=== PATIENT | female | born 1970 | race Hispanic/Latino ===

== ENCOUNTER 2018-04-15 03:54 | Emergency (ER) | payer SELFPAY ==
--- OUTSIDE RECORDS SUMMARY | 2018-04-15 03:56 | XMS REPORT | Clinical Summary ---
:1970 Author Organization [facility] Address [address] [place] [address] Phone Care Team Providers Name Role Phone Unavailable Primary Care Provider Unavailable Allergies No Known Allergies Current Medications Prescription Sig. Disp. Refills Start Date End Date Status metFORMIN (GLUCOPHAGE) Take 1,000 mg Active 1000 MG by mouth 2 tabletIndications: type 2 (two) times diabetes mellitus daily with breakfast and dinner. lovastatin (MEVACOR) 20 Take 20 mg by Active MG tablet mouth nightly. lisinopril 20 MG Tab 20 Take 1 tablet Active mg, hydroCHLOROthiazide by mouth daily. 12.5 mg Cap 12.5 mg gabapentin (NEURONTIN) Take 300 mg by Active 300 MG capsule mouth 2 (two) times daily. apixaban (ELIQUIS) 5 mg Take 1 tablet 60 tablet 1 08/07/2017 Active Tab tablet (5 mg total) by mouth 2 (two) times daily. aspirin 81 MG EC tablet Take 1 tablet 30 tablet 11 08/07/2017 Active (81 mg total) 8 by mouth daily. acetaminophen-codeine Take 1-2 30 tablet 0 08/07/2017 (TYLENOL #3) 300-30 mg tablets by 7 per tablet mouth every 6 (six) hours as needed for Pain for up to 10 days. Max Daily Amount: 8 tablets Active Problems Problem Noted Date Postoperative pain 08/04/2017 Hypokalemia 08/04/2017 Hypomagnesemia 08/04/2017 Peripheral vascular disease (HCC) 07/28/2017 Encounters Date Type Specialty Care Team Description 08/04/2017 Anesthesia Event Robi Delgadillo AA 08/04/2017 Procedure Pass 08/04/2017 Surgery Reji Reza, ENDARTERECTOMY,DAVE LOPES 08/04/2017 Procedure Pass 07/29/2017 Procedure Pass 07/29/2017 Surgery Reji Reza, VENOGRAM 07/28/2017 Procedure Pass 07/28/2017 Surgery Reji Reza, CORONARY ANGIOS & MD AORTOGRAM 07/28/2017 Procedure Pass 07/27/2017 - Hospital Encounter Cardiology Jaspreet Arellano Peripheral vascular 08/07/2017 MD Benny disease Reji Reza, (HCC);Hypokalemia;Hy pomagnesemia;Postope rative pain 07/27/2017 Orders Only General Internal Medicine after 04/14/2017 Family History Medical History Relation Name Comments Diabetes Brother Amada Graham Hypertension Father Guisifredo Diabetes Mother Hypertension Mother Stroke Mother Relation Name Status Comments Brother Amada Graham Alive Father Guisifredo Alive Mother Social History Tobacco Use Types Packs/Day Years Used Date Former Smoker 0.5 30 Quit: 06/27/2017 Smokeless Tobacco: Former User Tobacco Cessation: Counseling Given: Yes Alcohol Use Drinks/Week oz/Week Comments No Sex Assigned at Date Recorded Not on file Last Filed Vital Signs Vital Sign Reading Time Taken Blood Pressure 100/54 08/07/2017 12:00 PM CDT Pulse 84 08/07/2017 12:00 PM CDT Temperature 36.4 C (97.5 F) 08/07/2017 12:00 PM CDT Respiratory Rate 20 08/07/2017 12:00 PM CDT Oxygen Saturation 100% 08/07/2017 12:00 PM CDT Inhaled Oxygen Concentration - - Weight 91.2 kg (201 lb) 08/06/2017 7:25 AM CDT Height 165.1 cm (5' 5") 07/27/2017 9:00 PM CDT Body Mass Index 33.45 08/06/2017 7:25 AM CDT Plan of Treatment Not on file Implants Implanted Type Area Varsity Baseball Coach Device Expiration Model / Identifier Date Serial / Lot Device Clsr Angio-Seal Vip 6fr [id number] - [id number] Cardiovascular [employer] FELIBERTO 05/26/2018 [id number] / Implanted: Qty: 1 on 07/29/2017 by Reji Reza MD MED:CARDIAC / SURG [id number] Stent Icast [id number] - [id number] Stents-Peripheral Right: [employer] 03/13/2019 [id number] / Implanted: Qty: 1 on 08/04/2017 by Reji Reza MD Groin [id number] / NA Stent Epic [id number] - Sna Stents-Peripheral Right: [employer] 03/2022 [id number] / Implanted: Qty: 1 on 08/04/2017 by Reji Reza MD Groin SCI:PERIPHERAL NA / INTERV [id number] Stent Epic [id number] - Sna Stents-Peripheral Right: [place] [id number] / Implanted: Qty: 1 on 08/04/2017 by Reji Reza MD Groin SCI:PERIPHERAL NA / INTERV [id number] Periph Vascu-Grd 0.8x8cm [id number] - [id number] Tissue Right: [employer] 12/23/2021 [id number] / Implanted: Qty: 1 on 08/04/2017 by Reji Reza MD Graft/Substitute Groin TECH:SURG [id number] / INNOV [id number] Procedures Procedure Name Priority Date/Time Associated Diagnosis Comments ENDARTERECTOMY,FEMORAL 08/04/2017 12:00 PM PAD (peripheral artery CDT disease) (HCC) Case Notes RIGHT COMMON FEMORAL ENDARTERECTOMY, ILIAC STENTING VENOGRAM 07/29/2017 5:50 PM CDT [id number] Case Notes RIGHT LOWER EXTREMITY EKOSE CATHETER PLACEEMNT CECILIA CALLED . 2nd day LYSIS /ADDED PER MISTI FOR *10-3 Special Needs MOY/JOHAN [phone] CORONARY ANGIOS & AORTOGRAM 07/28/2017 6:04 PM CDT cp after 04/14/2017 Results RHYTHM STRIP - SCAN (08/20/2017 10:52 AM)Only the most recent of4 resultswithin the time period is included.POC-Glucose meter (08/07/2017 11:58 AM)Only the most recent of36 resultswithin the time period is included. Component Value Ref Range POC-Glucose Meter 269 (H)Comment: TESTED AT [address] 70 - 110 mg/[place] [address] Specimen Performing Laboratory Blood [facility] [address] [place] [address] CBC with platelet count + automated diff (08/07/2017 4:42 AM)Only the most recent of6 resultswithin the time period is included. Component Value Ref Range WBC 10.8 (H) 3.5 - 10.5 K/L RBC 4.36 3.93 - 5.22 M/L Hemoglobin 13.1 11.2 - 15.7 GM/DL Hematocrit 41.8 34.1 - 44.9 % MCV 95.9 (H) 79.4 - 94.8 fL MCH 30.0 25.6 - 32.2 pg MCHC 31.3 (L) 32.2 - 35.5 GM/DL RDW 13.5 11.7 - 14.4 % Platelets 218 150 - 450 K/CU MM MPV 10.1 9.4 - 12.3 fL nRBC 0 0 - 0 /100 WBC % Neutros 52 % % Lymphs 34 % % Monos 8 % % Eos 5 % % Baso 1 % # Neutros 5.61 1.56 - 6.13 K/L # Lymphs 3.66 1.18 - 3.74 K/L # Monos 0.82 (H) 0.24 - 0.36 K/L # Eos 0.56 (H) 0.04 - 0.36 K/L # Baso 0.07 0.01 - 0.08 K/L Immature Granulocytes-Relative 0 0 - 1 % Specimen Performing Laboratory Blood [facility] [address] [address] CBC with platelet count + automated diff (08/07/2017 4:42 AM)Only the most recent of6 resultswithin the time period is included. Specimen Performing Laboratory Blood Narrative The following orders were created for panel order CBC with platelet count + automated diff. Procedure Abnormality Status --------- ------ CBC with platelet count ...[[id number]]AbnormalFinal result Please view results for these tests on the individual orders. Basic metabolic panel (08/07/2017 4:42 AM)Only the most recent of5 resultswithin the time period is included. Component Value Ref Range Sodium 136 136 - 145 meq/L Potassium 4.5Comment: Specimen moderately hemolyzed 3.5 - 5.1 meq/L Chloride 107 98 - 107 meq/L CO2 20 (L) 22 - 29 meq/L BUN 12 7 - 21 mg/dL Creatinine 0.67Comment: Specimen moderately hemolyzed 0.57 - 1.25 mg/dL Glucose 214 (H) 70 - 105 mg/dL Calcium 10.3 (H) 8.4 - 10.2 mg/dL EGFR Comment: INSUFFICIENT CLINICAL DATA TO CALCULATE mL/min/1.73 sq m ESTIMATED GFR. Specimen Performing Laboratory Blood [address] [address] TRANSFUSION SERVICE REPORT - SCAN (08/06/2017 5:40 PM)Only the most recent of2 resultswithin the time period is included.Calcium, Ionized (08/05/2017 4:41 AM) Component Value Ref Range Calcium, Ion 1.30 (H) 1.12 - 1.27 mmol/L pH, Blood 7.43 Specimen Performing Laboratory Blood [address] [address] Magnesium (08/05/2017 4:41 AM)Only the most recent of3 resultswithin the time period is included. Component Value Ref Range Magnesium 2.3 1.6 - 2.6 mg/dL Specimen Performing Laboratory Blood [address] [address] Lactic acid, arterial, whole blood (08/04/2017 6:16 PM) Component Value Ref Range Lactate, Art 1.0Comment: Specimen slightly hemolyzed 0.5 - 2.2 mmol/L Specimen Performing Laboratory Blood, Arterial - Line, Arterial [address] [address] Narrative Effective 02/28/2016: Units/Reference Range Change New: 0.5-2.2 mmol/LPrevious: 5-20 mg/dL Phosphorus (08/04/2017 6:16 PM)Only the most recent of2 resultswithin the time period is included. Component Value Ref Range Phosphorus 2.7 2.3 - 4.7 mg/dL Specimen Performing Laboratory Blood - Line, Arterial [address] [address] Blood gas, arterial (08/04/2017 6:16 PM)Only the most recent of3 resultswithin the time period is included. Component Value Ref Range pH, Arterial 7.37 7.35 - 7.45 pCO2, Arterial 42 35 - 45 mmHg pO2, Arterial 154 (H) 80 - 90 mmHg O2 Sat, Arterial 98.9 (H) 96.0 - 97.0 % HCO3, Arterial 24 21 - 29 mmol/L Base Excess, Arterial -1.4 -2.0 - 3.0 mmol/L Patient Temperature 37.0 C FIO2 100.0 % Specimen Performing Laboratory Blood, Arterial - Line, Arterial [address] [address] Filter Ionized Calcium (08/04/2017 6:16 PM) Component Value Ref Range Filter Ionized Calcium 1.24 nnol/L Specimen Performing Laboratory Blood - Line, Arterial [address] [address] Narrative Reference Range: No Normals Prepare Leuko-Red RBC (08/04/2017 4:35 PM) Component Value Ref Range CROSSMATCH COMPATIBLE Unit ABO O Pos UNIT NUMBER [id number] Status WORK IN PROGRESS Blood Bank Product RED BLOOD CELLS PRODUCT CODE [id number] CROSSMATCH COMPATIBLE Unit ABO O Pos UNIT NUMBER [id number] Status WORK IN PROGRESS Blood Bank Product RED BLOOD CELLS PRODUCT CODE [id number] Specimen Performing Laboratory Other SAFETRACE TX POC ACTIVATED CLOTTING TIME (08/04/2017 3:55 PM)Only the most recent of3 resultswithin the time period is included. Component Value Ref Range Activated Clotting Time 252Comment: TESTED AT [address] sec [address] Specimen Performing Laboratory Blood [address] [address] RRL Critical Labs (ABG,NA,K,H&H,GLU) (08/04/2017 3:49 PM)Only the most recent of2 resultswithin the time period is included. Specimen Performing Laboratory Blood, Arterial Narrative The following orders were created for panel order RRL Critical Labs (ABG,NA,K,H&H,GLU). Procedure Abnormality Status --------- ------ Blood gas, arterial[[id number]]AbnormalFinal result Sodium Na-Stat Lab[[id number]] NormalFinal result Potassium-Stat Lab[[id number]] AbnormalFinal result Glucose-Stat Lab[[id number]] AbnormalFinal result HGB/HCT (H&H)-Stat Lab[[id number]] Normal Final result Please view results for these tests on the individual orders. Potassium-Stat Lab (08/04/2017 3:49 PM)Only the most recent of2 resultswithin the time period is included. Component Value Ref Range Potassium 3.3 (L) 3.6 - 5.5 meq/L Specimen Performing Laboratory Blood, [address] [address] Sodium Na-Stat Lab (08/04/2017 3:49 PM)Only the most recent of2 resultswithin the time period is included. Component Value Ref Range Sodium 138 135 - 148 meq/L Specimen Performing Laboratory Blood, [address] [address] Glucose-Stat Lab (08/04/2017 3:49 PM)Only the most recent of2 resultswithin the time period is included. Component Value Ref Range Glucose 198 (H) 70 - 110 mg/dL Specimen Performing Laboratory Blood, [address] [address] HGB/HCT (H&H)-Stat Lab (08/04/2017 3:49 PM)Only the most recent of2 resultswithin the time period is included. Component Value Ref Range Hemoglobin 13.3 12.0 - 15.0 g/dL Hematocrit 39.0 36.0 - 45.0 % Specimen Performing Laboratory Blood, [address] [address] Tissue Exam (08/04/2017 3:12 PM) Component Value Ref Range Case Report Surgical Pathology Report Case: [id number] Authorizing Provider:Reji Reza MD Collected: 08/04/2017 1512 Ordering Location: [facility] Received: 08/05/2017 0744 PERIOPERATIVE SERVICES Pathologist: David Hatch MD Specimen:Plaque, right femoral plaque DIAGNOSIS ARTERY, RIGHT FEMORAL, ATHERECTOMY: CALCIFIC ATHEROSCLEROTIC PLAQUE WITH FOCAL RUPTURE AND FIBRIN THROMBOSIS Signing Pathologist Direct Phone Line: [phone] CPT Code(s) 44083; 95561 CLINICAL HISTORY Peripheral artery disease right femoral plaque SPECIMEN SOURCE A. Right femoral plaque GROSS DESCRIPTION The specimen is received in saline labeled with the patient's information and labeled "right femoral plaque" and consists of two calcified tubular-shaped segment of tissue measuring 2 and 3 cm in length ranging in diameter from 0.5 to 0.6 cm. Assistant Drafter sections are submitted A1 for decalcification. CG/pl MICROSCOPIC DESCRIPTION Performed Specimen Performing Laboratory Tissue - Plaque [address] [address] Screen, urine (08/04/2017 9:39 AM) Component Value Ref Range Preg Test, Ur Negative Specimen Performing Laboratory Urine - Urine, Voided [address] [address] aPTT (08/04/2017 7:33 AM)Only the most recent of20 resultswithin the time period is included. Component Value Ref Range PTT 86.0 (H) 22.5 - 36.0 seconds Specimen Performing Laboratory Blood [address] [address] CBC (Hemogram only) (08/04/2017 4:58 AM)Only the most recent of6 resultswithin the time period is included. Component Value Ref Range WBC 9.3 3.5 - 10.5 K/L RBC 4.17 3.93 - 5.22 M/L Hemoglobin 12.5 11.2 - 15.7 GM/DL Hematocrit 37.4 34.1 - 44.9 % MCV 89.7 79.4 - 94.8 fL MCH 30.0 25.6 - 32.2 pg MCHC 33.4 32.2 - 35.5 GM/DL RDW 13.3 11.7 - 14.4 % Platelets 256 150 - 450 K/CU MM MPV 10.3 9.4 - 12.3 fL nRBC 0 0 - 0 /100 WBC Specimen Performing Laboratory Blood [address] [address] Type and screen, automated (08/03/2017 5:29 AM) Component Value Ref Range ABO/RH AUTOMATED (BEAKER) O POSITIVE Ab Scrn NEGATIVE Specimen Performing Laboratory Blood [address] [address] PT/aPTT (07/31/2017 4:07 AM)Only the most recent of4 resultswithin the time period is included. Component Value Ref Range Protime 13.5 11.7 - 14.7 seconds INR 1.0 <=5.9 PTT 84.1 (H) 22.5 - 36.0 seconds Specimen Performing Laboratory Blood - Arm, Right [facility] [address] [place] [address] Narrative RECOMMENDED COUMADIN/WARFARIN INR THERAPY RANGES STANDARD DOSE: 2.0 - 3.0 Includes: PROPHYLAXIS for venous thrombosis, systemic embolization; TREATMENT for venous thrombosis and/or pulmonary embolus. HIGH RISK: Target INR is 2.5-3.5 for patients with mechanical heart valves. . . CARDIAC CATH REPORT - SCAN (07/31/2017 1:00 AM)Only the most recent of2 resultswithin the time period is included.NM myocardial perfusion SPECT,pharm( Lexiscan) (07/30/2017 12:14 PM) Specimen Performing Laboratory [facility] Narrative FINAL REPORT PROCEDURE:Rest/Stress MYOCARDIAL PERFUSION SPECT with regadenoson\\XA9\\ CPT CODE:91131 INDICATION:Intermediate CAD Risk HISTORY:Cardiac risk factors: Diabetes, Hypertension, Dyslipidemia, Tobacco, PVD. Other cardiovascular history: No reported CAD. Current cardiovascular-related medications: aspirin, Lipitor, lisinopril. PROTOCOL:10.5 mCi of Tc-99m sestamibi was injected iv at rest, and SPECT (tomographic) images were obtained. Also, 32.5 mCi of Tc-99m sestamibi was injected iv at expected peak pharmacologic effect, and gated SPECT images were obtained. PRELIMINARY STRESS TEST DATA FROM NONINVASIVE CARDIOLOGY: Pharmacologic stress was by 10-second iv infusion of 0.4 mg of regadenoson. Radiotracer was injected 30 seconds after start of stress. Heart rate was 70 beats/min at rest and 99 beats/min (57 % of MPHR) at tracer injection. BP was 157/81 mmHg at rest and 170/75 mmHg at tracer injection. Stress was stopped for predetermined endpoint. The patient experienced flushing; treatment was not required. Preliminary ECG evaluation revealed sinus rhythm at rest and no ischemic changes with stress. (Final ECG interpretation and other stress and monitoring data are reported separately by Cardiology.) IMAGING FINDINGS:Study quality is good. Images obtained after rest and stress injections show normal LV activity. LV and RV volumes appear normal. Gated images obtained at rest after stress show normal LV wall motion and thickening. QGS LVEF is 66%. IMPRESSION: 1. Normal study.2. Appropriate pharmacologic stress. 3. Normal myocardial perfusion.4. Normal resting LV function.5. Normal extracardiac tracer distribution.6. No previous [facility] study for comparison. NONINVASIVE RISK STRATIFICATION: The above findings are considered low risk (<1% annual mortality rate) based on the following criterion: - Normal or small myocardial perfusion defect at rest or with stress ([facility]. 2012;59(9):857-81.) Signed: Hector Dixon MD Report Verified Date/Time:07/30/2017 13:46:52 Reading Location: [address] Reading Room Procedure Note Interface, External Ris In - 07/30/2017 1:49 PM CDT FINAL REPORT PROCEDURE: Rest/Stress MYOCARDIAL PERFUSION SPECT with regadenoson\\XA9\\ CPT CODE: 22261 INDICATION: Intermediate CAD Risk HISTORY: Cardiac risk factors: Diabetes, Hypertension, Dyslipidemia, Tobacco, PVD. Other cardiovascular history: No reported CAD. Current cardiovascular-related medications: aspirin, Lipitor, lisinopril. PROTOCOL: 10.5 mCi of Tc-99m sestamibi was injected iv at rest, and SPECT (tomographic) images were obtained. Also, 32.5 mCi of Tc-99m sestamibi was injected iv at expected peak pharmacologic effect, and gated SPECT images were obtained. PRELIMINARY STRESS TEST DATA FROM NONINVASIVE CARDIOLOGY: Pharmacologic stress was by 10-second iv infusion of 0.4 mg of regadenoson. Radiotracer was injected 30 seconds after start of stress. Heart rate was 70 beats/min at rest and 99 beats/min (57 % of MPHR) at tracer injection. BP was 157/81 mmHg at rest and 170/75 mmHg at tracer injection. Stress was stopped for predetermined endpoint. The patient experienced flushing; treatment was not required. Preliminary ECG evaluation revealed sinus rhythm at rest and no ischemic changes with stress. (Final ECG interpretation and other stress and monitoring data are reported separately by Cardiology.) IMAGING FINDINGS: Study quality is good. Images obtained after rest and stress injections show normal LV activity. LV and RV volumes appear normal. Gated images obtained at rest after stress show normal LV wall motion and thickening. QGS LVEF is 66%. IMPRESSION: 1. Normal study. 2. Appropriate pharmacologic stress. 3. Normal myocardial perfusion. 4. Normal resting LV function. 5. Normal extracardiac tracer distribution. 6. No previous [facility] study for comparison. NONINVASIVE RISK STRATIFICATION: The above findings are considered low risk (<1% annual mortality rate) based on the following criterion: - Normal or small myocardial perfusion defect at rest or with stress ([facility]. 2012;59(9):857-81.) Signed: Hector Dixon MD Report Verified Date/Time: 07/30/2017 13:46:52 Reading Location: [address] Reading Room Treadmill tolerance(Non-Nuclear Treadmill) (07/30/2017 10:34 AM) Specimen Performing Laboratory [facility] Narrative Protocol Name Lexiscan Time In Exercise Phase 00:01:00 Max. Systolic BP 170 mmHg Max Diastolic BP 75 mmHg Max Heart Rate 99 BPM Max Predicted Heart Rate 172 BPM Reason For Termination Predetermined end point Reason for Test CAD Risk Evaluation Target HR Formula (220 - Age)*100% Arrhythmias none Resting ECG Normal sinus rhythm EarlyRepolarization Abnormality ST Changes No Significant Changes Overall Impression Indeterminate due to pharmacological stress Chest Pain none HR Response To Exercise BP Response To Exercise ASA LIPITOR LISINOPRIL MICROZIDE Confirmed by fellow Louie Roth ([id number]) on 07/30/2017 10:55:38 AM Confirmed by MD RAWLS JORGE ([id number]) on 08/21/2017 3:07:24 PM Procedure Note Interface, External Ris In - 08/21/2017 3:07 PM CDT Protocol Name Lexiscan Time In Exercise Phase 00:01:00 Max. Systolic BP 170 mmHg Max Diastolic BP 75 mmHg Max Heart Rate 99 BPM Max Predicted Heart Rate 172 BPM Reason For Termination Predetermined end point Reason for Test CAD Risk Evaluation Target HR Formula (220 - Age)*100% Arrhythmias none Resting ECG Normal sinus rhythm Early Repolarization Abnormality ST Changes No Significant Changes Overall Impression Indeterminate due to pharmacological stress Chest Pain none HR Response To Exercise BP Response To Exercise ASA LIPITOR LISINOPRIL MICROZIDE Confirmed by fellow Louie Roth ([id number]) on 07/30/2017 10:55:38 AM Confirmed by MD RAWLS JORGE ([id number]) on 08/21/2017 3:07:24 PM TSH/Free T4 If Indicated (07/30/2017 5:18 AM) Component Value Ref Range TSH 2.22 0.35 - 4.94 uIU/mL Specimen Performing Laboratory Blood - Arm, [address] [address] Hemoglobin A1c (07/30/2017 5:18 AM) Component Value Ref Range Hemoglobin A1C 10.3 (H) 4.3 - 6.1 % Specimen Performing Laboratory Blood - Arm, [address] [address] Hepatic function panel (07/30/2017 5:18 AM) Component Value Ref Range Protein, Total 6.3 6.0 - 8.3 gm/dL Albumin 3.6 3.5 - 5.0 g/dL Total Bilirubin 0.3 0.2 - 1.2 mg/dL Bilirubin, Direct 0.1 0.1 - 0.5 mg/dL Alkaline Phosphatase 84 40 - 150 U/L AST 27 5 - 34 U/L ALT 41 6 - 55 U/L Specimen Performing Laboratory Blood - Arm, [address] [address] Lipid panel (07/30/2017 5:18 AM) Component Value Ref Range Triglycerides 181 mg/dL Cholesterol 175 mg/dL HDL 32 mg/dL LDL Calculated 107 mg/dL Specimen Performing Laboratory Blood - Arm, [address] [address] Narrative Triglyceride Reference Range: Low Risk <150 [id number] High Risk 200-499 Very High Risk>=500 Cholesterol Reference Range: Low Risk <200 [id number] High Risk>240 HDL Cholesterol Reference Range: Low Risk >=60 High Risk <40 LDL Cholesterol Reference Range: Optimal<100 Near Itqxrpg802-101 Dgphmfgiht549-796 [id number] Very High >=190 Fibrinogen (07/29/2017 12:24 PM)Only the most recent of5 resultswithin the time period is included. Component Value Ref Range Fibrinogen 430 225 - 434 mg/dl Specimen Performing Laboratory Blood - Arm, Right [address] [address] Narrative Continue for duration of infusion. Hemoglobin and hematocrit (07/29/2017 6:12 AM) Component Value Ref Range Hemoglobin 13.0 11.2 - 15.7 GM/DL Hematocrit 39.5 34.1 - 44.9 % Specimen Performing Laboratory Blood - Arm, Right [address] [address] Troponin I (07/29/2017 12:09 AM)Only the most recent of3 resultswithin the time period is included. Component Value Ref Range Troponin I <0.01 0.00 - 0.03 ng/mL Specimen Performing Laboratory Blood - Arm, [place] [address] Narrative Troponin I (TnI) levels must be interpreted in the context of the presenting symptoms and the clinical findings. Elevated TnI levels indicate myocardial damage, but are not specific for ischemic heart disease. Elevated TnI levels are seen in patients with other cardiac conditions (including myocarditis and congestive heart failure), and slight TnI elevations occur in patients with other conditions, including sepsis, renal failure, acidosis, acute neurological disease, and persistent tachyarrhythmia. Creatine Kinase (CK), Total and MB (07/28/2017 10:49 AM) Component Value Ref Range Total CK 30 29 - 200 U/L CK-MB 0.5 0.0 - 6.6 ng/mL MB Relative Index 1.7 % Specimen Performing Laboratory Blood - Arm, [address] [address] Narrative CK-MB Reference Range: <6.7Normal 6.7-10.0Borderline >10.0 Abnormal ECG 12 lead (07/28/2017 9:13 AM)Only the most recent of2 resultswithin the time period is included. Specimen Performing Laboratory [facility] Narrative Ventricular Rate 72 BPM Atrial Rate 72 BPM P-R Interval 124 ms QRS Duration 86 ms Q-T Interval 372 ms QTC Calculation(Bazett) 407 ms P [place] 29 degrees R [place] 43 degrees T [place] 55 degrees Normal sinus rhythm Early repolarization Normal ECG When compared with ECG of 27-JUL-2017 21:14, No significant change was found Confirmed by MD MESSER YOCHAI ([id number]) on 07/29/2017 7:19:15 AM Procedure Note Interface, External Ris In - 07/29/2017 7:19 AM CDT Ventricular Rate 72 BPM Atrial Rate 72 BPM P-R Interval 124 ms QRS Duration 86 ms Q-T Interval 372 ms QTC Calculation(Bazett) 407 ms P [place] 29 degrees R [place] 43 degrees T [place] 55 degrees Normal sinus rhythm Early repolarization Normal ECG When compared with ECG of 27-JUL-2017 21:14, No significant change was found Confirmed by MD MESSER YOCHAI ([id number]) on 07/29/2017 7:19:15 AM CTA AAA and Runoff (07/28/2017 7:00 AM) Specimen Performing Laboratory [facility] Narrative Addendum Begins REPORT STATUS:A Addendum: The non vascular findings were reviewed by the design sales consultant radiologist. I agree with the original report which is unchanged. Signed: Zhen Ramirez MD Report Verified Date/Time:07/28/2017 12:15:20 Addendum Ends Addendum Begins REPORT STATUS:A Addendum: Imaging findings were reviewed with Dr. Reza.In addition, this also arthroscopic ulceration identified just posterior to the left renal artery, at image 55. A subcentimeter hypodensity is identified in the inferior pole of the left kidney, image 114, too small to characterize, measure at most 8 mm. Signed: Donato Franklin MD Report Verified Date/Time:07/28/2017 10:11:14 Reading Location: [place] [address] Cardiology MRI Addendum Ends FINAL REPORT CT angiography of the abdominal aorta with runoff, 27 July 2017 INDICATION: This is a 47 years old female, with clinical presentation of right lower extremity pain at rest, with dusky appearance, and no obvious palpable pulse presents for assessment. This study is performed in attempt to avoid invasive procedure. TECHNIQUE: Spiral acquisition before and during contrast administration using a Siemens multidetector CT scanner. Multiplanar 3-D volume rendering reformation was performed using independent workstation interactively by the dictating physician and the 3-D specialist. The amount of contrast used and method of administration can be found in the scanned Epic document. This exam was performed according to our departmental dose-optimisation programme, which includes automated exposure control, adjustment of the mA and/or kV according to patient size and/or use of iterative reconstruction technique. Dose modulation, iterative reconstruction, and/or weight based adjustment of the mA/kV was utilized to reduce the radiation dose to as low as reasonably achievable. FINDINGS: The abdominal aorta has circumferential noncalcific atherosclerosis identified, circumferentially, moderate in nature with scattered calcific atherosclerosis identified. No acute dissection or contained rupture is seen. No luminal obstruction is identified along the abdominal aorta. Quantitative dimensions of the abdominal aorta are as follows: 2.2 cm at the mesenteric level; 2.2 cm at the renal level; and 1.6 cm at the aortic bifurcation. The coeliac axis, SMA, JANEEN are widely patent. Replaced right hepatic artery is seen, common variant. Single left and right renal arteries are seen that are widely patent. Single left and two right renal veins are seen draining normally into the IVC. In the right, while the origin of the right common iliac artery is patent, majority of the right common iliac artery is not enhanced by contrast indicating occlusion. Acuity of this finding cannot be commented upon. The length of the occlusion is estimated to be 5.7 cm and the diameter of the takeoff of the right common iliac arteries approximately 10 x 10 mm. See snapshot for details. The right internal iliac artery is patent. The right external iliac artery and the right common femoral artery has substantial noncalcific atherosclerosis throughout its course and overall, there is mild to moderate lesion identified. Minimum luminal diameter is approximately 3 to 4 mm. In addition, the amount of atherosclerosis is increased just before the takeoff of the SFA, with patent lumen of at most 2 mm in the very distal right common femoral artery image 246. This could potentially represent at least a moderate focal lesion. The right profunda system is patent. The proximal 14 cm of the right SFA has diffuse noncalcific atherosclerosis identified, where the minimum luminal diameter is at most 2 mm. Distal to this, i.e. in the distal half of the right SFA, for length of 11 cm, severe diffuse disease is identified. A focal severe stenosis identified at the juncture of the distal right SFA/right popliteal artery, at image 402. Thereafter, the right popliteal artery is readily well enhanced by contrast with mild to moderate disease identified, with associated noncalcific atherosclerosis. In the right lower extremity, the right tibioperoneal trunk is widely patent. The right anterior tibial artery is widely patent and dorsalis pedis artery is well seen. The right posterior tibial artery is widely patent and plantar arch is well seen. The right peroneal artery is a smaller caliber vessel though is still well seen down to level of the ankle. The left common iliac, left external iliac, and the left common femoral arteries has circumferential noncalcific atherosclerosis identified. There is likely localised atherosclerotic ulceration identified image 127, representing a spectrum of underlying atherosclerosis. Overall, no luminal obstruction is identified. The left profunda system is widely patent. However, there is severe diffuse disease subtotal occlusion identified essentially throughout the majority of the left SFA. Substantial atherosclerosis also seen in the proximal few centimeters of the left posterior tibial artery with minimum luminal diameter of 1.5 to 2 mm; thereafter, just above the left knee joint remainder of the left of the artery has no obstructive lesion identified. In the left lower extremity, the left anterior and posterior tibial arteries are widely patent giving rise to the dorsalis pedis and plantar arches distally. The left tibioperoneal trunk is widely patent. The left peroneal artery is patent. NONVASCULAR: The lung bases are unremarkable. Some atelectatic changes are seen. In the abdomen, the liver and spleen appears unremarkable. The liver edge is smooth. No abnormal enhancing structure is identified. Precontrast Hounsfield unit of the liver is less than 40 indicating fatty infiltration. The gallbladder, the adrenal glands, the pancreas appears unremarkable. Pancreas appears unremarkable. No acute renal pathology is seen and no hydronephrosis or perirenal fluid collection is identified. Bowel is not well assessed by CT angiography as enteric contrast is not given. No obvious bowel dilation is identified. No free air or free fluid seen in the abdomen and pelvis. The bladder appears unremarkable. The uterus is identified. The left ovary is identified image 197, measure approximately 1.7 cm in diameter, likely physiologic in nature. CT is not optimised in the assessment of pelvic gynaecological structures. No significant retroperitoneal adenopathy is identified. No acute bony pathology is seen. Tiny sclerotic focus is identified at image 202 in the right pelvis, suggesting tiny bone island. CONCLUSIONS: 1.Circumferential noncalcific atherosclerosis with no luminal obstruction is identified in the abdominal aorta. Quantitative dimensions of the abdominal aorta are as described above. No acute aortic pathology is seen. 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 Moderate atherosclerosis is identified in the right external iliac artery and the right common femoral artery. Of note, in the most distal right common femoral artery, for example image 246, substantial noncalcific atherosclerosis is seen and minimum luminal diameter is 2 mm suggesting at least a moderate significant focal lesion. The proximal 14 cm of the right SFA has diffuse noncalcific atherosclerosis identified with minimal luminal diameter of 2 mm, distal to this, the remainder of the 11 cm of the right SFA has severe diffuse disease identified and at the juncture of the right SFA/right popliteal artery a severe focal stenosis is seen. The right popliteal artery is patent with mild to moderate atherosclerosis identified with no focal disease identified. Details of runoff vessels as described above. 3.Atherosclerosis identified in the left pelvic arteries with no luminal obstruction identified. 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 Substantial atherosclerosis also seen in the proximal few centimeters of the left posterior tibial artery with minimum luminal diameter of 1.5 to 2 mm; thereafter, just above the left knee joint remainder of the left of the artery has no obstructive lesion identified. Details of runoff vessels as described above in the left lower extremity. 3.Other findings as described above. Hepatic steatosis. 4.An addendum will be dictated by the Scientific Diver Radiologist regarding the nonvascular findings. 5.Major findings were discussed with Dr. Arellano at the time of dictation. Signed: Donato Franklin MD Report Verified Date/Time:07/28/2017 08:43:55 Reading Location: [place] [address] Cardiology MRI Procedure Note Interface, External Ris In - 07/28/2017 12:17 PM CDT Addendum Begins REPORT STATUS:A Addendum: The non vascular findings were reviewed by the design sales consultant radiologist. I agree with the original report which is unchanged. Signed: Zhen Ramirez MD Report Verified Date/Time: 07/28/2017 12:15:20 Addendum Ends Addendum Begins REPORT STATUS:A Addendum: Imaging findings were reviewed with Dr. Reza. In addition, this also arthroscopic ulceration identified just posterior to the left renal artery, at image 55. A subcentimeter hypodensity is identified in the inferior pole of the left kidney, image 114, too small to characterize, measure at most 8 mm. Signed: Donato Franklin MD Report Verified Date/Time: 07/28/2017 10:11:14 Reading Location: [place] [address] Cardiology MRI Addendum Ends FINAL REPORT CT angiography of the abdominal aorta with runoff, 27 July 2017 INDICATION: This is a 47 years old female, with clinical presentation of right lower extremity pain at rest, with dusky appearance, and no obvious palpable pulse presents for assessment. This study is performed in attempt to avoid invasive procedure. TECHNIQUE: Spiral acquisition before and during contrast administration using a Siemens multidetector CT scanner. Multiplanar 3-D volume rendering reformation was performed using independent workstation interactively by the dictating physician and the 3-D specialist. The amount of contrast used and method of administration can be found in the scanned Epic document. This exam was performed according to our departmental dose-optimisation programme, which includes automated exposure control, adjustment of the mA and/or kV according to patient size and/or use of iterative reconstruction technique. Dose modulation, iterative reconstruction, and/or weight based adjustment of the mA/kV was utilized to reduce the radiation dose to as low as reasonably achievable. FINDINGS: The abdominal aorta has circumferential noncalcific atherosclerosis identified, circumferentially, moderate in nature with scattered calcific atherosclerosis identified. No acute dissection or contained rupture is seen. No luminal obstruction is identified along the abdominal aorta. Quantitative dimensions of the abdominal aorta are as follows: 2.2 cm at the mesenteric level; 2.2 cm at the renal level; and 1.6 cm at the aortic bifurcation. The coeliac axis, SMA, JANEEN are widely patent. Replaced right hepatic artery is seen, common variant. Single left and right renal arteries are seen that are widely patent. Single left and two right renal veins are seen draining normally into the IVC. In the right, while the origin of the right common iliac artery is patent, majority of the right common iliac artery is not enhanced by contrast indicating occlusion. Acuity of this finding cannot be commented upon. The length of the occlusion is estimated to be 5.7 cm and the diameter of the takeoff of the right common iliac arteries approximately 10 x 10 mm. See snapshot for details. The right internal iliac artery is patent. The right external iliac artery and the right common femoral artery has substantial noncalcific atherosclerosis throughout its course and overall, there is mild to moderate lesion identified. Minimum luminal diameter is approximately 3 to 4 mm. In addition, the amount of atherosclerosis is increased just before the takeoff of the SFA, with patent lumen of at most 2 mm in the very distal right common femoral artery image 246. This could potentially represent at least a moderate focal lesion. The right profunda system is patent. The proximal 14 cm of the right SFA has diffuse noncalcific atherosclerosis identified, where the minimum luminal diameter is at most 2 mm. Distal to this, i.e. in the distal half of the right SFA, for length of 11 cm, severe diffuse disease is identified. A focal severe stenosis identified at the juncture of the distal right SFA/right popliteal artery, at image 402. Thereafter, the right popliteal artery is readily well enhanced by contrast with mild to moderate disease identified, with associated noncalcific atherosclerosis. In the right lower extremity, the right tibioperoneal trunk is widely patent. The right anterior tibial artery is widely patent and dorsalis pedis artery is well seen. The right posterior tibial artery is widely patent and plantar arch is well seen. The right peroneal artery is a smaller caliber vessel though is still well seen down to level of the ankle. The left common iliac, left external iliac, and the left common femoral arteries has circumferential noncalcific atherosclerosis identified. There is likely localised atherosclerotic ulceration identified image 127, representing a spectrum of underlying atherosclerosis. Overall, no luminal obstruction is identified. The left profunda system is widely patent. However, there is severe diffuse disease subtotal occlusion identified essentially throughout the majority of the left SFA. Substantial atherosclerosis also seen in the proximal few centimeters of the left posterior tibial artery with minimum luminal diameter of 1.5 to 2 mm; thereafter, just above the left knee joint remainder of the left of the artery has no obstructive lesion identified. In the left lower extremity, the left anterior and posterior tibial arteries are widely patent giving rise to the dorsalis pedis and plantar arches distally. The left tibioperoneal trunk is widely patent. The left peroneal artery is patent. NONVASCULAR: The lung bases are unremarkable. Some atelectatic changes are seen. In the abdomen, the liver and spleen appears unremarkable. The liver edge is smooth. No abnormal enhancing structure is identified. Precontrast Hounsfield unit of the liver is less than 40 indicating fatty infiltration. The gallbladder, the adrenal glands, the pancreas appears unremarkable. Pancreas appears unremarkable. No acute renal pathology is seen and no hydronephrosis or perirenal fluid collection is identified. Bowel is not well assessed by CT angiography as enteric contrast is not given. No obvious bowel dilation is identified. No free air or free fluid seen in the abdomen and pelvis. The bladder appears unremarkable. The uterus is identified. The left ovary is identified image 197, measure approximately 1.7 cm in diameter, likely physiologic in nature. CT is not optimised in the assessment of pelvic gynaecological structures. No significant retroperitoneal adenopathy is identified. No acute bony pathology is seen. Tiny sclerotic focus is identified at image 202 in the right pelvis, suggesting tiny bone island. CONCLUSIONS: 1. Circumferential noncalcific atherosclerosis with no luminal obstruction is identified in the abdominal aorta. Quantitative dimensions of the abdominal aorta are as described above. No acute aortic pathology is seen. 2. 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 Moderate atherosclerosis is identified in the right external iliac artery and the right common femoral artery. Of note, in the most distal right common femoral artery, for example image 246, substantial noncalcific atherosclerosis is seen and minimum luminal diameter is 2 mm suggesting at least a moderate significant focal lesion. The proximal 14 cm of the right SFA has diffuse noncalcific atherosclerosis identified with minimal luminal diameter of 2 mm, distal to this, the remainder of the 11 cm of the right SFA has severe diffuse disease identified and at the juncture of the right SFA/right popliteal artery a severe focal stenosis is seen. The right popliteal artery is patent with mild to moderate atherosclerosis identified with no focal disease identified. Details of runoff vessels as described above. 3. Atherosclerosis identified in the left pelvic arteries with no luminal obstruction identified. 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 Substantial atherosclerosis also seen in the proximal few centimeters of the left posterior tibial artery with minimum luminal diameter of 1.5 to 2 mm; thereafter, just above the left knee joint remainder of the left of the artery has no obstructive lesion identified. Details of runoff vessels as described above in the left lower extremity. 3. Other findings as described above. Hepatic steatosis. 4. An addendum will be dictated by the [employer] D[employer] Radiologist regarding the nonvascular findings. 5. Major findings were discussed with Dr. Arellano at the time of dictation. Signed: Donato Franklin MD Report Verified Date/Time: 07/28/2017 08:43:55 Reading Location: [place] [address] Cardiology MRI after 04/14/2017
--- OUTSIDE RECORDS SUMMARY | 2018-04-15 03:58 | XMS REPORT ---
:1970 [facility] [address] [place] [address] [address]. [address] [place] [address] Care Team Providers Name Role Phone BRENNEN ARELLANO Unavailable Unavailable Problems This patient has no known problems. Allergies, Adverse Reactions, Alerts This patient has no known allergies or adverse reactions. Medications This patient has no known medications. Results Test Description Test Time Test Comments Text Results Atomic Results Result Comments TISSUE EXAM 2017-08-11 10:54:00 Surgical Pathology Report Case: [id number] Authorizing Provider: Reji Reza MD Collected: 08/04/2017 1512 Ordering Location: [facility] Received: 08/05/2017 0744 PERIOPERATIVE SERVICES Pathologist: David Hatch MD Specimen: Plaque, right femoral plaque ARTERY, RIGHT FEMORAL, ATHERECTOMY:CALCIFIC ATHEROSCLEROTIC PLAQUE WITH FOCAL RUPTURE AND FIBRIN THROMBOSIS Signing Pathologist Direct Phone Line: [phone] signed by David Hatch MD on 08/11/2017 at 10:54 [id number]; [id number] artery disease right femoral plaqueA. Right femoral plaqueThe specimen is received in saline labeled with the patient's information and labeled "right femoral plaque" and consists of two calcified tubular-shaped segment of tissue measuring 2 and 3 cm in length ranging in diameter from 0.5 to 0.6 cm. Non Destructive Evaluation Technician sections are submitted A1 for decalcification. CG/pl Performed POCT-GLUCOSE METER 2017-08-07 12:01:00 Test Item Value Reference Range Comments POC-GLUCOSE METER (BEAKER) (test 269 mg/dL 70-110 TESTED AT [place] [id number] [facility] wbzs=8807) [facility] [address] POCT-GLUCOSE [id number] 08:40:00 Test Item Value Reference Range Comments POC-GLUCOSE METER (BEAKER) 246 mg/dL 70-110 TESTED AT [address] (test onht=7835) [facility] [address] BASIC METABOLIC [id number] 05:18:00 Test Item Value Reference Range Comments SODIUM (BEAKER) (test 136 meq/L 136-145 dyue=440) POTASSIUM (BEAKER) (test 4.5 meq/L 3.5-5.1 Specimen moderately bfhv=457) hemolyzed CHLORIDE (BEAKER) (test 107 meq/L 98-107 xyfd=636) CO2 (BEAKER) (test 20 meq/L 22-29 zygb=372) BLOOD UREA NITROGEN 12 mg/dL 7-21 (BEAKER) (test cmxv=525) CREATININE (BEAKER) (test 0.67 mg/dL 0.57-1.25 Specimen moderately wpqa=215) hemolyzed GLUCOSE RANDOM (BEAKER) 214 mg/dL 70-105 (test scuj=610) CALCIUM (BEAKER) (test 10.3 mg/dL 8.4-10.2 jjms=836) EGFR (BEAKER) (test mL/min/1.73 sq m INSUFFICIENT CLINICAL DATA tbqk=9679) TO CALCULATE ESTIMATED GFR. CBC W/PLT COUNT & AUTO [id number] 05:03:00 Test Item Value Reference Range Comments WHITE BLOOD CELL COUNT (BEAKER) (test cvuk=522) 10.8 K/ L 3.5-10.5 RED BLOOD CELL COUNT (BEAKER) (test uija=101) 4.36 M/ L 3.93-5.22 HEMOGLOBIN (BEAKER) (test kmaq=836) 13.1 GM/DL 11.2-15.7 HEMATOCRIT (BEAKER) (test lvme=651) 41.8 % 34.1-44.9 MEAN CORPUSCULAR VOLUME (BEAKER) (test pgna=175) 95.9 fL 79.4-94.8 MEAN CORPUSCULAR HEMOGLOBIN (BEAKER) (test 30.0 pg 25.6-32.2 xpvn=640) MEAN CORPUSCULAR HEMOGLOBIN CONC (BEAKER) (test 31.3 GM/DL 32.2-35.5 ccuy=643) RED CELL DISTRIBUTION WIDTH (BEAKER) (test 13.5 % 11.7-14.4 iiks=386) PLATELET COUNT (BEAKER) (test vajg=297) 218 K/CU MM 150-450 MEAN PLATELET VOLUME (BEAKER) (test lato=306) 10.1 fL 9.4-12.3 NUCLEATED RED BLOOD CELLS (BEAKER) (test 0 /100 WBC 0-0 rkyk=219) NEUTROPHILS RELATIVE PERCENT (BEAKER) (test 52 % qswj=526) LYMPHOCYTES RELATIVE PERCENT (BEAKER) (test 34 % idwv=686) MONOCYTES RELATIVE PERCENT (BEAKER) (test 8 % txsz=631) EOSINOPHILS RELATIVE PERCENT (BEAKER) (test 5 % ydsx=518) BASOPHILS RELATIVE PERCENT (BEAKER) (test 1 % kqre=938) NEUTROPHILS ABSOLUTE COUNT (BEAKER) (test 5.61 K/ L 1.56-6.13 amjj=201) LYMPHOCYTES ABSOLUTE COUNT (BEAKER) (test 3.66 K/ L 1.18-3.74 qpte=208) MONOCYTES ABSOLUTE COUNT (BEAKER) (test 0.82 K/ L 0.24-0.36 tuth=667) EOSINOPHILS ABSOLUTE COUNT (BEAKER) (test 0.56 K/ L 0.04-0.36 gvnq=853) BASOPHILS ABSOLUTE COUNT (BEAKER) (test 0.07 K/ L 0.01-0.08 szuf=593) IMMATURE GRANULOCYTES-RELATIVE PERCENT (BEAKER) 0 % 0-1 (test jjba=0325) POCT-GLUCOSE [id number] 22:46:00 Test Item Value Reference Range Comments POC-GLUCOSE METER (BEAKER) 354 mg/dL 70-110 Patient on insulin Drip/TESTED (test anlq=8937) AT [place] [address] POCT-GLUCOSE [id number] 18:28:00 Test Item Value Reference Range Comments POC-GLUCOSE METER (BEAKER) 263 mg/dL 70-110 TESTED AT [address] (test anwh=3913) [place] [address] POCT-GLUCOSE [id number] 12:03:00 Test Item Value Reference Range Comments POC-GLUCOSE METER (BEAKER) 336 mg/dL 70-110 TESTED AT [address] (test utqn=3784) [place] [address] POCT-GLUCOSE [id number] 07:59:00 Test Item Value Reference Range Comments POC-GLUCOSE METER (BEAKER) 250 mg/dL 70-110 TESTED AT [address] (test junh=1228) [place] [address] BASIC METABOLIC [id number] 06:17:00 Test Item Value Reference Range Comments SODIUM (BEAKER) (test 138 meq/L 136-145 ekgb=251) POTASSIUM (BEAKER) (test 3.7 meq/L 3.5-5.1 bili=377) CHLORIDE (BEAKER) (test 104 meq/L 98-107 ibph=993) CO2 (BEAKER) (test 25 meq/L 22-29 wkyi=194) BLOOD UREA NITROGEN 11 mg/dL 7-21 (BEAKER) (test wxaf=953) CREATININE (BEAKER) (test 0.77 mg/dL 0.57-1.25 lpdq=133) GLUCOSE RANDOM (BEAKER) 236 mg/dL 70-105 (test hvvv=284) CALCIUM (BEAKER) (test 10.3 mg/dL 8.4-10.2 fdsm=338) EGFR (BEAKER) (test mL/min/1.73 sq m INSUFFICIENT CLINICAL DATA cvji=6278) TO CALCULATE ESTIMATED GFR. CBC W/PLT COUNT & AUTO [id number] 05:34:00 Test Item Value Reference Range Comments WHITE BLOOD CELL COUNT (BEAKER) (test wtkr=528) 12.0 K/ L 3.5-10.5 RED BLOOD CELL COUNT (BEAKER) (test szdk=044) 4.27 M/ L 3.93-5.22 HEMOGLOBIN (BEAKER) (test fapv=967) 12.8 GM/DL 11.2-15.7 HEMATOCRIT (BEAKER) (test fwyi=643) 39.3 % 34.1-44.9 MEAN CORPUSCULAR VOLUME (BEAKER) (test mhgm=811) 92.0 fL 79.4-94.8 MEAN CORPUSCULAR HEMOGLOBIN (BEAKER) (test 30.0 pg 25.6-32.2 btmp=554) MEAN CORPUSCULAR HEMOGLOBIN CONC (BEAKER) (test 32.6 GM/DL 32.2-35.5 qdkr=826) RED CELL DISTRIBUTION WIDTH (BEAKER) (test 13.7 % 11.7-14.4 pjbj=771) PLATELET COUNT (BEAKER) (test ubeb=577) 261 K/CU MM 150-450 MEAN PLATELET VOLUME (BEAKER) (test catv=366) 10.2 fL 9.4-12.3 NUCLEATED RED BLOOD CELLS (BEAKER) (test 0 /100 WBC 0-0 zdvu=557) NEUTROPHILS RELATIVE PERCENT (BEAKER) (test 60 % zuxq=463) LYMPHOCYTES RELATIVE PERCENT (BEAKER) (test 29 % zxpo=687) MONOCYTES RELATIVE PERCENT (BEAKER) (test 7 % lprj=932) EOSINOPHILS RELATIVE PERCENT (BEAKER) (test 3 % taci=505) BASOPHILS RELATIVE PERCENT (BEAKER) (test 1 % ytej=196) NEUTROPHILS ABSOLUTE COUNT (BEAKER) (test 7.21 K/ L 1.56-6.13 fohf=355) LYMPHOCYTES ABSOLUTE COUNT (BEAKER) (test 3.48 K/ L 1.18-3.74 dlah=728) MONOCYTES ABSOLUTE COUNT (BEAKER) (test 0.81 K/ L 0.24-0.36 exax=138) EOSINOPHILS ABSOLUTE COUNT (BEAKER) (test 0.35 K/ L 0.04-0.36 swjt=004) BASOPHILS ABSOLUTE COUNT (BEAKER) (test 0.07 K/ L 0.01-0.08 xghb=073) IMMATURE GRANULOCYTES-RELATIVE PERCENT (BEAKER) 0 % 0-1 (test yjhs=0838) POCT-GLUCOSE [id number] 21:23:00 Test Item Value Reference Range Comments POC-GLUCOSE METER (BEAKER) 337 mg/dL 70-110 Will Repeat Test/TESTED AT (test ftit=5056) [place] [address] POCT-GLUCOSE [id number] 17:30:00 Test Item Value Reference Range Comments POC-GLUCOSE METER (BEAKER) 251 mg/dL 70-110 TESTED AT [address] (test fwll=2657) [place] [address] POCT-GLUCOSE [id number] 13:38:00 Test Item Value Reference Range Comments POC-GLUCOSE METER (BEAKER) 251 mg/dL 70-110 TESTED AT [address] (test jmdy=7365) [place] [address] [id number] 06:02:00 Test Item Value Reference Range Comments ACTIVATED CLOTTING TIME 268 sec TESTED AT [address] (BEAKER) (test jtwt=327) [place] [address] BASIC METABOLIC [id number] 05:39:00 Test Item Value Reference Range Comments SODIUM (BEAKER) (test 137 meq/L 136-145 ksci=857) POTASSIUM (BEAKER) (test 4.2 meq/L 3.5-5.1 cors=774) CHLORIDE (BEAKER) (test 106 meq/L 98-107 qhyp=335) CO2 (BEAKER) (test 22 meq/L 22-29 dhaf=310) BLOOD UREA NITROGEN 7 mg/dL 7-21 (BEAKER) (test rhbj=903) CREATININE (BEAKER) (test 0.65 mg/dL 0.57-1.25 vlfj=482) GLUCOSE RANDOM (BEAKER) 216 mg/dL 70-105 (test lvjy=513) CALCIUM (BEAKER) (test 9.7 mg/dL 8.4-10.2 keqx=556) EGFR (BEAKER) (test mL/min/1.73 sq m INSUFFICIENT CLINICAL DATA fqxe=0060) TO CALCULATE ESTIMATED GFR. [id number] 05:29:00 Test Item Value Reference Range Comments MAGNESIUM (BEAKER) (test ckxe=781) 2.3 mg/dL 1.6-2.6 CBC W/PLT COUNT & AUTO [id number] 05:26:00 Test Item Value Reference Range Comments WHITE BLOOD CELL COUNT (BEAKER) (test bjog=384) 13.6 K/ L 3.5-10.5 RED BLOOD CELL COUNT (BEAKER) (test citm=822) 4.25 M/ L 3.93-5.22 HEMOGLOBIN (BEAKER) (test dmcd=305) 12.8 GM/DL 11.2-15.7 HEMATOCRIT (BEAKER) (test daej=714) 38.1 % 34.1-44.9 MEAN CORPUSCULAR VOLUME (BEAKER) (test huwt=862) 89.6 fL 79.4-94.8 MEAN CORPUSCULAR HEMOGLOBIN (BEAKER) (test 30.1 pg 25.6-32.2 ghlh=779) MEAN CORPUSCULAR HEMOGLOBIN CONC (BEAKER) (test 33.6 GM/DL 32.2-35.5 jbhw=920) RED CELL DISTRIBUTION WIDTH (BEAKER) (test 13.6 % 11.7-14.4 oana=959) PLATELET COUNT (BEAKER) (test dcgw=805) 271 K/CU MM 150-450 MEAN PLATELET VOLUME (BEAKER) (test sipb=500) 9.9 fL 9.4-12.3 NUCLEATED RED BLOOD CELLS (BEAKER) (test 0 /100 WBC 0-0 tasq=156) NEUTROPHILS RELATIVE PERCENT (BEAKER) (test 73 % gmal=195) LYMPHOCYTES RELATIVE PERCENT (BEAKER) (test 20 % endl=907) MONOCYTES RELATIVE PERCENT (BEAKER) (test 7 % btnh=789) EOSINOPHILS RELATIVE PERCENT (BEAKER) (test 0 % uvkh=043) BASOPHILS RELATIVE PERCENT (BEAKER) (test 0 % vwzs=177) NEUTROPHILS ABSOLUTE COUNT (BEAKER) (test 9.90 K/ L 1.56-6.13 meyb=477) LYMPHOCYTES ABSOLUTE COUNT (BEAKER) (test 2.69 K/ L 1.18-3.74 huam=249) MONOCYTES ABSOLUTE COUNT (BEAKER) (test 0.88 K/ L 0.24-0.36 algd=712) EOSINOPHILS ABSOLUTE COUNT (BEAKER) (test 0.03 K/ L 0.04-0.36 lnqz=668) BASOPHILS ABSOLUTE COUNT (BEAKER) (test 0.06 K/ L 0.01-0.08 tztu=532) IMMATURE GRANULOCYTES-RELATIVE PERCENT (BEAKER) 1 % 0-1 (test reuj=0874) CALCIUM, [id number] 05:02:00 Test Item Value Reference Range Comments CALCIUM IONIZED (BEAKER) (test cpbw=736) 1.30 mmol/L 1.12-1.27 PH, BLOOD (BEAKER) (test rbcb=8367) 7.43 [id number] 18:43:00 Test Item Value Reference Range Comments PHOSPHORUS (BEAKER) (test rrjh=075) 2.7 mg/dL 2.3-4.7 [id number] 18:43:00 Test Item Value Reference Range Comments MAGNESIUM (BEAKER) (test pqeq=838) 1.5 mg/dL 1.6-2.6 LACTIC ACID, ARTERIAL, WHOLE [id number] 18:40:00 Test Item Value Reference Range Comments LACTATE BLOOD ARTERIAL (2) 1.0 mmol/L 0.5-2.2 Specimen slightly hemolyzed (BEAKER) (test dzha=0578) Effective 02/28/2016: Units/Reference Range ChangeNew: 0.5-2.2 mmol/L Previous: 5 -20 mg/dLCBC W/PLT COUNT & AUTO [id number] 18:31:00 Test Item Value Reference Range Comments WHITE BLOOD CELL COUNT (BEAKER) (test ihct=028) 19.6 K/ L 3.5-10.5 RED BLOOD CELL COUNT (BEAKER) (test ucmv=492) 4.16 M/ L 3.93-5.22 HEMOGLOBIN (BEAKER) (test scqc=182) 12.4 GM/DL 11.2-15.7 HEMATOCRIT (BEAKER) (test llfh=753) 37.2 % 34.1-44.9 MEAN CORPUSCULAR VOLUME (BEAKER) (test vtzi=422) 89.4 fL 79.4-94.8 MEAN CORPUSCULAR HEMOGLOBIN (BEAKER) (test 29.8 pg 25.6-32.2 eula=814) MEAN CORPUSCULAR HEMOGLOBIN CONC (BEAKER) (test 33.3 GM/DL 32.2-35.5 oczg=855) RED CELL DISTRIBUTION WIDTH (BEAKER) (test 13.4 % 11.7-14.4 aido=483) PLATELET COUNT (BEAKER) (test irkt=164) 239 K/CU MM 150-450 MEAN PLATELET VOLUME (BEAKER) (test iefp=368) 10.4 fL 9.4-12.3 NUCLEATED RED BLOOD CELLS (BEAKER) (test 0 /100 WBC 0-0 wyih=237) NEUTROPHILS RELATIVE PERCENT (BEAKER) (test 88 % djag=405) LYMPHOCYTES RELATIVE PERCENT (BEAKER) (test 9 % asjz=137) MONOCYTES RELATIVE PERCENT (BEAKER) (test 1 % nkqd=135) EOSINOPHILS RELATIVE PERCENT (BEAKER) (test 1 % itnr=785) BASOPHILS RELATIVE PERCENT (BEAKER) (test 1 % mwbr=321) NEUTROPHILS ABSOLUTE COUNT (BEAKER) (test 17.26 K/ L 1.56-6.13 sfbf=420) LYMPHOCYTES ABSOLUTE COUNT (BEAKER) (test 1.66 K/ L 1.18-3.74 xeap=047) MONOCYTES ABSOLUTE COUNT (BEAKER) (test 0.25 K/ L 0.24-0.36 ekcm=561) EOSINOPHILS ABSOLUTE COUNT (BEAKER) (test 0.13 K/ L 0.04-0.36 xtaf=974) BASOPHILS ABSOLUTE COUNT (BEAKER) (test 0.09 K/ L 0.01-0.08 ikrn=884) IMMATURE GRANULOCYTES-RELATIVE PERCENT (BEAKER) 1 % 0-1 (test qlew=7443) FILTER IONIZED [id number] 18:25:00 Test Item Value Reference Range Comments FILTER IONIZED CALCIUM (BEAKER) (test dmzv=5546) 1.24 nnol/L Reference Range: No NormalsBLOOD GAS, [id number] 18:24:00 Test Item Value Reference Range Comments PH ARTERIAL (BEAKER) (test vsri=912) 7.37 7.35-7.45 PCO2 ARTERIAL (BEAKER) (test rrab=723) 42 mmHg 35-45 PO2 ARTERIAL (BEAKER) (test zert=516) 154 mmHg 80-90 O2 SATURATION ARTERIAL (BEAKER) (test azei=490) 98.9 % 96.0-97.0 HCO3 ARTERIAL (BEAKER) (test pejd=421) 24 mmol/L 21-29 BASE EXCESS ARTERIAL (BEAKER) (test vydv=003) -1.4 mmol/L -2.0-3.0 PATIENT TEMPERATURE (BEAKER) (test rsty=6544) 37.0 C FIO2 (BEAKER) (test chao=9626) 100.0 % [id number] 17:01:00 Test Item Value Reference Range Comments ACTIVATED CLOTTING TIME 252 sec TESTED AT [facility] [address] [facility] (BEAKER) (test adwn=369) [facility] [address] SODIUM NA-STAT [id number] 16:06:00 Test Item Value Reference Range Comments SODIUM (BEAKER) (test zlgt=718) 138 meq/L 135-148 HGB/HCT (H&H) - STAT [id number] 16:06:00 Test Item Value Reference Range Comments HEMOGLOBIN (BEAKER) (test zutp=119) 13.3 g/dL 12.0-15.0 HEMATOCRIT (BEAKER) (test yanp=342) 39.0 % 36.0-45.0 BLOOD GAS, [id number] 16:06:00 Test Item Value Reference Range Comments PH ARTERIAL (BEAKER) (test dlpk=038) 7.31 7.35-7.45 PCO2 ARTERIAL (BEAKER) (test aekk=335) 45 mmHg 35-45 PO2 ARTERIAL (BEAKER) (test dciy=528) 88 mmHg 80-90 O2 SATURATION ARTERIAL (BEAKER) (test npxh=682) 96.0 % 96.0-97.0 HCO3 ARTERIAL (BEAKER) (test pxyn=922) 22 mmol/L 21-29 BASE EXCESS ARTERIAL (BEAKER) (test qtmc=401) -3.9 mmol/L -2.0-3.0 PATIENT TEMPERATURE (BEAKER) (test pbht=2818) 36.9 C FIO2 (BEAKER) (test vcyi=3994) 50.0 % POTASSIUM-STAT [id number] 16:06:00 Test Item Value Reference Range Comments POTASSIUM (BEAKER) (test ndgy=375) 3.3 meq/L 3.6-5.5 GLUCOSE-STAT [id number] 16:06:00 Test Item Value Reference Range Comments GLUCOSE RANDOM (BEAKER) (test aypc=547) 198 mg/dL 70-110 BLOOD GAS, [id number] 14:03:00 Test Item Value Reference Range Comments PH ARTERIAL (BEAKER) (test enrz=234) 7.43 7.35-7.45 PCO2 ARTERIAL (BEAKER) (test pomn=806) 36 mmHg 35-45 PO2 ARTERIAL (BEAKER) (test bfye=086) 81 mmHg 80-90 O2 SATURATION ARTERIAL (BEAKER) (test ibab=147) 96.7 % 96.0-97.0 HCO3 ARTERIAL (BEAKER) (test nran=083) 24 mmol/L 21-29 BASE EXCESS ARTERIAL (BEAKER) (test pizj=917) -0.4 mmol/L -2.0-3.0 PATIENT TEMPERATURE (BEAKER) (test chqb=3955) 36.0 C FIO2 (BEAKER) (test pdkz=5576) 50.0 % SODIUM NA-STAT [id number] 14:03:00 Test Item Value Reference Range Comments SODIUM (BEAKER) (test boqc=927) 136 meq/L 135-148 HGB/HCT (H&H) - STAT [id number] 14:03:00 Test Item Value Reference Range Comments HEMOGLOBIN (BEAKER) (test phxf=289) 13.0 g/dL 12.0-15.0 HEMATOCRIT (BEAKER) (test hjll=570) 38.0 % 36.0-45.0 POTASSIUM-STAT [id number] 14:03:00 Test Item Value Reference Range Comments POTASSIUM (BEAKER) (test uoea=977) 3.3 meq/L 3.6-5.5 GLUCOSE-STAT [id number] 14:03:00 Test Item Value Reference Range Comments GLUCOSE RANDOM (BEAKER) (test fchq=273) 124 mg/dL 70-110 SCREEN, [id number] 10:24:00 Test Item Value Reference Range Comments TEST URINE (BEAKER) (test jmqy=989) Negative POCT-GLUCOSE [id number] 08:32:00 Test Item Value Reference Range Comments POC-GLUCOSE METER (BEAKER) 181 mg/dL 70-110 TESTED AT [facility] [address] [facility] (test fahn=1380) [facility] [address] [id number] 07:59:00 Test Item Value Reference Range Comments PARTIAL THROMBOPLASTIN TIME (BEAKER) (test 86.0 seconds 22.5-36.0 nwxg=225) CBC (HEMOGRAM ONLY)2017-08-04 05:27:00 Test Item Value Reference Range Comments WHITE BLOOD CELL COUNT (BEAKER) (test uzrr=049) 9.3 K/ L 3.5-10.5 RED BLOOD CELL COUNT (BEAKER) (test basd=595) 4.17 M/ L 3.93-5.22 HEMOGLOBIN (BEAKER) (test bdkj=463) 12.5 GM/DL 11.2-15.7 HEMATOCRIT (BEAKER) (test qnwb=498) 37.4 % 34.1-44.9 MEAN CORPUSCULAR VOLUME (BEAKER) (test ifff=862) 89.7 fL 79.4-94.8 MEAN CORPUSCULAR HEMOGLOBIN (BEAKER) (test 30.0 pg 25.6-32.2 knhg=763) MEAN CORPUSCULAR HEMOGLOBIN CONC (BEAKER) (test 33.4 GM/DL 32.2-35.5 auux=581) RED CELL DISTRIBUTION WIDTH (BEAKER) (test 13.3 % 11.7-14.4 gwwr=618) PLATELET COUNT (BEAKER) (test xxgm=574) 256 K/CU MM 150-450 MEAN PLATELET VOLUME (BEAKER) (test wjvx=072) 10.3 fL 9.4-12.3 NUCLEATED RED BLOOD CELLS (BEAKER) (test 0 /100 WBC 0-0 xcwk=144) POCT-GLUCOSE [id number] 21:35:00 Test Item Value Reference Range Comments POC-GLUCOSE METER (BEAKER) 258 mg/dL 70-110 TESTED AT [address] (test eenn=4075) [place] [address] [id number] 20:55:00 Test Item Value Reference Range Comments PARTIAL THROMBOPLASTIN TIME (BEAKER) (test 92.0 seconds 22.5-36.0 ommv=994) POCT-GLUCOSE [id number] 17:16:00 Test Item Value Reference Range Comments POC-GLUCOSE METER (BEAKER) 234 mg/dL 70-110 TESTED AT [address] (test nbyq=3188) [place] [address] [id number] 14:51:00 Test Item Value Reference Range Comments PARTIAL THROMBOPLASTIN TIME (BEAKER) (test 88.9 seconds 22.5-36.0 iopy=563) POCT-GLUCOSE [id number] 12:10:00 Test Item Value Reference Range Comments POC-GLUCOSE METER (BEAKER) 288 mg/dL 70-110 TESTED AT [address] (test ichy=0586) [place] [address] POCT-GLUCOSE [id number] 07:55:00 Test Item Value Reference Range Comments POC-GLUCOSE METER (BEAKER) 183 mg/dL 70-110 TESTED AT [address] (test kjry=3198) [place] [address] [id number] 06:32:00 Test Item Value Reference Range Comments PARTIAL THROMBOPLASTIN TIME (BEAKER) (test 63.8 seconds 22.5-36.0 kbzc=435) CBC (HEMOGRAM ONLY)2017-08-03 06:24:00 Test Item Value Reference Range Comments WHITE BLOOD CELL COUNT (BEAKER) (test dted=411) 8.6 K/ L 3.5-10.5 RED BLOOD CELL COUNT (BEAKER) (test iwdl=565) 4.24 M/ L 3.93-5.22 HEMOGLOBIN (BEAKER) (test ybcw=461) 12.6 GM/DL 11.2-15.7 HEMATOCRIT (BEAKER) (test fslh=878) 37.9 % 34.1-44.9 MEAN CORPUSCULAR VOLUME (BEAKER) (test ijin=361) 89.4 fL 79.4-94.8 MEAN CORPUSCULAR HEMOGLOBIN (BEAKER) (test 29.7 pg 25.6-32.2 pjxu=352) MEAN CORPUSCULAR HEMOGLOBIN CONC (BEAKER) (test 33.2 GM/DL 32.2-35.5 ihiy=131) RED CELL DISTRIBUTION WIDTH (BEAKER) (test 13.3 % 11.7-14.4 crkl=583) PLATELET COUNT (BEAKER) (test cndp=674) 251 K/CU MM 150-450 MEAN PLATELET VOLUME (BEAKER) (test ycnx=661) 10.6 fL 9.4-12.3 NUCLEATED RED BLOOD CELLS (BEAKER) (test 0 /100 WBC 0-0 ffes=138) [id number] 21:20:00 Test Item Value Reference Range Comments PARTIAL THROMBOPLASTIN TIME (BEAKER) (test 81.9 seconds 22.5-36.0 jslu=757) POCT-GLUCOSE [id number] 16:52:00 Test Item Value Reference Range Comments POC-GLUCOSE METER (BEAKER) 190 mg/dL 70-110 TESTED AT [address] (test trfx=9354) [place] [address] [id number] 15:15:00 Test Item Value Reference Range Comments PARTIAL THROMBOPLASTIN TIME (BEAKER) (test 82.6 seconds 22.5-36.0 vmot=167) POCT-GLUCOSE [id number] 11:17:00 Test Item Value Reference Range Comments POC-GLUCOSE METER (BEAKER) 293 mg/dL 70-110 TESTED AT [address] (test rtfy=8884) [place] [address] POCT-GLUCOSE [id number] 07:43:00 Test Item Value Reference Range Comments POC-GLUCOSE METER (BEAKER) 188 mg/dL 70-110 TESTED AT [address] (test apgl=7498) [place] [address] [id number] 05:56:00 Test Item Value Reference Range Comments PARTIAL THROMBOPLASTIN TIME (BEAKER) (test 91.1 seconds 22.5-36.0 qppj=412) CBC (HEMOGRAM ONLY)2017-08-02 05:39:00 Test Item Value Reference Range Comments WHITE BLOOD CELL COUNT (BEAKER) (test kotq=501) 8.7 K/ L 3.5-10.5 RED BLOOD CELL COUNT (BEAKER) (test sxym=897) 4.40 M/ L 3.93-5.22 HEMOGLOBIN (BEAKER) (test izun=511) 13.1 GM/DL 11.2-15.7 HEMATOCRIT (BEAKER) (test pimw=771) 39.3 % 34.1-44.9 MEAN CORPUSCULAR VOLUME (BEAKER) (test ignc=120) 89.3 fL 79.4-94.8 MEAN CORPUSCULAR HEMOGLOBIN (BEAKER) (test 29.8 pg 25.6-32.2 ojni=842) MEAN CORPUSCULAR HEMOGLOBIN CONC (BEAKER) (test 33.3 GM/DL 32.2-35.5 vbfn=096) RED CELL DISTRIBUTION WIDTH (BEAKER) (test 13.2 % 11.7-14.4 gbdo=728) PLATELET COUNT (BEAKER) (test kdsq=653) 251 K/CU MM 150-450 MEAN PLATELET VOLUME (BEAKER) (test rlfi=681) 10.2 fL 9.4-12.3 NUCLEATED RED BLOOD CELLS (BEAKER) (test 0 /100 WBC 0-0 mrwu=941) POCT-GLUCOSE [id number] 22:52:00 Test Item Value Reference Range Comments POC-GLUCOSE METER (BEAKER) 200 mg/dL 70-110 TESTED AT [address] (test ifhr=1301) [place] [address] [id number] 21:07:00 Test Item Value Reference Range Comments PARTIAL THROMBOPLASTIN TIME (BEAKER) (test 76.5 seconds 22.5-36.0 pfpw=541) POCT-GLUCOSE [id number] 17:03:00 Test Item Value Reference Range Comments POC-GLUCOSE METER (BEAKER) 182 mg/dL 70-110 TESTED AT [address] (test rflu=2055) [place] [address] [id number] 14:07:00 Test Item Value Reference Range Comments PARTIAL THROMBOPLASTIN TIME (BEAKER) (test 80.7 seconds 22.5-36.0 eebb=647) POCT-GLUCOSE [id number] 12:01:00 Test Item Value Reference Range Comments POC-GLUCOSE METER (BEAKER) 209 mg/dL 70-110 TESTED AT [address] (test xwan=0710) [facility] [address] POCT-GLUCOSE [id number] 08:26:00 Test Item Value Reference Range Comments POC-GLUCOSE METER (BEAKER) 171 mg/dL 70-110 TESTED AT [address] (test fyvz=6075) [facility] [address] [id number] 06:21:00 Test Item Value Reference Range Comments PARTIAL THROMBOPLASTIN TIME (BEAKER) (test 101.5 seconds 22.5-36.0 fyrd=262) CBC (HEMOGRAM ONLY)2017-08-01 06:17:00 Test Item Value Reference Range Comments WHITE BLOOD CELL COUNT (BEAKER) (test unzh=461) 8.0 K/ L 3.5-10.5 RED BLOOD CELL COUNT (BEAKER) (test qpfs=780) 4.57 M/ L 3.93-5.22 HEMOGLOBIN (BEAKER) (test uzvf=243) 13.4 GM/DL 11.2-15.7 HEMATOCRIT (BEAKER) (test owaf=951) 40.8 % 34.1-44.9 MEAN CORPUSCULAR VOLUME (BEAKER) (test wgmp=100) 89.3 fL 79.4-94.8 MEAN CORPUSCULAR HEMOGLOBIN (BEAKER) (test 29.3 pg 25.6-32.2 gfwh=516) MEAN CORPUSCULAR HEMOGLOBIN CONC (BEAKER) (test 32.8 GM/DL 32.2-35.5 wbrl=027) RED CELL DISTRIBUTION WIDTH (BEAKER) (test 13.1 % 11.7-14.4 fnvt=941) PLATELET COUNT (BEAKER) (test vaok=906) 229 K/CU MM 150-450 MEAN PLATELET VOLUME (BEAKER) (test qocx=003) 10.3 fL 9.4-12.3 NUCLEATED RED BLOOD CELLS (BEAKER) (test 0 /100 WBC 0-0 xuag=998) [id number] 20:55:00 Test Item Value Reference Range Comments PARTIAL THROMBOPLASTIN TIME (BEAKER) (test 63.8 seconds 22.5-36.0 ivkb=920) POCT-GLUCOSE [id number] 20:43:00 Test Item Value Reference Range Comments POC-GLUCOSE METER (BEAKER) 289 mg/dL 70-110 TESTED AT [address] (test fshw=4705) [place] [address] POCT-GLUCOSE [id number] 17:29:00 Test Item Value Reference Range Comments POC-GLUCOSE METER (BEAKER) 225 mg/dL 70-110 TESTED AT [address] (test gofw=3839) [place] [address] POCT-GLUCOSE [id number] 12:52:00 Test Item Value Reference Range Comments POC-GLUCOSE METER (BEAKER) 187 mg/dL 70-110 TESTED AT [address] (test wmac=8799) [place] [address] [id number] 12:47:00 Test Item Value Reference Range Comments PARTIAL THROMBOPLASTIN TIME (BEAKER) (test 93.3 seconds 22.5-36.0 ybiq=583) POCT-GLUCOSE [id number] 08:01:00 Test Item Value Reference Range Comments POC-GLUCOSE METER (BEAKER) 167 mg/dL 70-110 TESTED AT [address] (test lggh=5386) [place] [address] [id number] 04:38:00 Test Item Value Reference Range Comments PROTIME (BEAKER) (test ytqf=394) 13.5 seconds 11.7-14.7 INR (BEAKER) (test itqs=193) 1.0 <=5.9 PARTIAL THROMBOPLASTIN TIME (BEAKER) (test 84.1 seconds 22.5-36.0 dyag=766) RECOMMENDED COUMADIN/WARFARIN INR THERAPY RANGESSTANDARD DOSE: 2.0 - 3.0 Includes: PROPHYLAXIS forvenous thrombosis, systemic embolization; TREATMENT for venous thrombosis and/or pulmonary embolus.HIGH RISK: Target INR is 2.5-3.5 for patients with mechanical heart valves...[id number] 04:38:00 Test Item Value Reference Range Comments PARTIAL THROMBOPLASTIN TIME (BEAKER) (test 84.1 seconds 22.5-36.0 yhgf=124) CBC (HEMOGRAM ONLY)2017-07-31 04:35:00 Test Item Value Reference Range Comments WHITE BLOOD CELL COUNT (BEAKER) (test gadq=967) 8.1 K/ L 3.5-10.5 RED BLOOD CELL COUNT (BEAKER) (test uhue=159) 4.11 M/ L 3.93-5.22 HEMOGLOBIN (BEAKER) (test fwlh=859) 12.4 GM/DL 11.2-15.7 HEMATOCRIT (BEAKER) (test scgr=047) 37.0 % 34.1-44.9 MEAN CORPUSCULAR VOLUME (BEAKER) (test rpef=367) 90.0 fL 79.4-94.8 MEAN CORPUSCULAR HEMOGLOBIN (BEAKER) (test 30.2 pg 25.6-32.2 dbrg=046) MEAN CORPUSCULAR HEMOGLOBIN CONC (BEAKER) (test 33.5 GM/DL 32.2-35.5 fbay=621) RED CELL DISTRIBUTION WIDTH (BEAKER) (test 13.0 % 11.7-14.4 pilo=236) PLATELET COUNT (BEAKER) (test ksxi=089) 201 K/CU MM 150-450 MEAN PLATELET VOLUME (BEAKER) (test nxks=347) 9.8 fL 9.4-12.3 NUCLEATED RED BLOOD CELLS (BEAKER) (test 0 /100 WBC 0-0 jrnq=053) POCT-GLUCOSE [id number] 22:25:00 Test Item Value Reference Range Comments POC-GLUCOSE METER (BEAKER) 235 mg/dL 70-110 TESTED AT [address] (test napc=8742) [place] [address] [id number] 20:45:00 Test Item Value Reference Range Comments PARTIAL THROMBOPLASTIN TIME (BEAKER) (test 66.3 seconds 22.5-36.0 ynxm=856) POCT-GLUCOSE [id number] 17:25:00 Test Item Value Reference Range Comments POC-GLUCOSE METER (BEAKER) 208 mg/dL 70-110 TESTED AT [address] (test vaov=5619) [place] [address] [facility], MULTI, PHARM, [id number] 13:46:00FINAL REPORT PROCEDURE: Rest/Stress MYOCARDIAL PERFUSION SPECT with regadenoson\\XA9\\ CPT CODE: 27197 INDICATION: Intermediate CAD Risk HISTORY: Cardiac risk factors: Diabetes, Hypertension, Dyslipidemia, Tobacco, PVD. Other cardiovascular history: No reported CAD. Current cardiovascular-related medications: aspirin, Lipitor, lisinopril. PROTOCOL: 10.5 mCi of Tc-99m sestamibi was injected iv at rest, and SPECT ( tomographic) images were obtained.Also, 32.5 mCi of Tc-99m sestamibi was injected iv at expected peak pharmacologic effect, and gated SPECT images were obtained. PRELIMINARY STRESS TEST DATA FROM NONINVASIVE CARDIOLOGY: Pharmacologicstress was by 10-second iv infusion of 0.4 [...] Normal extracardiac tracer distribution. 6. No previous [facility] study for comparison. NONINVASIVE RISK STRATIFICATION: The above findings are considered low risk (<1% annual mortality rate) based on the following criterion:- Normal or small myocardial perfusion defect at rest or with stress(JACC. 2012;59(9):857-81.) Signed: Israel Dixon Verified Date/Time: 07/30/2017 13:46:52 Reading Location: [address] Reading Room [id number] 13:35:00 Test Item Value Reference Range Comments PARTIAL THROMBOPLASTIN TIME (BEAKER) (test 36.6 seconds 22.5-36.0 kkgb=664) POCT-GLUCOSE [id number] 12:55:00 Test Item Value Reference Range Comments POC-GLUCOSE METER (BEAKER) 146 mg/dL 70-110 TESTED AT [facility] [address] (test aivw=6951) [facility] [address] HEMOGLOBIN [id number] 09:09:00 Test Item Value Reference Range Comments HEMOGLOBIN A1C (BEAKER) (test bevc=479) 10.3 % 4.3-6.1 [id number] 07:35:00 Test Item Value Reference Range Comments PARTIAL THROMBOPLASTIN TIME (BEAKER) (test 138.7 seconds 22.5-36.0 sraw=919) TSH/FREE T4 IF [id number] 07:09:00 Test Item Value Reference Range Comments THYROID STIMULATING HORMONE (BEAKER) (test 2.22 uIU/mL 0.35-4.94 ktjp=590) LIPID [id number] 06:17:00 Test Item Value Reference Range Comments TRIGLYCERIDES (BEAKER) (test pylr=312) 181 mg/dL CHOLESTEROL (BEAKER) (test xnhi=420) 175 mg/dL HDL CHOLESTEROL (BEAKER) (test tyqn=687) 32 mg/dL LDL CHOLESTEROL CALCULATED (BEAKER) (test 107 mg/dL ycdu=273) Triglyceride Reference Range: Low Risk <150 Borderline 150- 199 High Risk 200-499 Very High Risk >=500Cholesterol Reference Range: Low Risk <200 Borderline 200-239 High Risk > 240HDL Cholesterol Reference Range: Low Risk >=60 High Risk <40LDL Cholesterol Reference Range: Optimal <100 Near Optimal 100-129 Borderline 130-159 High 160-189 Very High >=190HEPATIC FUNCTION [id number] 06:17:00 Test Item Value Reference Range Comments TOTAL PROTEIN (BEAKER) (test ihms=817) 6.3 gm/dL 6.0-8.3 ALBUMIN (BEAKER) (test ilcw=8305) 3.6 g/dL 3.5-5.0 BILIRUBIN TOTAL (BEAKER) (test mwxs=327) 0.3 mg/dL 0.2-1.2 BILIRUBIN DIRECT (BEAKER) (test cfvo=968) 0.1 mg/dL 0.1-0.5 ALKALINE PHOSPHATASE (BEAKER) (test dxvy=461) 84 U/L 40-150 AST (SGOT) (BEAKER) (test qxne=414) 27 U/L 5-34 ALT (SGPT) (BEAKER) (test afnw=122) 41 U/L 6-55 [id number] 06:00:00 Test Item Value Reference Range Comments PARTIAL THROMBOPLASTIN TIME (BEAKER) (test 192.6 seconds 22.5-36.0 scmw=123) CBC (HEMOGRAM ONLY)2017-07-30 05:41:00 Test Item Value Reference Range Comments WHITE BLOOD CELL COUNT (BEAKER) (test rzsf=108) 8.8 K/ L 3.5-10.5 RED BLOOD CELL COUNT (BEAKER) (test cbhh=208) 4.60 M/ L 3.93-5.22 HEMOGLOBIN (BEAKER) (test kjke=129) 13.6 GM/DL 11.2-15.7 HEMATOCRIT (BEAKER) (test csfq=006) 41.1 % 34.1-44.9 MEAN CORPUSCULAR VOLUME (BEAKER) (test qklh=093) 89.3 fL 79.4-94.8 MEAN CORPUSCULAR HEMOGLOBIN (BEAKER) (test 29.6 pg 25.6-32.2 cmmc=331) MEAN CORPUSCULAR HEMOGLOBIN CONC (BEAKER) (test 33.1 GM/DL 32.2-35.5 dnbv=997) RED CELL DISTRIBUTION WIDTH (BEAKER) (test 13.0 % 11.7-14.4 zlxv=437) PLATELET COUNT (BEAKER) (test scze=077) 203 K/CU MM 150-450 MEAN PLATELET VOLUME (BEAKER) (test qctt=272) 10.3 fL 9.4-12.3 NUCLEATED RED BLOOD CELLS (BEAKER) (test 0 /100 WBC 0-0 yqrj=135) [id number] 23:00:00 Test Item Value Reference Range Comments PARTIAL THROMBOPLASTIN TIME (BEAKER) (test 34.2 seconds 22.5-36.0 mumj=876) POCT-GLUCOSE [id number] 22:02:00 Test Item Value Reference Range Comments POC-GLUCOSE METER (BEAKER) 89 mg/dL 70-110 TESTED AT [address] (test buni=8414) [place] [address] [id number] 15:41:00 Test Item Value Reference Range Comments ACTIVATED CLOTTING TIME 158 sec TESTED AT [address] [facility] (test scso=793) [place] [address] [id number] 13:05:00 Test Item Value Reference Range Comments FIBRINOGEN LEVEL (BEAKER) (test pqnt=395) 430 mg/dl 225-434 Continue for duration of infusion.POCT-GLUCOSE [id number] 12:40:00 Test Item Value Reference Range Comments POC-GLUCOSE METER (BEAKER) 110 mg/dL 70-110 TESTED AT [address] (test bvqc=9386) [place] [address] POCT-GLUCOSE [id number] 08:43:00 Test Item Value Reference Range Comments POC-GLUCOSE METER (BEAKER) 112 mg/dL 70-110 TESTED AT [address] (test gcgx=2214) [place] [address] [id number] 07:06:00 Test Item Value Reference Range Comments PHOSPHORUS (BEAKER) (test pzqx=258) 2.3 mg/dL 2.3-4.7 [id number] 07:06:00 Test Item Value Reference Range Comments MAGNESIUM (BEAKER) (test wbkv=861) 1.5 mg/dL 1.6-2.6 [id number] 06:43:00 Test Item Value Reference Range Comments PROTIME (BEAKER) (test uxlx=608) 13.6 seconds 11.7-14.7 INR (BEAKER) (test tscf=354) 1.1 <=5.9 PARTIAL THROMBOPLASTIN TIME (BEAKER) (test 39.7 seconds 22.5-36.0 kvtf=137) RECOMMENDED COUMADIN/WARFARIN INR THERAPY RANGESSTANDARD DOSE: 2.0 - 3.0 Includes: PROPHYLAXIS forvenous thrombosis, systemic embolization; TREATMENT for venous thrombosis and/or pulmonary embolus.HIGH RISK: Target INR is 2.5-3.5 for patients with mechanical heart valves.Continue for duration of infusion..Continue for duration of infusion..[id number] 06:42:00 Test Item Value Reference Range Comments FIBRINOGEN LEVEL (BEAKER) (test heqk=292) 430 mg/dl 225-434 Continue for duration of infusion..HEMOGLOBIN AND [id number] 06:36:00 Test Item Value Reference Range Comments HEMOGLOBIN (BEAKER) (test dbtz=673) 13.0 GM/DL 11.2-15.7 HEMATOCRIT (BEAKER) (test oznc=171) 39.5 % 34.1-44.9 TROPONIN [id number] 00:59:00 Test Item Value Reference Range Comments TROPONIN I (BEAKER) (test yjqh=095) < ng/mL 0.00-0.03 Troponin I (TnI) levels must be interpreted [...] failure, acidosis, acute neurological disease, and persistent tachyarrhythmia.[id number] 00:39:00 Test Item Value Reference Range Comments FIBRINOGEN LEVEL (BEAKER) (test fdub=496) 430 mg/dl 225-434 Continue for duration of infusion.POCT-GLUCOSE [id number] 22:22:00 Test Item Value Reference Range Comments POC-GLUCOSE METER (BEAKER) 107 mg/dL 70-110 TESTED AT [address] (test bflo=0545) [facility] [address] BASIC METABOLIC [id number] 21:32:00 Test Item Value Reference Range Comments SODIUM (BEAKER) (test 139 meq/L 136-145 vdlw=986) POTASSIUM (BEAKER) (test 4.0 meq/L 3.5-5.1 vlgx=514) CHLORIDE (BEAKER) (test 107 meq/L 98-107 bzqy=358) CO2 (BEAKER) (test 26 meq/L 22-29 chdl=235) BLOOD UREA NITROGEN 12 mg/dL 7-21 (BEAKER) (test fbbg=176) CREATININE (BEAKER) (test 0.60 mg/dL 0.57-1.25 vvfh=580) GLUCOSE RANDOM (BEAKER) 94 mg/dL 70-105 (test ogxy=815) CALCIUM (BEAKER) (test 9.2 mg/dL 8.4-10.2 tfer=669) EGFR (BEAKER) (test mL/min/1.73 sq m INSUFFICIENT CLINICAL DATA wedv=5537) TO CALCULATE ESTIMATED GFR. [id number] 21:10:00 Test Item Value Reference Range Comments PROTIME (BEAKER) (test nmjz=934) 14.4 seconds 11.7-14.7 INR (BEAKER) (test nadz=724) 1.1 <=5.9 PARTIAL THROMBOPLASTIN TIME (BEAKER) (test > seconds 22.5-36.0 fzjs=632) RECOMMENDED COUMADIN/WARFARIN INR THERAPY RANGESSTANDARD DOSE: 2.0 - 3.0 Includes: PROPHYLAXIS forvenous thrombosis, systemic embolization; TREATMENT for venous thrombosis and/or pulmonary embolus.HIGH RISK: Target INR is 2.5-3.5 for patients with mechanical heart valves.Obtain lab prior to starting thrombolytic infusion.Obtain lab prior to starting thrombolytic infusion.[id number] 20:55:00 Test Item Value Reference Range Comments FIBRINOGEN LEVEL (BEAKER) (test kxbz=938) 437 mg/dl 225-434 Obtain lab prior to starting thrombolytic infusion.Obtain lab prior to starting thrombolytic infusion.CBC W/PLT COUNT & AUTO [id number] 20:33:00 Test Item Value Reference Range Comments WHITE BLOOD CELL COUNT (BEAKER) (test mryz=195) 9.6 K/ L 3.5-10.5 RED BLOOD CELL COUNT (BEAKER) (test kiec=965) 4.43 M/ L 3.93-5.22 HEMOGLOBIN (BEAKER) (test mmyk=964) 13.5 GM/DL 11.2-15.7 HEMATOCRIT (BEAKER) (test samq=484) 40.0 % 34.1-44.9 MEAN CORPUSCULAR VOLUME (BEAKER) (test eozk=332) 90.3 fL 79.4-94.8 MEAN CORPUSCULAR HEMOGLOBIN (BEAKER) (test 30.5 pg 25.6-32.2 sdzj=571) MEAN CORPUSCULAR HEMOGLOBIN CONC (BEAKER) (test 33.8 GM/DL 32.2-35.5 iuop=371) RED CELL DISTRIBUTION WIDTH (BEAKER) (test 12.9 % 11.7-14.4 ewss=995) PLATELET COUNT (BEAKER) (test wubw=620) 218 K/CU MM 150-450 MEAN PLATELET VOLUME (BEAKER) (test nrge=857) 10.1 fL 9.4-12.3 NUCLEATED RED BLOOD CELLS (BEAKER) (test 0 /100 WBC 0-0 kwus=599) NEUTROPHILS RELATIVE PERCENT (BEAKER) (test 48 % jltf=217) LYMPHOCYTES RELATIVE PERCENT (BEAKER) (test 39 % kvja=595) MONOCYTES RELATIVE PERCENT (BEAKER) (test 5 % phwz=777) EOSINOPHILS RELATIVE PERCENT (BEAKER) (test 8 % hwhu=700) BASOPHILS RELATIVE PERCENT (BEAKER) (test 1 % nogs=128) NEUTROPHILS ABSOLUTE COUNT (BEAKER) (test 4.60 K/ L 1.56-6.13 bser=032) LYMPHOCYTES ABSOLUTE COUNT (BEAKER) (test 3.72 K/ L 1.18-3.74 yrtw=657) MONOCYTES ABSOLUTE COUNT (BEAKER) (test 0.44 K/ L 0.24-0.36 rooo=399) EOSINOPHILS ABSOLUTE COUNT (BEAKER) (test 0.74 K/ L 0.04-0.36 uarh=675) BASOPHILS ABSOLUTE COUNT (BEAKER) (test 0.07 K/ L 0.01-0.08 tyyb=697) IMMATURE GRANULOCYTES-RELATIVE PERCENT (BEAKER) 0 % 0-1 (test lzot=8715) TROPONIN [id number] 17:58:00 Test Item Value Reference Range Comments TROPONIN I (BEAKER) (test ribr=288) < ng/mL 0.00-0.03 Troponin I (TnI) levels must be interpreted [...] failure, acidosis, acute neurological disease, and persistent tachyarrhythmia.[id number] 17:50:00 Test Item Value Reference Range Comments PARTIAL THROMBOPLASTIN TIME (BEAKER) (test 111.3 seconds 22.5-36.0 mpij=073) POCT-GLUCOSE [id number] 17:11:00 Test Item Value Reference Range Comments POC-GLUCOSE METER (BEAKER) 108 mg/dL 70-110 TESTED AT [facility] [address] (test hzhd=3427) [facility] [address] CT, CTA AAA, W/ MELY.EXT.[id number] 12:15:00Addendum BeginsREPORT STATUS:A Addendum: The non vascular findings were reviewed by the [employer]mw sales consultant radiologist. I agree with the original report which is unchanged. Signed: Zhen Andrade MDReport Verified Date/Time: 07/28/2017 12:15:20 Addendum EndsAddendum BeginsREPORT STATUS:A Addendum: Imaging findings were reviewed with Dr. Reza. In addition, thisalso arthroscopic ulceration identified just posterior to the left renal artery, at image 55. A subcentimeter hypodensity is identified in the inferior pole of the left kidney, image 114, too small tocharacterize, measure at most 8 mm. Signed: Donato Franklin MDReport Verified Date/Time: 07/28/2017 10:11:14 Reading Location: [place] [address] Cardiology MRIAddendum EndsFINAL REPORT CT angiography of the abdominal aorta with runoff, 27 July 2017 INDICATION: This is a 47 yearsold female, with clinical presentation of right lower extremity pain at rest, with dusky appearance,and no obvious palpable pulse presents for assessment. This study is performed in attempt to avoid invasive procedure. TECHNIQUE: Spiral acquisition before and during contrast administration using a Siemens multidetector CT scanner. Multiplanar 3- D volume rendering reformation was performed using independent workstation interactively by the dictating physician and the 3-D specialist. The amount of contrast used and method of administration can be found in the scanned Epic document. This exam was performed according to our departmental dose- optimisation programme, which includes automated exposure control, adjustment of the mA and/or kV according to patient size and/or use of iterative reconstruction technique. Dose modulation, iterative reconstruction, and/or weight based adjustment of the mA/kV was utilized to reduce the radiation dose to as low as reasonably achievable. FINDINGS: The abdominalaorta has circumferential noncalcific atherosclerosis identified, circumferentially, moderate [...] 2 mm in the very distal right commonfemoral artery image 246. This could potentially represent [...] enhanced by contrast with mild to moderate diseaseidentified, with associated noncalcific atherosclerosis. In the right lower extremity, the right tibioperoneal trunk is widely patent. The right anterior tibial artery is widely patent and dorsalis pedis artery is well seen. The right posterior tibial artery is widely patent and plantar arch is well seen. The right peroneal artery is a smaller caliber vessel though is still well seen down to level ofthe ankle. The left common iliac, left external [...] contrast is not given. No obvious bowel dilationis identified. No free air or free fluid seen in the abdomen and pelvis. The bladder appears unremarkable. The uterus is identified. The left ovary is identified image 197, measure approximately 1.7 cmin diameter, likely physiologic in nature. CT is not optimised in the assessment of pelvic gynaecological structures. No significant retroperitoneal adenopathy is identified. No acute bony pathology isseen. Tiny sclerotic focus is identified at image [...] and the right common femoral artery. Of note , in the most distal right common femoral [...] right SFA/right popliteal artery a severe focal stenosisis seen. The right popliteal artery is patent [...] has no obstructive lesion identified. Details of runoffvessels as described above in the left lower extremity. 3. Other findings as described above. Hepatic steatosis. 4. An addendum will be dictated by the Instructional Manager Radiologist regarding the nonvascular findings. 5. Major findings were discussed with Dr. Arellano at the time of dictation. Signed: Donato Franklineport Verified Date/Time: 07/28/2017 08:43:55 Reading Location: [place] [address] Cardiology MRI Electronically signed by: ZHEN ANDRADE M.D. on 2016 12:15 PMPOCT-GLUCOSE [id number] 11:57:00 Test Item Value Reference Range Comments POC-GLUCOSE METER ([place]) 108 mg/dL 70-110 TESTED AT [facility] [address] (test qycd=8150) [facility] [address] CREATINE KINASE (CK), TOTAL AND [id number] 11:37:00 Test Item Value Reference Range Comments CREATINE KINASE TOTAL (BEAKER) (test nnhh=664) 30 U/L 29-200 CREATINE KINASE-MB (BEAKER) (test xtjv=741) 0.5 ng/mL 0.0-6.6 CREATINE KINASE-MB INDEX (BEAKER) (test uwll=747) 1.7 % CK-MB Reference Range:<6.7 Normal6.7-10.0 Borderline>10.0 AbnormalTROPONIN [id number] 11:37:00 Test Item Value Reference Range Comments TROPONIN I (BEAKER) (test ilqn=316) < ng/mL 0.00-0.03 Troponin I (TnI) levels must be interpreted [...] failure, acidosis, acute neurological disease, and persistent tachyarrhythmia.[id number] 11:15:00 Test Item Value Reference Range Comments FIBRINOGEN LEVEL (BEAKER) (test iuuv=889) 438 mg/dl 225-434 [id number] 11:14:00 Test Item Value Reference Range Comments PARTIAL THROMBOPLASTIN TIME (BEAKER) (test 30.9 seconds 22.5-36.0 fkpk=330) Prior to initiating heparinPOCT-GLUCOSE [id number] 08:36:00 Test Item Value Reference Range Comments POC-GLUCOSE METER (BEAKER) 123 mg/dL 70-110 TESTED AT [facility] [address] (test eqii=9891) [facility] [address] BASIC METABOLIC [id number] 22:21:00 Test Item Value Reference Range Comments SODIUM (BEAKER) (test 135 meq/L 136-145 yejp=507) POTASSIUM (BEAKER) (test 4.4 meq/L 3.5-5.1 Specimen slightly msoq=483) hemolyzed CHLORIDE (BEAKER) (test 107 meq/L 98-107 faei=638) CO2 (BEAKER) (test 19 meq/L 22-29 fnaq=508) BLOOD UREA NITROGEN 19 mg/dL 7-21 (BEAKER) (test cetn=176) CREATININE (BEAKER) (test 0.64 mg/dL 0.57-1.25 Specimen slightly zmfl=504) hemolyzed GLUCOSE RANDOM (BEAKER) 95 mg/dL 70-105 (test qypi=083) CALCIUM (BEAKER) (test 10.7 mg/dL 8.4-10.2 gbka=191) EGFR (BEAKER) (test mL/min/1.73 sq m INSUFFICIENT CLINICAL DATA likp=6061) TO CALCULATE ESTIMATED GFR. CBC W/PLT COUNT & AUTO [id number] 21:59:00 Test Item Value Reference Range Comments WHITE BLOOD CELL COUNT (BEAKER) (test kpow=354) 11.9 K/ L 3.5-10.5 RED BLOOD CELL COUNT (BEAKER) (test kleo=519) 4.66 M/ L 3.93-5.22 HEMOGLOBIN (BEAKER) (test qrcc=148) 13.7 GM/DL 11.2-15.7 HEMATOCRIT (BEAKER) (test yxwz=958) 42.1 % 34.1-44.9 MEAN CORPUSCULAR VOLUME (BEAKER) (test mohm=916) 90.3 fL 79.4-94.8 MEAN CORPUSCULAR HEMOGLOBIN (BEAKER) (test 29.4 pg 25.6-32.2 ehjw=882) MEAN CORPUSCULAR HEMOGLOBIN CONC (BEAKER) (test 32.5 GM/DL 32.2-35.5 ahou=759) RED CELL DISTRIBUTION WIDTH (BEAKER) (test 13.2 % 11.7-14.4 ecks=800) PLATELET COUNT (BEAKER) (test mfil=773) 218 K/CU MM 150-450 MEAN PLATELET VOLUME (BEAKER) (test zejs=450) 10.1 fL 9.4-12.3 NUCLEATED RED BLOOD CELLS (BEAKER) (test 0 /100 WBC 0-0 gcqr=894) NEUTROPHILS RELATIVE PERCENT (BEAKER) (test 47 % myih=795) LYMPHOCYTES RELATIVE PERCENT (BEAKER) (test 39 % rknj=291) MONOCYTES RELATIVE PERCENT (BEAKER) (test 6 % rtlf=059) EOSINOPHILS RELATIVE PERCENT (BEAKER) (test 7 % ltsm=379) BASOPHILS RELATIVE PERCENT (BEAKER) (test 1 % xrdb=071) NEUTROPHILS ABSOLUTE COUNT (BEAKER) (test 5.61 K/ L 1.56-6.13 xhhw=327) LYMPHOCYTES ABSOLUTE COUNT (BEAKER) (test 4.61 K/ L 1.18-3.74 ulfx=183) MONOCYTES ABSOLUTE COUNT (BEAKER) (test 0.69 K/ L 0.24-0.36 uceo=751) EOSINOPHILS ABSOLUTE COUNT (BEAKER) (test 0.85 K/ L 0.04-0.36 trrn=180) BASOPHILS ABSOLUTE COUNT (BEAKER) (test 0.09 K/ L 0.01-0.08 kjtx=085) IMMATURE GRANULOCYTES-RELATIVE PERCENT (BEAKER) 0 % 0-1 (test ubpq=9187) [id number] 21:59:00 Test Item Value Reference Range Comments PROTIME (BEAKER) (test rpxr=094) 13.1 seconds 11.7-14.7 INR (BEAKER) (test ajli=028) 1.0 <=5.9 PARTIAL THROMBOPLASTIN TIME (BEAKER) (test 32.0 seconds 22.5-36.0 icig=387) RECOMMENDED COUMADIN/WARFARIN INR THERAPY RANGESSTANDARD DOSE: 2.0 - 3.0 Includes: PROPHYLAXIS forvenous thrombosis, systemic embolization; TREATMENT for venous thrombosis and/or pulmonary embolus.HIGH RISK: Target INR is 2.5-3.5 for patients with mechanical heart valves.POCT-GLUCOSE [id number] 21:14:00 Test Item Value Reference Range Comments POC-GLUCOSE METER (BEAKER) 88 mg/dL 70-110 TESTED AT [facility] [address] (test dkva=0368) [facility] [address]
[2018-04-15] MEDS ORDERED: FENTANYL CITR 100 MCG/2 ML ONE ×4 (04:11→11:12)
[2018-04-15] MEDS ORDERED: ONDANSETRON 4 MG/2 ML VIAL ONE (04:45)
[2018-04-15 06:03] LABS: Absolute Lymphocytes (CBC) 3.6 K/uL (0.7-4.9); Absolute Monocytes 0.6 K/uL (0.1-1.3); Absolute Neutrophil 8.6 K/uL (1.8-8.0); Basophils % 1.3 % (0-1.3); Eosinophils % 2.3 % (0-4.4); Hematocrit 43.9 % (36.0-45.0); Lymphocytes % 27.2 % (15.3-44.8); MCH 28.3 pg (27.0-35.0); MCV 87.1 fL (80-100); MPV 8.8 fL (7.6-11.3); Monocytes % 4.8 % (3.3-12.3); RBC Red Blood Cell Count 5.04 M/uL (3.86-4.86)
[2018-04-15 06:07] LABS: Protime INR 0.98
[2018-04-15 06:12] LABS: Potassium 3.3 mmol/L (3.5-5.1)
--- NOTE | 2018-04-15 06:22 | EKG ---
Test Date: 2018-04-15 Test Time: 05:34:13 Rn Psychiatric: SCOTT MEASUREMENT RESULTS: Intervals: Rate: 91 RI: 130 QRSD: 76 QT: 348 QTc: 428 [place]: P: 58 RI: 130 QRS: 61 T: 80 INTERPRETIVE STATEMENTS: Normal sinus rhythm Normal ECG No previous ECG available for comparison Electronically Signed On 04-15-18 06:19:39 CDT by Duane Christy
--- NOTE | 2018-04-15 08:20 | RAD REPORT ---
EXAM DESCRIPTION: VASExtrem Venous W Compress Bil04/15/2018 7:00 am CLINICAL HISTORY: Right leg pain COMPARISON: July 2017 FINDINGS: The common femoral, superficial femoral, popliteal veins bilaterally are compressible and demonstrate augmentation. Doppler demonstrates good flow. IMPRESSION: No evidence of deep venous thrombosis involving either lower extremity.
--- NOTE | 2018-04-15 09:04 | RAD REPORT ---
EXAM DESCRIPTION: VAS - Lower Extremity Arterial Bilat - 04/15/2018 8:21 am CLINICAL HISTORY: Bilateral leg pain. Cold right foot COMPARISON: July 2017 FINDINGS: No flow is seen within most of the right superficial femoral artery. Collaterals reconstit [place] the right popliteal artery which demonstrates a monophasic waveform. The right posterior tibial and right dorsalis pedis arteries are patent with monophasic waveforms. The left common femoral arterial waveform is triphasic. The proximal left superficial femoral arteria l waveform is monophasic. The mid and distal left superficial femoral artery are occluded. Collateral s reconstitute the left popliteal artery which is monophasic. 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 The mid and distal left superficial femoral artery are occluded with collaterals reconstituting the l eft popliteal artery
[2018-04-15] MEDS ORDERED: ASPIRIN 81 MG CHEWABLE TABLET ONE (09:16)
[2018-04-15] MEDS ORDERED: HEPARIN/D5W 25,000 UNIT/500 ML BAG IV ONE (09:40)
[2018-04-15] MEDS ORDERED: HEPARIN 5000 UNIT/ML 1 ML VIAL ONE (09:40)
--- NOTE | 2018-04-15 09:58 | EDPHYS ---
Physician Documentation [facility] Name: Eden Graham Age: 48 yrs Sex: Female : 1970 Arrival Date: 04/15/2018 Time: 04:03 Bed 7 Private MD: ED Physician Memo Rodriguez HPI: 04/15 05:14 This 48 yrs old Female presents to ER via EMS with complaints of Leg Pain. ps1 09:41 The patient presents with pain, that is acute. The complaints affect the right leg. wa Context: h/o stents in legs at [facility] last July. c/o pain in both LE with exertion but now 3 days of severe pain in R leg, shooting down to the R pinky toe. . Onset: The symptoms/episode began/occurred 3 day(s) ago. Modifying factors: The symptoms are alleviated by nothing. the symptoms are aggravated by walking. Associated signs and symptoms: Pertinent positives: calf tenderness, numbness, Pertinent negatives fever, swelling, tingling. Treatment prior to arrival includes: no previous treatment. Severity of symptoms: At their worst the symptoms were moderate, in the emergency department the symptoms are actually worse. The patient has experienced a previous episode, stents placed in both legs last July. The patient has not recently seen a physician. 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 - PT HAS NOT HAD MENSTRUAL CYCLE FOR 4 MONTHS bb Historical: - Allergies: 04:08 No Known Allergies; bb - Home Meds: 04:08 Aspir-81 81 mg oral TbEC 1 tab once daily [Active]; gabapentin 300 mg oral cap 1 cap bb twice a day [Active]; glipizide 5 mg Oral tab 1 tab 2 times per day [Active]; lisinopril-hydrochlorothiazide 20-12.5 mg oral tab 1 tab once daily [Active]; lovastatin 20 mg Oral tab 1 tab once daily [Active]; metformin 1,000 mg Oral tab 1 tab 2 times per day [Active]; - PMHx: 04:08 Diabetes - NIDDM; Hyperlipidemia; Hypertension; RLS; bb - PSHx: 04:08 Tubal ligation; STENT RIGHT LEG; bb - Immunization history:: Adult Immunizations up to date. - Social history:: Smoking status: Patient uses tobacco products, smokes one-half pack cigarettes per day, Patient/guardian denies using alcohol, street drugs. - Ebola Screening: : No symptoms or risks identified at this time. ROS: 09:47 Constitutional: Negative for fever, chills, and weight loss, Eyes: Negative for injury, wa pain, redness, and discharge, ENT: Negative for injury, pain, and discharge, Neck: Negative for injury, pain, and swelling, Cardiovascular: Negative for chest pain, palpitations, and edema, Respiratory: Negative for shortness of breath, cough, wheezing, and pleuritic chest pain, Abdomen/GI: Negative for abdominal pain, nausea, vomiting, diarrhea, and constipation, Back: Negative for injury and pain, : Negative for injury, bleeding, discharge, and swelling, Skin: Negative for injury, rash, and discoloration, Neuro: Negative for headache, weakness, numbness, tingling, and seizure, Psych: Negative for depression, anxiety, suicide ideation, homicidal ideation, and hallucinations. 09:47 MS/extremity: Positive for pain, of the right leg, Negative for injury or acute deformity. 09:47 All other systems are negative. Exam: 09:47 Constitutional: This is a well developed, well nourished patient who is awake, alert, wa and in no acute distress. Head/Face: Normocephalic, atraumatic. Eyes: Pupils equal round and reactive to light, extra-ocular motions intact. Lids and lashes normal. Conjunctiva and sclera are non-icteric and not injected. Cornea within normal limits. Periorbital areas with no swelling, redness, or edema. ENT: Nares patent. No nasal discharge, no septal abnormalities noted. Tympanic membranes are normal and external auditory canals are clear. Oropharynx with no redness, swelling, or masses, exudates, or evidence of obstruction, uvula midline. Mucous membranes moist. Neck: Trachea midline, no thyromegaly or masses palpated, and no cervical lymphadenopathy. Supple, full range of motion without nuchal rigidity, or vertebral point tenderness. No Meningismus. Cardiovascular: Regular rate and rhythm with a normal S1 and S2. No gallops, murmurs, or rubs. Normal PMI, no JVD. No pulse deficits. Respiratory: Lungs have equal breath sounds bilaterally, clear to auscultation and percussion. No rales, rhonchi or wheezes noted. No increased work of breathing, no retractions or nasal flaring. Abdomen/GI: Soft, non-tender, with normal bowel sounds. No distension or tympany. No guarding or rebound. No evidence of tenderness throughout. Back: No spinal tenderness. No costovertebral tenderness. Full range of motion. Skin: Warm, dry with normal turgor. Normal color with no rashes, no lesions, and no evidence of cellulitis. Neuro: Awake and alert, GCS 15, oriented to person, place, time, and situation. Cranial nerves II-XII grossly intact. Motor strength 5/5 in all extremities. Sensory grossly intact. Cerebellar exam normal. Normal gait. Psych: Awake, alert, with orientation to person, place and time. Behavior, mood, and affect are within normal limits. 09:47 Musculoskeletal/extremity: Extremities: grossly normal except: R foot cooler than left. tender to palpation R leg from knee down noted with bluish hue and a bit more dusky than the left, ROM: nml. . Vital Signs: 04:08 BP 166 / 93; Pulse 98; Resp 20 S; Temp 98.5(O); Pulse Ox 96% on R/A; Weight 88.45 kg bb (R); Height 5 ft. 5 in. (165.10 cm) (R); Pain 10/10; 04:48 BP 148 / 88; Pulse 94; Resp 20; Pulse Ox 99% on R/A; ak1 05:49 BP 166 / 86; Pulse 84; Resp 18; Pulse Ox 98% on R/A; ea 06:05 BP 158 / 87; Pulse 84; Resp 16; Pulse Ox 97% on R/A; Pain 7/10; ea 07:00 BP 179 / 97; Pulse 84; Resp 17; Pulse Ox 97% on R/A; tw2 07:41 BP 136 / 83; Pulse 93; Resp 19; Pulse Ox 95% on R/A; tw2 08:39 BP 137 / 86; Pulse 98; Resp 18; Pulse Ox 95% on R/A; tw2 09:23 BP 132 / 80; Pulse 91; Resp 17; Pulse Ox 96% on R/A; tw2 10:13 BP 169 / 80; Pulse 83; Resp 17; Pulse Ox 100% on 2 lpm NC; tw2 04:08 Body Mass Index 32.45 (88.45 kg, 165.10 cm) bb MDM: 05:55 Patient medically screened. ps1 09:49 Differential diagnosis: suspect claudication with arterial occlusion/insufficiency. wa will check arterial side dopplers. Data reviewed: vital signs, nurses notes. 09:52 Test interpretation: by ED physician or midlevel provider: labs noted for low K and wa hyperglycemia. 09:52 Test interpretation: by ED physician or midlevel provider: LE arterial doppler: R wa superficial femoral artery occlusion. Physician consultation: Accepted by Dr. Gamboa at [facility]. Heparin IV bolus and drip started. got ASA. replaced K per os. NS bolus given for hyperglycemia. 04/15 05:16 Order name: Basic Metabolic Panel; Complete Time: 06:15 ps1 04/15 05:16 Order name: CBC with Diff; Complete Time: 06:15 ps1 04/15 05:16 Order name: PT-INR; Complete Time: 06:15 ps1 04/15 05:16 Order name: Ptt, Activated; Complete Time: 06:15 ps1 04/15 07:27 Order name: Urine Dipstick--Ancillary (enter results) em1 04/15 07:27 Order name: Urine --Ancillary (enter results) em1 04/15 05:16 Order name: Extrem Venous W Compression Elmer US; Complete Time: 09:11 ps1 04/15 07:32 Order name: Lower Extremity Arterial Bilat US; Complete Time: 09:08 oh 04/15 05:16 Order name: EKG; Complete Time: 05:17 ps1 04/15 05:16 Order name: Cardiac monitoring; Complete Time: 05:44 ps1 04/15 05:16 Order name: EKG - Nurse/Tech; Complete Time: 05:44 ps1 04/15 05:16 Order name: IV Saline Lock; Complete Time: 05:17 ps1 04/15 05:16 Order name: Labs collected and sent; Complete Time: 05:43 ps1 04/15 05:16 Order name: O2 Per Protocol; Complete Time: 05:18 ps1 04/15 05:16 Order name: O2 Sat Monitoring; Complete Time: 05:18 ps1 04/15 05:16 Order name: Urine Dipstick-Ancillary (obtain specimen); Complete Time: 07:24 ps1 Administered Medications: 04:54 Drug: fentaNYL (PF) 25 mcg Route: IVP; Site: left antecubital; ea 05:30 Follow up: Response: No adverse reaction; Pain is decreased ea 04:55 Drug: Zofran 4 mg Route: IVP; Site: left antecubital; ea 05:54 Follow up: Response: No adverse reaction ea 05:47 Drug: fentaNYL (PF) 25 mcg Route: IVP; Site: left antecubital; ea 05:53 Follow up: Response: No adverse reaction; Marked relief of symptoms; Pain is decreased ea 07:58 Drug: fentaNYL (PF) 100 mcg Route: IVP; Site: left antecubital; tw2 09:16 Follow up: Response: No adverse reaction; No change in condition; No change in tw2 condition, pt still moaning audibly at this time, provider notified. 09:15 Drug: Aspirin Chewable Tablet 324 mg Route: PO; tw2 10:07 Follow up: Response: No adverse reaction tw2 09:40 Drug: HEParin 7000 units {Co-Signature: jayna (Kaylynn Lynn RN).} Route: IV; Rate: tw2 calculated rate; Site: left antecubital; 09:44 Follow up: Response: No adverse reaction; IV Status: Completed infusion tw2 09:45 Drug: Heparin (DVT/PE Drip) 18 units/kg/hr - (HEParin 65298 units, D5W 500 ml) tw2 {Co-Signature: ss (Kaylynn Lynn RN).} Route: IV; Rate: calculated rate; Site: left antecubital; 11:12 Follow up: IV Status: Infusion continued upon transfer tw2 10:06 Drug: Potassium Chloride 40 mEq Route: PO; tw2 10:07 Follow up: Response: No adverse reaction tw2 10:07 Drug: NS 0.9% 1000 ml Route: IV; Rate: 1 bolus; Site: left antecubital; tw2 11:12 Follow up: IV Status: Completed infusion; IV Intake: 1000ml tw2 11:11 Drug: fentaNYL (PF) 100 mcg Route: IVP; Site: left antecubital; tw2 11:14 Follow up: Response: No adverse reaction tw2 Disposition: 04/15/18 09:57 Transfer ordered to [facility]. Diagnosis are Acute R leg pain, R lower extremity claudication, R superficial femoral artery occlusion. - Reason for transfer: Higher level of care. - Accepting physician is Dr. Gamboa. - Condition is Stable. - Problem is new. - Symptoms have improved. Signatures: Dispatcher [employer] Laxmi Thibodeaux, RN RN Mary Manning RN RN tw2 Kiersten Cisneros RN RN ea Memo Rodriguez MD MD wa Singer, Phillip, MD MD ps1 Shelby Smirch RN ss Corrections: (The following items were deleted from the chart) 11:16 09:57 04/15/2018 09:57 Transfer ordered to [facility]. Diagnosis is tw2 Acute R leg pain; R lower extremity claudication; R superficial femoral artery occlusion. Reason for transfer: Higher level of care. Accepting physician is Dr. Gamboa. Condition is Stable. Problem is new. Symptoms have improved. wa
--- NOTE | 2018-04-15 09:58 | ER ---
Nurse's Notes [facility] Name: Eden Graham Age: 48 yrs Sex: Female : 1970 Arrival Date: 04/15/2018 Time: 04:03 Bed 7 Private MD: Diagnosis: Acute R leg pain;R lower extremity claudication;R superficial femoral artery occlusion Presentation: 04/15 04:03 Presenting complaint: EMS states: they were toned out for report of pt having severe bb leg pain with hx of DVT in the past pt states she had a stent placement to right leg in July at [facility] by Dr Reza pt was seen by PCP on Friday and given pain medication but used it all and the pain has become severe and she is not able to bear weight on her right leg. Transition of care: patient was not received from another setting of care. Onset of symptoms was April 11, 2018. Risk Assessment: Do you want to hurt yourself or someone else? Patient reports no desire to harm self or others. Initial Sepsis Screen: Does the patient meet any 2 criteria? No. Patient's initial sepsis screen is negative. Does the patient have a suspected source of infection? No. Patient's initial sepsis screen is negative. Care prior to arrival: Glucose check: 281. 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 - PT HAS NOT HAD MENSTRUAL CYCLE FOR 4 MONTHS bb Historical: - Allergies: 04:08 No Known Allergies; bb - Home Meds: 04:08 Aspir-81 81 mg oral TbEC 1 tab once daily [Active]; gabapentin 300 mg oral cap 1 cap bb twice a day [Active]; glipizide 5 mg Oral tab 1 tab 2 times per day [Active]; lisinopril-hydrochlorothiazide 20-12.5 mg oral tab 1 tab once daily [Active]; lovastatin 20 mg Oral tab 1 tab once daily [Active]; metformin 1,000 mg Oral tab 1 tab 2 times per day [Active]; - PMHx: 04:08 Diabetes - NIDDM; Hyperlipidemia; Hypertension; RLS; bb - PSHx: 04:08 Tubal ligation; STENT RIGHT LEG; bb - Immunization history:: Adult Immunizations up to date. - Social history:: Smoking status: Patient uses tobacco products, smokes one-half pack cigarettes per day, Patient/guardian denies using alcohol, street drugs. - Ebola Screening: : No symptoms or risks identified at this time. Screenin:30 Abuse screen: Denies threats or abuse. Nutritional screening: No deficits noted. ea Tuberculosis screening: No symptoms or risk factors identified. Fall Risk None identified. Assessment: 04:15 General: Appears uncomfortable, Behavior is restless. Pain: Complains of pain in right ea leg Pain currently is 10 out of 10 on a pain scale. Quality of pain is described as aching, shooting, Pain began 2-3 days ago. Neuro: Level of Consciousness is awake, alert, obeys commands, Oriented to person, place, time, situation. Cardiovascular: Heart tones S1 S2 present. Respiratory: Airway is patent Respiratory effort is even, unlabored, Respiratory pattern is regular, symmetrical. GI: No signs and/or symptoms were reported involving the gastrointestinal system. : No signs and/or symptoms were reported regarding the genitourinary system. EENT: No signs and/or symptoms were reported regarding the EENT system. Derm: edema, pain and some redness noted to right lower extremity. Reports history of DVT to right lower extremity. 05:00 Reassessment: Patient and/or family updated on plan of care and expected duration. Pain ea level reassessed. Pt complaining of pain, provider notified, medication order obtained, medication administered. Pt tolerated well. 05:47 Reassessment: Patient and/or family updated on plan of care and expected duration. Pain ea level reassessed. Pt complaining of pain, provider notified, medication order obtained, medication administered, tolerated well. 06:04 Reassessment: Patient and/or family updated on plan of care and expected duration. Pain ea level reassessed. Patient is alert, oriented x 3, equal unlabored respirations, skin warm/dry/pink. Pain is decreased. Patient states symptoms have improved. 07:16 Reassessment: pt c/o pain at this, provider notified. tw2 07:45 Reassessment: Patient and/or family updated on plan of care and expected duration. Pain tw2 level reassessed. Patient is alert, oriented x 3, equal unlabored respirations, skin warm/dry/pink. 08:39 Reassessment: Patient and/or family updated on plan of care and expected duration. Pain tw2 level reassessed. Patient is alert, oriented x 3, equal unlabored respirations, skin warm/dry/pink. pt moaning audibly at this time, mother at bedside. 09:30 Reassessment: Patient and/or family updated on plan of care and expected duration. Pain tw2 level reassessed. Patient is alert, oriented x 3, equal unlabored respirations, skin warm/dry/pink. 10:13 Reassessment: Patient and/or family updated on plan of care and expected duration. Pain tw2 level reassessed. Patient is alert, oriented x 3, equal unlabored respirations, skin warm/dry/pink. Vital Signs: 04:08 BP 166 / 93; Pulse 98; Resp 20 S; Temp 98.5(O); Pulse Ox 96% on R/A; Weight 88.45 kg bb (R); Height 5 ft. 5 in. (165.10 cm) (R); Pain 10/10; 04:48 BP 148 / 88; Pulse 94; Resp 20; Pulse Ox 99% on R/A; ak1 05:49 BP 166 / 86; Pulse 84; Resp 18; Pulse Ox 98% on R/A; ea 06:05 BP 158 / 87; Pulse 84; Resp 16; Pulse Ox 97% on R/A; Pain 7/10; ea 07:00 BP 179 / 97; Pulse 84; Resp 17; Pulse Ox 97% on R/A; tw2 07:41 BP 136 / 83; Pulse 93; Resp 19; Pulse Ox 95% on R/A; tw2 08:39 BP 137 / 86; Pulse 98; Resp 18; Pulse Ox 95% on R/A; tw2 09:23 BP 132 / 80; Pulse 91; Resp 17; Pulse Ox 96% on R/A; tw2 10:13 BP 169 / 80; Pulse 83; Resp 17; Pulse Ox 100% on 2 lpm NC; tw2 04:08 Body Mass Index 32.45 (88.45 kg, 165.10 cm) bb ED Course: 04:03 Patient arrived in ED. bb 04:06 Triage completed. bb 04:08 Arm band placed on Patient placed in an exam room, on a stretcher, on pulse oximetry. bb 04:15 Patient has correct armband on for positive identification. Bed in low position. Call ea light in reach. Side rails up X2. 04:26 Kiersten Cisneros, RN is Primary Nurse. ea 04:56 Missed attempt(s): 20 gauge Bleeding controlled, band aid applied, catheter tip intact. oe Inserted saline lock: 20 gauge in left antecubital area, using aseptic technique. Blood collected. 05:14 Young Arroyo MD is Attending Physician. ps1 06:58 Ultrasound completed. aa4 06:59 Extrem Venous W Compression Elmer US In Process Unspecified. EDMS 07:13 Attending Physician role handed off by Young Arroyo MD wa 07:13 Memo Rodriguez MD is Attending Physician. wa 07:14 Report given to Pricila DONNELLY. ea 07:15 Primary Nurse role handed off by Kiersten Cisneros RN tw2 07:15 Mary Jones RN is Primary Nurse. tw2 07:40 Awaiting: medication from pharmacy that is not available at this time in the pxysis. tw2 08:05 Patient taken to ultrasound. via stretcher. aa4 08:22 Lower Extremity Arterial Bilat US In Process Unspecified. EDMS 10:05 Awaiting: attempted to call report to [facility], was told from the transfer tw2 center that they were still waiting for room assignment and to give them 10 minutes and call back. 11:14 No provider procedures requiring assistance completed. Patient transferred, IV remains tw2 in place. Administered Medications: 04:54 Drug: fentaNYL (PF) 25 mcg Route: IVP; Site: left antecubital; ea 05:30 Follow up: Response: No adverse reaction; Pain is decreased ea 04:55 Drug: Zofran 4 mg Route: IVP; Site: left antecubital; ea 05:54 Follow up: Response: No adverse reaction ea 05:47 Drug: fentaNYL (PF) 25 mcg Route: IVP; Site: left antecubital; ea 05:53 Follow up: Response: No adverse reaction; Marked relief of symptoms; Pain is decreased ea 07:58 Drug: fentaNYL (PF) 100 mcg Route: IVP; Site: left antecubital; tw2 09:16 Follow up: Response: No adverse reaction; No change in condition; No change in tw2 condition, pt still moaning audibly at this time, provider notified. 09:15 Drug: Aspirin Chewable Tablet 324 mg Route: PO; tw2 10:07 Follow up: Response: No adverse reaction tw2 09:40 Drug: HEParin 7000 units {Co-Signature: jayna (Kaylynn Lynn RN).} Route: IV; Rate: tw2 calculated rate; Site: left antecubital; 09:44 Follow up: Response: No adverse reaction; IV Status: Completed infusion tw2 09:45 Drug: Heparin (DVT/PE Drip) 18 units/kg/hr - (HEParin 98057 units, D5W 500 ml) tw2 {Co-Signature: ss (Kaylynn Lynn RN).} Route: IV; Rate: calculated rate; Site: left antecubital; 11:12 Follow up: IV Status: Infusion continued upon transfer tw2 10:06 Drug: Potassium Chloride 40 mEq Route: PO; tw2 10:07 Follow up: Response: No adverse reaction tw2 10:07 Drug: NS 0.9% 1000 ml Route: IV; Rate: 1 bolus; Site: left antecubital; tw2 11:12 Follow up: IV Status: Completed infusion; IV Intake: 1000ml tw2 11:11 Drug: fentaNYL (PF) 100 mcg Route: IVP; Site: left antecubital; tw2 11:14 Follow up: Response: No adverse reaction tw2 Intake: 11:12 IV: 1000ml; Total: 1000ml. tw2 Outcome: 09:57 ER care complete, transfer ordered by . 11:14 Transferred by ground EMS to [facility]. tw 11:14 Condition: stable 11:14 Instructed on the need for transfer. 11:16 Patient left the ED. Signatures: Dispatcher [employer] Laxmi Thibodeaux RN RN Licha Amos aa4 Grisel Romero RN RN ak1 Mary Jones RN RN tw2 Jeremy Steel Elena RN Memo Causey ea, MD MD wa Singer, Phillip, MD MD ps1 Shelby Smirch RN ss
[2018-04-15] MEDS ORDERED: POTASSIUM CL SA 10 MEQ TAB PO ONE (10:04)
[2018-04-15] MEDS ORDERED: NA CHLORIDE 0.9% 1,000 ML ONE (10:04)
[2018-04-15 10:19] LABS: Urine Blood NEGATIVE (NEG); Urine Glucose 2+ (NEG); Urine Protein TRACE (NEG); Urine Specific Gravity 1.025 (1.005-1.030); Urine pH 5.5 (5.0-7.0)
== END 2018-04-15 11:16 | disposition short-term general hospital (02) ==
LOC: ER 03:54
DX: I73.9 Peripheral vascular disease, unspecified (principal); I70.201 Unspecified atherosclerosis of native arteries of extremities, right leg; I10 Essential (primary) hypertension; E11.9 Type 2 diabetes mellitus without complications; F17.210 Nicotine dependence, cigarettes, uncomplicated; Z79.82 Long term (current) use of aspirin
CPT/HCPCS: 36415; 80048; 81003; 81025; 85025; 85610; 85730; 93005; 93925; 93970; 96365; 96375; 99285; J1644; J2405; J3010; J7030

== ENCOUNTER 2018-05-10 14:34 | Emergency (ER) | payer SELFPAY ==
--- OUTSIDE RECORDS SUMMARY | 2018-05-10 14:37 | XMS REPORT | Clinical Summary ---
:1970 Author Organization [facility] Address [address] [place] [address] Phone Care Team Providers Name Role Phone Unavailable Primary Care Provider Unavailable Allergies No Known Allergies Current Medications Prescription Sig. Disp. Refills Start End Date Status Date metFORMIN (GLUCOPHAGE) Take 1,000 mg Active 1000 MG by mouth 2 tabletIndications: type (two) times 2 diabetes mellitus daily with breakfast and dinner. lovastatin (MEVACOR) 20 Take 20 mg by Active MG tablet mouth nightly. lisinopril 20 MG Tab 20 Take 1 tablet Active mg, hydroCHLOROthiazide by mouth 12.5 mg Cap 12.5 mg daily. gabapentin (NEURONTIN) Take 300 mg Active 300 MG capsule by mouth 2 (two) times daily. apixaban (ELIQUIS) 5 mg Take 1 tablet 60 tablet 0 05/27/20 Active Tab tablet (5 mg total) 8 18 by mouth 2 (two) times daily for 30 days. clopidogrel (PLAVIX) 75 Take 1 tablet 30 tablet 0 05/28/20 Active mg tablet (75 mg total) 8 18 by mouth daily for 30 days. magnesium oxide (MAG-OX) Take 1 tablet 30 tablet 0 05/28/20 Active 400 mg tablet (400 mg 8 18 total) by mouth daily for 30 days. apixaban (ELIQUIS) 5 mg Take 1 tablet 60 tablet 1 04/15/20 Discontinued Tab tablet (5 mg total) 7 18 by mouth 2 (two) times daily. aspirin 81 MG EC tablet Take 1 tablet 30 tablet 11 04/27/20 Discontinued (81 mg total) 7 18 by mouth daily. acetaminophen-codeine Take 1-2 30 tablet 0 08/17/20 (TYLENOL #3) 300-30 mg tablets by 7 17 per tablet mouth every 6 (six) hours as needed for Pain for up to 10 days. Max Daily Amount: 8 tablets Active Problems Problem Noted Date Femoral artery occlusion, right (HCC) 04/15/2018 Postoperative pain 08/04/2017 Hypokalemia 08/04/2017 Hypomagnesemia 08/04/2017 Peripheral vascular disease (HCC) 07/28/2017 Encounters Date Type Specialty Care Team Description 04/16/2018 Procedure Pass 04/16/2018 Surgery JANETT Gamboa ANGIOS / Amada AORTOGRAM MD Ishaan 04/15/2018 - Hospital Encounter Cardiology Christila, Femoral artery 04/27/2018 Terra Bains MD occlusion, right Moody, Chauncey ([facility]);Peripheral MD Félix vascular disease ([facility]);Smoker;Mixed hyperlipidemia;DM (diabetes mellitus), type 2 with peripheral vascular complications ([facility]);Essential hypertension;Hypomagn esemia;Diabetic peripheral neuropathy ([facility]) 08/04/2017 Anesthesia Event Robi Delgadillo AA 08/04/2017 Procedure Pass 08/04/2017 Surgery Reji Reza, ENDARTERECTOMY,FEMORA L 08/04/2017 Procedure Pass 07/29/2017 Procedure Pass 07/29/2017 Surgery Reji Reza, VENOGRAM 07/28/2017 Procedure Pass 07/28/2017 Surgery Reji Reza, CORONARY ANGIOS & MD AORTOGRAM 07/28/2017 Procedure Pass 07/27/2017 - Hospital Encounter Cardiology Jaspreet Arellano Peripheral vascular 08/07/2017 MD Benny disease Reji Reza, ([facility]);Hypokalemia;Hyp MD omagnesemia;Postopera tive pain 07/27/2017 Orders Only General Internal Medicine after 05/09/2017 Family History Medical History Relation Name Comments Diabetes Brother Amada Duvall Hypertension Father Guisifredo Diabetes Mother Hypertension Mother Stroke Mother Relation Name Status Comments Brother Amada Duvall Alive Father Guisifredo Alive Mother Social History Tobacco Use Types Packs/Day Years Used Date Former Smoker 0.5 30 Quit: 06/27/2017 Smokeless Tobacco: Former User Tobacco Cessation: Counseling Given: Yes Alcohol Use Drinks/Week oz/Week Comments No Sex Assigned at Date Recorded Not on file Last Filed Vital Signs Vital Sign Reading Time Taken Blood Pressure 115/70 04/27/2018 11:23 AM CDT Pulse 97 04/27/2018 11:23 AM CDT Temperature 37.1 C (98.7 F) 04/27/2018 11:23 AM CDT Respiratory Rate 19 04/27/2018 11:23 AM CDT Oxygen Saturation 91% 04/27/2018 11:23 AM CDT Inhaled Oxygen Concentration - - Weight 87 kg (191 lb 14.4 oz) 04/27/2018 6:00 AM CDT Height 165.1 cm (5' 5") 04/18/2018 8:20 PM CDT Body Mass Index 31.93 04/27/2018 6:00 AM CDT Plan of Treatment Not on file Implants Implanted Type Area Slip Filler Device Expiration Model / Identifier Date Serial / Lot Device Clsr Angio-Seal Vip 6fr [id number] - [id number] Cardiovascular [facility] FELIBERTO 05/26/2018 [id number] / Implanted: Qty: 1 on 07/29/2017 by Reji Reza MD MED:CARDIAC / SURG [id number] Mynxgrip Vascular Closure Device Cardiovascular Right: [facility] [id number] / Implanted: Qty: 1 on 04/16/2018 by Amada Gamboa MD Groin / [id number] Mynxgrip Vascular Closure Device Cardiovascular Left: [facility] 03/26 [id number] / Implanted: Qty: 1 on 04/16/2018 by Amada Gamboa MD Groin / [id number] Stent Icast [id number] - [id number] Stents-Periphera Right: [employer] 03/13/2019 [id number] / Implanted: Qty: 1 on 08/04/2017 by Reji Reza MD l Groin [id number] / NA Stent Epic [id number] - Sna Stents-Periphera Right: [employer] 03/2022 [id number] / Implanted: Qty: 1 on 08/04/2017 by Reji Reza MD l Groin SCI:PERIPHERAL NA / INTERV [id number] Stent Epic [id number] - Sna Stents-Periphera Right: [place] [id number] / Implanted: Qty: 1 on 08/04/2017 by Reji Reza MD l Groin SCI:PERIPHERAL NA / INTERV [id number] [place] [employer] Balloon Expandable Endoprosthesis Stents-Periphera GORE 10/2019 [id number] / Implanted: Qty: 1 on 04/16/2018 by Amada Gamboa MD l [id number] / [place] [employer] Balloon Expandable Endoprothesis Stents-Periphera GORE [id number] / Implanted: Qty: 1 on 04/16/2018 by Amada Gamboa MD l [id number] / Patch Periph Vascu-Grd 0.8x8cm [id number] - [id number] Tissue Right: [employer] 12/23/2021 [id number] / Implanted: Qty: 1 on 08/04/2017 by Reji Reza MD Graft/Substitute Groin TECH:SURG [id number] / INNOV [id number] Procedures Procedure Name Priority Date/Time Associated Diagnosis Comments PERIPHERAL ANGIOS / 04/16/2018 5:07 PM Limb ischemia AORTOGRAM CDT ENDARTERECTOMY,FEMORAL 08/04/2017 12:00 PM PAD (peripheral artery CDT disease) ([facility]) Case Notes RIGHT COMMON FEMORAL ENDARTERECTOMY, ILIAC STENTING VENOGRAM 07/29/2017 5:50 PM CDT [id number]-[id number] Case Notes RIGHT LOWER EXTREMITY EKOSE CATHETER PLACEEMNT CECILIA CALLED . 2nd day LYSIS /ADDED PER MISTI FOR *10-3 Special Needs MOY/[facility] [phone]/[facility] CORONARY ANGIOS & AORTOGRAM 07/28/2017 6:04 PM CDT cp after 05/09/2017 Results RHYTHM STRIP - SCAN (04/28/2018 1:00 PM)Only the most recent of5 resultswithin the time period is included.POC-Glucose meter (04/27/2018 11:57 AM)Only the most recent of84 resultswithin the time period is included. Component Value Ref Range POC-Glucose Meter 246 (H)Comment: TESTED AT [address] 70 - 110 mg/[place] [address] Specimen Performing Laboratory Blood [facility] [address] [place] [address] Magnesium (04/27/2018 5:52 AM)Only the most recent of9 resultswithin the time period is included. Component Value Ref Range Magnesium 2.1Comment: Specimen slightly hemolyzed 1.6 - 2.6 mg/dL Specimen Performing Laboratory Blood [address] [address] Basic Metabolic Panel (04/27/2018 5:52 AM)Only the most recent of13 resultswithin the time period is included. Component Value Ref Range Sodium 133 (L) 136 - 145 meq/L Potassium 4.5Comment: Specimen slightly hemolyzed 3.5 - 5.1 meq/L Chloride 99 98 - 107 meq/L CO2 27 22 - 29 meq/L BUN 15 7 - 21 mg/dL Creatinine 0.75Comment: Specimen slightly hemolyzed 0.57 - 1.25 mg/dL Glucose 182 (H) 70 - 105 mg/dL Calcium 11.0 (H) 8.4 - 10.2 mg/dL EGFR Comment: INSUFFICIENT CLINICAL DATA TO CALCULATE mL/min/1.73 sq m ESTIMATED GFR. Specimen Performing Laboratory Blood [address] [address] CBC (Hemogram only) (04/26/2018 2:46 PM)Only the most recent of12 resultswithin the time period is included. Component Value Ref Range WBC 6.8 3.5 - 10.5 K/L RBC 4.19 3.93 - 5.22 M/L Hemoglobin 11.7 11.2 - 15.7 GM/DL Hematocrit 37.1 34.1 - 44.9 % MCV 88.5 79.4 - 94.8 fL MCH 27.9 25.6 - 32.2 pg MCHC 31.5 (L) 32.2 - 35.5 GM/DL RDW 13.3 11.7 - 14.4 % Platelets 488 (H) 150 - 450 K/CU MM MPV 9.4 9.4 - 12.3 fL nRBC 0 0 - 0 /100 WBC Specimen Performing Laboratory Blood - Line, Venous [address] [address] aPTT (04/23/2018 6:14 AM)Only the most recent of28 resultswithin the time period is included. Component Value Ref Range PTT 37.1 (H) 22.5 - 36.0 seconds Specimen Performing Laboratory Blood [facility] [address] [address] CARDIAC CATH REPORT - SCAN (04/21/2018 4:21 PM)Only the most recent of3 resultswithin the time period is included.SILVINO's With PT and DP Doppler Unilateral (04/20/2018 9:36 AM) Component Value Ref Range Ejection Fraction Specimen Performing Laboratory [facility] ECHO HEARTLAB MKCKESSON CPACS Impressions Right Impression 1. The posterior tibial and dorsalis pedis arteries are patent with monophasic Doppler waveforms. 2. The PT pressure is 79 mmHg with an SILVINO of 0.65 (low moderate obstruction range) and the DP pressure is 70 mmHg with an SILVINO of 0.57 (within severe obstruction range). 3. The TBI was unobtainable for the digit has no detectable flow by PPG 4. Digit three has reduced flow by PPG. Digits one, two, four, and five have no detectable flow by PPG. Left Impression 1. The posterior tibial and dorsalis pedis arteries are patent with monophasic Doppler waveforms. 2. The PT pressure is 74 mmHg with an SILVINO of 0.61 (low moderate obstruction range) and the DP pressure is 77 mmHg with an SILVINO of 0.63 (low moderate obstruction range). 3. The great toe pressure is 47 mmHg with an abnormal TBI of 0.39. 4. All digits have reduced flow by PPG Conclusions Summary Arterial pressures and Doppler waveforms were performed bilaterally. Adequate Doppler waveforms were obtained. Doppler waveforms were monophasic on the right. The right SILVINO's were within low moderate and severe obstruction range. The right TBI was unobtainable. Digit three had reduced flow by PPG. Digits one, two, four, and five had no detectable flow by PPG. On the left, the Doppler waveforms were monophasic. The SILVINO's were in the low moderate obstruction range. The TBI was abnormal. 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 InterpretingLayne Scott RVT, Gege ROSEN[place], [facility] Procedure Type of Study: Extremities Arteries: Lower Extremity Arterial Procedure, ARTERIAL (SILVINO'S W/DOPPLER) ONLY. Indications for Study:Foot pain . Patient Status:Routine. Study Location:Vascular Lab. Technical Quality:Adequate visualization. 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 Interpreting Layne Scott RVT, MAGDALENAS Physician , ELLIOT Procedure Type of Study: Extremities Arteries: Lower Extremity Arterial Procedure, ARTERIAL (SILVINO'S W/DOPPLER) ONLY. Indications for Study:Foot pain . Patient Status:Routine. Study Location:Vascular Lab. Technical Quality:Adequate visualization. Impressions Right Impression 1. The posterior tibial and dorsalis pedis arteries are patent with monophasic Doppler waveforms. 2. The PT pressure is 79 mmHg with an SILVINO of 0.65 (low moderate obstruction range) and the DP pressure is 70 mmHg with an SILVINO of 0.57 (within severe obstruction range). 3. The TBI was unobtainable for the digit has no detectable flow by PPG 4. Digit three has reduced flow by PPG. Digits one, two, four, and five have no detectable flow by PPG. Left Impression 1. The posterior tibial and dorsalis pedis arteries are patent with monophasic Doppler waveforms. 2. The PT pressure is 74 mmHg with an SILVINO of 0.61 (low moderate obstruction range) and the DP pressure is 77 mmHg with an SILVINO of 0.63 (low moderate obstruction range). 3. The great toe pressure is 47 mmHg with an abnormal TBI of 0.39. 4. All digits have reduced flow by PPG Conclusions Summary Arterial pressures and Doppler waveforms were performed bilaterally. Adequate Doppler waveforms were obtained. Doppler waveforms were monophasic on the right. The right SILVINO's were within low moderate and severe obstruction range. The right TBI was unobtainable. Digit three had reduced flow by PPG. Digits one, two, four, and five had no detectable flow by PPG. On the left, the Doppler waveforms were monophasic. The SILVINO's were in the low moderate obstruction range. The TBI was abnormal. The left digits had reduced flow by PPG Signature Velocities are measured in cm/s ; Diameters are measured in cm PT/aPTT (04/18/2018 4:26 AM)Only the most recent of8 resultswithin the time period is included. Component Value Ref Range Protime 14.6 11.7 - 14.7 seconds INR 1.1 <=5.9 PTT 40.9 (H) 22.5 - 36.0 seconds Specimen Performing Laboratory Blood [facility] [address] [place] [address] Narrative RECOMMENDED COUMADIN/WARFARIN INR THERAPY RANGES STANDARD DOSE: 2.0 - 3.0 Includes: PROPHYLAXIS for venous thrombosis, systemic embolization; TREATMENT for venous thrombosis and/or pulmonary embolus. HIGH RISK: Target INR is 2.5-3.5 for patients with mechanical heart valves. CBC with platelet count + automated diff (04/18/2018 4:26 AM)Only the most recent of9 resultswithin the time period is included. Component Value Ref Range WBC 8.2 3.5 - 10.5 K/L RBC 4.24 3.93 - 5.22 M/L Hemoglobin 12.0 11.2 - 15.7 GM/DL Hematocrit 37.3 34.1 - 44.9 % MCV 88.0 79.4 - 94.8 fL MCH 28.3 25.6 - 32.2 pg MCHC 32.2 32.2 - 35.5 GM/DL RDW 13.4 11.7 - 14.4 % Platelets 265 150 - 450 K/CU MM MPV 9.4 9.4 - 12.3 fL nRBC 0 0 - 0 /100 WBC % Neutros 65 % % Lymphs 24 % % Monos 6 % % Eos 4 % % Baso 0 % # Neutros 5.34 1.56 - 6.13 K/L # Lymphs 1.93 1.18 - 3.74 K/L # Monos 0.52 (H) 0.24 - 0.36 K/L # Eos 0.32 0.04 - 0.36 K/L # Baso 0.03 0.01 - 0.08 K/L Immature Granulocytes-Relative 0 0 - 1 % Specimen Performing Laboratory Blood [address] [address] Prothrombin time/INR (04/18/2018 4:26 AM)Only the most recent of3 resultswithin the time period is included. Component Value Ref Range Protime 14.6 11.7 - 14.7 seconds INR 1.1 <=5.9 Specimen Performing Laboratory Blood [address] [address] Narrative RECOMMENDED COUMADIN/WARFARIN INR THERAPY RANGES STANDARD DOSE: 2.0 - 3.0 Includes: PROPHYLAXIS for venous thrombosis, systemic embolization; TREATMENT for venous thrombosis and/or pulmonary embolus. HIGH RISK: Target INR is 2.5-3.5 for patients with mechanical heart valves. CBC with platelet count + automated diff (04/18/2018 4:26 AM)Only the most recent of9 resultswithin the time period is included. Specimen Performing Laboratory Blood Narrative The following orders were created for panel order CBC with platelet count + automated diff. Procedure Abnormality Status --------- ------ CBC with platelet count ...[[id number]]AbnormalFinal result Please view results for these tests on the individual orders. CTA AAA and Runoff (04/16/2018 4:50 AM)Only the most recent of2 resultswithin the time period is included. Specimen Performing Laboratory [facility] RIS Narrative Addendum Begins REPORT STATUS:A ADDENDUM: I agree with the nonvascular findings as reported by Dr. Franklin. Signed: Willie Givens MD Report Verified Date/Time:04/16/2018 11:52:28 Reading Location: [place] [address] Angio Body Reading Room Addendum Ends FINAL REPORT CT angiography of the abdominal aorta and with runoff, 16 April 2018 INDICATION: This is a 48 year old female with evidence of peripheral vascular disease presents for assessment. This study is performed in an attempt to avoid an invasive procedure. TECHNIQUE: Spiral acquisition before and during intravenous contrast administration using a Siemens multidetector CT scanner. Images were obtained before and during the dynamic passage of intravenous contrast material.Multi-planar 3-D volume-rendering reconstruction was performed using an independent workstation interactively by the interpreting physician as well as the 3-D specialist for optimal visualisation of the abdominal aorta, pelvic arteries, and its proximal branches. Please refer to the contrast sheet scanned in the RIS system for the amount and route of contrast given. This exam was performed according to our departmental dose-optimisation programme, which includes automated exposure control, adjustment of the mA and/or kV according to patient size and/or use of iterative reconstruction technique. Dose modulation, iterative reconstruction, and/or weight based adjustment of the mA/kV was utilized to reduce the radiation dose to as low as reasonably achievable. FINDINGS: VASCULAR: The abdominal aorta is remarkable for mild circumferential noncalcific atherosclerosis, as well as scattered calcific atherosclerosis.No aneurysmal dilation is seen and no acute aortic pathology is identified. Quantitative dimensions of the aorta are as follows: 2.2 cm at the mesenteric level; 1.8 cm the renal level; and 1.5 cm near the aortic bifurcation. The coeliac axis, SMA are widely patent, and there is replacement of the right hepatic artery, a common variant. The JANEEN is patent. Single left and right renal arteries are seen that are widely patent. Single left and two right renal veins are seen draining normally into the IVC. The left common iliac artery has a mixture of calcific and noncalcific atherosclerosis, overall mild in nature, however, there is also atherosclerotic ulceration identified at image 163, representing a spectrum of underlying atherosclerosis. The left internal iliac artery is patent. The left external iliac artery and the left common femoral artery has noncalcific atherosclerosis identified, however, with only mild diffuse disease with no critical obstructive lesion present. In the right, long vascular stent is identified in the right common iliac artery and this segment of the stent is not filled by contrast indicating occlusion. Acuity cannot be commented upon. Correlate with clinical history. The stent extends into the right external iliac artery with only minimal intimal hyperplasia identified indicating no obstructive lesion seen. The stent terminates in the right common femoral artery that is also widely patent. In the right, the right SFA is not seen to enhance by contrast indicating occlusion. Acuity of this finding cannot be commented upon. Correlate with clinical history. The right profunda system is unremarkable. Enhancement is once again noted, approximately at image 461, and therefore the occlusion length is approximately 26 cm, with reconstitution by surrounding collaterals distally, at the level of the proximal right popliteal artery. Remainder of the right popliteal artery is seen to be patent with no obstructive lesion identified. In the right lower extremity, the right tibioperoneal trunk is patent. The right anterior tibial artery has a high takeoff and is also widely patent, well seen down to level of the ankle and the dorsalis pedis artery is identified. The right peroneal artery is widely patent. The right posterior tibial artery is widely patent and the plantar arch is seen distally. In the left, the left profunda system is identified. There is faint enhancement identified in the proximal few centimeters of the left SFA is patent, and thereafter remainder of the left SFA is not filled by contrast indicating occlusion. Acuity cannot be commented upon. Correlate with clinical history. More distally, at image 455, reconstitution is identified by surrounding collaterals to form the proximal left popliteal artery. The left popliteal artery is patent though some atherosclerosis is identified in the segment above the left knee joint. In the left lower extremity, the left anterior tibial artery is widely patent giving rise to the dorsalis pedis artery distally. The left tibioperoneal trunk is widely patent. The left peroneal artery is widely patent. The left posterior tibial artery is widely patent, giving rise to the plantar arch distally. NONVASCULAR: The lung bases are unremarkable. In the abdomen, the liver and spleen appears unremarkable. The liver edge is smooth. No abnormal enhancing structure is identified. The gallbladder appears unremarkable. The pancreas have no gross abnormality seen. The adrenal glands are not enlarged. No acute renal pathology is identified and no hydronephrosis or perirenal fluid collection is seen. Bowel is not well assessed by CT angiography as enteric contrast is not given. No obvious bowel dilation is identified. The appendix appears unremarkable. No free air free fluid seen in the abdomen and pelvis. The uterus is identified. No obvious abnormal adnexal mass is seen and CT is not optimised in the assessment of pelvic gynaecological structures. The right ovary is identified, less than 3 cm in size, at image 221, that is within normal reference range. The bladder appears unremarkable. No significant retroperitoneal adenopathy is identified. Small lymph nodes are seen in both groins, considered nonspecific in nature. Surgical clips are seen in the right groin suggesting prior surgery intervention at this level. Correlate with operative report. In the bony windows, no acute bony pathology is identified. CONCLUSIONS: 1.The abdominal aorta is remarkable for atherosclerosis with no acute aortic pathology identified. Quantitative dimension of the abdominal aorta are as described above. 2.Long stent is seen in the right pelvic arteries and the segment in the right common iliac artery is not filled by contrast indicating occlusion and remainder of the stent segment is patent and the right pelvic arteries as described above. Acuity cannot be commented upon. The left pelvic artery system is unremarkable. 3.Occlusion is seen in the majority of the left and the right SFA, as described above, with reconstitution by surrounding collaterals at the popliteal level, bilaterally. Acuity cannot be commented upon. Remainder of the left and the right popliteal arteries, bilaterally, widely patent. 4.Details of the runoff vessels as described above, bilaterally. 5.Other findings as described above. 6.An addendum will be dictated by the Director Skills Radiologist regarding the nonvascular findings. Signed: Donato Franklin MD Report Verified Date/Time:04/16/2018 07:32:25 Reading Location: [facility] P047 Cardiology MRI Procedure Note Interface, External Ris In - 04/16/2018 11:54 AM CDT Addendum Begins REPORT STATUS:A ADDENDUM: I agree with the nonvascular findings as reported by Dr. Franklin. Signed: Willie Givens MD Report Verified Date/Time: 04/16/2018 11:52:28 Reading Location: [facility] P048 Angio Body Reading Room Addendum Ends FINAL REPORT CT angiography of the abdominal aorta and with runoff, 16 April 2018 INDICATION: This is a 48 year old female with evidence of peripheral vascular disease presents for assessment. This study is performed in an attempt to avoid an invasive procedure. TECHNIQUE: Spiral acquisition before and during intravenous contrast administration using a Siemens multidetector CT scanner. Images were obtained before and during the dynamic passage of intravenous contrast material. Multi-planar 3-D volume-rendering reconstruction was performed using an independent workstation interactively by the interpreting physician as well as the 3-D specialist for optimal visualisation of the abdominal aorta, pelvic arteries, and its proximal branches. Please refer to the contrast sheet scanned in the RIS system for the amount and route of contrast given. This exam was performed according to our departmental dose-optimisation programme, which includes automated exposure control, adjustment of the mA and/or kV according to patient size and/or use of iterative reconstruction technique. Dose modulation, iterative reconstruction, and/or weight based adjustment of the mA/kV was utilized to reduce the radiation dose to as low as reasonably achievable. FINDINGS: VASCULAR: The abdominal aorta is remarkable for mild circumferential noncalcific atherosclerosis, as well as scattered calcific atherosclerosis. No aneurysmal dilation is seen and no acute aortic pathology is identified. Quantitative dimensions of the aorta are as follows: 2.2 cm at the mesenteric level; 1.8 cm the renal level; and 1.5 cm near the aortic bifurcation. The coeliac axis, SMA are widely patent, and there is replacement of the right hepatic artery, a common variant. The JANEEN is patent. Single left and right renal arteries are seen that are widely patent. Single left and two right renal veins are seen draining normally into the IVC. The left common iliac artery has a mixture of calcific and noncalcific atherosclerosis, overall mild in nature, however, there is also atherosclerotic ulceration identified at image 163, representing a spectrum of underlying atherosclerosis. The left internal iliac artery is patent. The left external iliac artery and the left common femoral artery has noncalcific atherosclerosis identified, however, with only mild diffuse disease with no critical obstructive lesion present. In the right, long vascular stent is identified in the right common iliac artery and this segment of the stent is not filled by contrast indicating occlusion. Acuity cannot be commented upon. Correlate with clinical history. The stent extends into the right external iliac artery with only minimal intimal hyperplasia identified indicating no obstructive lesion seen. The stent terminates in the right common femoral artery that is also widely patent. In the right, the right SFA is not seen to enhance by contrast indicating occlusion. Acuity of this finding cannot be commented upon. Correlate with clinical history. The right profunda system is unremarkable. Enhancement is once again noted, approximately at image 461, and therefore the occlusion length is approximately 26 cm, with reconstitution by surrounding collaterals distally, at the level of the proximal right popliteal artery. Remainder of the right popliteal artery is seen to be patent with no obstructive lesion identified. In the right lower extremity, the right tibioperoneal trunk is patent. The right anterior tibial artery has a high takeoff and is also widely patent, well seen down to level of the ankle and the dorsalis pedis artery is identified. The right peroneal artery is widely patent. The right posterior tibial artery is widely patent and the plantar arch is seen distally. In the left, the left profunda system is identified. There is faint enhancement identified in the proximal few centimeters of the left SFA is patent, and thereafter remainder of the left SFA is not filled by contrast indicating occlusion. Acuity cannot be commented upon. Correlate with clinical history. More distally, at image 455, reconstitution is identified by surrounding collaterals to form the proximal left popliteal artery. The left popliteal artery is patent though some atherosclerosis is identified in the segment above the left knee joint. In the left lower extremity, the left anterior tibial artery is widely patent giving rise to the dorsalis pedis artery distally. The left tibioperoneal trunk is widely patent. The left peroneal artery is widely patent. The left posterior tibial artery is widely patent, giving rise to the plantar arch distally. NONVASCULAR: The lung bases are unremarkable. In the abdomen, the liver and spleen appears unremarkable. The liver edge is smooth. No abnormal enhancing structure is identified. The gallbladder appears unremarkable. The pancreas have no gross abnormality seen. The adrenal glands are not enlarged. No acute renal pathology is identified and no hydronephrosis or perirenal fluid collection is seen. Bowel is not well assessed by CT angiography as enteric contrast is not given. No obvious bowel dilation is identified. The appendix appears unremarkable. No free air free fluid seen in the abdomen and pelvis. The uterus is identified. No obvious abnormal adnexal mass is seen and CT is not optimised in the assessment of pelvic gynaecological structures. The right ovary is identified, less than 3 cm in size, at image 221, that is within normal reference range. The bladder appears unremarkable. No significant retroperitoneal adenopathy is identified. Small lymph nodes are seen in both groins, considered nonspecific in nature. Surgical clips are seen in the right groin suggesting prior surgery intervention at this level. Correlate with operative report. In the bony windows, no acute bony pathology is identified. CONCLUSIONS: 1. The abdominal aorta is remarkable for atherosclerosis with no acute aortic pathology identified. Quantitative dimension of the abdominal aorta are as described above. 2. Long stent is seen in the right pelvic arteries and the segment in the right common iliac artery is not filled by contrast indicating occlusion and remainder of the stent segment is patent and the right pelvic arteries as described above. Acuity cannot be commented upon. The left pelvic artery system is unremarkable. 3. Occlusion is seen in the majority of the left and the right SFA, as described above, with reconstitution by surrounding collaterals at the popliteal level, bilaterally. Acuity cannot be commented upon. Remainder of the left and the right popliteal arteries, bilaterally, widely patent. 4. Details of the runoff vessels as described above, bilaterally. 5. Other findings as described above. 6. An addendum will be dictated by the Director Skills Radiologist regarding the nonvascular findings. Signed: Donato Franklin MD Report Verified Date/Time: 04/16/2018 07:32:25 Reading Location: [facility] P047 Cardiology MRI Hemoglobin A1c (04/16/2018 3:55 AM)Only the most recent of2 resultswithin the time period is included. Component Value Ref Range Hemoglobin A1C 11.4 (H) 4.3 - 6.1 % Specimen Performing Laboratory Blood - Arm, Right [address] [address] Lipid panel (04/16/2018 3:55 AM)Only the most recent of2 resultswithin the time period is included. Component Value Ref Range Triglycerides 154 mg/dL Cholesterol 178 mg/dL HDL 35 mg/dL LDL Calculated 112 mg/dL Specimen Performing Laboratory Blood - Arm, Right [address] [address] Narrative Triglyceride Reference Range: Low Risk <150 [id number] High Risk 200-499 Very High Risk>=500 Cholesterol Reference Range: Low Risk <200 [id number] High Risk>240 HDL Cholesterol Reference Range: Low Risk >=60 High Risk <40 LDL Cholesterol Reference Range: Optimal<100 Near Ewqlmlf509-292 Ngidetjovj110-548 Avfe253-486 Very High >=190 TRANSFUSION SERVICE REPORT - SCAN (08/06/2017 5:40 PM)Only the most recent of2 resultswithin the time period is included.Calcium, Ionized (08/05/2017 4:41 AM) Component Value Ref Range Calcium, Ion 1.30 (H) 1.12 - 1.27 mmol/L pH, Blood 7.43 Specimen Performing Laboratory Blood [address] [address] Lactic acid, arterial, whole blood (08/04/2017 6:16 PM) Component Value Ref Range Lactate, Art 1.0Comment: Specimen slightly hemolyzed 0.5 - 2.2 mmol/L Specimen Performing Laboratory Blood, Arterial - Line, Arterial [address] [address] Narrative Effective 02/28/2016: Units/Reference Range Change New: 0.5-2.2 mmol/LPrevious: 5-20 mg/dL Phosphorus (08/04/2017 6:16 PM)Only the most recent of2 resultswithin the time period is included. Component Value Ref Range Phosphorus 2.7 2.3 - 4.7 mg/dL Specimen Performing Laboratory Blood - Line, Arterial [address] [address] Blood gas, arterial (08/04/2017 6:16 PM)Only the [...] Performing Laboratory Blood, Arterial - Line, Arterial [address] [address] Filter Ionized Calcium (08/04/2017 6:16 PM) Component Value Ref Range Filter Ionized Calcium 1.24 nnol/L Specimen Performing Laboratory Blood - Line, Arterial [address] [address] Narrative Reference Range: No Normals Prepare Leuko-Red RBC (08/04/2017 4:35 PM) Component Value Ref Range CROSSMATCH COMPATIBLE Unit ABO O Pos UNIT NUMBER [id number] Status WORK IN PROGRESS Blood Bank Product RED BLOOD CELLS PRODUCT CODE [id number] CROSSMATCH COMPATIBLE Unit ABO O Pos UNIT NUMBER [id number] Status WORK IN PROGRESS Blood Bank Product RED BLOOD CELLS PRODUCT CODE [id number] Specimen Performing Laboratory Other SAFETRACE TX POC ACTIVATED CLOTTING TIME (08/04/2017 3:55 PM)Only the most recent of3 resultswithin the time period is included. Component Value Ref Range Activated Clotting Time 252Comment: TESTED AT [address] sec [address] Specimen Performing Laboratory Blood [address] [address] RRL Critical Labs (ABG,NA,K,H&H,GLU) (08/04/2017 3:49 PM)Only the most recent of2 resultswithin the time period is included. Specimen Performing Laboratory Blood, Arterial Narrative The following orders were created for panel order RRL Critical Labs (ABG,NA,K,H&H,GLU). Procedure Abnormality Status --------- ------ Blood gas, arterial[[id number]]AbnormalFinal result Sodium Na-Stat Lab[[id number]] NormalFinal result Potassium-Stat Lab[[id number]] AbnormalFinal result Glucose-Stat Lab[[id number]] AbnormalFinal result HGB/HCT (H&H)-Stat Lab[[id number]] Normal Final result Please view results for these tests on the individual orders. Potassium-Stat Lab (08/04/2017 3:49 PM)Only the most recent of2 resultswithin the time period is included. Component Value Ref Range Potassium 3.3 (L) 3.6 - 5.5 meq/L Specimen Performing Laboratory Blood, [address] [address] Sodium Na-Stat Lab (08/04/2017 3:49 PM)Only the most recent of2 resultswithin the time period is included. Component Value Ref Range Sodium 138 135 - 148 meq/L Specimen Performing Laboratory Blood, [address] [address] Glucose-Stat Lab (08/04/2017 3:49 PM)Only the most recent of2 resultswithin the time period is included. Component Value Ref Range Glucose 198 (H) 70 - 110 mg/dL Specimen Performing Laboratory Blood, [address] [address] HGB/HCT (H&H)-Stat Lab (08/04/2017 3:49 PM)Only the most recent of2 resultswithin the time period is included. Component Value Ref Range Hemoglobin 13.3 12.0 - 15.0 g/dL Hematocrit 39.0 36.0 - 45.0 % Specimen Performing Laboratory Blood, [address] [address] Tissue Exam (08/04/2017 3:12 PM) Component Value Ref Range Case Report Surgical Pathology Report Case: [id number] Authorizing Provider:Reji Reza MD Collected: 08/04/2017 1512 Ordering Location: [facility] Received: 08/05/2017 0744 PERIOPERATIVE SERVICES Pathologist: David Hatch MD Specimen:Plaque, right femoral plaque DIAGNOSIS ARTERY, RIGHT FEMORAL, ATHERECTOMY: CALCIFIC ATHEROSCLEROTIC PLAQUE WITH FOCAL RUPTURE AND FIBRIN THROMBOSIS Signing Pathologist Direct Phone Line: [phone] CPT Code(s) 25265; 84962 CLINICAL HISTORY Peripheral artery disease right femoral plaque SPECIMEN SOURCE A. Right femoral plaque GROSS DESCRIPTION The specimen is received in saline labeled with the patient's information and labeled "right femoral plaque" and consists of two calcified tubular-shaped segment of tissue measuring 2 and 3 cm in length ranging in diameter from 0.5 to 0.6 cm. Certified [employer] sections are submitted A1 for decalcification. CG/pl MICROSCOPIC DESCRIPTION Performed Specimen Performing Laboratory Tissue - Plaque [address] [address] Screen, urine (08/04/2017 9:39 AM) Component Value Ref Range Preg Test, Ur Negative Specimen Performing Laboratory Urine - Urine, Voided [address] [address] Type and screen, automated (08/03/2017 5:29 AM) Component Value Ref Range ABO/RH AUTOMATED (BEAKER) O POSITIVE Ab Scrn NEGATIVE Specimen Performing Laboratory Blood [address] [address] NM myocardial perfusion SPECT,pharm(Lexiscan) (07/30/2017 12:14 PM) Specimen Performing Laboratory GE RIS Narrative FINAL REPORT PROCEDURE:Rest/Stress MYOCARDIAL PERFUSION SPECT with regadenoson\\XA9\\ CPT CODE:17639 INDICATION:Intermediate CAD Risk HISTORY:Cardiac risk factors: Diabetes, [...] function.5. Normal extracardiac tracer distribution.6. No previous [facility] study for comparison. NONINVASIVE RISK STRATIFICATION: The above findings are considered low risk (<1% annual mortality rate) based on the following criterion: - Normal or small myocardial perfusion defect at rest or with stress ([facility]. 2012;59(9):857-81.) Signed: Hector Dixon MD Report Verified Date/Time:07/30/2017 13:46:52 Reading Location: [address] Reading Room Procedure Note Interface, External Ris In - 07/30/2017 1:49 PM CDT FINAL REPORT PROCEDURE: Rest/Stress MYOCARDIAL PERFUSION SPECT with regadenoson\\XA9\\ CPT CODE: 09920 INDICATION: Intermediate CAD Risk HISTORY: Cardiac risk [...] Normal extracardiac tracer distribution. 6. No previous [facility] study for comparison. NONINVASIVE RISK STRATIFICATION: The above findings are considered low risk (<1% annual mortality rate) based on the following criterion: - Normal or small myocardial perfusion defect at rest or with stress ([facility]. 2012;59(9):857-81.) Signed: Hector Dixon MD Report Verified Date/Time: 07/30/2017 13:46:52 Reading Location: [address] Reading Room Treadmill tolerance(Non-Nuclear Treadmill) (07/30/2017 10:34 AM) Specimen Performing Laboratory [facility] Narrative Protocol Name Lexiscan Time In Exercise [...] 10:55:38 AM Confirmed by MD RAWLS JORGE ([id number]) on 08/21/2017 3:07:24 PM TSH/Free T4 If Indicated (07/30/2017 5:18 AM) Component Value Ref Range TSH 2.22 0.35 - 4.94 uIU/mL Specimen Performing Laboratory Blood - Arm, [address] [address] Hepatic function panel (07/30/2017 5:18 AM) Component Value Ref Range Protein, Total 6.3 6.0 - 8.3 gm/dL Albumin 3.6 3.5 - 5.0 g/dL Total Bilirubin 0.3 0.2 - 1.2 mg/dL Bilirubin, Direct 0.1 0.1 - 0.5 mg/dL Alkaline Phosphatase 84 40 - 150 U/L AST 27 5 - 34 U/L ALT 41 6 - 55 U/L Specimen Performing Laboratory Blood - Arm, [address] [address] Fibrinogen (07/29/2017 12:24 PM)Only the most recent of5 resultswithin the time period is included. Component Value Ref Range Fibrinogen 430 225 - 434 mg/dl Specimen Performing Laboratory Blood - Arm, [address] [address] Narrative Continue for duration of infusion. Hemoglobin and hematocrit (07/29/2017 6:12 AM) Component Value Ref Range Hemoglobin 13.0 11.2 - 15.7 GM/DL Hematocrit 39.5 34.1 - 44.9 % Specimen Performing Laboratory Blood - Arm, [address] [address] Troponin I (07/29/2017 12:09 AM)Only the most recent of3 resultswithin the time period is included. Component Value Ref Range Troponin I <0.01 0.00 - 0.03 ng/mL Specimen Performing Laboratory Blood - Arm, [address] [address] Narrative Troponin I (TnI) levels must be [...] % Specimen Performing Laboratory Blood - Arm, [address] [address] Narrative CK-MB Reference Range: <6.7Normal 6.7-10.0Borderline >10.0 Abnormal ECG 12 lead (07/28/2017 9:13 AM)Only the most recent of2 resultswithin the time period is included. Specimen Performing Laboratory GE MUSE Narrative Ventricular Rate 72 BPM Atrial Rate 72 BPM P-R Interval 124 ms QRS Duration 86 ms Q-T Interval 372 ms QTC Calculation(Bazett) 407 ms P [place] 29 degrees R [place] 43 degrees T [place] 55 degrees Normal sinus rhythm Early repolarization Normal ECG When compared with ECG of 27-JUL-2017 21:14, No significant change was found Confirmed by MD MESSER YOCHAI ([id number]) on 07/29/2017 7:19:15 AM Procedure Note Interface, External Ris In - 07/29/2017 7:19 AM CDT Ventricular Rate 72 BPM Atrial Rate 72 BPM P-R Interval 124 ms QRS Duration 86 ms Q-T Interval 372 ms QTC Calculation(Bazett) 407 ms P [place] 29 degrees R [place] 43 degrees T [place] 55 degrees Normal sinus rhythm Early repolarization Normal ECG When compared with ECG of 27-JUL-2017 21:14, No significant change was found Confirmed by MD MESSER YOCHAI ([id number]) on 07/29/2017 7:19:15 AM after 05/09/2017
--- OUTSIDE RECORDS SUMMARY | 2018-05-10 14:39 | XMS REPORT ---
:1970 [facility] Address [address] [place] [address] [address] [place] [address] Care Team Providers Name Role Phone IRMA RUFF Unavailable Unavailable BRENNEN ARELLANO Unavailable Unavailable Problems This patient has no known problems. Allergies, Adverse Reactions, Alerts This patient has no known allergies or adverse reactions. Medications This patient has no known medications. Results Test Description Test Time Test Comments Text Results Atomic Results Result Comments POCT-GLUCOSE METER 2018-04-27 12:02:00 Test Item Value Reference Range Comments POC-GLUCOSE METER (BEAKER) (test 246 mg/dL 70-110 TESTED AT [place] [id number] [facility] tshl=9362) [place] [id number] POCT-GLUCOSE [id number] 07:25:00 Test Item Value Reference Range Comments POC-GLUCOSE METER (BEAKER) 193 mg/dL 70-110 TESTED AT [address] (test dxrm=3760) [facility] [place] [address] BASIC METABOLIC [id number] 07:04:00 Test Item Value Reference Range Comments SODIUM (BEAKER) (test 133 meq/L 136-145 uiki=067) POTASSIUM (BEAKER) (test 4.5 meq/L 3.5-5.1 Specimen slightly sokt=870) hemolyzed CHLORIDE (BEAKER) (test 99 meq/L 98-107 yhtx=383) CO2 (BEAKER) (test 27 meq/L 22-29 kdcl=472) BLOOD UREA NITROGEN 15 mg/dL 7-21 (BEAKER) (test tsxv=092) CREATININE (BEAKER) (test 0.75 mg/dL 0.57-1.25 Specimen slightly yknp=165) hemolyzed GLUCOSE RANDOM (BEAKER) 182 mg/dL 70-105 (test tapb=961) CALCIUM (BEAKER) (test 11.0 mg/dL 8.4-10.2 ezeb=147) EGFR (BEAKER) (test mL/min/1.73 sq m INSUFFICIENT CLINICAL DATA zwxg=6526) TO CALCULATE ESTIMATED GFR. [id number] 06:58:00 Test Item Value Reference Range Comments MAGNESIUM (BEAKER) (test 2.1 mg/dL 1.6-2.6 Specimen slightly hemolyzed egld=448) POCT-GLUCOSE [id number] 23:15:00 Test Item Value Reference Range Comments POC-GLUCOSE METER (BEAKER) 370 mg/dL 70-110 Notified CONY ROSENBAUM/TESTED AT [facility] (test jret=0087) [address] [facility] [place] [address] POCT-GLUCOSE [id number] 17:23:00 Test Item Value Reference Range Comments POC-GLUCOSE METER (BEAKER) 223 mg/dL 70-110 TESTED AT [address] (test wuco=7355) [facility] [place] [address] CBC (HEMOGRAM ONLY)2018-04-26 15:00:00 Test Item Value Reference Range Comments WHITE BLOOD CELL COUNT (BEAKER) (test rciz=814) 6.8 K/ L 3.5-10.5 RED BLOOD CELL COUNT (BEAKER) (test otra=427) 4.19 M/ L 3.93-5.22 HEMOGLOBIN (BEAKER) (test gmdj=017) 11.7 GM/DL 11.2-15.7 HEMATOCRIT (BEAKER) (test skzm=888) 37.1 % 34.1-44.9 MEAN CORPUSCULAR VOLUME (BEAKER) (test sbmh=119) 88.5 fL 79.4-94.8 MEAN CORPUSCULAR HEMOGLOBIN (BEAKER) (test 27.9 pg 25.6-32.2 csbb=893) MEAN CORPUSCULAR HEMOGLOBIN CONC (BEAKER) (test 31.5 GM/DL 32.2-35.5 mbcs=205) RED CELL DISTRIBUTION WIDTH (BEAKER) (test 13.3 % 11.7-14.4 radg=900) PLATELET COUNT (BEAKER) (test gjab=225) 488 K/CU MM 150-450 MEAN PLATELET VOLUME (BEAKER) (test nxeg=977) 9.4 fL 9.4-12.3 NUCLEATED RED BLOOD CELLS (BEAKER) (test 0 /100 WBC 0-0 zoow=910) POCT-GLUCOSE [id number] 11:39:00 Test Item Value Reference Range Comments POC-GLUCOSE METER (BEAKER) 371 mg/dL 70-110 TESTED AT [address] (test mskp=7891) [facility] [place] [address] POCT-GLUCOSE [id number] 07:54:00 Test Item Value Reference Range Comments POC-GLUCOSE METER (BEAKER) 162 mg/dL 70-110 TESTED AT [address] (test qdax=6356) [place] [id number] POCT-GLUCOSE [id number] 22:31:00 Test Item Value Reference Range Comments POC-GLUCOSE METER (BEAKER) 233 mg/dL 70-110 TESTED AT [address] (test zser=0943) [place] [address] POCT-GLUCOSE [id number] 17:57:00 Test Item Value Reference Range Comments POC-GLUCOSE METER (BEAKER) 252 mg/dL 70-110 TESTED AT [address] (test bexb=8502) [place] [address] POCT-GLUCOSE [id number] 12:07:00 Test Item Value Reference Range Comments POC-GLUCOSE METER (BEAKER) 263 mg/dL 70-110 TESTED AT [address] (test qsow=6495) [place] [address] POCT-GLUCOSE [id number] 07:39:00 Test Item Value Reference Range Comments POC-GLUCOSE METER (BEAKER) 230 mg/dL 70-110 TESTED AT [address] (test hfli=6223) [facility] [place] [address] BASIC METABOLIC [id number] 07:01:00 Test Item Value Reference Range Comments SODIUM (BEAKER) (test 132 meq/L 136-145 naqt=741) POTASSIUM (BEAKER) (test 4.7 meq/L 3.5-5.1 Specimen slightly veas=052) hemolyzed CHLORIDE (BEAKER) (test 101 meq/L 98-107 eliq=141) CO2 (BEAKER) (test 22 meq/L 22-29 xtja=289) BLOOD UREA NITROGEN 14 mg/dL 7-21 (BEAKER) (test ofym=973) CREATININE (BEAKER) (test 0.67 mg/dL 0.57-1.25 Specimen slightly qmrb=391) hemolyzed GLUCOSE RANDOM (BEAKER) 179 mg/dL 70-105 (test gpho=471) CALCIUM (BEAKER) (test 10.8 mg/dL 8.4-10.2 nzpu=425) EGFR (BEAKER) (test mL/min/1.73 sq m INSUFFICIENT CLINICAL DATA qlcp=6279) TO CALCULATE ESTIMATED GFR. [id number] 06:34:00 Test Item Value Reference Range Comments MAGNESIUM (BEAKER) (test 2.0 mg/dL 1.6-2.6 Specimen slightly hemolyzed afns=837) CBC (HEMOGRAM ONLY)2018-04-25 05:43:00 Test Item Value Reference Range Comments WHITE BLOOD CELL COUNT (BEAKER) (test tbjy=311) 7.7 K/ L 3.5-10.5 RED BLOOD CELL COUNT (BEAKER) (test dnwc=803) 4.38 M/ L 3.93-5.22 HEMOGLOBIN (BEAKER) (test kjdw=487) 12.1 GM/DL 11.2-15.7 HEMATOCRIT (BEAKER) (test vivk=060) 38.8 % 34.1-44.9 MEAN CORPUSCULAR VOLUME (BEAKER) (test dyph=190) 88.6 fL 79.4-94.8 MEAN CORPUSCULAR HEMOGLOBIN (BEAKER) (test 27.6 pg 25.6-32.2 uljc=959) MEAN CORPUSCULAR HEMOGLOBIN CONC (BEAKER) (test 31.2 GM/DL 32.2-35.5 flkn=007) RED CELL DISTRIBUTION WIDTH (BEAKER) (test 13.2 % 11.7-14.4 jzvk=493) PLATELET COUNT (BEAKER) (test lvjx=452) 402 K/CU MM 150-450 MEAN PLATELET VOLUME (BEAKER) (test jpmi=349) 9.4 fL 9.4-12.3 NUCLEATED RED BLOOD CELLS (BEAKER) (test 0 /100 WBC 0-0 dnis=976) POCT-GLUCOSE [id number] 21:24:00 Test Item Value Reference Range Comments POC-GLUCOSE METER (BEAKER) 301 mg/dL 70-110 Notified CONY ROSENBAUM/TESTED AT [facility] (test cplm=9825) [address] [place] [address] POCT-GLUCOSE [id number] 17:21:00 Test Item Value Reference Range Comments POC-GLUCOSE METER (BEAKER) 290 mg/dL 70-110 TESTED AT [address] (test jmel=6963) [facility] [place] [address] POCT-GLUCOSE [id number] 13:46:00 Test Item Value Reference Range Comments POC-GLUCOSE METER (BEAKER) 193 mg/dL 70-110 TESTED AT [address] (test uqns=2947) [facility] [place] [address] POCT-GLUCOSE [id number] 07:48:00 Test Item Value Reference Range Comments POC-GLUCOSE METER (BEAKER) 190 mg/dL 70-110 TESTED AT [address] (test jpji=2204) [facility] [place] [address] POCT-GLUCOSE [id number] 23:01:00 Test Item Value Reference Range Comments POC-GLUCOSE METER (BEAKER) 236 mg/dL 70-110 TESTED AT [address] (test fgns=5472) [facility] [place] [address] POCT-GLUCOSE [id number] 17:27:00 Test Item Value Reference Range Comments POC-GLUCOSE METER (BEAKER) 335 mg/dL 70-110 Notified CONY ROSENBAUM/TESTED AT [facility] (test oeyp=8164) [address] [place] [address] CBC (HEMOGRAM ONLY)2018-04-23 13:05:00 Test Item Value Reference Range Comments WHITE BLOOD CELL COUNT (BEAKER) (test pdrv=500) 8.2 K/ L 3.5-10.5 RED BLOOD CELL COUNT (BEAKER) (test myus=489) 3.73 M/ L 3.93-5.22 HEMOGLOBIN (BEAKER) (test gohd=170) 10.5 GM/DL 11.2-15.7 HEMATOCRIT (BEAKER) (test kjrg=372) 33.5 % 34.1-44.9 MEAN CORPUSCULAR VOLUME (BEAKER) (test mxuu=464) 89.8 fL 79.4-94.8 MEAN CORPUSCULAR HEMOGLOBIN (BEAKER) (test 28.2 pg 25.6-32.2 scud=097) MEAN CORPUSCULAR HEMOGLOBIN CONC (BEAKER) (test 31.3 GM/DL 32.2-35.5 dkti=608) RED CELL DISTRIBUTION WIDTH (BEAKER) (test 13.3 % 11.7-14.4 jdyt=207) PLATELET COUNT (BEAKER) (test faee=436) 363 K/CU MM 150-450 MEAN PLATELET VOLUME (BEAKER) (test uhly=939) 9.3 fL 9.4-12.3 NUCLEATED RED BLOOD CELLS (BEAKER) (test 0 /100 WBC 0-0 uzie=544) POCT-GLUCOSE [id number] 12:28:00 Test Item Value Reference Range Comments POC-GLUCOSE METER (BEAKER) 227 mg/dL 70-110 TESTED AT [address] (test jykq=2208) [place] [address] POCT-GLUCOSE [id number] 08:40:00 Test Item Value Reference Range Comments POC-GLUCOSE METER (BEAKER) 205 mg/dL 70-110 TESTED AT [address] (test wltx=1844) [place] [address] BASIC METABOLIC [id number] 07:37:00 Test Item Value Reference Range Comments SODIUM (BEAKER) (test 135 meq/L 136-145 wafk=420) POTASSIUM (BEAKER) (test 4.7 meq/L 3.5-5.1 Specimen slightly uoht=810) hemolyzed CHLORIDE (BEAKER) (test 103 meq/L 98-107 jkfd=634) CO2 (BEAKER) (test 22 meq/L 22-29 lhae=710) BLOOD UREA NITROGEN 9 mg/dL 7-21 (BEAKER) (test rpzm=973) CREATININE (BEAKER) (test 0.61 mg/dL 0.57-1.25 Specimen slightly efhx=129) hemolyzed GLUCOSE RANDOM (BEAKER) 155 mg/dL 70-105 (test ptsa=792) CALCIUM (BEAKER) (test 10.9 mg/dL 8.4-10.2 cncl=289) EGFR (BEAKER) (test mL/min/1.73 sq m INSUFFICIENT CLINICAL DATA dnex=3071) TO CALCULATE ESTIMATED GFR. [id number] 07:36:00 Test Item Value Reference Range Comments MAGNESIUM (BEAKER) (test 1.8 mg/dL 1.6-2.6 Specimen slightly hemolyzed hrns=333) [id number] 06:51:00 Test Item Value Reference Range Comments PARTIAL THROMBOPLASTIN TIME (BEAKER) (test 37.1 seconds 22.5-36.0 vrjk=358) POCT-GLUCOSE [id number] 22:05:00 Test Item Value Reference Range Comments POC-GLUCOSE METER (BEAKER) 262 mg/dL 70-110 TESTED AT [address] (test lpay=8081) [place] [address] POCT-GLUCOSE [id number] 17:30:00 Test Item Value Reference Range Comments POC-GLUCOSE METER (BEAKER) 271 mg/dL 70-110 TESTED AT [address] (test fvlh=5226) [place] [address] POCT-GLUCOSE [id number] 12:13:00 Test Item Value Reference Range Comments POC-GLUCOSE METER (BEAKER) 308 mg/dL 70-110 Notified CONY ROSENBAUM/TESTED AT [facility] (test nupm=4570) [address] [place], [place] [id number] POCT-GLUCOSE [id number] 08:39:00 Test Item Value Reference Range Comments POC-GLUCOSE METER (BEAKER) 145 mg/dL 70-110 TESTED AT [address] (test cjze=3315) [place] [address] POCT-GLUCOSE [id number] 21:59:00 Test Item Value Reference Range Comments POC-GLUCOSE METER (BEAKER) 286 mg/dL 70-110 TESTED AT [address] (test jwyr=7400) [place] [address] CBC (HEMOGRAM ONLY)2018-04-21 19:06:00 Test Item Value Reference Range Comments WHITE BLOOD CELL COUNT (BEAKER) (test thda=409) 7.6 K/ L 3.5-10.5 RED BLOOD CELL COUNT (BEAKER) (test sjln=833) 4.18 M/ L 3.93-5.22 HEMOGLOBIN (BEAKER) (test zdiw=905) 11.7 GM/DL 11.2-15.7 HEMATOCRIT (BEAKER) (test akoe=501) 37.2 % 34.1-44.9 MEAN CORPUSCULAR VOLUME (BEAKER) (test qtfq=215) 89.0 fL 79.4-94.8 MEAN CORPUSCULAR HEMOGLOBIN (BEAKER) (test 28.0 pg 25.6-32.2 cxuz=163) MEAN CORPUSCULAR HEMOGLOBIN CONC (BEAKER) (test 31.5 GM/DL 32.2-35.5 otot=060) RED CELL DISTRIBUTION WIDTH (BEAKER) (test 13.4 % 11.7-14.4 jnyk=057) PLATELET COUNT (BEAKER) (test mzzi=487) 353 K/CU MM 150-450 MEAN PLATELET VOLUME (BEAKER) (test ffph=191) 9.6 fL 9.4-12.3 NUCLEATED RED BLOOD CELLS (BEAKER) (test 0 /100 WBC 0-0 oszh=829) POCT-GLUCOSE [id number] 18:41:00 Test Item Value Reference Range Comments POC-GLUCOSE METER (BEAKER) 296 mg/dL 70-110 TESTED AT [address] (test tvvn=3506) [place] [id number] POCT-GLUCOSE [id number] 11:13:00 Test Item Value Reference Range Comments POC-GLUCOSE METER (BEAKER) 243 mg/dL 70-110 TESTED AT [address] (test fxka=0363) [place] [address] [id number] 09:50:00 Test Item Value Reference Range Comments PARTIAL THROMBOPLASTIN TIME (BEAKER) (test 102.9 seconds 22.5-36.0 fnds=500) POCT-GLUCOSE [id number] 07:34:00 Test Item Value Reference Range Comments POC-GLUCOSE METER (BEAKER) 190 mg/dL 70-110 TESTED AT [address] (test tqsx=1379) [place] [address] [id number] 03:02:00 Test Item Value Reference Range Comments PARTIAL THROMBOPLASTIN TIME (BEAKER) (test 88.4 seconds 22.5-36.0 qfly=267) [id number] 00:57:00 Test Item Value Reference Range Comments PARTIAL THROMBOPLASTIN TIME (BEAKER) (test 143.8 seconds 22.5-36.0 nnig=762) POCT-GLUCOSE [id number] 21:55:00 Test Item Value Reference Range Comments POC-GLUCOSE METER (BEAKER) 272 mg/dL 70-110 TESTED AT [address] (test kpce=8835) [facility] [place] [address] POCT-GLUCOSE [id number] 17:39:00 Test Item Value Reference Range Comments POC-GLUCOSE METER (BEAKER) 317 mg/dL 70-110 TESTED AT [address] (test zkyn=0399) [facility] [place] [address] [id number] 14:30:00 Test Item Value Reference Range Comments PARTIAL THROMBOPLASTIN TIME (BEAKER) (test 45.0 seconds 22.5-36.0 oevk=714) Prior to initiating heparinCBC (HEMOGRAM ONLY)2018-04-20 14:26:00 Test Item Value Reference Range Comments WHITE BLOOD CELL COUNT (BEAKER) (test ktiw=610) 7.7 K/ L 3.5-10.5 RED BLOOD CELL COUNT (BEAKER) (test kmri=248) 4.46 M/ L 3.93-5.22 HEMOGLOBIN (BEAKER) (test cenb=572) 12.4 GM/DL 11.2-15.7 HEMATOCRIT (BEAKER) (test bmht=500) 39.6 % 34.1-44.9 MEAN CORPUSCULAR VOLUME (BEAKER) (test nssz=913) 88.8 fL 79.4-94.8 MEAN CORPUSCULAR HEMOGLOBIN (BEAKER) (test 27.8 pg 25.6-32.2 bfou=200) MEAN CORPUSCULAR HEMOGLOBIN CONC (BEAKER) (test 31.3 GM/DL 32.2-35.5 plkf=263) RED CELL DISTRIBUTION WIDTH (BEAKER) (test 13.3 % 11.7-14.4 zpnc=943) PLATELET COUNT (BEAKER) (test smsq=589) 348 K/CU MM 150-450 MEAN PLATELET VOLUME (BEAKER) (test sldx=222) 9.5 fL 9.4-12.3 NUCLEATED RED BLOOD CELLS (BEAKER) (test 0 /100 WBC 0-0 jvzk=037) POCT-GLUCOSE [id number] 12:40:00 Test Item Value Reference Range Comments POC-GLUCOSE METER (BEAKER) 260 mg/dL 70-110 TESTED AT [address] (test ebue=9435) [place] [id number] POCT-GLUCOSE [id number] 08:01:00 Test Item Value Reference Range Comments POC-GLUCOSE METER (BEAKER) 226 mg/dL 70-110 TESTED AT [address] (test ypme=2839) [place] [address] BASIC METABOLIC [id number] 07:09:00 Test Item Value Reference Range Comments SODIUM (BEAKER) (test 135 meq/L 136-145 yocj=270) POTASSIUM (BEAKER) (test 3.9 meq/L 3.5-5.1 qcbm=677) CHLORIDE (BEAKER) (test 103 meq/L 98-107 ulqg=007) CO2 (BEAKER) (test 27 meq/L 22-29 ufji=776) BLOOD UREA NITROGEN 13 mg/dL 7-21 (BEAKER) (test nmxu=979) CREATININE (BEAKER) (test 0.71 mg/dL 0.57-1.25 jspb=237) GLUCOSE RANDOM (BEAKER) 205 mg/dL 70-105 (test dtfy=209) CALCIUM (BEAKER) (test 10.7 mg/dL 8.4-10.2 kcdi=734) EGFR (BEAKER) (test mL/min/1.73 sq m INSUFFICIENT CLINICAL DATA hffx=9476) TO CALCULATE ESTIMATED GFR. [id number] 06:55:00 Test Item Value Reference Range Comments MAGNESIUM (BEAKER) (test gwgp=187) 1.8 mg/dL 1.6-2.6 POCT-GLUCOSE [id number] 20:56:00 Test Item Value Reference Range Comments POC-GLUCOSE METER (BEAKER) 364 mg/dL 70-110 TESTED AT [address] (test dphi=1096) [facility] [place] [address] POCT-GLUCOSE [id number] 18:23:00 Test Item Value Reference Range Comments POC-GLUCOSE METER (BEAKER) 381 mg/dL 70-110 TESTED AT [address] (test mzmu=7466) [facility] [place] [address] POCT-GLUCOSE [id number] 17:45:00 Test Item Value Reference Range Comments POC-GLUCOSE METER (BEAKER) 355 mg/dL 70-110 Notified CONY ROSENBAUM/TESTED AT [facility] (test wklo=4255) [address] [place] [address] POCT-GLUCOSE [id number] 12:45:00 Test Item Value Reference Range Comments POC-GLUCOSE METER (BEAKER) 298 mg/dL 70-110 TESTED AT [address] (test kuxw=9701) [facility] [place] [address] POCT-GLUCOSE [id number] 08:40:00 Test Item Value Reference Range Comments POC-GLUCOSE METER (BEAKER) 205 mg/dL 70-110 TESTED AT [address] (test zvhk=5299) [facility] [place] [address] CBC (HEMOGRAM ONLY)2018-04-18 21:27:00 Test Item Value Reference Range Comments WHITE BLOOD CELL COUNT (BEAKER) (test dvfn=691) 7.1 K/ L 3.5-10.5 RED BLOOD CELL COUNT (BEAKER) (test duci=437) 4.77 M/ L 3.93-5.22 HEMOGLOBIN (BEAKER) (test dzxo=692) 13.4 GM/DL 11.2-15.7 HEMATOCRIT (BEAKER) (test klsz=170) 42.8 % 34.1-44.9 MEAN CORPUSCULAR VOLUME (BEAKER) (test ttdx=822) 89.7 fL 79.4-94.8 MEAN CORPUSCULAR HEMOGLOBIN (BEAKER) (test 28.1 pg 25.6-32.2 mhga=318) MEAN CORPUSCULAR HEMOGLOBIN CONC (BEAKER) (test 31.3 GM/DL 32.2-35.5 jafx=785) RED CELL DISTRIBUTION WIDTH (BEAKER) (test 13.2 % 11.7-14.4 lqgx=617) PLATELET COUNT (BEAKER) (test bybb=796) 320 K/CU MM 150-450 MEAN PLATELET VOLUME (BEAKER) (test febx=529) 9.5 fL 9.4-12.3 NUCLEATED RED BLOOD CELLS (BEAKER) (test 0 /100 WBC 0-0 ddgy=887) POCT-GLUCOSE [id number] 21:06:00 Test Item Value Reference Range Comments POC-GLUCOSE METER (BEAKER) 282 mg/dL 70-110 TESTED AT [address] (test vbtn=5755) [facility] [place] [address] POCT-GLUCOSE [id number] 17:32:00 Test Item Value Reference Range Comments POC-GLUCOSE METER (BEAKER) 314 mg/dL 70-110 Notified CONY ROSENBAUM/TESTED AT [facility] (test iygy=9814) [address] [place] [address] POCT-GLUCOSE [id number] 13:15:00 Test Item Value Reference Range Comments POC-GLUCOSE METER (BEAKER) 228 mg/dL 70-110 [address] (test hanl=7676) [facility] [place] [address] POCT-GLUCOSE [id number] 08:49:00 Test Item Value Reference Range Comments POC-GLUCOSE METER (BEAKER) 143 mg/dL 70-110 TESTED AT [facility] [address] [facility] (test udrp=6626) [facility] [place] [address] BASIC METABOLIC [id number] 06:20:00 Test Item Value Reference Range Comments SODIUM (BEAKER) (test 136 meq/L 136-145 pvgp=988) POTASSIUM (BEAKER) (test 3.7 meq/L 3.5-5.1 doql=744) CHLORIDE (BEAKER) (test 105 meq/L 98-107 ldgv=719) CO2 (BEAKER) (test 21 meq/L 22-29 uajq=138) BLOOD UREA NITROGEN 9 mg/dL 7-21 (BEAKER) (test xqbw=289) CREATININE (BEAKER) (test 0.61 mg/dL 0.57-1.25 obeu=929) GLUCOSE RANDOM (BEAKER) 172 mg/dL 70-105 (test duho=323) CALCIUM (BEAKER) (test 9.8 mg/dL 8.4-10.2 sakd=233) EGFR (BEAKER) (test mL/min/1.73 sq m INSUFFICIENT CLINICAL DATA ciwd=7083) TO CALCULATE ESTIMATED GFR. [id number] 06:08:00 Test Item Value Reference Range Comments MAGNESIUM (BEAKER) (test ealr=555) 1.6 mg/dL 1.6-2.6 [id number] 05:29:00 Test Item Value Reference Range Comments PROTIME (BEAKER) (test lnkf=878) 14.6 seconds 11.7-14.7 INR (BEAKER) (test bofx=058) 1.1 <=5.9 PARTIAL THROMBOPLASTIN TIME (BEAKER) (test 40.9 seconds 22.5-36.0 ngln=839) RECOMMENDED COUMADIN/WARFARIN INR THERAPY RANGESSTANDARD DOSE: 2.0 - 3.0 Includes: PROPHYLAXIS forvenous thrombosis, systemic embolization; TREATMENT for venous thrombosis and/or pulmonary embolus.HIGH RISK: Target INR is 2.5-3.5 for patients with mechanical heart valves.PROTHROMBIN [id number] 05:28: 00 Test Item Value Reference Range Comments PROTIME (BEAKER) (test obku=859) 14.6 seconds 11.7-14.7 INR (BEAKER) (test uayz=304) 1.1 <=5.9 RECOMMENDED COUMADIN/WARFARIN INR THERAPY RANGESSTANDARD DOSE: 2.0 - 3.0 Includes: PROPHYLAXIS forvenous thrombosis, systemic embolization; TREATMENT for venous thrombosis and/or pulmonary embolus.HIGH RISK: Target INR is 2.5-3.5 for patients with mechanical heart valves.CBC W/PLT COUNT & AUTO [id number] 05:12:00 Test Item Value Reference Range Comments WHITE BLOOD CELL COUNT (BEAKER) (test faaa=513) 8.2 K/ L 3.5-10.5 RED BLOOD CELL COUNT (BEAKER) (test acel=402) 4.24 M/ L 3.93-5.22 HEMOGLOBIN (BEAKER) (test ihvo=794) 12.0 GM/DL 11.2-15.7 HEMATOCRIT (BEAKER) (test chjg=201) 37.3 % 34.1-44.9 MEAN CORPUSCULAR VOLUME (BEAKER) (test xhpx=452) 88.0 fL 79.4-94.8 MEAN CORPUSCULAR HEMOGLOBIN (BEAKER) (test 28.3 pg 25.6-32.2 iwpi=217) MEAN CORPUSCULAR HEMOGLOBIN CONC (BEAKER) (test 32.2 GM/DL 32.2-35.5 bnnv=903) RED CELL DISTRIBUTION WIDTH (BEAKER) (test 13.4 % 11.7-14.4 xhna=071) PLATELET COUNT (BEAKER) (test vuee=758) 265 K/CU MM 150-450 MEAN PLATELET VOLUME (BEAKER) (test vvtx=010) 9.4 fL 9.4-12.3 NUCLEATED RED BLOOD CELLS (BEAKER) (test 0 /100 WBC 0-0 edxb=679) NEUTROPHILS RELATIVE PERCENT (BEAKER) (test 65 % tbwe=389) LYMPHOCYTES RELATIVE PERCENT (BEAKER) (test 24 % jaar=336) MONOCYTES RELATIVE PERCENT (BEAKER) (test 6 % panh=160) EOSINOPHILS RELATIVE PERCENT (BEAKER) (test 4 % itqx=394) BASOPHILS RELATIVE PERCENT (BEAKER) (test 0 % tdfy=803) NEUTROPHILS ABSOLUTE COUNT (BEAKER) (test 5.34 K/ L 1.56-6.13 aynq=741) LYMPHOCYTES ABSOLUTE COUNT (BEAKER) (test 1.93 K/ L 1.18-3.74 ejyc=063) MONOCYTES ABSOLUTE COUNT (BEAKER) (test 0.52 K/ L 0.24-0.36 xgct=169) EOSINOPHILS ABSOLUTE COUNT (BEAKER) (test 0.32 K/ L 0.04-0.36 heky=000) BASOPHILS ABSOLUTE COUNT (BEAKER) (test 0.03 K/ L 0.01-0.08 ynmz=277) IMMATURE GRANULOCYTES-RELATIVE PERCENT (BEAKER) 0 % 0-1 (test hkco=5203) POCT-GLUCOSE [id number] 22:17:00 Test Item Value Reference Range Comments POC-GLUCOSE METER (BEAKER) 286 mg/dL 70-110 TESTED AT [address] (test dpzd=0967) [place] [id number] POCT-GLUCOSE [id number] 18:07:00 Test Item Value Reference Range Comments POC-GLUCOSE METER (BEAKER) 222 mg/dL 70-110 TESTED AT [address] (test qaca=6084) [facility] [place] [id number] POCT-GLUCOSE [id number] 12:59:00 Test Item Value Reference Range Comments POC-GLUCOSE METER (BEAKER) 275 mg/dL 70-110 TESTED AT [address] (test mjon=4841) [place] [id number] POCT-GLUCOSE [id number] 09:12:00 Test Item Value Reference Range Comments POC-GLUCOSE METER (BEAKER) 194 mg/dL 70-110 TESTED AT [address] (test iryp=3524) [facility], [place] [id number] BASIC METABOLIC [id number] 06:44:00 Test Item Value Reference Range Comments SODIUM (BEAKER) (test 138 meq/L 136-145 zrfd=604) POTASSIUM (BEAKER) (test 4.1 meq/L 3.5-5.1 Specimen slightly wwfk=993) hemolyzed CHLORIDE (BEAKER) (test 107 meq/L 98-107 gpvt=170) CO2 (BEAKER) (test 22 meq/L 22-29 lmcy=059) BLOOD UREA NITROGEN 8 mg/dL 7-21 (BEAKER) (test jexv=307) CREATININE (BEAKER) (test 0.67 mg/dL 0.57-1.25 Specimen slightly pyrz=659) hemolyzed GLUCOSE RANDOM (BEAKER) 181 mg/dL 70-105 (test dbjf=073) CALCIUM (BEAKER) (test 10.1 mg/dL 8.4-10.2 iyyq=141) EGFR (BEAKER) (test mL/min/1.73 sq m INSUFFICIENT CLINICAL DATA cgca=6539) TO CALCULATE ESTIMATED GFR. [id number] 06:34:00 Test Item Value Reference Range Comments PROTIME (BEAKER) (test lgbd=887) 13.6 seconds 11.7-14.7 INR (BEAKER) (test kyem=077) 1.0 <=5.9 PARTIAL THROMBOPLASTIN TIME (BEAKER) (test 34.5 seconds 22.5-36.0 gztw=852) RECOMMENDED COUMADIN/WARFARIN INR THERAPY RANGESSTANDARD DOSE: 2.0 - 3.0 Includes: PROPHYLAXIS forvenous thrombosis, systemic embolization; TREATMENT for venous thrombosis and/or pulmonary embolus.HIGH RISK: Target INR is 2.5-3.5 for patients with mechanical heart valves.PROTHROMBIN [id number] 06:33: 00 Test Item Value Reference Range Comments PROTIME (BEAKER) (test jwvh=363) 13.6 seconds 11.7-14.7 INR (BEAKER) (test zqkl=629) 1.0 <=5.9 RECOMMENDED COUMADIN/WARFARIN INR THERAPY RANGESSTANDARD DOSE: 2.0 - 3.0 Includes: PROPHYLAXIS forvenous thrombosis, systemic embolization; TREATMENT for venous thrombosis and/or pulmonary embolus.HIGH RISK: Target INR is 2.5-3.5 for patients with mechanical heart valves.CBC W/PLT COUNT & AUTO [id number] 06:31:00 Test Item Value Reference Range Comments WHITE BLOOD CELL COUNT (BEAKER) (test xmpp=203) 6.3 K/ L 3.5-10.5 RED BLOOD CELL COUNT (BEAKER) (test lfag=365) 4.81 M/ L 3.93-5.22 HEMOGLOBIN (BEAKER) (test exon=165) 13.8 GM/DL 11.2-15.7 HEMATOCRIT (BEAKER) (test dzwi=972) 43.2 % 34.1-44.9 MEAN CORPUSCULAR VOLUME (BEAKER) (test nhql=330) 89.8 fL 79.4-94.8 MEAN CORPUSCULAR HEMOGLOBIN (BEAKER) (test 28.7 pg 25.6-32.2 cytt=353) MEAN CORPUSCULAR HEMOGLOBIN CONC (BEAKER) (test 31.9 GM/DL 32.2-35.5 cbwi=747) RED CELL DISTRIBUTION WIDTH (BEAKER) (test 13.7 % 11.7-14.4 obwc=726) PLATELET COUNT (BEAKER) (test zajv=528) 217 K/CU MM 150-450 MEAN PLATELET VOLUME (BEAKER) (test cvdg=687) 10.4 fL 9.4-12.3 NUCLEATED RED BLOOD CELLS (BEAKER) (test 0 /100 WBC 0-0 alvi=905) NEUTROPHILS RELATIVE PERCENT (BEAKER) (test 68 % hgjb=704) LYMPHOCYTES RELATIVE PERCENT (BEAKER) (test 21 % ngzf=863) MONOCYTES RELATIVE PERCENT (BEAKER) (test 6 % vhsz=198) EOSINOPHILS RELATIVE PERCENT (BEAKER) (test 4 % eoga=390) BASOPHILS RELATIVE PERCENT (BEAKER) (test 1 % hehz=772) NEUTROPHILS ABSOLUTE COUNT (BEAKER) (test 4.29 K/ L 1.56-6.13 sgxh=322) LYMPHOCYTES ABSOLUTE COUNT (BEAKER) (test 1.35 K/ L 1.18-3.74 uvsh=171) MONOCYTES ABSOLUTE COUNT (BEAKER) (test 0.36 K/ L 0.24-0.36 egij=348) EOSINOPHILS ABSOLUTE COUNT (BEAKER) (test 0.23 K/ L 0.04-0.36 msml=546) BASOPHILS ABSOLUTE COUNT (BEAKER) (test 0.05 K/ L 0.01-0.08 mijv=522) IMMATURE GRANULOCYTES-RELATIVE PERCENT (BEAKER) 0 % 0-1 (test enzq=5869) POCT-GLUCOSE [id number] 23:38:00 Test Item Value Reference Range Comments POC-GLUCOSE METER (BEAKER) 328 mg/dL 70-110 TESTED AT [facility] [address] [facility] (test fdpz=4797) [facility] [place] [address] [id number] 13:54:00 Test Item Value Reference Range Comments PARTIAL THROMBOPLASTIN TIME (BEAKER) (test 68.6 seconds 22.5-36.0 ccff=641) POCT-GLUCOSE [id number] 12:05:00 Test Item Value Reference Range Comments POC-GLUCOSE METER (LESLIE) 255 mg/dL 70-110 TESTED AT [facility] [address] (test pdag=5521) [facility], [place] [address] CT, CTA AAA, W/ MELY.EXT.[id number] 11:52:00Addendum BeginsREPORT STATUS:A ADDENDUM: I agree with the nonvascular findings as reported by Dr. Franklin. Signed: Willie Rowland MDReport Verified Date/Time: 04/16 11:52:28 Reading Location: [place] [address] Angio Body Reading RoomAddendum EndsFINAL REPORT CT angiography of the abdominal aorta and with runoff, 16 April 2018 INDICATION: This is a 48 year old female with evidence of peripheral vascular disease presents for assessment. This study is performed in an attempt to avoid an invasive procedure. TECHNIQUE: Spiral acquisition before and during intravenous contrast administration using a Siemens multidetector CT scanner. Images were obtained beforeand during the dynamic passage of intravenous contrast material. Multi-planar 3-D volume- rendering reconstruction was performed using an independent workstation interactively by the interpreting physician as well as the 3-D specialist for optimal visualisation of the abdominal aorta, pelvic arteries,and its proximal branches. Please refer to the [...] identified. Quantitative dimensions of the aorta are asfollows: 2.2 cm at the mesenteric level; 1.8 cm the renal level; and 1.5 cm near the aortic bifurcation. The coeliac axis, SMA are widely patent, and there is replacement of the right hepatic artery, acommon variant. The JANEEN is patent. Single left [...] the right lower extremity, the right tibioperoneal trunkis patent. The right anterior tibial artery has [...] identified. There is faint enhancement identified in theproximal few centimeters of the left SFA is [...] surgery intervention at this level. Correlate with operativereport. In the bony windows , no acute bony pathology is identified. CONCLUSIONS: 1. The abdominal aorta is remarkable for atherosclerosis with no acute aortic pathology identified. Quantitative dimension of the abdominal aorta are as described above. 2. Long stent is seen in the right pelvic arteries and the segment in the right common iliac artery is not filled by contrast indicating occlusion andremainder of the stent segment is patent and [...] An addendum will be dictated by the Acid Cutter Radiologist regarding the nonvascular findings. Signed: Donato Franklin MDReport Verified Date/Time: 04/16/2018 07:32:25 Reading Location: [place] [address] Cardiology MRI HEMOGLOBIN [id number] 10:38:00 Test Item Value Reference Range Comments HEMOGLOBIN A1C (BEAKER) (test pcgt=691) 11.4 % 4.3-6.1 POCT-GLUCOSE [id number] 07:45:00 Test Item Value Reference Range Comments POC-GLUCOSE METER (BEAKER) 170 mg/dL 70-110 TESTED AT [facility] [address] [facility] (test nyqt=8224) [facility] [place] [address] [id number] 07:11:00 Test Item Value Reference Range Comments PARTIAL THROMBOPLASTIN TIME (BEAKER) (test 68.7 seconds 22.5-36.0 tglc=328) [id number] 05:30:00 Test Item Value Reference Range Comments PARTIAL THROMBOPLASTIN TIME (BEAKER) (test 122.1 seconds 22.5-36.0 hlxn=293) [id number] 05:30:00 Test Item Value Reference Range Comments PROTIME (BEAKER) (test xtfd=766) 14.0 seconds 11.7-14.7 INR (BEAKER) (test yusd=537) 1.1 <=5.9 PARTIAL THROMBOPLASTIN TIME (BEAKER) (test 122.1 seconds 22.5-36.0 afhd=353) RECOMMENDED COUMADIN/WARFARIN INR THERAPY RANGESSTANDARD DOSE: 2.0 - 3.0 Includes: PROPHYLAXIS forvenous thrombosis, systemic embolization; TREATMENT for venous thrombosis and/or pulmonary embolus.HIGH RISK: Target INR is 2.5-3.5 for patients with mechanical heart valves.BASIC METABOLIC [id number] 05:24: 00 Test Item Value Reference Range Comments SODIUM (BEAKER) (test 139 meq/L 136-145 yriu=978) POTASSIUM (BEAKER) (test 3.8 meq/L 3.5-5.1 ccka=991) CHLORIDE (BEAKER) (test 103 meq/L 98-107 smel=099) CO2 (BEAKER) (test 27 meq/L 22-29 pzdy=677) BLOOD UREA NITROGEN 8 mg/dL 7-21 (BEAKER) (test yhiz=822) CREATININE (BEAKER) (test 0.65 mg/dL 0.57-1.25 wsxl=232) GLUCOSE RANDOM (BEAKER) 169 mg/dL 70-105 (test aoae=724) CALCIUM (BEAKER) (test 10.4 mg/dL 8.4-10.2 gndt=207) EGFR (BEAKER) (test mL/min/1.73 sq m INSUFFICIENT CLINICAL DATA hxyt=0981) TO CALCULATE ESTIMATED GFR. [id number] 05:21:00 Test Item Value Reference Range Comments MAGNESIUM (BEAKER) (test ocgu=138) 1.8 mg/dL 1.6-2.6 LIPID [id number] 05:21:00 Test Item Value Reference Range Comments TRIGLYCERIDES (BEAKER) (test hwue=878) 154 mg/dL CHOLESTEROL (BEAKER) (test bqvj=016) 178 mg/dL HDL CHOLESTEROL (BEAKER) (test gcih=434) 35 mg/dL LDL CHOLESTEROL CALCULATED (BEAKER) (test 112 mg/dL hxdf=685) Triglyceride Reference Range: Low Risk <150 Borderline 150- 199 High Risk 200-499 Very High Risk >=500Cholesterol Reference Range: Low Risk <200 Borderline 200-239 High Risk > 240HDL Cholesterol Reference Range: Low Risk >=60 High Risk <40LDL Cholesterol Reference Range: Optimal <100 Near Optimal 100-129 Borderline 130-159 High 160-189 Very High >=190PROTHROMBIN [id number] 05:12:00 Test Item Value Reference Range Comments PROTIME (BEAKER) (test xwsp=497) 14.0 seconds 11.7-14.7 INR (BEAKER) (test vcpg=449) 1.1 <=5.9 RECOMMENDED COUMADIN/WARFARIN INR THERAPY RANGESSTANDARD DOSE: 2.0 - 3.0 Includes: PROPHYLAXIS forvenous thrombosis, systemic embolization; TREATMENT for venous thrombosis and/or pulmonary embolus.HIGH RISK: Target INR is 2.5-3.5 for patients with mechanical heart valves.CBC W/PLT COUNT & AUTO [id number] 05:08:00 Test Item Value Reference Range Comments WHITE BLOOD CELL COUNT (BEAKER) (test miqz=808) 8.5 K/ L 3.5-10.5 RED BLOOD CELL COUNT (BEAKER) (test vxbr=074) 4.83 M/ L 3.93-5.22 HEMOGLOBIN (BEAKER) (test zwxo=059) 13.5 GM/DL 11.2-15.7 HEMATOCRIT (BEAKER) (test hpcj=877) 42.6 % 34.1-44.9 MEAN CORPUSCULAR VOLUME (BEAKER) (test zfrb=836) 88.2 fL 79.4-94.8 MEAN CORPUSCULAR HEMOGLOBIN (BEAKER) (test 28.0 pg 25.6-32.2 wxrm=249) MEAN CORPUSCULAR HEMOGLOBIN CONC (BEAKER) (test 31.7 GM/DL 32.2-35.5 yhgk=448) RED CELL DISTRIBUTION WIDTH (BEAKER) (test 13.4 % 11.7-14.4 cctq=084) PLATELET COUNT (BEAKER) (test vtcw=354) 305 K/CU MM 150-450 MEAN PLATELET VOLUME (BEAKER) (test lfeq=930) 10.5 fL 9.4-12.3 NUCLEATED RED BLOOD CELLS (BEAKER) (test 0 /100 WBC 0-0 wsql=537) NEUTROPHILS RELATIVE PERCENT (BEAKER) (test 49 % pziy=457) LYMPHOCYTES RELATIVE PERCENT (BEAKER) (test 39 % unax=637) MONOCYTES RELATIVE PERCENT (BEAKER) (test 5 % vres=046) EOSINOPHILS RELATIVE PERCENT (BEAKER) (test 6 % hgtp=975) BASOPHILS RELATIVE PERCENT (BEAKER) (test 1 % kapx=898) NEUTROPHILS ABSOLUTE COUNT (BEAKER) (test 4.17 K/ L 1.56-6.13 zail=870) LYMPHOCYTES ABSOLUTE COUNT (BEAKER) (test 3.28 K/ L 1.18-3.74 nxgg=168) MONOCYTES ABSOLUTE COUNT (BEAKER) (test 0.45 K/ L 0.24-0.36 byfs=547) EOSINOPHILS ABSOLUTE COUNT (BEAKER) (test 0.47 K/ L 0.04-0.36 moqu=283) BASOPHILS ABSOLUTE COUNT (BEAKER) (test 0.06 K/ L 0.01-0.08 arij=008) IMMATURE GRANULOCYTES-RELATIVE PERCENT (BEAKER) 0 % 0-1 (test lzpv=0855) BASIC METABOLIC [id number] 21:39:00 Test Item Value Reference Range Comments SODIUM (BEAKER) (test 137 meq/L 136-145 wbix=459) POTASSIUM (BEAKER) (test 4.0 meq/L 3.5-5.1 bkio=699) CHLORIDE (BEAKER) (test 100 meq/L 98-107 ohrd=218) CO2 (BEAKER) (test 30 meq/L 22-29 gnue=825) BLOOD UREA NITROGEN 8 mg/dL 7-21 (BEAKER) (test kpfa=685) CREATININE (BEAKER) (test 0.72 mg/dL 0.57-1.25 yjcx=788) GLUCOSE RANDOM (BEAKER) 290 mg/dL 70-105 (test girh=732) CALCIUM (BEAKER) (test 10.9 mg/dL 8.4-10.2 syco=328) EGFR (BEAKER) (test mL/min/1.73 sq m INSUFFICIENT CLINICAL DATA lmcf=8559) TO CALCULATE ESTIMATED GFR. POCT-GLUCOSE [id number] 21:33:00 Test Item Value Reference Range Comments POC-GLUCOSE METER (BEAKER) 296 mg/dL 70-110 TESTED AT [facility] [address] [facility] (test fsby=2373) [facility] [place] [address] [id number] 21:11:00 Test Item Value Reference Range Comments PROTIME (BEAKER) (test dwrk=767) 13.2 seconds 11.7-14.7 INR (BEAKER) (test jcoc=161) 1.0 <=5.9 PARTIAL THROMBOPLASTIN TIME (BEAKER) (test 85.3 seconds 22.5-36.0 mxxq=134) RECOMMENDED COUMADIN/WARFARIN INR THERAPY RANGESSTANDARD DOSE: 2.0 - 3.0 Includes: PROPHYLAXIS forvenous thrombosis, systemic embolization; TREATMENT for venous thrombosis and/or pulmonary embolus.HIGH RISK: Target INR is 2.5-3.5 for patients with mechanical heart valves.POCT-GLUCOSE [id number] 17:01:00 Test Item Value Reference Range Comments POC-GLUCOSE METER (BEAKER) 211 mg/dL 70-110 TESTED AT [facility] [address] [facility] (test irjg=0448) [facility] [place] [address] TISSUE [id number] 10:54:00Surgical Pathology Report Case: [id number] Authorizing Provider: Reji Reza MD Collected: 08/04/2017 1512 Ordering Location: [facility] Received: 08/05/2017 0744 PERIOPERATIVE SERVICES Pathologist: David Hatch MD Specimen: Plaque, right femoral plaque ARTERY, RIGHT FEMORAL, ATHERECTOMY :CALCIFIC ATHEROSCLEROTIC PLAQUE WITH FOCAL RUPTURE AND FIBRIN THROMBOSIS Signing Pathologist Direct Phone Line: [phone] signed by David Hatch MD on 08/11/2017 at 10:54 [id number]; [id number] artery disease right femoral plaqueA. Right femoral plaqueThe specimen is received in saline labeled with the patient's information and labeled "right femoral plaque" and consists of two calcified tubular-shaped segment of tissue measuring 2 and 3 cm in length ranging in diameter from 0.5 to 0.6 cm. Guitar Repairer sections are submitted A1 for decalcification. CG/pl PerformedPOCT-GLUCOSE [id number] 12 :01:00 Test Item Value Reference Range Comments POC-GLUCOSE METER (BEAKER) 269 mg/dL 70-110 TESTED AT [address] (test gjyw=7172) [facility] [place] [address] POCT-GLUCOSE [id number] 08:40:00 Test Item Value Reference Range Comments POC-GLUCOSE METER (BEAKER) 246 mg/dL 70-110 TESTED AT [address] (test cbah=5481) [facility] [place] [address] BASIC METABOLIC [id number] 05:18:00 Test Item Value Reference Range Comments SODIUM (BEAKER) (test 136 meq/L 136-145 ooal=534) POTASSIUM (BEAKER) (test 4.5 meq/L 3.5-5.1 Specimen moderately bnai=513) hemolyzed CHLORIDE (BEAKER) (test 107 meq/L 98-107 fcal=278) CO2 (BEAKER) (test 20 meq/L 22-29 elfy=745) BLOOD UREA NITROGEN 12 mg/dL 7-21 (BEAKER) (test mvfp=538) CREATININE (BEAKER) (test 0.67 mg/dL 0.57-1.25 Specimen moderately cwwf=969) hemolyzed GLUCOSE RANDOM (BEAKER) 214 mg/dL 70-105 (test kspv=843) CALCIUM (BEAKER) (test 10.3 mg/dL 8.4-10.2 zvcc=325) EGFR (BEAKER) (test mL/min/1.73 sq m INSUFFICIENT CLINICAL DATA ynyk=8578) TO CALCULATE ESTIMATED GFR. CBC W/PLT COUNT & AUTO [id number] 05:03:00 Test Item Value Reference Range Comments WHITE BLOOD CELL COUNT (BEAKER) (test nhrl=308) 10.8 K/ L 3.5-10.5 RED BLOOD CELL COUNT (BEAKER) (test tonk=559) 4.36 M/ L 3.93-5.22 HEMOGLOBIN (BEAKER) (test vshq=013) 13.1 GM/DL 11.2-15.7 HEMATOCRIT (BEAKER) (test xbnp=459) 41.8 % 34.1-44.9 MEAN CORPUSCULAR VOLUME (BEAKER) (test tjcj=244) 95.9 fL 79.4-94.8 MEAN CORPUSCULAR HEMOGLOBIN (BEAKER) (test 30.0 pg 25.6-32.2 xcmb=324) MEAN CORPUSCULAR HEMOGLOBIN CONC (BEAKER) (test 31.3 GM/DL 32.2-35.5 tfip=175) RED CELL DISTRIBUTION WIDTH (BEAKER) (test 13.5 % 11.7-14.4 wbag=150) PLATELET COUNT (BEAKER) (test dmjq=888) 218 K/CU MM 150-450 MEAN PLATELET VOLUME (BEAKER) (test nyub=137) 10.1 fL 9.4-12.3 NUCLEATED RED BLOOD CELLS (BEAKER) (test 0 /100 WBC 0-0 tkdc=075) NEUTROPHILS RELATIVE PERCENT (BEAKER) (test 52 % jjhy=166) LYMPHOCYTES RELATIVE PERCENT (BEAKER) (test 34 % mvhd=911) MONOCYTES RELATIVE PERCENT (BEAKER) (test 8 % xkdm=609) EOSINOPHILS RELATIVE PERCENT (BEAKER) (test 5 % egzv=035) BASOPHILS RELATIVE PERCENT (BEAKER) (test 1 % irgp=834) NEUTROPHILS ABSOLUTE COUNT (BEAKER) (test 5.61 K/ L 1.56-6.13 cviu=250) LYMPHOCYTES ABSOLUTE COUNT (BEAKER) (test 3.66 K/ L 1.18-3.74 bxcp=589) MONOCYTES ABSOLUTE COUNT (BEAKER) (test 0.82 K/ L 0.24-0.36 ldea=308) EOSINOPHILS ABSOLUTE COUNT (BEAKER) (test 0.56 K/ L 0.04-0.36 jatr=806) BASOPHILS ABSOLUTE COUNT (BEAKER) (test 0.07 K/ L 0.01-0.08 hbmo=558) IMMATURE GRANULOCYTES-RELATIVE PERCENT (BEAKER) 0 % 0-1 (test wcxt=4233) POCT-GLUCOSE [id number] 22:46:00 Test Item Value Reference Range Comments POC-GLUCOSE METER (BEAKER) 354 mg/dL 70-110 Patient on insulin Drip/TESTED (test rehi=5161) AT [address] [address] POCT-GLUCOSE [id number] 18:28:00 Test Item Value Reference Range Comments POC-GLUCOSE METER (BEAKER) 263 mg/dL 70-110 TESTED AT [address] (test twhn=3233) [facility] [place] [address] POCT-GLUCOSE [id number] 12:03:00 Test Item Value Reference Range Comments POC-GLUCOSE METER (BEAKER) 336 mg/dL 70-110 TESTED AT [address] (test jnxe=3818) [place] [id number] POCT-GLUCOSE [id number] 07:59:00 Test Item Value Reference Range Comments POC-GLUCOSE METER (BEAKER) 250 mg/dL 70-110 TESTED AT [address] (test atai=9364) [facility] [place] [address] BASIC METABOLIC [id number] 06:17:00 Test Item Value Reference Range Comments SODIUM (BEAKER) (test 138 meq/L 136-145 yowi=640) POTASSIUM (BEAKER) (test 3.7 meq/L 3.5-5.1 nlve=852) CHLORIDE (BEAKER) (test 104 meq/L 98-107 xpvy=622) CO2 (BEAKER) (test 25 meq/L 22-29 ipub=397) BLOOD UREA NITROGEN 11 mg/dL 7-21 (BEAKER) (test lxxj=712) CREATININE (BEAKER) (test 0.77 mg/dL 0.57-1.25 cxxz=858) GLUCOSE RANDOM (BEAKER) 236 mg/dL 70-105 (test xbro=013) CALCIUM (BEAKER) (test 10.3 mg/dL 8.4-10.2 nkvw=015) EGFR (BEAKER) (test mL/min/1.73 sq m INSUFFICIENT CLINICAL DATA bssf=3593) TO CALCULATE ESTIMATED GFR. CBC W/PLT COUNT & AUTO [id number] 05:34:00 Test Item Value Reference Range Comments WHITE BLOOD CELL COUNT (BEAKER) (test zefs=352) 12.0 K/ L 3.5-10.5 RED BLOOD CELL COUNT (BEAKER) (test sxdr=899) 4.27 M/ L 3.93-5.22 HEMOGLOBIN (BEAKER) (test dcxi=091) 12.8 GM/DL 11.2-15.7 HEMATOCRIT (BEAKER) (test nkgt=016) 39.3 % 34.1-44.9 MEAN CORPUSCULAR VOLUME (BEAKER) (test qqen=724) 92.0 fL 79.4-94.8 MEAN CORPUSCULAR HEMOGLOBIN (BEAKER) (test 30.0 pg 25.6-32.2 cexk=216) MEAN CORPUSCULAR HEMOGLOBIN CONC (BEAKER) (test 32.6 GM/DL 32.2-35.5 qkhi=588) RED CELL DISTRIBUTION WIDTH (BEAKER) (test 13.7 % 11.7-14.4 idnb=775) PLATELET COUNT (BEAKER) (test ptkf=800) 261 K/CU MM 150-450 MEAN PLATELET VOLUME (BEAKER) (test hjuz=685) 10.2 fL 9.4-12.3 NUCLEATED RED BLOOD CELLS (BEAKER) (test 0 /100 WBC 0-0 qzyl=070) NEUTROPHILS RELATIVE PERCENT (BEAKER) (test 60 % jfyq=703) LYMPHOCYTES RELATIVE PERCENT (BEAKER) (test 29 % yikq=759) MONOCYTES RELATIVE PERCENT (BEAKER) (test 7 % zkmx=895) EOSINOPHILS RELATIVE PERCENT (BEAKER) (test 3 % apmn=773) BASOPHILS RELATIVE PERCENT (BEAKER) (test 1 % yysv=335) NEUTROPHILS ABSOLUTE COUNT (BEAKER) (test 7.21 K/ L 1.56-6.13 uspq=253) LYMPHOCYTES ABSOLUTE COUNT (BEAKER) (test 3.48 K/ L 1.18-3.74 bheu=296) MONOCYTES ABSOLUTE COUNT (BEAKER) (test 0.81 K/ L 0.24-0.36 svni=544) EOSINOPHILS ABSOLUTE COUNT (BEAKER) (test 0.35 K/ L 0.04-0.36 zsrb=250) BASOPHILS ABSOLUTE COUNT (BEAKER) (test 0.07 K/ L 0.01-0.08 rfdu=571) IMMATURE GRANULOCYTES-RELATIVE PERCENT (BEAKER) 0 % 0-1 (test umxy=2746) POCT-GLUCOSE [id number] 21:23:00 Test Item Value Reference Range Comments POC-GLUCOSE METER (BEAKER) 337 mg/dL 70-110 Will Repeat Test/TESTED AT (test dgpp=1443) [place] [id number] POCT-GLUCOSE [id number] 17:30:00 Test Item Value Reference Range Comments POC-GLUCOSE METER (BEAKER) 251 mg/dL 70-110 TESTED AT [address] (test czvi=0188) [place] [address] POCT-GLUCOSE [id number] 13:38:00 Test Item Value Reference Range Comments POC-GLUCOSE METER (BEAKER) 251 mg/dL 70-110 TESTED AT [address] (test zfbv=1981) [place] [address] [id number] 06:02:00 Test Item Value Reference Range Comments ACTIVATED CLOTTING TIME 268 sec TESTED AT [address] (BEAKER) (test fwbr=629) [place] [address] BASIC METABOLIC [id number] 05:39:00 Test Item Value Reference Range Comments SODIUM (BEAKER) (test 137 meq/L 136-145 zszo=161) POTASSIUM (BEAKER) (test 4.2 meq/L 3.5-5.1 jxhz=415) CHLORIDE (BEAKER) (test 106 meq/L 98-107 rdam=257) CO2 (BEAKER) (test 22 meq/L 22-29 hjhb=792) BLOOD UREA NITROGEN 7 mg/dL 7-21 (BEAKER) (test fmrp=514) CREATININE (BEAKER) (test 0.65 mg/dL 0.57-1.25 glae=162) GLUCOSE RANDOM (BEAKER) 216 mg/dL 70-105 (test kzci=006) CALCIUM (BEAKER) (test 9.7 mg/dL 8.4-10.2 jwcg=025) EGFR (BEAKER) (test mL/min/1.73 sq m INSUFFICIENT CLINICAL DATA ggbc=7069) TO CALCULATE ESTIMATED GFR. [id number] 05:29:00 Test Item Value Reference Range Comments MAGNESIUM (BEAKER) (test mjuq=956) 2.3 mg/dL 1.6-2.6 CBC W/PLT COUNT & AUTO [id number] 05:26:00 Test Item Value Reference Range Comments WHITE BLOOD CELL COUNT (BEAKER) (test xhui=063) 13.6 K/ L 3.5-10.5 RED BLOOD CELL COUNT (BEAKER) (test yshh=580) 4.25 M/ L 3.93-5.22 HEMOGLOBIN (BEAKER) (test jopy=323) 12.8 GM/DL 11.2-15.7 HEMATOCRIT (BEAKER) (test ggfe=319) 38.1 % 34.1-44.9 MEAN CORPUSCULAR VOLUME (BEAKER) (test izjo=505) 89.6 fL 79.4-94.8 MEAN CORPUSCULAR HEMOGLOBIN (BEAKER) (test 30.1 pg 25.6-32.2 lajc=030) MEAN CORPUSCULAR HEMOGLOBIN CONC (BEAKER) (test 33.6 GM/DL 32.2-35.5 lapm=954) RED CELL DISTRIBUTION WIDTH (BEAKER) (test 13.6 % 11.7-14.4 dpdr=807) PLATELET COUNT (BEAKER) (test ynnp=110) 271 K/CU MM 150-450 MEAN PLATELET VOLUME (BEAKER) (test sqrw=744) 9.9 fL 9.4-12.3 NUCLEATED RED BLOOD CELLS (BEAKER) (test 0 /100 WBC 0-0 exqo=539) NEUTROPHILS RELATIVE PERCENT (BEAKER) (test 73 % lvnr=445) LYMPHOCYTES RELATIVE PERCENT (BEAKER) (test 20 % jyyr=980) MONOCYTES RELATIVE PERCENT (BEAKER) (test 7 % yiir=733) EOSINOPHILS RELATIVE PERCENT (BEAKER) (test 0 % dzwn=084) BASOPHILS RELATIVE PERCENT (BEAKER) (test 0 % qrur=938) NEUTROPHILS ABSOLUTE COUNT (BEAKER) (test 9.90 K/ L 1.56-6.13 wmro=704) LYMPHOCYTES ABSOLUTE COUNT (BEAKER) (test 2.69 K/ L 1.18-3.74 viir=832) MONOCYTES ABSOLUTE COUNT (BEAKER) (test 0.88 K/ L 0.24-0.36 yvsw=405) EOSINOPHILS ABSOLUTE COUNT (BEAKER) (test 0.03 K/ L 0.04-0.36 vcos=779) BASOPHILS ABSOLUTE COUNT (BEAKER) (test 0.06 K/ L 0.01-0.08 zfsf=959) IMMATURE GRANULOCYTES-RELATIVE PERCENT (BEAKER) 1 % 0-1 (test bwwn=2805) CALCIUM, [id number] 05:02:00 Test Item Value Reference Range Comments CALCIUM IONIZED (BEAKER) (test zqkx=594) 1.30 mmol/L 1.12-1.27 PH, BLOOD (BEAKER) (test gcvq=4085) 7.43 [id number] 18:43:00 Test Item Value Reference Range Comments PHOSPHORUS (BEAKER) (test vvec=690) 2.7 mg/dL 2.3-4.7 [id number] 18:43:00 Test Item Value Reference Range Comments MAGNESIUM (BEAKER) (test fixg=325) 1.5 mg/dL 1.6-2.6 LACTIC ACID, ARTERIAL, WHOLE [id number] 18:40:00 Test Item Value Reference Range Comments LACTATE BLOOD ARTERIAL (2) 1.0 mmol/L 0.5-2.2 Specimen slightly hemolyzed (BEAKER) (test btms=2171) Effective 02/28/2016: Units/Reference Range ChangeNew: 0.5-2.2 mmol/L Previous: 5 -20 mg/dLCBC W/PLT COUNT & AUTO [id number] 18:31:00 Test Item Value Reference Range Comments WHITE BLOOD CELL COUNT (BEAKER) (test zcek=446) 19.6 K/ L 3.5-10.5 RED BLOOD CELL COUNT (BEAKER) (test jdek=382) 4.16 M/ L 3.93-5.22 HEMOGLOBIN (BEAKER) (test igzd=573) 12.4 GM/DL 11.2-15.7 HEMATOCRIT (BEAKER) (test cmen=783) 37.2 % 34.1-44.9 MEAN CORPUSCULAR VOLUME (BEAKER) (test fuoo=539) 89.4 fL 79.4-94.8 MEAN CORPUSCULAR HEMOGLOBIN (BEAKER) (test 29.8 pg 25.6-32.2 tali=470) MEAN CORPUSCULAR HEMOGLOBIN CONC (BEAKER) (test 33.3 GM/DL 32.2-35.5 coiy=542) RED CELL DISTRIBUTION WIDTH (BEAKER) (test 13.4 % 11.7-14.4 tzsl=397) PLATELET COUNT (BEAKER) (test koxe=593) 239 K/CU MM 150-450 MEAN PLATELET VOLUME (BEAKER) (test yxlq=730) 10.4 fL 9.4-12.3 NUCLEATED RED BLOOD CELLS (BEAKER) (test 0 /100 WBC 0-0 bhpc=668) NEUTROPHILS RELATIVE PERCENT (BEAKER) (test 88 % cxnd=542) LYMPHOCYTES RELATIVE PERCENT (BEAKER) (test 9 % uixv=381) MONOCYTES RELATIVE PERCENT (BEAKER) (test 1 % obyn=766) EOSINOPHILS RELATIVE PERCENT (BEAKER) (test 1 % cevt=738) BASOPHILS RELATIVE PERCENT (BEAKER) (test 1 % zeqa=072) NEUTROPHILS ABSOLUTE COUNT (BEAKER) (test 17.26 K/ L 1.56-6.13 hccp=708) LYMPHOCYTES ABSOLUTE COUNT (BEAKER) (test 1.66 K/ L 1.18-3.74 iywk=940) MONOCYTES ABSOLUTE COUNT (BEAKER) (test 0.25 K/ L 0.24-0.36 zoqw=302) EOSINOPHILS ABSOLUTE COUNT (BEAKER) (test 0.13 K/ L 0.04-0.36 fsyv=693) BASOPHILS ABSOLUTE COUNT (BEAKER) (test 0.09 K/ L 0.01-0.08 ravm=668) IMMATURE GRANULOCYTES-RELATIVE PERCENT (BEAKER) 1 % 0-1 (test vlcs=5549) FILTER IONIZED [id number] 18:25:00 Test Item Value Reference Range Comments FILTER IONIZED CALCIUM (BEAKER) (test bpmv=9451) 1.24 nnol/L Reference Range: No NormalsBLOOD GAS, [id number] 18:24:00 Test Item Value Reference Range Comments PH ARTERIAL (BEAKER) (test wzon=218) 7.37 7.35-7.45 PCO2 ARTERIAL (BEAKER) (test ejhu=664) 42 mmHg 35-45 PO2 ARTERIAL (BEAKER) (test lkqp=883) 154 mmHg 80-90 O2 SATURATION ARTERIAL (BEAKER) (test krpj=027) 98.9 % 96.0-97.0 HCO3 ARTERIAL (BEAKER) (test goex=946) 24 mmol/L 21-29 BASE EXCESS ARTERIAL (BEAKER) (test glta=182) -1.4 mmol/L -2.0-3.0 PATIENT TEMPERATURE (BEAKER) (test zwto=2018) 37.0 C FIO2 (BEAKER) (test ianr=5643) 100.0 % [id number] 17:01:00 Test Item Value Reference Range Comments ACTIVATED CLOTTING TIME 252 sec TESTED AT [facility] [address] (BEAKER) (test bdrf=449) [facility], [place] [address] SODIUM NA-STAT [id number] 16:06:00 Test Item Value Reference Range Comments SODIUM (BEAKER) (test yumx=535) 138 meq/L 135-148 HGB/HCT (H&H) - STAT [id number] 16:06:00 Test Item Value Reference Range Comments HEMOGLOBIN (BEAKER) (test oher=255) 13.3 g/dL 12.0-15.0 HEMATOCRIT (BEAKER) (test opqr=444) 39.0 % 36.0-45.0 BLOOD GAS, [id number] 16:06:00 Test Item Value Reference Range Comments PH ARTERIAL (BEAKER) (test wueo=183) 7.31 7.35-7.45 PCO2 ARTERIAL (BEAKER) (test zoxc=790) 45 mmHg 35-45 PO2 ARTERIAL (BEAKER) (test oypo=153) 88 mmHg 80-90 O2 SATURATION ARTERIAL (BEAKER) (test qidb=562) 96.0 % 96.0-97.0 HCO3 ARTERIAL (BEAKER) (test grqd=015) 22 mmol/L 21-29 BASE EXCESS ARTERIAL (BEAKER) (test iizw=208) -3.9 mmol/L -2.0-3.0 PATIENT TEMPERATURE (BEAKER) (test oabm=0396) 36.9 C FIO2 (BEAKER) (test jwdq=1180) 50.0 % POTASSIUM-STAT [id number] 16:06:00 Test Item Value Reference Range Comments POTASSIUM (BEAKER) (test grsx=787) 3.3 meq/L 3.6-5.5 GLUCOSE-STAT [id number] 16:06:00 Test Item Value Reference Range Comments GLUCOSE RANDOM (BEAKER) (test ofeq=585) 198 mg/dL 70-110 BLOOD GAS, [id number] 14:03:00 Test Item Value Reference Range Comments PH ARTERIAL (BEAKER) (test qsbc=620) 7.43 7.35-7.45 PCO2 ARTERIAL (BEAKER) (test dbqa=573) 36 mmHg 35-45 PO2 ARTERIAL (BEAKER) (test cvcp=441) 81 mmHg 80-90 O2 SATURATION ARTERIAL (BEAKER) (test kqhp=922) 96.7 % 96.0-97.0 HCO3 ARTERIAL (BEAKER) (test chyk=887) 24 mmol/L 21-29 BASE EXCESS ARTERIAL (BEAKER) (test golo=908) -0.4 mmol/L -2.0-3.0 PATIENT TEMPERATURE (BEAKER) (test ajjo=1167) 36.0 C FIO2 (BEAKER) (test gfjc=7750) 50.0 % SODIUM NA-STAT [id number] 14:03:00 Test Item Value Reference Range Comments SODIUM (BEAKER) (test hcwv=781) 136 meq/L 135-148 HGB/HCT (H&H) - STAT [id number] 14:03:00 Test Item Value Reference Range Comments HEMOGLOBIN (BEAKER) (test oncp=197) 13.0 g/dL 12.0-15.0 HEMATOCRIT (BEAKER) (test wpik=168) 38.0 % 36.0-45.0 POTASSIUM-STAT [id number] 14:03:00 Test Item Value Reference Range Comments POTASSIUM (BEAKER) (test qgpy=188) 3.3 meq/L 3.6-5.5 GLUCOSE-STAT [id number] 14:03:00 Test Item Value Reference Range Comments GLUCOSE RANDOM (BEAKER) (test kqaj=858) 124 mg/dL 70-110 SCREEN, [id number] 10:24:00 Test Item Value Reference Range Comments TEST URINE (BEAKER) (test mztm=369) Negative POCT-GLUCOSE [id number] 08:32:00 Test Item Value Reference Range Comments POC-GLUCOSE METER (BEAKER) 181 mg/dL 70-110 TESTED AT [facility] [address] [facility] (test hsxy=2408) [place] [address] [id number] 07:59:00 Test Item Value Reference Range Comments PARTIAL THROMBOPLASTIN TIME (BEAKER) (test 86.0 seconds 22.5-36.0 ystf=033) CBC (HEMOGRAM ONLY)2017-08-04 05:27:00 Test Item Value Reference Range Comments WHITE BLOOD CELL COUNT (BEAKER) (test arjl=354) 9.3 K/ L 3.5-10.5 RED BLOOD CELL COUNT (BEAKER) (test fxvb=115) 4.17 M/ L 3.93-5.22 HEMOGLOBIN (BEAKER) (test krif=006) 12.5 GM/DL 11.2-15.7 HEMATOCRIT (BEAKER) (test uvcq=096) 37.4 % 34.1-44.9 MEAN CORPUSCULAR VOLUME (BEAKER) (test pfit=660) 89.7 fL 79.4-94.8 MEAN CORPUSCULAR HEMOGLOBIN (BEAKER) (test 30.0 pg 25.6-32.2 jktr=397) MEAN CORPUSCULAR HEMOGLOBIN CONC (BEAKER) (test 33.4 GM/DL 32.2-35.5 pgbi=992) RED CELL DISTRIBUTION WIDTH (BEAKER) (test 13.3 % 11.7-14.4 gxme=389) PLATELET COUNT (BEAKER) (test qpsd=627) 256 K/CU MM 150-450 MEAN PLATELET VOLUME (BEAKER) (test kplk=510) 10.3 fL 9.4-12.3 NUCLEATED RED BLOOD CELLS (BEAKER) (test 0 /100 WBC 0-0 pmnm=007) POCT-GLUCOSE [id number] 21:35:00 Test Item Value Reference Range Comments POC-GLUCOSE METER (BEAKER) 258 mg/dL 70-110 TESTED AT [address] (test mpjt=3045) [place] [address] [id number] 20:55:00 Test Item Value Reference Range Comments PARTIAL THROMBOPLASTIN TIME (BEAKER) (test 92.0 seconds 22.5-36.0 qawc=975) POCT-GLUCOSE [id number] 17:16:00 Test Item Value Reference Range Comments POC-GLUCOSE METER (BEAKER) 234 mg/dL 70-110 TESTED AT [address] (test show=7445) [place] [address] [id number] 14:51:00 Test Item Value Reference Range Comments PARTIAL THROMBOPLASTIN TIME (BEAKER) (test 88.9 seconds 22.5-36.0 lbcc=055) POCT-GLUCOSE [id number] 12:10:00 Test Item Value Reference Range Comments POC-GLUCOSE METER (BEAKER) 288 mg/dL 70-110 TESTED AT [facility] [address] [facility] (test pqec=2690) [facility] [place] [address] POCT-GLUCOSE [id number] 07:55:00 Test Item Value Reference Range Comments POC-GLUCOSE METER (BEAKER) 183 mg/dL 70-110 TESTED AT [address] (test sjmh=0790) [facility] [place] [address] [id number] 06:32:00 Test Item Value Reference Range Comments PARTIAL THROMBOPLASTIN TIME (BEAKER) (test 63.8 seconds 22.5-36.0 ezlz=096) CBC (HEMOGRAM ONLY)2017-08-03 06:24:00 Test Item Value Reference Range Comments WHITE BLOOD CELL COUNT (BEAKER) (test akgo=779) 8.6 K/ L 3.5-10.5 RED BLOOD CELL COUNT (BEAKER) (test hydf=476) 4.24 M/ L 3.93-5.22 HEMOGLOBIN (BEAKER) (test ecof=975) 12.6 GM/DL 11.2-15.7 HEMATOCRIT (BEAKER) (test naci=276) 37.9 % 34.1-44.9 MEAN CORPUSCULAR VOLUME (BEAKER) (test qauo=761) 89.4 fL 79.4-94.8 MEAN CORPUSCULAR HEMOGLOBIN (BEAKER) (test 29.7 pg 25.6-32.2 omqg=978) MEAN CORPUSCULAR HEMOGLOBIN CONC (BEAKER) (test 33.2 GM/DL 32.2-35.5 zvpj=601) RED CELL DISTRIBUTION WIDTH (BEAKER) (test 13.3 % 11.7-14.4 tvpi=726) PLATELET COUNT (BEAKER) (test fcgn=336) 251 K/CU MM 150-450 MEAN PLATELET VOLUME (BEAKER) (test gbfy=538) 10.6 fL 9.4-12.3 NUCLEATED RED BLOOD CELLS (BEAKER) (test 0 /100 WBC 0-0 xdbf=009) [id number] 21:20:00 Test Item Value Reference Range Comments PARTIAL THROMBOPLASTIN TIME (BEAKER) (test 81.9 seconds 22.5-36.0 cetu=730) POCT-GLUCOSE [id number] 16:52:00 Test Item Value Reference Range Comments POC-GLUCOSE METER (BEAKER) 190 mg/dL 70-110 TESTED AT [address] (test zeyc=0413) [facility] [place] [address] [id number] 15:15:00 Test Item Value Reference Range Comments PARTIAL THROMBOPLASTIN TIME (BEAKER) (test 82.6 seconds 22.5-36.0 zbnf=655) POCT-GLUCOSE [id number] 11:17:00 Test Item Value Reference Range Comments POC-GLUCOSE METER (BEAKER) 293 mg/dL 70-110 TESTED AT [address] (test kcvu=8113) [facility] [place] [address] POCT-GLUCOSE [id number] 07:43:00 Test Item Value Reference Range Comments POC-GLUCOSE METER (BEAKER) 188 mg/dL 70-110 TESTED AT [address] (test yjei=9254) [place] [address] [id number] 05:56:00 Test Item Value Reference Range Comments PARTIAL THROMBOPLASTIN TIME (BEAKER) (test 91.1 seconds 22.5-36.0 zplz=418) CBC (HEMOGRAM ONLY)2017-08-02 05:39:00 Test Item Value Reference Range Comments WHITE BLOOD CELL COUNT (BEAKER) (test ppph=176) 8.7 K/ L 3.5-10.5 RED BLOOD CELL COUNT (BEAKER) (test mwqt=995) 4.40 M/ L 3.93-5.22 HEMOGLOBIN (BEAKER) (test dxtm=405) 13.1 GM/DL 11.2-15.7 HEMATOCRIT (BEAKER) (test wujn=127) 39.3 % 34.1-44.9 MEAN CORPUSCULAR VOLUME (BEAKER) (test ixei=241) 89.3 fL 79.4-94.8 MEAN CORPUSCULAR HEMOGLOBIN (BEAKER) (test 29.8 pg 25.6-32.2 ealt=762) MEAN CORPUSCULAR HEMOGLOBIN CONC (BEAKER) (test 33.3 GM/DL 32.2-35.5 dkxc=541) RED CELL DISTRIBUTION WIDTH (BEAKER) (test 13.2 % 11.7-14.4 gmor=278) PLATELET COUNT (BEAKER) (test urux=769) 251 K/CU MM 150-450 MEAN PLATELET VOLUME (BEAKER) (test trvr=701) 10.2 fL 9.4-12.3 NUCLEATED RED BLOOD CELLS (BEAKER) (test 0 /100 WBC 0-0 yqpd=041) POCT-GLUCOSE [id number] 22:52:00 Test Item Value Reference Range Comments POC-GLUCOSE METER (BEAKER) 200 mg/dL 70-110 TESTED AT [address] (test varb=8922) [place] [address] [id number] 21:07:00 Test Item Value Reference Range Comments PARTIAL THROMBOPLASTIN TIME (BEAKER) (test 76.5 seconds 22.5-36.0 fwfe=817) POCT-GLUCOSE [id number] 17:03:00 Test Item Value Reference Range Comments POC-GLUCOSE METER (BEAKER) 182 mg/dL 70-110 TESTED AT [address] (test rtnr=9193) [place] [address] [id number] 14:07:00 Test Item Value Reference Range Comments PARTIAL THROMBOPLASTIN TIME (BEAKER) (test 80.7 seconds 22.5-36.0 qoig=410) POCT-GLUCOSE [id number] 12:01:00 Test Item Value Reference Range Comments POC-GLUCOSE METER (BEAKER) 209 mg/dL 70-110 TESTED AT [address] (test kjdz=6836) [place] [address] POCT-GLUCOSE [id number] 08:26:00 Test Item Value Reference Range Comments POC-GLUCOSE METER (BEAKER) 171 mg/dL 70-110 TESTED AT [address] (test hlbl=1792) [place] [address] [id number] 06:21:00 Test Item Value Reference Range Comments PARTIAL THROMBOPLASTIN TIME (BEAKER) (test 101.5 seconds 22.5-36.0 ryva=124) CBC (HEMOGRAM ONLY)2017-08-01 06:17:00 Test Item Value Reference Range Comments WHITE BLOOD CELL COUNT (BEAKER) (test xfyg=937) 8.0 K/ L 3.5-10.5 RED BLOOD CELL COUNT (BEAKER) (test hnnh=618) 4.57 M/ L 3.93-5.22 HEMOGLOBIN (BEAKER) (test mebc=385) 13.4 GM/DL 11.2-15.7 HEMATOCRIT (BEAKER) (test eqqq=334) 40.8 % 34.1-44.9 MEAN CORPUSCULAR VOLUME (BEAKER) (test ktpn=917) 89.3 fL 79.4-94.8 MEAN CORPUSCULAR HEMOGLOBIN (BEAKER) (test 29.3 pg 25.6-32.2 tlhf=719) MEAN CORPUSCULAR HEMOGLOBIN CONC (BEAKER) (test 32.8 GM/DL 32.2-35.5 kgkx=727) RED CELL DISTRIBUTION WIDTH (BEAKER) (test 13.1 % 11.7-14.4 bjxf=747) PLATELET COUNT (BEAKER) (test yhbo=227) 229 K/CU MM 150-450 MEAN PLATELET VOLUME (BEAKER) (test uvmw=186) 10.3 fL 9.4-12.3 NUCLEATED RED BLOOD CELLS (BEAKER) (test 0 /100 WBC 0-0 xuvt=052) [id number] 20:55:00 Test Item Value Reference Range Comments PARTIAL THROMBOPLASTIN TIME (BEAKER) (test 63.8 seconds 22.5-36.0 owqx=117) POCT-GLUCOSE [id number] 20:43:00 Test Item Value Reference Range Comments POC-GLUCOSE METER (BEAKER) 289 mg/dL 70-110 TESTED AT [address] (test smit=2942) [place] [address] POCT-GLUCOSE [id number] 17:29:00 Test Item Value Reference Range Comments POC-GLUCOSE METER (BEAKER) 225 mg/dL 70-110 TESTED AT [address] (test foll=8487) [place] [address] POCT-GLUCOSE [id number] 12:52:00 Test Item Value Reference Range Comments POC-GLUCOSE METER (BEAKER) 187 mg/dL 70-110 TESTED AT [address] (test yekt=4561) [place] [address] [id number] 12:47:00 Test Item Value Reference Range Comments PARTIAL THROMBOPLASTIN TIME (BEAKER) (test 93.3 seconds 22.5-36.0 qils=045) POCT-GLUCOSE [id number] 08:01:00 Test Item Value Reference Range Comments POC-GLUCOSE METER (BEAKER) 167 mg/dL 70-110 TESTED AT [facility] [address] (test xedx=4302) [place] [address] [id number] 04:38:00 Test Item Value Reference Range Comments PROTIME (BEAKER) (test psaq=440) 13.5 seconds 11.7-14.7 INR (BEAKER) (test qicm=147) 1.0 <=5.9 PARTIAL THROMBOPLASTIN TIME (BEAKER) (test 84.1 seconds 22.5-36.0 xtmc=194) RECOMMENDED COUMADIN/WARFARIN INR THERAPY RANGESSTANDARD DOSE: 2.0 - 3.0 Includes: PROPHYLAXIS forvenous thrombosis, systemic embolization; TREATMENT for venous thrombosis and/or pulmonary embolus.HIGH RISK: Target INR is 2.5-3.5 for patients with mechanical heart valves...[id number] 04:38:00 Test Item Value Reference Range Comments PARTIAL THROMBOPLASTIN TIME (BEAKER) (test 84.1 seconds 22.5-36.0 pxan=420) CBC (HEMOGRAM ONLY)2017-07-31 04:35:00 Test Item Value Reference Range Comments WHITE BLOOD CELL COUNT (BEAKER) (test fisw=381) 8.1 K/ L 3.5-10.5 RED BLOOD CELL COUNT (BEAKER) (test xmeq=182) 4.11 M/ L 3.93-5.22 HEMOGLOBIN (BEAKER) (test lbej=248) 12.4 GM/DL 11.2-15.7 HEMATOCRIT (BEAKER) (test lmpr=448) 37.0 % 34.1-44.9 MEAN CORPUSCULAR VOLUME (BEAKER) (test thin=310) 90.0 fL 79.4-94.8 MEAN CORPUSCULAR HEMOGLOBIN (BEAKER) (test 30.2 pg 25.6-32.2 vfno=296) MEAN CORPUSCULAR HEMOGLOBIN CONC (BEAKER) (test 33.5 GM/DL 32.2-35.5 kviu=389) RED CELL DISTRIBUTION WIDTH (BEAKER) (test 13.0 % 11.7-14.4 zimn=191) PLATELET COUNT (BEAKER) (test qhnd=728) 201 K/CU MM 150-450 MEAN PLATELET VOLUME (BEAKER) (test kjds=437) 9.8 fL 9.4-12.3 NUCLEATED RED BLOOD CELLS (BEAKER) (test 0 /100 WBC 0-0 lxro=568) POCT-GLUCOSE [id number] 22:25:00 Test Item Value Reference Range Comments POC-GLUCOSE METER (BEAKER) 235 mg/dL 70-110 TESTED AT [address] (test vekg=4300) [place] [address] [id number] 20:45:00 Test Item Value Reference Range Comments PARTIAL THROMBOPLASTIN TIME (BEAKER) (test 66.3 seconds 22.5-36.0 ajqy=185) POCT-GLUCOSE [id number] 17:25:00 Test Item Value Reference Range Comments POC-GLUCOSE METER (BEAKER) 208 mg/dL 70-110 TESTED AT [address] (test mwhd=8465) [place] [address] [facility], MULTI, PHARM, [id number] 13:46:00FINAL REPORT PROCEDURE: Rest/Stress MYOCARDIAL PERFUSION SPECT with regadenoson\\XA9\\ CPT CODE: 26319 INDICATION: Intermediate CAD Risk HISTORY: Cardiac risk [...] Normal extracardiac tracer distribution. 6. No previous [facility] study for comparison. NONINVASIVE RISK STRATIFICATION: The above findings are considered low risk (<1% annual mortality rate) based on the following criterion:- Normal or small myocardial perfusion defect at rest or with stress(JACC. 2012;59(9):857-81.) Signed: Israel Dixon MDReport Verified Date/Time: 07/30/2017 13:46:52 Reading Location: [address] Reading Room [id number] 13:35:00 Test Item Value Reference Range Comments PARTIAL THROMBOPLASTIN TIME (BEAKER) (test 36.6 seconds 22.5-36.0 zalb=709) POCT-GLUCOSE [id number] 12:55:00 Test Item Value Reference Range Comments POC-GLUCOSE METER (BEAKER) 146 mg/dL 70-110 TESTED AT [facility] [address] [facility] (test ceks=1101) [facility] [place] [address] HEMOGLOBIN [id number] 09:09:00 Test Item Value Reference Range Comments HEMOGLOBIN A1C (BEAKER) (test gerx=419) 10.3 % 4.3-6.1 [id number] 07:35:00 Test Item Value Reference Range Comments PARTIAL THROMBOPLASTIN TIME (BEAKER) (test 138.7 seconds 22.5-36.0 qsxf=158) TSH/FREE T4 IF [id number] 07:09:00 Test Item Value Reference Range Comments THYROID STIMULATING HORMONE (BEAKER) (test 2.22 uIU/mL 0.35-4.94 pavf=683) LIPID [id number] 06:17:00 Test Item Value Reference Range Comments TRIGLYCERIDES (BEAKER) (test ikkv=032) 181 mg/dL CHOLESTEROL (BEAKER) (test fboz=456) 175 mg/dL HDL CHOLESTEROL (BEAKER) (test apuj=911) 32 mg/dL LDL CHOLESTEROL CALCULATED (BEAKER) (test 107 mg/dL ydij=384) Triglyceride Reference Range: Low Risk <150 Borderline 150- 199 High Risk 200-499 Very High Risk >=500Cholesterol Reference Range: Low Risk <200 Borderline 200-239 High Risk > 240HDL Cholesterol Reference Range: Low Risk >=60 High Risk <40LDL Cholesterol Reference Range: Optimal <100 Near Optimal 100-129 Borderline 130-159 High 160-189 Very High >=190HEPATIC FUNCTION [id number] 06:17:00 Test Item Value Reference Range Comments TOTAL PROTEIN (BEAKER) (test bmhv=789) 6.3 gm/dL 6.0-8.3 ALBUMIN (BEAKER) (test pkkq=0136) 3.6 g/dL 3.5-5.0 BILIRUBIN TOTAL (BEAKER) (test okrg=431) 0.3 mg/dL 0.2-1.2 BILIRUBIN DIRECT (BEAKER) (test rale=886) 0.1 mg/dL 0.1-0.5 ALKALINE PHOSPHATASE (BEAKER) (test skyc=357) 84 U/L 40-150 AST (SGOT) (BEAKER) (test djmc=543) 27 U/L 5-34 ALT (SGPT) (BEAKER) (test sqfz=807) 41 U/L 6-55 [id number] 06:00:00 Test Item Value Reference Range Comments PARTIAL THROMBOPLASTIN TIME (BEAKER) (test 192.6 seconds 22.5-36.0 kank=389) CBC (HEMOGRAM ONLY)2017-07-30 05:41:00 Test Item Value Reference Range Comments WHITE BLOOD CELL COUNT (BEAKER) (test tdhn=985) 8.8 K/ L 3.5-10.5 RED BLOOD CELL COUNT (BEAKER) (test dnud=143) 4.60 M/ L 3.93-5.22 HEMOGLOBIN (BEAKER) (test sjnz=992) 13.6 GM/DL 11.2-15.7 HEMATOCRIT (BEAKER) (test fjbk=970) 41.1 % 34.1-44.9 MEAN CORPUSCULAR VOLUME (BEAKER) (test uceb=407) 89.3 fL 79.4-94.8 MEAN CORPUSCULAR HEMOGLOBIN (BEAKER) (test 29.6 pg 25.6-32.2 rsyb=208) MEAN CORPUSCULAR HEMOGLOBIN CONC (BEAKER) (test 33.1 GM/DL 32.2-35.5 bozv=021) RED CELL DISTRIBUTION WIDTH (BEAKER) (test 13.0 % 11.7-14.4 hexw=401) PLATELET COUNT (BEAKER) (test itwe=271) 203 K/CU MM 150-450 MEAN PLATELET VOLUME (BEAKER) (test vugw=427) 10.3 fL 9.4-12.3 NUCLEATED RED BLOOD CELLS (BEAKER) (test 0 /100 WBC 0-0 ffwo=894) [id number] 23:00:00 Test Item Value Reference Range Comments PARTIAL THROMBOPLASTIN TIME (BEAKER) (test 34.2 seconds 22.5-36.0 eaph=085) POCT-GLUCOSE [id number] 22:02:00 Test Item Value Reference Range Comments POC-GLUCOSE METER (BEAKER) 89 mg/dL 70-110 TESTED AT [address] (test qjac=5588) [place] [address] [id number] 15:41:00 Test Item Value Reference Range Comments ACTIVATED CLOTTING TIME 158 sec TESTED AT [address] ([facility]) (test bprh=432) [place] [address] [id number] 13:05:00 Test Item Value Reference Range Comments FIBRINOGEN LEVEL (AKER) (test leib=702) 430 mg/dl 225-434 Continue for duration of infusion.POCT-GLUCOSE [id number] 12:40:00 Test Item Value Reference Range Comments POC-GLUCOSE METER (BEAKER) 110 mg/dL 70-110 TESTED AT [address] (test qcys=3684) [place] [address] POCT-GLUCOSE [id number] 08:43:00 Test Item Value Reference Range Comments POC-GLUCOSE METER (BEAKER) 112 mg/dL 70-110 TESTED AT [address] (test btls=1308) [place] [address] [id number] 07:06:00 Test Item Value Reference Range Comments PHOSPHORUS (BEAKER) (test qyhw=261) 2.3 mg/dL 2.3-4.7 [id number] 07:06:00 Test Item Value Reference Range Comments MAGNESIUM (BEAKER) (test zykj=859) 1.5 mg/dL 1.6-2.6 [id number] 06:43:00 Test Item Value Reference Range Comments PROTIME (BEAKER) (test oqpp=472) 13.6 seconds 11.7-14.7 INR (BEAKER) (test rxld=215) 1.1 <=5.9 PARTIAL THROMBOPLASTIN TIME (BEAKER) (test 39.7 seconds 22.5-36.0 nhxl=029) RECOMMENDED COUMADIN/WARFARIN INR THERAPY RANGESSTANDARD DOSE: 2.0 - 3.0 Includes: PROPHYLAXIS forvenous thrombosis, systemic embolization; TREATMENT for venous thrombosis and/or pulmonary embolus.HIGH RISK: Target INR is 2.5-3.5 for patients with mechanical heart valves.Continue for duration of infusion..Continue for duration of infusion..[id number] 06:42:00 Test Item Value Reference Range Comments FIBRINOGEN LEVEL (BEAKER) (test suul=472) 430 mg/dl 225-434 Continue for duration of infusion..HEMOGLOBIN AND [id number] 06:36:00 Test Item Value Reference Range Comments HEMOGLOBIN (BEAKER) (test mmes=585) 13.0 GM/DL 11.2-15.7 HEMATOCRIT (BEAKER) (test cumv=147) 39.5 % 34.1-44.9 TROPONIN [id number] 00:59:00 Test Item Value Reference Range Comments TROPONIN I (BEAKER) (test gyyy=840) < ng/mL 0.00-0.03 Troponin I (TnI) levels [...] failure, acidosis, acute neurological disease, and persistent tachyarrhythmia.[id number] 00:39:00 Test Item Value Reference Range Comments FIBRINOGEN LEVEL (BEAKER) (test lmqx=178) 430 mg/dl 225-434 Continue for duration of infusion.POCT-GLUCOSE [id number] 22:22:00 Test Item Value Reference Range Comments POC-GLUCOSE METER (BEAKER) 107 mg/dL 70-110 TESTED AT [facility] [address] [facility] (test ipkk=9820) [facility] [place] [address] BASIC METABOLIC [id number] 21:32:00 Test Item Value Reference Range Comments SODIUM (BEAKER) (test 139 meq/L 136-145 mtgs=189) POTASSIUM (BEAKER) (test 4.0 meq/L 3.5-5.1 etym=826) CHLORIDE (BEAKER) (test 107 meq/L 98-107 zvvl=702) CO2 (BEAKER) (test 26 meq/L 22-29 fsfb=936) BLOOD UREA NITROGEN 12 mg/dL 7-21 (BEAKER) (test xyou=672) CREATININE (BEAKER) (test 0.60 mg/dL 0.57-1.25 wlbu=631) GLUCOSE RANDOM (BEAKER) 94 mg/dL 70-105 (test jjbb=556) CALCIUM (BEAKER) (test 9.2 mg/dL 8.4-10.2 rzoc=037) EGFR (BEAKER) (test mL/min/1.73 sq m INSUFFICIENT CLINICAL DATA pihe=9363) TO CALCULATE ESTIMATED GFR. [id number] 21:10:00 Test Item Value Reference Range Comments PROTIME (BEAKER) (test mhas=753) 14.4 seconds 11.7-14.7 INR (BEAKER) (test thyh=698) 1.1 <=5.9 PARTIAL THROMBOPLASTIN TIME (BEAKER) (test > seconds 22.5-36.0 ebmb=950) RECOMMENDED COUMADIN/WARFARIN INR THERAPY RANGESSTANDARD DOSE: 2.0 - 3.0 Includes: PROPHYLAXIS forvenous thrombosis, systemic embolization; TREATMENT for venous thrombosis and/or pulmonary embolus.HIGH RISK: Target INR is 2.5-3.5 for patients with mechanical heart valves.Obtain lab prior to starting thrombolytic infusion.Obtain lab prior to starting thrombolytic infusion.[id number] 20:55:00 Test Item Value Reference Range Comments FIBRINOGEN LEVEL (BEAKER) (test pemk=608) 437 mg/dl 225-434 Obtain lab prior to starting thrombolytic infusion.Obtain lab prior to starting thrombolytic infusion.CBC W/PLT COUNT & AUTO [id number] 20:33:00 Test Item Value Reference Range Comments WHITE BLOOD CELL COUNT (BEAKER) (test prmy=341) 9.6 K/ L 3.5-10.5 RED BLOOD CELL COUNT (BEAKER) (test uuqz=333) 4.43 M/ L 3.93-5.22 HEMOGLOBIN (BEAKER) (test myrx=150) 13.5 GM/DL 11.2-15.7 HEMATOCRIT (BEAKER) (test vtsg=893) 40.0 % 34.1-44.9 MEAN CORPUSCULAR VOLUME (BEAKER) (test hkpb=841) 90.3 fL 79.4-94.8 MEAN CORPUSCULAR HEMOGLOBIN (BEAKER) (test 30.5 pg 25.6-32.2 gsdh=229) MEAN CORPUSCULAR HEMOGLOBIN CONC (BEAKER) (test 33.8 GM/DL 32.2-35.5 npwa=508) RED CELL DISTRIBUTION WIDTH (BEAKER) (test 12.9 % 11.7-14.4 akjg=643) PLATELET COUNT (BEAKER) (test wmbz=113) 218 K/CU MM 150-450 MEAN PLATELET VOLUME (BEAKER) (test buwx=425) 10.1 fL 9.4-12.3 NUCLEATED RED BLOOD CELLS (BEAKER) (test 0 /100 WBC 0-0 neiv=012) NEUTROPHILS RELATIVE PERCENT (BEAKER) (test 48 % esoq=156) LYMPHOCYTES RELATIVE PERCENT (BEAKER) (test 39 % acju=502) MONOCYTES RELATIVE PERCENT (BEAKER) (test 5 % ujre=230) EOSINOPHILS RELATIVE PERCENT (BEAKER) (test 8 % nlly=672) BASOPHILS RELATIVE PERCENT (BEAKER) (test 1 % tfsd=820) NEUTROPHILS ABSOLUTE COUNT (BEAKER) (test 4.60 K/ L 1.56-6.13 yghu=603) LYMPHOCYTES ABSOLUTE COUNT (BEAKER) (test 3.72 K/ L 1.18-3.74 ofla=293) MONOCYTES ABSOLUTE COUNT (BEAKER) (test 0.44 K/ L 0.24-0.36 sisb=704) EOSINOPHILS ABSOLUTE COUNT (BEAKER) (test 0.74 K/ L 0.04-0.36 cdva=707) BASOPHILS ABSOLUTE COUNT (BEAKER) (test 0.07 K/ L 0.01-0.08 txfn=285) IMMATURE GRANULOCYTES-RELATIVE PERCENT (BEAKER) 0 % 0-1 (test xhmj=7042) TROPONIN [id number] 17:58:00 Test Item Value Reference Range Comments TROPONIN I (BEAKER) (test csve=926) < ng/mL 0.00-0.03 Troponin I (TnI) levels [...] failure, acidosis, acute neurological disease, and persistent tachyarrhythmia.[id number] 17:50:00 Test Item Value Reference Range Comments PARTIAL THROMBOPLASTIN TIME (BEAKER) (test 111.3 seconds 22.5-36.0 dfdy=555) POCT-GLUCOSE [id number] 17:11:00 Test Item Value Reference Range Comments POC-GLUCOSE METER (BEAKER) 108 mg/dL 70-110 TESTED AT [facility] [address] [place] [address] (test gfmw=2439) [facility], [place] [address] CT, CTA AAA, W/ MELY.EXT.[id number] 12:15:00Addendum BeginsREPORT STATUS:A Addendum: The non vascular findings were reviewed by the automobile sales consultant radiologist. I agree with the [...] MDReport Verified Date/Time: 07/28/2017 10:11:14 Reading Location: [place] [address] Cardiology MRIAddendum Ends[address] RE[address] CT angiography of [...] An addendum will be dictated by the Acid Cutter Radiologist regarding the nonvascular findings. 5. Major findings were discussed with Dr. Arellano at the time of dictation. Signed: Donato Franklin MDReport Verified Date/Time: 07/28/2017 08:43:55 Reading Location: [place] [address] Cardiology MRI Electronically signed by: ZHEN ANDRADE M.D. on 2016 12:15 PMPOCT-GLUCOSE [id number] 11:57:00 Test Item Value Reference Range Comments POC-GLUCOSE METER (BEAKER) 108 mg/dL 70-110 TESTED AT [address] (test pibj=0435) [place] [id number] CREATINE KINASE (CK), TOTAL AND [id number] 11:37:00 Test Item Value Reference Range Comments CREATINE KINASE TOTAL (BEAKER) (test mnyn=598) 30 U/L 29-200 CREATINE KINASE-MB (BEAKER) (test jkyo=864) 0.5 ng/mL 0.0-6.6 CREATINE KINASE-MB INDEX (BEAKER) (test vccx=672) 1.7 % CK-MB Reference Range:<6.7 Normal6.7-10.0 Borderline>10.0 AbnormalTROPONIN [id number] 11:37:00 Test Item Value Reference Range Comments TROPONIN I (BEAKER) (test xjra=233) < ng/mL 0.00-0.03 Troponin I (TnI) levels [...] failure, acidosis, acute neurological disease, and persistent tachyarrhythmia.[id number] 11:15:00 Test Item Value Reference Range Comments FIBRINOGEN LEVEL (BEAKER) (test xytj=549) 438 mg/dl 225-434 [id number] 11:14:00 Test Item Value Reference Range Comments PARTIAL THROMBOPLASTIN TIME (BEAKER) (test 30.9 seconds 22.5-36.0 ufnw=215) Prior to initiating heparinPOCT-GLUCOSE [id number] 08:36:00 Test Item Value Reference Range Comments POC-GLUCOSE METER (BEAKER) 123 mg/dL 70-110 TESTED AT [address] (test jbow=2210) [facility], [place] [address] BASIC METABOLIC [id number] 22:21:00 Test Item Value Reference Range Comments SODIUM (BEAKER) (test 135 meq/L 136-145 cvmv=443) POTASSIUM (BEAKER) (test 4.4 meq/L 3.5-5.1 Specimen slightly cajv=742) hemolyzed CHLORIDE (BEAKER) (test 107 meq/L 98-107 gbgk=626) CO2 (BEAKER) (test 19 meq/L 22-29 wurp=801) BLOOD UREA NITROGEN 19 mg/dL 7-21 (BEAKER) (test egqn=887) CREATININE (BEAKER) (test 0.64 mg/dL 0.57-1.25 Specimen slightly xpdt=266) hemolyzed GLUCOSE RANDOM (BEAKER) 95 mg/dL 70-105 (test vsqg=593) CALCIUM (BEAKER) (test 10.7 mg/dL 8.4-10.2 fcss=887) EGFR (BEAKER) (test mL/min/1.73 sq m INSUFFICIENT CLINICAL DATA ziwb=4853) TO CALCULATE ESTIMATED GFR. CBC W/PLT COUNT & AUTO [id number] 21:59:00 Test Item Value Reference Range Comments WHITE BLOOD CELL COUNT (BEAKER) (test zkkt=703) 11.9 K/ L 3.5-10.5 RED BLOOD CELL COUNT (BEAKER) (test nmzh=944) 4.66 M/ L 3.93-5.22 HEMOGLOBIN (BEAKER) (test qiau=599) 13.7 GM/DL 11.2-15.7 HEMATOCRIT (BEAKER) (test qmnz=605) 42.1 % 34.1-44.9 MEAN CORPUSCULAR VOLUME (BEAKER) (test gwqk=721) 90.3 fL 79.4-94.8 MEAN CORPUSCULAR HEMOGLOBIN (BEAKER) (test 29.4 pg 25.6-32.2 siqw=043) MEAN CORPUSCULAR HEMOGLOBIN CONC (BEAKER) (test 32.5 GM/DL 32.2-35.5 znto=336) RED CELL DISTRIBUTION WIDTH (BEAKER) (test 13.2 % 11.7-14.4 enop=823) PLATELET COUNT (BEAKER) (test pbzt=881) 218 K/CU MM 150-450 MEAN PLATELET VOLUME (BEAKER) (test xpmg=861) 10.1 fL 9.4-12.3 NUCLEATED RED BLOOD CELLS (BEAKER) (test 0 /100 WBC 0-0 nugt=278) NEUTROPHILS RELATIVE PERCENT (BEAKER) (test 47 % uiui=860) LYMPHOCYTES RELATIVE PERCENT (BEAKER) (test 39 % iknp=648) MONOCYTES RELATIVE PERCENT (BEAKER) (test 6 % zwws=458) EOSINOPHILS RELATIVE PERCENT (BEAKER) (test 7 % zinp=595) BASOPHILS RELATIVE PERCENT (BEAKER) (test 1 % pajw=485) NEUTROPHILS ABSOLUTE COUNT (BEAKER) (test 5.61 K/ L 1.56-6.13 yrqq=925) LYMPHOCYTES ABSOLUTE COUNT (BEAKER) (test 4.61 K/ L 1.18-3.74 fgzt=731) MONOCYTES ABSOLUTE COUNT (BEAKER) (test 0.69 K/ L 0.24-0.36 xezk=445) EOSINOPHILS ABSOLUTE COUNT (BEAKER) (test 0.85 K/ L 0.04-0.36 ysqt=856) BASOPHILS ABSOLUTE COUNT (BEAKER) (test 0.09 K/ L 0.01-0.08 uvnl=659) IMMATURE GRANULOCYTES-RELATIVE PERCENT (BEAKER) 0 % 0-1 (test bzow=9023) [id number] 21:59:00 Test Item Value Reference Range Comments PROTIME (BEAKER) (test palp=750) 13.1 seconds 11.7-14.7 INR (BEAKER) (test hxlp=078) 1.0 <=5.9 PARTIAL THROMBOPLASTIN TIME (BEAKER) (test 32.0 seconds 22.5-36.0 doda=113) RECOMMENDED COUMADIN/WARFARIN INR THERAPY RANGESSTANDARD DOSE: 2.0 - 3.0 Includes: PROPHYLAXIS forvenous thrombosis, systemic embolization; TREATMENT for venous thrombosis and/or pulmonary embolus.HIGH RISK: Target INR is 2.5-3.5 for patients with mechanical heart valves.POCT-GLUCOSE [id number] 21:14:00 Test Item Value Reference Range Comments POC-GLUCOSE METER (BEAKER) 88 mg/dL 70-110 TESTED AT [facility] [address] (test gdlx=4411) [facility], [place] [address]
[2018-05-10] MEDS ORDERED: NA CHLORIDE 0.9% 1,000 ML ONE (15:27)
[2018-05-10] MEDS ORDERED: FENTANYL CITR 100 MCG/2 ML ONE ×2 (15:27→16:28)
[2018-05-10 15:57] LABS: Absolute Lymphocytes (CBC) 1.8 K/uL (0.7-4.9); Absolute Monocytes 0.5 K/uL (0.1-1.3); Absolute Neutrophil 6.8 K/uL (1.8-8.0); Basophils % 0.5 % (0-1.3); Eosinophils % 2.1 % (0-4.4); Hematocrit 38.7 % (36.0-45.0); Lymphocytes % 19.6 % (15.3-44.8); MCH 28.7 pg (27.0-35.0); MCV 85.5 fL (80-100); MPV 8.2 fL (7.6-11.3); Monocytes % 5.6 % (3.3-12.3); RBC Red Blood Cell Count 4.53 M/uL (3.86-4.86)
[2018-05-10] MEDS ORDERED: VANCOMYCIN 1 GM/250 ML BAG ONE (16:01)
[2018-05-10 16:03] LABS: Protime INR 1.16
[2018-05-10 16:37] LABS: ALT/SGPT 20 U/L (12-78); AST/SGOT 12 U/L (15-37); Albumin 3.3 g/dL (3.4-5.0); Alkaline Phosphatase 80 U/L (45-117); BUN Blood Urea Nitrogen 10 mg/dL (7-18); Bicarbonate 26 mmol/L (21-32); Bilirubin Direct 0.1 mg/dL (0-0.2); Bilirubin Total 0.3 mg/dL (0.2-1.0); CKMB Creatine Kinase MB < 1.0 ng/mL (0.3-3.6); Creatine Phosphokinase 34 U/L (26-192); Glucose Level 254 mg/dL (74-106); Potassium 3.8 mmol/L (3.5-5.1); Protein, Total 7.4 g/dL (6.4-8.2); Sodium Level 135 mmol/L (136-145)
[2018-05-10] MEDS ORDERED: Levofloxacin 750mg IV 750 MG/150 ML BAG IV ONE (16:49)
--- NOTE | 2018-05-10 16:49 | RAD REPORT ---
EXAM DESCRIPTION: RAD - Foot Right 2 View - 05/10/2018 4:39 pm CLINICAL HISTORY: Right foot pain FINDINGS: No fracture or dislocation is seen. The bones are osteoporotic. No bony destructive lesion is seen. Large plantar calcaneal spur is prese nt
[2018-05-10 16:57] LABS: Urine Blood NEGATIVE (NEG); Urine Glucose 1+ (NEG); Urine Protein NEGATIVE (NEG); Urine Specific Gravity 1.015 (1.005-1.030)
--- NOTE | 2018-05-10 17:30 | EDPHYS ---
Physician Documentation [facility] Name: Eden Graham Age: 48 yrs Sex: Female : 1970 Arrival Date: 05/10/2018 Time: 14:37 Bed 23 Private MD: Out, of [facility], [facility] ED Physician Higinio Parker HPI: 05/10 15:33 This 48 yrs old Female presents to ER via Wheelchair with complaints of cp Diabetic Toe Infection. 15:33 The patient presents with pain, swelling, tenderness, right fourth and fifth toe cp discoloration. The complaints affect the right foot. Onset: The symptoms/episode began/occurred and became worse 2 day(s) ago. 15:33 Associated signs and symptoms: Pertinent positives: warmth, Pertinent negatives: fever, cp vomiting. 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 LMP N/A - Irregular menses aj1 Historical: - Allergies: 14:44 No Known Allergies; aj1 - Home Meds: 14:44 apixaban oral 5 mg oral 2 times per day [Active]; clopidogrel 75 mg oral tab 1 tab once aj1 daily [Active]; magnesium oxide 400 mg Oral tab daily [Active]; gabapentin 300 mg Oral cap 1 cap twice a day [Active]; lisinopril-hydrochlorothiazide 20-12.5 mg Oral tab 1 tab once daily [Active]; lovastatin 20 mg Oral tab 1 tab once daily [Active]; glipizide 5 mg Oral tab 1 tab 2 times per day [Active]; metformin 1,000 mg Oral tab 1 tab 2 times per day [Active]; - PMHx: 14:44 Diabetes - NIDDM; Hyperlipidemia; Hypertension; RLS; DVT; aj1 - Immunization history:: Flu vaccine is not up to date. - Social history:: Smoking status: Patient uses tobacco products, States that she quit smoking one month ago, prior to that she smoked 1/2 PPD. - Ebola Screening: : Patient denies travel to an Ebola-affected area in the 21 days before illness onset. ROS: 15:33 Eyes: Negative for injury, pain, redness, and discharge. cp 15:33 Constitutional: Negative for body aches, chills, fever, poor PO intake. 15:33 ENT: Negative for drainage from ear(s), ear pain, sore throat, difficulty swallowing, difficulty handling secretions. 15:33 Cardiovascular: Negative for chest pain, edema, palpitations. 15:33 Respiratory: Negative for cough, shortness of breath, wheezing. 15:33 Abdomen/GI: Negative for abdominal pain, nausea, vomiting, and diarrhea, black/tarry stool, rectal bleeding. 15:33 MS/extremity: Positive for pain, swelling, tenderness, of the right foot, toe discoloration, Negative for injury or acute deformity. 15:33 Neuro: Negative for altered mental status, dizziness, headache, weakness. 15:33 All other systems are negative. Exam: 15:40 Constitutional: The patient appears in no acute distress, alert, awake, cp non-diaphoretic, non-toxic, well developed, well nourished, uncomfortable. 15:40 Head/Face: Normocephalic, atraumatic. cp 15:40 Eyes: Periorbital structures: appear normal, Conjunctiva: normal, no exudate, no injection, Sclera: no appreciated abnormality, Lids and lashes: appear normal, bilaterally. 15:40 ENT: External ear(s): are unremarkable, Nose: is normal, Mouth: Lips: moist, Oral mucosa: moist, Posterior pharynx: is normal, airway is patent, no erythema, no exudate, Voice: is normal. 15:40 Chest/axilla: Inspection: normal, Palpation: is normal, no crepitus, no tenderness. 15:40 Cardiovascular: Rate: normal, Rhythm: regular, Edema: is not appreciated. 15:40 Respiratory: the patient does not display signs of respiratory distress, Respirations: normal, no use of accessory muscles, no retractions, no splinting, no tachypnea, labored breathing, is not present, Breath sounds: are clear throughout, no decreased breath sounds, no stridor, no wheezing. 15:40 Abdomen/GI: Inspection: abdomen appears normal, Bowel sounds: active, all quadrants, Palpation: abdomen is soft and non-tender, in all quadrants, rebound tenderness, is not appreciated, voluntary guarding, is not appreciated, involuntary guarding, is not appreciated. 15:40 Musculoskeletal/extremity: Extremities: grossly normal except: noted in the right foot: cp pain, swelling, tenderness, warm to touch, mild erythema, right fourth and fifth toes appear black with purulent drainage noted and foul swelling odor, Pulses: right dorsalis pedis pulse weak, non palpable and thready; observed with use of hand Doppler. 15:54 ECG was reviewed by the Attending Physician. Vital Signs: 14:44 BP 141 / 77; Pulse 102; Resp 20; Temp 98.0(TE); Pulse Ox 98% on R/A; Weight 88.45 kg aj1 (R); Height 5 ft. 5 in. (165.10 cm); Pain 10/10; 15:11 BP 139 / 85; Pulse 97; Pulse Ox 96% on R/A; rv 16:05 BP 99 / 29; Pulse 90; Resp 16; Pulse Ox 97% on R/A; rv 16:32 BP 126 / 66; Pulse 89; Resp 17; Pulse Ox 98% on R/A; rv 18:35 BP 142 / 87; Pulse 90; Resp 18; Pulse Ox 96% on R/A; rv 14:44 Body Mass Index 32.45 (88.45 kg, 165.10 cm) aj1 MDM: 15:04 Patient medically screened. cp 16:00 Differential diagnosis: cellulitis, osteomyelitis, vascular occlusion, sepsis. cp 16:50 Test interpretation: by ED physician or midlevel provider: plain radiologic studies. cp 16:50 Counseling: I had a detailed discussion with the patient and/or guardian regarding: the cp historical points, exam findings, and any diagnostic results supporting the discharge/admit diagnosis, lab results, radiology results, the need to transfer to another facility, DR Reza performed previous vascular surgery. Response to treatment: the patient's symptoms have mildly improved after treatment. 17:00 Data reviewed: vital signs, nurses notes, lab test result(s), radiologic studies, plain cp films. 17:03 ED course: Consult with DR Mcguire, vascular surgeon, requests patient be transferred cp to care of hospitalist and will consult on patient. 17:36 Physician consultation: was contacted at 17:30, DR Morejon, hospitalist, who will accept cp patient as transfer. 05/10 15:21 Order name: Wound Culture cp 05/10 15:21 Order name: Basic Metabolic Panel; Complete Time: 16:38 cp 05/10 16:38 Interpretation: Normal except: NA 135; GLUC 254; GFR 89. 05/10 15:21 Order name: Blood Culture Adult (2) cp 05/10 15:21 Order name: C-Reactive Protein; Complete Time: 16:38 cp / 15:21 Order name: CBC with Diff; Complete Time: 16:28 cp 05/10 16:28 Interpretation: Normal except: RDW 15.3. cp / 15:21 Order name: Ckmb; Complete Time: 16:38 cp / 15:21 Order name: CPK; Complete Time: 16:38 cp 05/10 15:21 Order name: Lactate; Complete Time: 16:28 cp 05/10 15:21 Order name: LFT's; Complete Time: 16:38 cp / 16:38 Interpretation: Normal except: AST 12; ALB 3.3; GLOB 4.1; A/G 0.8. cp / 15:21 Order name: Procalcitonin cp 05/10 15:21 Order name: Protime (+inr); Complete Time: 16:28 cp 05/10 15:21 Order name: Ptt, Activated; Complete Time: 16:28 cp 05/10 15:21 Order name: Sed Rate; Complete Time: 16:28 cp 05/10 16:03 Order name: Urine Dipstick--Ancillary (enter results) 05/10 15:21 Order name: XRAY Foot RIGHT 2 View; Complete Time: 16:50 cp 05/10 16:50 Interpretation: Report reviewed. 05/10 15:21 Order name: Accucheck Blood Glucose; Complete Time: 15:50 cp 05/10 15:21 Order name: Urine Test (obtain specimen); Complete Time: 16:05 cp 05/10 15:21 Order name: Accucheck; Complete Time: 15:50 cp 05/10 15:21 Order name: Cardiac monitoring; Complete Time: 15:50 cp 05/10 15:21 Order name: EKG - Nurse/Tech; Complete Time: 15:50 cp 05/10 15:21 Order name: IV Saline Lock - Large Bore; Complete Time: 16:02 cp 05/10 16:03 Order name: Urine --Ancillary (enter results) 05/10 15:21 Order name: Labs collected and sent; Complete Time: 16:03 cp 05/10 15:21 Order name: O2 Per Protocol; Complete Time: 15:50 cp 05/10 15:21 Order name: O2 Sat Monitoring; Complete Time: 15:50 cp 05/10 15:21 Order name: Urine Dipstick-Ancillary (obtain specimen); Complete Time: 16:02 cp EC:54 Rate is 89 beats/min. Rhythm is regular. AR interval is normal. QRS interval is normal. cp QT interval is normal. No ST changes noted. Interpreted by me. Reviewed by me. Administered Medications: 15:30 Drug: fentaNYL (PF) 50 mcg Route: IVP; Site: right antecubital; rv 16:14 Follow up: Response: Pain is unchanged, physician notified rv 15:30 Drug: NS 0.9% 1000 ml Route: IV; Rate: 1 bolus; Site: right antecubital; rv 16:13 Follow up: Response: No adverse reaction; IV Status: Completed infusion rv 17:40 Follow up: IV Status: Completed infusion rv 16:04 Drug: vancoMYCIN 1 grams Route: IVPB; Infused Over: 2 hrs; Site: right antecubital; rv 17:40 Follow up: Response: No adverse reaction; IV Status: Completed infusion rv 16:30 Drug: fentaNYL (PF) 50 mcg Route: IVP; Site: left antecubital; rv 17:40 Follow up: Response: No adverse reaction; Pain is unchanged, physician notified rv 17:39 Drug: LevaQUIN 750 mg Volume: 150 ml; Route: IVPB; Infused Over: 90 mins; Site: left rv antecubital; 18:21 Follow up: Response: No adverse reaction rv 18:01 Drug: Dilaudid 0.5 mg Route: IVP; Site: right antecubital; rv 18:21 Follow up: Response: No adverse reaction; Pain is decreased rv Point of Care Testing: Blood Glucose: 15:49 Blood Glucose: 230 mg/dL; cb2 Ranges: Critical Glucose Levels:Adult <50 mg/dl or >400 mg/dl <40 mg/dl or >180 mg/dl Disposition: 05/10/18 17:[address] [facility]. Diagnosis are Cellulitis of right lower limb, Vascular Insufficiency Right Lower Limb. - Reason for transfer: Higher level of care. - Accepting physician is Jean-Pierre. - Condition is Stable. - Problem is an ongoing problem. - Symptoms have improved. Addendum: 05/11/2018 20:26 Co-signature as Attending Physician, Higinio vital a2 Signatures: Dispatcher [employer] EDMS Marci Costa RN RN aj1 Jamel Ye PA PA cp Higinio Parker MD MD ma2 Joe Archuleta RN RN rv Corrections: (The following items were deleted from the chart) 05/10 16:43 15:21 Extrem Venous W Compression Elmer+US.RAD.BRZ ordered. EDMS EDMS 16:43 15:21 Lower Extremity Arterial Bilat+US.RAD.BRZ ordered. EDGA EDMS 17:37 17:29 05/10/2018 17:[address] [facility]. Diagnosis is cp Cellulitis of right lower limb; Vascular Insufficiency Right Lower Limb. Reason for transfer: Higher level of care. Accepting physician is doctor. Condition is Stable. Problem is an ongoing problem. Symptoms have improved. cp 18:36 17:37 05/10/2018 17:[address] [facility]. Diagnosis is rv Cellulitis of right lower limb; Vascular Insufficiency Right Lower Limb. Reason for transfer: Higher level of care. Accepting physician is Jean-Pierre. Condition is Stable. Problem is an ongoing problem. Symptoms have improved. cp
--- NOTE | 2018-05-10 17:30 | ER ---
Nurse's Notes [facility] Name: Eden Graham Age: 48 yrs Sex: Female : 1970 Arrival Date: 05/10/2018 Time: 14:37 Bed 23 Private MD: Out, [facility] Diagnosis: Cellulitis of right lower limb;Vascular Insufficiency Right Lower Limb Presentation: 05/10 14:37 Presenting complaint: Patient states: "My toes are black are they are busting open" aj1 Reports that this has been going on for the past month after she had a surgery where the put stents in both her legs to remove blood clots and she was told the the fragments of the clots is what caused her toes to turn black. and a half but started to get worse about [address] Reza from [facility] has been treating the wound and told her to come to the emergency room if they started to get worse. Denies fever. Reports yellow drainage from the toes. Transition of care: patient was not received from another setting of care. Onset of symptoms was May 08, 2018. Risk Assessment: Do you want to hurt yourself or someone else? Patient reports no desire to harm self or others. Initial Sepsis Screen: Does the patient meet any 2 criteria? No. Patient's initial sepsis screen is negative. Does the patient have a suspected source of infection? No. Patient's initial sepsis screen is negative. Care prior to arrival: None. 14:37 Method Of Arrival: Wheelchair [facility] 14:37 Acuity: JAG 3 aj1 Triage Assessment: 14:44 General: Appears uncomfortable, Behavior is cooperative, anxious. Pain: Complains of aj1 pain in right foot Pain currently is 10 out of 10 on a pain scale. Quality of pain is described as burning, throbbing. Neuro: Level of Consciousness is awake, alert, obeys commands. Cardiovascular: Patient's skin is warm and dry. Respiratory: Airway is patent Respiratory effort is even, unlabored, Respiratory pattern is regular, symmetrical. RESUME WRITER: 14:44 LMP N/A - Irregular menses aj1 Historical: - Allergies: 14:44 No Known Allergies; aj1 - Home Meds: 14:44 apixaban oral 5 mg oral 2 times per day [Active]; clopidogrel 75 mg oral tab 1 tab once aj1 daily [Active]; magnesium oxide 400 mg Oral tab daily [Active]; gabapentin 300 mg Oral cap 1 cap twice a day [Active]; lisinopril-hydrochlorothiazide 20-12.5 mg Oral tab 1 tab once daily [Active]; lovastatin 20 mg Oral tab 1 tab once daily [Active]; glipizide 5 mg Oral tab 1 tab 2 times per day [Active]; metformin 1,000 mg Oral tab 1 tab 2 times per day [Active]; - PMHx: 14:44 Diabetes - NIDDM; Hyperlipidemia; Hypertension; RLS; DVT; aj1 - Immunization history:: Flu vaccine is not up to date. - Social history:: Smoking status: Patient uses tobacco products, States that she quit smoking one month ago, prior to that she smoked 1/2 PPD. - Ebola Screening: : Patient denies travel to an Ebola-affected area in the 21 days before illness onset. Screenin:09 Abuse screen: Denies threats or abuse. Denies injuries from another. Nutritional rv screening: No deficits noted. Tuberculosis screening: No symptoms or risk factors identified. Fall Risk Ambulatory Aid- Crutches/Cane/Walker (15 pts). Assessment: 15:04 General: Appears in no apparent distress. uncomfortable, obese, Behavior is calm, rv cooperative, crying. Pain: Complains of pain in lateral side of right foot, lateral side of right heel, plantar aspect of right first toe, dorsum of right foot, right first toe, right fourth toe, right fifth toe, Right first toenail, Right fourth toenail and Right fifth toenail Pain currently is 10 out of 10 on a pain scale. Pain began 2-3 days ago. Neuro: Level of Consciousness is awake, alert, obeys commands, Oriented to person, place, time, situation. Cardiovascular: Heart tones S1 S2 present. Respiratory: Airway is patent. GI: No signs and/or symptoms were reported involving the gastrointestinal system. : No signs and/or symptoms were reported regarding the genitourinary system. EENT: No signs and/or symptoms were reported regarding the EENT system. Derm: Skin GANGRENOUS FOURTH AND FIFTH TOES. SWELLING AND REDNESS OF FIRST TOE. OF THE RIGHT FOOT. Skin is Skin is black. 16:33 Reassessment: Patient appears in no apparent distress at this time. Patient is alert, rv oriented x 3, equal unlabored respirations, skin warm/dry/pink. XRAY OF THE FOOT DONE. 18:20 Reassessment: Patient appears in no apparent distress at this time. Patient and/or rv family updated on plan of care and expected duration. Pain level reassessed. Patient is alert, oriented x 3, equal unlabored respirations, skin warm/dry/pink. CALLED IN [facility] AND GAVE REPORT TO MS RONALD OSBORN. Vital Signs: 14:44 BP 141 / 77; Pulse 102; Resp 20; Temp 98.0(TE); Pulse Ox 98% on R/A; Weight 88.45 kg aj1 (R); Height 5 ft. 5 in. (165.10 cm); Pain 10/10; 15:11 BP 139 / 85; Pulse 97; Pulse Ox 96% on R/A; rv 16:05 BP 99 / 29; Pulse 90; Resp 16; Pulse Ox 97% on R/A; rv 16:32 BP 126 / 66; Pulse 89; Resp 17; Pulse Ox 98% on R/A; rv 18:35 BP 142 / 87; Pulse 90; Resp 18; Pulse Ox 96% on R/A; rv 14:44 Body Mass Index 32.45 (88.45 kg, 165.10 cm) aj1 ED Course: 14:37 Patient arrived in ED. sb2 14:38 Out, of Town is Private Physician. sb2 14:42 Triage completed. aj1 15:03 Jamel Ye PA is PHCP. cp 15:03 Higinio Parker MD is Attending Physician. cp 15:05 Inserted saline lock: 20 gauge in right antecubital area, using aseptic technique. rv 15:10 Arm band placed on left wrist. rv 15:10 Patient has correct armband on for positive identification. Placed in gown. Bed in low rv position. Call light in reach. Side rails up X 1. Adult w/ patient. Pulse ox on. NIBP on. 15:45 Inserted saline lock: 20 gauge in left antecubital area, using aseptic technique. rv 15:49 EKG done, by ED staff, reviewed by Jamel MANN. cb2 15:58 called [phone] and left message with the answering service of Dr. Sethi vascular eb office. Dr. Mcguire is substation operator transforming and will be calling us back for patient consultation. 16:38 X-ray completed. Portable x-ray completed in exam room. Patient tolerated procedure la2 well. 16:39 XRAY Foot RIGHT 2 View In Process Unspecified. EDMS 16:39 called and left message again with [facility] vascular office. She will send a eb second page. 17:[address] Larsen with Cassi MANN for consult. eb 17:16 initiated transfer with [facility]. eb 17:[address] Morejon from [facility] with Cassi MANN for patient transfer consultaion. eb 17:52 administrative approval given by [facility]. Pt going to [facility] B bed 32. Report to be called to [phone]. Dr Morejon accepted the patient at 1727. 18:35 No provider procedures requiring assistance completed. Patient transferred, IV remains rv in place. intact. Administered Medications: 15:30 Drug: fentaNYL (PF) 50 mcg Route: IVP; Site: right antecubital; rv 16:14 Follow up: Response: Pain is unchanged, physician notified rv 15:30 Drug: NS 0.9% 1000 ml Route: IV; Rate: 1 bolus; Site: right antecubital; rv 16:13 Follow up: Response: No adverse reaction; IV Status: Completed infusion rv 17:40 Follow up: IV Status: Completed infusion rv 16:04 Drug: vancoMYCIN 1 grams Route: IVPB; Infused Over: 2 hrs; Site: right antecubital; rv 17:40 Follow up: Response: No adverse reaction; IV Status: Completed infusion rv 16:30 Drug: fentaNYL (PF) 50 mcg Route: IVP; Site: left antecubital; rv 17:40 Follow up: Response: No adverse reaction; Pain is unchanged, physician notified rv 17:39 Drug: LevaQUIN 750 mg Volume: 150 ml; Route: IVPB; Infused Over: 90 mins; Site: left rv antecubital; 18:21 Follow up: Response: No adverse reaction rv 18:01 Drug: Dilaudid 0.5 mg Route: IVP; Site: right antecubital; rv 18:21 Follow up: Response: No adverse reaction; Pain is decreased rv Point of Care Testing: Blood Glucose: 15:49 Blood Glucose: 230 mg/dL; cb2 Ranges: Outcome: 17:29 ER care complete, transfer ordered by . cp 18:36 Transferred by ground EMS to [facility], Transfer form completed. rv X-rays sent w/ patient. 18:36 Condition: stable 18:36 Instructed on the need for admit. 18:36 Patient left the ED. rv Addendum: 05/13/2018 11:16 Addendum: Culture Results: Positive urine culture. Phone call Attempt #1 [address]axed to Cristal rico at [facility] Transfer Center [phone]. Signatures: Dispatcher [employer] EDMarci Hernandez, RN RN aj1 Jamel Ye PA PA Kylah Kirk, RN RN David López Leslie la2 Billeau, Sheri sb2 Bernadette Palafox Ronaldo, RN RN rv
[2018-05-10] MEDS ORDERED: HYDROMORPHONE HCL 0.5 MG/0.5 ML INJ ONE (17:46)
--- NOTE | 2018-05-11 08:57 | EKG ---
Test Date: 2018-05-10 Test Time: 15:44:31 Advertising Account Manager: EILEEN MEASUREMENT RESULTS: Intervals: Rate: 89 CO: 140 QRSD: 80 QT: 348 QTc: 423 [place]: P: 18 CO: 140 QRS: 52 T: 62 INTERPRETIVE STATEMENTS: Normal sinus rhythm ST abnormality, early repolarization, pericarditis or injury Abnormal ECG Compared to ECG 04/15/2018 05:34:13 ST abnormality is more pronounced Electronically Signed On 05-11-18 08:56:35 CDT by Duane Christy
== END 2018-05-10 18:36 | disposition short-term general hospital (02) ==
LOC: ER 14:34
DX: L03.031 Cellulitis of right toe (principal); I87.2 Venous insufficiency (chronic) (peripheral); I10 Essential (primary) hypertension; E11.8 Type 2 diabetes mellitus with unspecified complications; E78.5 Hyperlipidemia, unspecified; Z87.891 Personal history of nicotine dependence
CPT/HCPCS: 36415; 80048; 80076; 81003; 81025; 82550; 82553; 82962; 83605; 84145; 85025; 85610; 85652; 85730; 86140; 87040; 87070; 87077; 87186; 87205; 93005; 99285; J1170; J3010; J3370; J7030

== ENCOUNTER 2019-09-05 22:48 | Observation (INO) | payer OTHER, SELFPAY ==
[2019-09-05 23:37] LABS: Absolute Lymphocytes (CBC) 2.8 K/uL (0.7-4.9); Basophils % 0.8 % (0-1.3); Hematocrit 44.7 % (36.0-45.0); Lymphocytes % 32.2 % (15.3-44.8); MPV 8.7 fL (7.6-11.3); RBC Red Blood Cell Count 4.75 M/uL (3.86-4.86)
[2019-09-05 23:40] LABS: Protime INR 0.99
[2019-09-05] MEDS ORDERED: NA CHLORIDE 0.9% 1,000 ML ONE (23:51)
[2019-09-06 00:11] LABS: ALT/SGPT 39 U/L (12-78); AST/SGOT 26 U/L (15-37); Albumin 3.4 g/dL (3.4-5.0); Alkaline Phosphatase 75 U/L (45-117); BUN Blood Urea Nitrogen 24 mg/dL (7-18); Bicarbonate 24 mmol/L (21-32); Bilirubin Direct 0.1 mg/dL (0-0.2); Bilirubin Total 0.3 mg/dL (0.2-1.0); CKMB Creatine Kinase MB 1.5 ng/mL (0.3-3.6); Creatine Phosphokinase 57 U/L (26-192); Glucose Level 220 mg/dL (74-106); Lipase 512 U/L (73-393); Potassium 3.6 mmol/L (3.5-5.1); Protein, Total 7.3 g/dL (6.4-8.2); Sodium Level 138 mmol/L (136-145); Troponin (Emerg Dept Use Only) < 0.02 ng/mL (0.0-0.045)
[2019-09-06 00:12] LABS: Magnesium 1.4 mg/dL (1.8-2.4)
[2019-09-06] MEDS ORDERED: MAGNESIUM OXIDE 400 MG TAB ONE (00:14)
--- NOTE | 2019-09-06 02:07 | ER ---
Nurse's Notes [facility] Name: Eden Graham Age: 49 yrs Sex: Female : 1970 Arrival Date: 09/05/2019 Time: 22:56 Bed 2 Private MD: Diagnosis: Syncope and collapse Presentation: 09/05 22:55 Presenting complaint: EMS states: while watching football game, suddenly the patient rr5 started feel dizzy, ill. She fainted twice hit her head no cut wound noted. positive alcohol intake 1 beer. when we got there patient was diaphoretic and having labored breathing. 22:55 Transition of care: patient was not received from another setting of care. Onset of rr5 symptoms was September 05, 2019. Risk Assessment: Do you want to hurt yourself or someone else? Patient reports no desire to harm self or others. Initial Sepsis Screen: Does the patient meet any 2 criteria? No. Patient's initial sepsis screen is negative. Does the patient have a suspected source of infection? No. Patient's initial sepsis screen is negative. Note last Friday got new medication ibuprofen 600mg for the leg pain and antibiotic for for her toe. V/S BP 104/70 HR 84bpm, T98.0 F. CBG 223mg/dl by EMS. Care prior to arrival: None. 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 LMP 05/2019 rr5 Historical: - Allergies: 23:07 No Known Allergies; rr5 - Home Meds: 23:07 apixaban 5 mg Oral 2 times per day [Active]; Aspir-81 81 mg Oral TbEC 1 tab once daily rr5 [Active]; clopidogrel 75 mg Oral tab 1 tab once daily [Active]; gabapentin 300 mg Oral cap 1 cap twice a day [Active]; glipizide 5 mg Oral tab 1 tab 2 times per day [Active]; Levemir subcutaneous subcutaneous [Active]; metformin 1,000 mg Oral tab 1 tab 2 times per day [Active]; lisinopril-hydrochlorothiazide 20-12.5 mg Oral tab 1 tab once daily [Active]; lovastatin 20 mg Oral tab 1 tab once daily [Active]; Ibuprofen Oral [Active]; anti anxiety and depression, cannot recall the name [Active]; antibiotic cannot recall the name [Active]; - PMHx: 23:07 Diabetes - NIDDM; DVT; Hyperlipidemia; Hypertension; RLS; Anxiety; Depression; rr5 - PSHx: 23:07 stent on the legs; amputated right toe; rr5 - Immunization history:: Adult Immunizations up to date. - Social history:: Smoking status: Patient uses tobacco products, 5 sticks per day, Patient uses alcohol, occasionally. Patient/guardian denies using street drugs. - Ebola Screening: : Patient negative for fever greater than or equal to 101.5 degrees Fahrenheit, and additional compatible Ebola Virus Disease symptoms Patient denies exposure to infectious person Patient denies travel to an Ebola-affected area in the 21 days before illness onset. Screenin:15 Abuse screen: Denies threats or abuse. Denies injuries from another. Nutritional rr5 screening: No deficits noted. Tuberculosis screening: No symptoms or risk factors identified. Fall Risk Fall in past 12 months (25 points). IV access (20 points). Total Funez Fall Scale indicates High Risk Score (45 or more points). Fall prevention measures have been instituted. Side Rails Up X 2 Placed Close to Nursing Station Frequent Obs/Assessments Occuring Family Present and informed to notify staff if the need to leave the bedside As available patient and family educated on Fall Prevention Program and Strategies. Assessment: 22:55 General: Appears in no apparent distress. comfortable, Behavior is calm, cooperative, rr5 appropriate for age. 22:55 Pain: Denies pain. Neuro: Level of Consciousness is awake, alert, obeys commands, rr5 Oriented to person, place, time, situation, Appropriate for age Speech is normal, Facial symmetry appears normal, Pupils are PERRLA, Reports LOC twice. Cardiovascular: Capillary refill < 3 seconds Patient's skin is warm and dry. Respiratory: Airway is patent Respiratory effort is even, unlabored, Respiratory pattern is regular, symmetrical. GI: No signs and/or symptoms were reported involving the gastrointestinal system. Abdomen is round Reports nausea. : No signs and/or symptoms were reported regarding the genitourinary system. EENT: No signs and/or symptoms were reported regarding the EENT system. Derm: Skin is intact, is healthy with good turgor, Skin temperature is warm. Musculoskeletal: Circulation, motion, and sensation intact. Capillary refill < 3 seconds. 23:50 Reassessment: Patient appears in no apparent distress at this time. Patient is alert, rr5 oriented x 3, equal unlabored respirations, skin warm/dry/pink. D dimer positive and BP 83/47 mmHg ED provider aware with order made and carried out. Patient states symptoms have improved. 09/06 00:15 Reassessment: Patient appears in no apparent distress at this time. Patient is alert, rr5 oriented x 3, equal unlabored respirations, skin warm/dry/pink. Mg 1.4 Brandyn from laboratory called. ED provider aware with order made and carried out. BP rechecked ongoing IV fluid 103/61 mmHg. 01:10 Reassessment: Patient appears in no apparent distress at this time. Patient is alert, rr5 oriented x 3, equal unlabored respirations, skin warm/dry/pink. no complaints made awaiting for results. 02:06 Reassessment: Patient appears in no apparent distress at this time. Patient and/or rr5 family updated on plan of care and expected duration. Pain level reassessed. Patient is alert, oriented x 3, equal unlabored respirations, skin warm/dry/pink. 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 no complaints made. 03:15 Reassessment: Patient appears in no apparent distress at this time. Patient is alert, rr5 oriented x 3, equal unlabored respirations, skin warm/dry/pink. transfer to room 425 vitally stable, breathing spontaneously at room air. no complaints made. with IV cannula intact. Patient states feeling better. Patient states symptoms have improved. Vital Signs: 09/05 22:55 BP 92 / 62; Pulse 81; Resp 16; Temp 98.1; Pulse Ox 100% ; Pain 0/10; rr5 23:13 Weight 84.37 kg; Height 5 ft. 5 in. (165.10 cm); rr5 23:45 BP 83 / 47; Pulse 81; Resp 17; Pulse Ox 99% on R/A; rr5 09/06 00:05 BP 103 / 61; Pulse 75; Resp 16; Pulse Ox 98% on R/A; rr5 01:12 BP 104 / 66; Pulse 76; Resp 17; Pulse Ox 100% ; rr5 02:06 BP 105 / 64; Pulse 73; Resp 15; Temp 98.3; Pulse Ox 98% ; rr5 03:09 BP 107 / 66; Pulse 74; Resp 18; Temp 98.1; Pulse Ox 99% ; rr5 09/05 23:13 Body Mass Index 30.95 (84.37 kg, 165.10 cm) rr5 ED Course: 09/05 22:56 Patient arrived in ED. rr5 22:57 Matt Shah MD is Attending Physician. tw4 22:57 Inserted saline lock: 20 gauge in right forearm, using aseptic technique. Blood lp1 collected. 23:00 Arm band placed on left wrist. rr5 23:03 Triage completed. rr5 23:15 Patient has correct armband on for positive identification. Placed in gown. Bed in low rr5 position. Call light in reach. Side rails up X2. equal opportunity director on. Pulse ox on. NIBP on. 23:24 Elfego Guillaume RN is Primary Nurse. rr5 23:38 CT Head Brain wo Cont In Process Unspecified. EDMS 23:50 Notified ED physician of a critical lab result(s). D-Dimer 1519. lp1 09/06 01:02 CT Chest For PE Angio In Process Unspecified. EDMS 02:06 Higinio Rojas MD is Hospitalizing Provider. tw4 03:09 No provider procedures requiring assistance completed. Patient admitted, IV remains in rr5 place. intact, No redness/swelling at site. Administered Medications: 09/05 23:50 Drug: NS 0.9% 1000 ml Route: IV; Rate: 1 bolus; Site: right antecubital; rr5 09/06 01:00 Follow up: Response: No adverse reaction; IV Status: Completed infusion; IV Intake: rr5 1000ml 00:22 Drug: Magnesium Oxide 400 mg Route: PO; rr5 01:30 Follow up: Response: No adverse reaction rr5 Intake: 01:00 IV: 1000ml; Total: 1000ml. rr5 Outcome: 02:07 Decision to Hospitalize by Provider. tw4 03:09 Admitted to Tele accompanied by tech, via wheelchair, room 425, with chart, Report rr5 called to lopez 03:09 Condition: stable 03:09 Instructed on the need for admit. 03:40 Patient left the ED. rr5 Signatures: Dispatcher [employer] EDMS Daily Louise RN RN lp1 Matt Shah MD MD tw4 Elfego Guillaume, RN RN rr5 Corrections: (The following items were deleted from the chart) 00:00 09/05 23:50 Reassessment: Patient appears in no apparent distress at this time. Patient rr5 is alert, oriented x 3, equal unlabored respirations, skin warm/dry/pink. D dimer positive ED provider aware with order made and carried out. Patient states symptoms have improved. rr5
--- NOTE | 2019-09-06 02:08 | EDPHYS ---
Physician Documentation [facility] Name: Eden Graham Age: 49 yrs Sex: Female : 1970 Arrival Date: 09/05/2019 Time: 22:56 Bed 2 Private MD: ED Physician Matt Shah HPI: 09/06 02:17 This 49 yrs old Female presents to ER via EMS with complaints of loss of tw4 consciousness. 02:17 The patient has experienced syncope. The patient has experienced syncope, collapsed, tw4 lost consciousness. Onset: The symptoms/episode began/occurred today. Duration: This was a single episode. Context: the episode(s) was witnessed, by no one. Associated injury: The patient did not suffer any apparent associated injury. Associated signs and symptoms: The patient has no apparent associated signs or symptoms. Current symptoms: Currently, the patient is not experiencing any symptoms. The patient has not experienced similar symptoms in the past. 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 LMP 05/2019 rr5 Historical: - Allergies: 23:07 No Known Allergies; rr5 - Home Meds: 23:07 apixaban 5 mg Oral 2 times per day [Active]; Aspir-81 81 mg Oral TbEC 1 tab once daily rr5 [Active]; clopidogrel 75 mg Oral tab 1 tab once daily [Active]; gabapentin 300 mg Oral cap 1 cap twice a day [Active]; glipizide 5 mg Oral tab 1 tab 2 times per day [Active]; Levemir subcutaneous subcutaneous [Active]; metformin 1,000 mg Oral tab 1 tab 2 times per day [Active]; lisinopril-hydrochlorothiazide 20-12.5 mg Oral tab 1 tab once daily [Active]; lovastatin 20 mg Oral tab 1 tab once daily [Active]; Ibuprofen Oral [Active]; anti anxiety and depression, cannot recall the name [Active]; antibiotic cannot recall the name [Active]; - PMHx: 23:07 Diabetes - NIDDM; DVT; Hyperlipidemia; Hypertension; RLS; Anxiety; Depression; rr5 - PSHx: 23:07 stent on the legs; amputated right toe; rr5 - Immunization history:: Adult Immunizations up to date. - Social history:: Smoking status: Patient uses tobacco products, 5 sticks per day, Patient uses alcohol, occasionally. Patient/guardian denies using street drugs. - Ebola Screening: : Patient negative for fever greater than or equal to 101.5 degrees Fahrenheit, and additional compatible Ebola Virus Disease symptoms Patient denies exposure to infectious person Patient denies travel to an Ebola-affected area in the 21 days before illness onset. ROS: 09/06 02:17 Constitutional: Negative for fever, chills, and weight loss, Eyes: Negative for injury, tw4 pain, redness, and discharge, Cardiovascular: Negative for chest pain, palpitations, and edema, Respiratory: Negative for shortness of breath, cough, wheezing, and pleuritic chest pain, Abdomen/GI: Negative for abdominal pain, nausea, vomiting, diarrhea, and constipation, Back: Negative for injury and pain, Skin: Negative for injury, rash, and discoloration, Neuro: Negative for headache, weakness, numbness, tingling, and seizure. Exam: 01:33 Head/Face: Normocephalic, atraumatic. Eyes: Pupils equal round and reactive to light, tw4 extra-ocular motions intact. Lids and lashes normal. Conjunctiva and sclera are non-icteric and not injected. Cornea within normal limits. Periorbital areas with no swelling, redness, or edema. Chest/axilla: Normal chest wall appearance and motion. Nontender with no deformity. No lesions are appreciated. Cardiovascular: Regular rate and rhythm with a normal S1 and S2. No gallops, murmurs, or rubs. Normal PMI, no JVD. No pulse deficits. Respiratory: Lungs have equal breath sounds bilaterally, clear to auscultation and percussion. No rales, rhonchi or wheezes noted. No increased work of breathing, no retractions or nasal flaring. Abdomen/GI: Soft, non-tender, with normal bowel sounds. No distension or tympany. No guarding or rebound. No evidence of tenderness throughout. Back: No spinal tenderness. No costovertebral tenderness. Full range of motion. MS/ Extremity: Pulses equal, no cyanosis. Neurovascular intact. Full, normal range of motion. Neuro: Awake and alert, GCS 15, oriented to person, place, time, and situation. Cranial nerves II-XII grossly intact. Motor strength 5/5 in all extremities. Sensory grossly intact. Cerebellar exam normal. Normal gait. Vital Signs: 09/05 22:55 BP 92 / 62; Pulse 81; Resp 16; Temp 98.1; Pulse Ox 100% ; Pain 0/10; rr5 23:13 Weight 84.37 kg; Height 5 ft. 5 in. (165.10 cm); rr5 23:45 BP 83 / 47; Pulse 81; Resp 17; Pulse Ox 99% on R/A; rr5 09/06 00:05 BP 103 / 61; Pulse 75; Resp 16; Pulse Ox 98% on R/A; rr5 01:12 BP 104 / 66; Pulse 76; Resp 17; Pulse Ox 100% ; rr5 02:06 BP 105 / 64; Pulse 73; Resp 15; Temp 98.3; Pulse Ox 98% ; rr5 03:09 BP 107 / 66; Pulse 74; Resp 18; Temp 98.1; Pulse Ox 99% ; rr5 09/05 23:13 Body Mass Index 30.95 (84.37 kg, 165.10 cm) rr5 MDM: 09/05 22:57 Patient medically screened. 09/06 02:18 Differential Diagnosis: aortic aneurysm, cardiac arrhythmia, drug effect, emotional tw4 response, GI bleed, idiopathic syncope, , seizure, sepsis, transient ischemic attack. Data reviewed: vital signs, nurses notes. Data interpreted: Pulse oximetry: Interpretation: normal. Counseling: I had a detailed discussion with the patient and/or guardian regarding: the historical points, exam findings, and any diagnostic results supporting the discharge/admit diagnosis. Physician consultation: Higinio Rojas MD regarding admission, and will see patient in inpatient room. 09/05 23:07 Order name: UDS 09/05 23:07 Order name: Basic Metabolic Panel; Complete Time: 36 09/06 01:37 Interpretation: Normal except: GLUC 220; GFR 43; BUN 24. 09/05 23:07 Order name: CBC with Diff; Complete Time: 36 09/06 01:37 Interpretation: Normal except: MCV 94.1; RDW 16.1. 09/05 23:07 Order name: Ckmb; Complete Time: :36 09/06 01:38 Interpretation: Within normal limits: CKMB 1.5. 09/05 23:07 Order name: CPK; Complete Time: :36 09/06 01:41 Interpretation: CPK 57. tw4 09/05 23:07 Order name: Hepatic Function; Complete Time: 01:36 [facility] 09/06 01:37 Interpretation: Normal except: GLOB 3.9; A/G 0.9. tw4 09/05 23:07 Order name: Lipase; Complete Time: 01:36 [facility] 09/06 01:38 Interpretation: Normal except: LIP 512. [facility] 09/05 23:07 Order name: Magnesium; Complete Time: 01:36 4 09/06 01:38 Interpretation: Abnormal: MG 1.4. tw4 09/05 23:07 Order name: Protime (+inr); Complete Time: 01:36 [facility] 09/05 23:07 Order name: Ptt, Activated; Complete Time: 01:36 [facility] 09/05 23:07 Order name: Troponin (emerg Dept Use Only); Complete Time: 01:36 [facility] 09/05 23:07 Order name: D-Dimer; Complete Time: 01:36 [facility] 09/06 01:38 Interpretation: Abnormal: D-DIMER 1519. tw4 09/05 23:07 Order name: Glucose, Ancillary Testing; Complete Time: 01:36 [facility] 09/06 02:31 Order name: Urine Microscopic Only rr5 09/05 23:07 Order name: CT Head Brain wo Cont tw4 09/05 23:07 Order name: EKG; Complete Time: 23:09 4 09/05 23:07 Order name: Cardiac monitoring; Complete Time: 23:24 [facility] 09/05 23:49 Order name: CT Chest For PE Angio [facility] 09/06 02:36 Order name: Urine Dipstick--Ancillary (enter results); Complete Time: 02:48 [facility] 09/06 02:49 Interpretation: UESTR TRACE. tw 09/06 02:39 Order name: Alcohol Level [facility] 09/06 02:59 Order name: CONS Pharmacy Consult [facility] 09/06 02:59 Order name: Heart Healthy [facility] 09/06 02:59 Order name: Echo with Doppler [facility] 09/06 02:59 Order name: Troponin I [facility] 09/06 02:59 Order name: Troponin I [facility] 09/06 02:59 Order name: Troponin I [facility] 09/06 02:59 Order name: Carotid Artery Bilateral [facility] 09/06 03:04 Order name: Urine Culture [facility] 09/05 23:07 Order name: EKG - Nurse/Tech; Complete Time: 23:24 tw4 09/05 23:07 Order name: IV Saline Lock; Complete Time: 23:24 tw4 09/05 23:07 Order name: Labs collected and sent; Complete Time: 23:24 tw4 09/05 23:07 Order name: NPO; Complete Time: 23:24 tw4 09/05 23:07 Order name: O2 Per Protocol; Complete Time: 23:24 tw4 09/05 23:07 Order name: O2 Sat Monitoring; Complete Time: 23:24 tw4 09/05 23:07 Order name: Urine Dipstick-Ancillary (obtain specimen); Complete Time: 02:31 tw4 EC:33 Rate is 78 beats/min. Rhythm is regular. QRS [place] is Normal. DE interval is normal. QRS tw4 interval is normal. QT interval is normal. No Q waves. T waves are Normal. ST Segment is elevated in leads II, III, aVF, V3, V4, V5, V6, <1mm. Clinical impression: Abnormal EKG without significant change. Interpreted by me. Reviewed by me. Administered Medications: 09/05 23:50 Drug: NS 0.9% 1000 ml Route: IV; Rate: 1 bolus; Site: right antecubital; rr5 09/06 01:00 Follow up: Response: No adverse reaction; IV Status: Completed infusion; IV Intake: rr5 1000ml 00:22 Drug: Magnesium Oxide 400 mg Route: PO; rr5 01:30 Follow up: Response: No adverse reaction rr5 Disposition: 09/06/19 02:07 Hospitalization ordered by Higinio Rojas for Observation. Preliminary diagnosis is Syncope and collapse. - Bed requested for Telemetry/MedSurg (observation). - Status is Observation. rr5 - Condition is Stable. - Problem is new. - Symptoms have improved. UTI on Admission? No Signatures: Dispatcher [employer] EDKY Angeles Alcala RN CONY Matt Shah MD MD tw4 Elfego Guillaume RN RN rr5 Corrections: (The following items were deleted from the chart) 03:02 02:07 Hospitalization Ordered by Higinio Rojas MD for Observation. Preliminary diagnosis is Syncope and collapse. Bed requested for Telemetry/MedSurg (observation). Status is Observation. Condition is Stable. Problem is new. Symptoms have improved. UTI on Admission? No. tw4 03:40 03:02 09/06/2019 02:07 Hospitalization Ordered by Higinio Rojas MD for Observation. rr5 Preliminary diagnosis is Syncope and collapse. Bed requested for Telemetry/MedSurg (observation). Status is Observation. Condition is Stable. Problem is new. Symptoms have improved. UTI on Admission? No. mw
[2019-09-06 02:38] LABS: Urine Blood NEGATIVE (NEG); Urine Glucose NEGATIVE (NEG); Urine Protein NEGATIVE (NEG); Urine pH 5.5 (5.0-7.0)
[2019-09-06] MEDS ORDERED: MORPHINE 2 MG/ML SYR IV PRN (02:53)
[2019-09-06] MEDS ORDERED: ONDANSETRON 4 MG/2 ML VIAL IV PRN (02:53)
[2019-09-06] MEDS ORDERED: NA CHLORIDE 0.9% 1,000 ML IV SCH (03:00)
[2019-09-06 03:02] LABS: Urine Bacteria 20-50 /HPF (<20); Urine Culture Reflex Order REFLEXED; Urine RBC <5 /HPF (NONE SEEN)
[2019-09-06 03:04] LABS: Barbiturates NEGATIVE (NEGATIVE); Benzodiazepines NEGATIVE (NEGATIVE); Cocaine POSITIVE (NEGATIVE); METHAMPHETAM NEGATIVE (NEGATIVE); Methadone NEGATIVE (NEGATIVE); Opiates NEGATIVE (NEGATIVE); Phencyclidine NEGATIVE (NEGATIVE); THC Cannibis POSITIVE (NEGATIVE)
[2019-09-06] MEDS: ACETAMINOPHEN 500 MG TAB PO PRN ×2 (04:16→13:54)
[2019-09-06 05:32] VITALS: BMI 30.7
--- NOTE | 2019-09-06 07:05 | P.HP ---
Certification for Inpatient Patient admitted to: Observation With expected LOS: <2 Midnights Patient will require the following post-hospital care: None Practitioner: I am a practitioner with admitting privileges, knowledge of patient current condition, hospital course, and medical plan of care. Services: Services provided to patient in accordance with Admission requirements found in Title 42 Section 412.3 of the Code of Federal Regulations Patient History Date of Service: 09/06/19 Reason for admission: SYNCOPAL EVENT History of Present Illness: Patient is a 49-year-old female came to the hospital after passing out. She was at a sports bar and she started feeling faint. She has a history of diabetes along with hypertension. She also has a foot wound that she started taking some antibiotics per her primary care provider. She has been taking some ibuprofen lately as well. That is really the only 2 new medicine she started. While she was at the [employer] she started taking and a piece of candy. She was thinking hypoglycemia was causing her symptoms. She was chewing on the candy and she suddenly passed out. Her uncle was with her as with a friend and they lifted her up. She passed out once again. Her uncle states that she did hit her head. EMS brought her into the emergency room. CT of the head was negative. CT PE protocol was negative. Patient will be admitted for further evaluation. Patient has history of PAD. Will do an extensive syncopal workup including carotid Doppler and echocardiogram. We will monitor on telemetry over the next 24 hrs. Her electrolytes were low and these will be repeated Neurologically she is completely intact. She feels like she is back to her baseline. Urine drug screen was ordered as well this evening. Allergies No Known Drug Allergies Allergy (Verified 09/06/19 03:47) Unknown Home Medications: Citalopram [Celexa] 10 mg PO DAILY 09/06/19 Clopidogrel Bisulfate [Plavix*] 75 mg PO DAILY 09/06/19 Ergocalciferol (Vitamin D2) [Vitamin D 50,000 Unit Cap] 50,000 units PO DIRECTED 09/06/19 Gabapentin 300 mg PO TID 09/06/19 Ibuprofen [Ibu] 600 mg PO TID PRN 09/06/19 Insulin Detemir [Levemir Flextouch] 10 units SQ BID 09/06/19 Lisinopril 10 mg PO BEDTIME 09/06/19 Lisinopril/Hydrochlorothiazide [Lisinopril-Hctz 20-12.5 mg Tab] 1 tab PO DAILY 09/06/19 Lovastatin 20 mg PO BEDTIME 09/06/19 Metformin HCl [Glucophage] 1,000 mg PO BIDWM 09/06/19 Propranolol HCl 10 mg PO DAILY 09/06/19 cephALEXin [Cephalexin] 500 mg PO BID 09/06/19 glipiZIDE [Glipizide] 10 mg PO BID 09/06/19 - Past Medical/Surgical History Has patient received pneumonia vaccine in the past: No Diabetic: Yes -: DM -: DVT (both legs-stent placement April 2018) -: HTN -: HLD -: anxiety -: depression -: both legs -stent placement -: right foot-4th/5th toe amputation - Family History Mother Medical History: Hypertension, Diabetes Father Medical History: Heart disease, Hypertension - Social History Smoking Status: Light Tobacco smoker (1-9 cigarettes/day) Alcohol use: Yes CD- Drugs: No Caffeine use: No Place of Residence: Home Review of Systems 10-point ROS is otherwise unremarkable Physical Examination - Vital Signs Temperature: 98.4 F Blood Pressure: 116/68 Pulse: 71 Respirations: 19 Pulse Ox (%): 95 - Physical Exam General: Alert, In no apparent distress, Oriented x3 HEENT: Atraumatic, PERRLA, Mucous membr. moist/pink, EOMI, Sclerae nonicteric Neck: Supple, 2+ carotid pulse no bruit, No LAD, Without JVD or thyroid abnormality Respiratory: Clear to auscultation bilaterally, Normal air movement Cardiovascular: Regular rate/rhythm, Normal S1 S2, No murmurs Gastrointestinal: Normal bowel sounds, Soft and benign, Non-distended, No tenderness Musculoskeletal: No clubbing, No swelling, No tenderness Integumentary: No rashes Neurological: Normal gait, Normal speech, Normal strength at 5/5 x4 extr, Normal tone, Sensation intact, Cranial nerves 3-12 intact, Normal affect Lymphatics: No axilla or inguinal lymphadenopathy - Studies Laboratory Data (last 24 hrs) 09/05/19 22:50: PT 11.7, INR 0.99, APTT 29.2 09/05/19 22:50: WBC 8.6, Hgb 14.8, Hct 44.7, Plt Count 280 09/05/19 22:50: Sodium 138, Potassium 3.6, BUN 24 H, Creatinine 1.30, Glucose 220 H, Magnesium 1.4 L*, Total Bilirubin 0.3, AST 26, ALT 39, Alkaline Phosphatase 75, Lipase 512 H Assessment & Plan - Problems (Diagnosis) (1) Syncopal episodes Current Visit: Yes Status: Acute (2) PAD (peripheral artery disease) Current Visit: Yes Status: Acute (3) HTN (hypertension) Current Visit: Yes Status: Acute (4) DM2 (diabetes mellitus, type 2) Current Visit: Yes Status: Acute - Plan Plan: 1. Carotid Doppler and echocardiogram 2. Monitor on telemetry for the next 24 hr 3. Recheck magnesium level 4. Gentle hydration 5. Refrain from cocaine and marijuana use 6. Monitor neurologically as she had 2 falls 7. Strict blood pressure and blood sugar control 8. GI and DVT prophylaxis Discharge Plan: Home Plan to discharge in: 24 Hours - Advance Directives Does patient have a Living Will: No Does patient have a Durable POA for Healthcare: No - Code Status/Comfort Care Code Status Assessed: Yes Code Status: Full Code Critical Care: No Time Spent Managing PTS Care (In Minutes): 45
--- OUTSIDE RECORDS SUMMARY | 2019-09-06 07:24 | XMS REPORT ---
:1970 [facility] Address [address] [place] [address] [address]. Ar[address] [place] [address] Care Team Providers Name Role Phone CRICKET PEPPER Unavailable Unavailable IRMA RUFF Unavailable Unavailable BRENNEN ARELLANO Unavailable Unavailable Problems This patient has no known problems. Allergies, Adverse Reactions, Alerts This patient has no known allergies or adverse reactions. Medications This patient has no known medications. Results Test Description Test Time Test Comments Text Results Atomic Results Result Comments AFB CULTURE + SMEAR 2018-07-03 13:38:00 Test Item Value Reference Range Comments CULTURE (BEAKER) (test bjke=9656) No acid-fast bacilli isolated in 42 days AFB SMEAR (BEAKER) (test ovoz=527) No acid fast bacilli seen FUNGUS CULTURE + [id number] 16:47:00 Test Item Value Reference Range Comments CULTURE (BEAKER) (test No fungus isolated in 28 days moxm=5410) FUNGUS SMEAR (BEAKER) (test No fungi seen rfjz=0903) BLOOD [id number] 16:59:00 Test Item Value Reference Range Comments CULTURE (BEAKER) (test vjiu=9429) No growth in 5 days BLOOD [id number] 16:48:00 Test Item Value Reference Range Comments CULTURE (BEAKER) (test udod=3812) No growth in 5 days TISSUE [id number] 10:42:00Surgical Pathology Report Case: [id number] Authorizing Provider: Jomar Rosenbaum DPM Collected: 05/13/20182035 Ordering Location: [facility] PERI[facility] Received: 05/14/2018 0851 SERVICES Pathologist: Raul Johnson MD Specimen: Toe, Right, 4th and 5th toes BONE AND SOFT TISSUE, RIGHT 4TH AND 5TH TOES, AMPUTATION: -GANGRENOUS NECROSIS WITH ULCERATION - CHRONIC OSTEOMYELITIS Signing Pathologist Direct Phone Line: [phone] signed by Raul Johnson MD on 05/22/2018 at 10:42 [id number] gangreneRight 4th and 5th toesReceived fresh labeled "toe, right ", description "4th and 5th toes" are two digits which are connected to each other and disarticulated at the joint measuring 4.5 cm in length and 3.5 cm from medial to lateral. Both digits are black and mummified with a thin ring of pale kaba skin surrounding the soft tissue resection margin. The nails are yellow -kaba and thickened. Section code: A1, parallel soft tissue resection margin; A2 , cross sections of 4th and 5th digits for decalcification. DB/plThe soft tissue sections demonstrate marked acute and chronic inflammation with necrosis and overlying ulceration of the epidermis. The bone shows marrow necrosis with fibrovascular replacement, chronic inflammation, and bony remodelingANAEROBIC [id number] 17:40:00 Test Item Value Reference Range Comments CULTURE (BEAKER) (test itxv=9606) 4+ Peptostreptococcus species Organism(s) under evaluationSURGICALLY OBTAINED CULTURE + GRAM [id number] 17:07:00 Test Item Value Reference Range Comments CULTURE (BEAKER) 1+ Streptococcus anginosus (test nwja=7747) GRAM STAIN RESULT <1+ WBCs (BEAKER) (test cvck=8564) GRAM STAIN RESULT 1+ gram positive cocci (BEAKER) (test in pairs fkjd=683821) POCT-GLUCOSE [id number] 13:05:00 Test Item Value Reference Range Comments POC-GLUCOSE METER (BEAKER) 205 mg/dL 70-110 TESTED AT [address] (test zfnr=8564) [facility] [address] POCT-GLUCOSE [id number] 08:17:00 Test Item Value Reference Range Comments POC-GLUCOSE METER (BEAKER) 253 mg/dL 70-110 TESTED AT [address] (test bygh=4462) [facility] [address] POCT-GLUCOSE [id number] 23:49:00 Test Item Value Reference Range Comments POC-GLUCOSE METER (BEAKER) 270 mg/dL 70-110 TESTED AT [address] (test nqql=2436) [facility] [address] POCT-GLUCOSE [id number] 17:28:00 Test Item Value Reference Range Comments POC-GLUCOSE METER (BEAKER) 294 mg/dL 70-[address] [facility] [address] [place] [address] (test pueh=2302) [facility] [address] BASIC METABOLIC [id number] 14:51:00 Test Item Value Reference Range Comments SODIUM (BEAKER) (test 134 meq/L 136-145 vumq=058) POTASSIUM (BEAKER) (test 4.0 meq/L 3.5-5.1 zjyq=879) CHLORIDE (BEAKER) (test 100 meq/L 98-107 vuva=268) CO2 (BEAKER) (test 26 meq/L 22-29 aiwt=513) BLOOD UREA NITROGEN 13 mg/dL 7-21 (BEAKER) (test owrk=417) CREATININE (BEAKER) (test 0.81 mg/dL 0.57-1.25 ekop=092) GLUCOSE RANDOM (BEAKER) 279 mg/dL 70-105 (test raqv=937) CALCIUM (BEAKER) (test 10.9 mg/dL 8.4-10.2 xzet=536) EGFR (BEAKER) (test mL/min/1.73 sq m INSUFFICIENT CLINICAL DATA hani=7109) TO CALCULATE ESTIMATED GFR. POCT-GLUCOSE [id number] 14:44:00 Test Item Value Reference Range Comments POC-GLUCOSE METER (BEAKER) 305 mg/dL 70-110 Notified CONY ROSENBAUM/TESTED AT [facility] (test uogo=8353) [facility] [place] [address] CBC W/PLT COUNT & AUTO [id number] 14:30:00 Test Item Value Reference Range Comments WHITE BLOOD CELL COUNT (BEAKER) (test wjfv=065) 9.0 K/ L 3.5-10.5 RED BLOOD CELL COUNT (BEAKER) (test omtt=316) 3.95 M/ L 3.93-5.22 HEMOGLOBIN (BEAKER) (test zonf=854) 11.0 GM/DL 11.2-15.7 HEMATOCRIT (BEAKER) (test xrce=316) 34.7 % 34.1-44.9 MEAN CORPUSCULAR VOLUME (BEAKER) (test weqi=045) 87.8 fL 79.4-94.8 MEAN CORPUSCULAR HEMOGLOBIN (BEAKER) (test 27.8 pg 25.6-32.2 naoz=482) MEAN CORPUSCULAR HEMOGLOBIN CONC (BEAKER) (test 31.7 GM/DL 32.2-35.5 dhkp=289) RED CELL DISTRIBUTION WIDTH (BEAKER) (test 14.1 % 11.7-14.4 vdsg=806) PLATELET COUNT (BEAKER) (test yttp=582) 261 K/CU MM 150-450 MEAN PLATELET VOLUME (BEAKER) (test bqdn=200) 9.7 fL 9.4-12.3 NUCLEATED RED BLOOD CELLS (BEAKER) (test 0 /100 WBC 0-0 ptwq=727) NEUTROPHILS RELATIVE PERCENT (BEAKER) (test 59 % jckc=723) LYMPHOCYTES RELATIVE PERCENT (BEAKER) (test 29 % khmn=612) MONOCYTES RELATIVE PERCENT (BEAKER) (test 8 % fveg=396) EOSINOPHILS RELATIVE PERCENT (BEAKER) (test 4 % jjuk=834) BASOPHILS RELATIVE PERCENT (BEAKER) (test 1 % mokl=881) NEUTROPHILS ABSOLUTE COUNT (BEAKER) (test 5.25 K/ L 1.56-6.13 wrvs=511) LYMPHOCYTES ABSOLUTE COUNT (BEAKER) (test 2.62 K/ L 1.18-3.74 vauz=826) MONOCYTES ABSOLUTE COUNT (BEAKER) (test 0.67 K/ L 0.24-0.36 mbvf=041) EOSINOPHILS ABSOLUTE COUNT (BEAKER) (test 0.33 K/ L 0.04-0.36 xzns=846) BASOPHILS ABSOLUTE COUNT (BEAKER) (test 0.05 K/ L 0.01-0.08 nrty=676) IMMATURE GRANULOCYTES-RELATIVE PERCENT (BEAKER) 0 % 0-1 (test eigq=4446) POCT-GLUCOSE [id number] 10:09:00 Test Item Value Reference Range Comments POC-GLUCOSE METER (BEAKER) 312 mg/dL 70-110 TESTED AT [address] (test gdeo=1673) [facility] [address] POCT-GLUCOSE [id number] 21:07:00 Test Item Value Reference Range Comments POC-GLUCOSE METER (BEAKER) 346 mg/dL 70-110 TESTED AT [address] (test xdke=1489) [facility] [address] POCT-GLUCOSE [id number] 19:33:00 Test Item Value Reference Range Comments POC-GLUCOSE METER (BEAKER) 276 mg/dL 70-110 TESTED AT [address] (test zwor=1203) [place] [address] SPIN/CONCENTRATION [id number] 11:09:00 Test Item Value Reference Range Comments CONCENTRATION CHARGED (BEAKER) (test nsal=1679) Done POCT-GLUCOSE [id number] 10:41:00 Test Item Value Reference Range Comments POC-GLUCOSE METER (BEAKER) 180 mg/dL 70-110 TESTED AT [address] (test aqpm=3978) [place] [address] C-REACTIVE [id number] 07:55:00 Test Item Value Reference Range Comments C-REACTIVE PROTEIN (BEAKER) (test mzwl=722) 3.67 mg/dL 0.00-0.50 POCT-GLUCOSE [id number] 21:49:00 Test Item Value Reference Range Comments POC-GLUCOSE METER (BEAKER) 138 mg/dL 70-110 TESTED AT [address] (test yeta=5149) [place] [address] POCT-GLUCOSE [id number] 18:21:00 Test Item Value Reference Range Comments POC-GLUCOSE METER (BEAKER) 119 mg/dL 70-110 TESTED AT [address] (test cmgy=2620) [place] [address] POCT-GLUCOSE [id number] 13:15:00 Test Item Value Reference Range Comments POC-GLUCOSE METER (BEAKER) 293 mg/dL 70-110 TESTED AT [address] (test ahzw=8392) [place] [address] POCT-GLUCOSE [id number] 08:45:00 Test Item Value Reference Range Comments POC-GLUCOSE METER (BEAKER) 230 mg/dL 70-110 TESTED AT [address] (test baff=1134) [place] [address] [id number] 05:26:00 Test Item Value Reference Range Comments MAGNESIUM (BEAKER) (test czzz=698) 1.8 mg/dL 1.6-2.6 C-REACTIVE [id number] 05:26:00 Test Item Value Reference Range Comments C-REACTIVE PROTEIN (BEAKER) (test qzcf=484) 4.42 mg/dL 0.00-0.50 BASIC METABOLIC [id number] 05:26:00 Test Item Value Reference Range Comments SODIUM (BEAKER) (test 135 meq/L 136-145 tqea=633) POTASSIUM (BEAKER) (test 3.9 meq/L 3.5-5.1 azal=252) CHLORIDE (BEAKER) (test 104 meq/L 98-107 ntib=293) CO2 (BEAKER) (test 23 meq/L 22-29 nrfr=355) BLOOD UREA NITROGEN 18 mg/dL 7-21 (BEAKER) (test vqdh=229) CREATININE (BEAKER) (test 0.78 mg/dL 0.57-1.25 ypuz=178) GLUCOSE RANDOM (BEAKER) 234 mg/dL 70-105 (test ucrg=737) CALCIUM (BEAKER) (test 9.8 mg/dL 8.4-10.2 xmud=910) EGFR (BEAKER) (test mL/min/1.73 sq m INSUFFICIENT CLINICAL DATA okyj=6271) TO CALCULATE ESTIMATED GFR. VANCOMYCIN LEVEL, [id number] 05:12:00 Test Item Value Reference Range Comments VANCOMYCIN TROUGH (BEAKER) (test rrmn=129) 10.3 ug/mL 10.0-20.0 Please draw 30 minutes prior to vancomycin due time. Do not administer if vancomycin trough is >20 mcg/mL. Thank you![id number] 05:06:00 Test Item Value Reference Range Comments PROTIME (BEAKER) (test dimk=090) 14.9 seconds 11.7-14.7 INR (BEAKER) (test gygo=929) 1.2 <=5.9 PARTIAL THROMBOPLASTIN TIME (BEAKER) (test 37.7 seconds 22.5-36.0 gmds=418) RECOMMENDED COUMADIN/WARFARIN INR THERAPY RANGESSTANDARD DOSE: 2.0 - 3.0 Includes: PROPHYLAXIS forvenous thrombosis, systemic embolization; TREATMENT for venous thrombosis and/or pulmonary embolus.HIGH RISK: Target INR is 2.5-3.5 for patients with mechanical heart valves.CBC W/PLT COUNT & AUTO [id number] 05:02:00 Test Item Value Reference Range Comments WHITE BLOOD CELL COUNT (BEAKER) (test bbfb=589) 6.4 K/ L 3.5-10.5 RED BLOOD CELL COUNT (BEAKER) (test yfyu=620) 4.12 M/ L 3.93-5.22 HEMOGLOBIN (BEAKER) (test json=557) 11.4 GM/DL 11.2-15.7 HEMATOCRIT (BEAKER) (test jcwh=362) 36.6 % 34.1-44.9 MEAN CORPUSCULAR VOLUME (BEAKER) (test mixh=168) 88.8 fL 79.4-94.8 MEAN CORPUSCULAR HEMOGLOBIN (BEAKER) (test 27.7 pg 25.6-32.2 jrqe=964) MEAN CORPUSCULAR HEMOGLOBIN CONC (BEAKER) (test 31.1 GM/DL 32.2-35.5 peah=429) RED CELL DISTRIBUTION WIDTH (BEAKER) (test 14.1 % 11.7-14.4 cmvj=856) PLATELET COUNT (BEAKER) (test wjlx=204) 273 K/CU MM 150-450 MEAN PLATELET VOLUME (BEAKER) (test xdtl=456) 9.7 fL 9.4-12.3 NUCLEATED RED BLOOD CELLS (BEAKER) (test 0 /100 WBC 0-0 glhn=865) NEUTROPHILS RELATIVE PERCENT (BEAKER) (test 51 % nvjr=108) LYMPHOCYTES RELATIVE PERCENT (BEAKER) (test 35 % jaez=435) MONOCYTES RELATIVE PERCENT (BEAKER) (test 7 % hjbd=702) EOSINOPHILS RELATIVE PERCENT (BEAKER) (test 6 % owtz=433) BASOPHILS RELATIVE PERCENT (BEAKER) (test 1 % cfuf=473) NEUTROPHILS ABSOLUTE COUNT (BEAKER) (test 3.29 K/ L 1.56-6.13 tysm=570) LYMPHOCYTES ABSOLUTE COUNT (BEAKER) (test 2.28 K/ L 1.18-3.74 xodl=298) MONOCYTES ABSOLUTE COUNT (BEAKER) (test 0.43 K/ L 0.24-0.36 yywh=304) EOSINOPHILS ABSOLUTE COUNT (BEAKER) (test 0.37 K/ L 0.04-0.36 ozro=758) BASOPHILS ABSOLUTE COUNT (BEAKER) (test 0.05 K/ L 0.01-0.08 wfcv=135) IMMATURE GRANULOCYTES-RELATIVE PERCENT (BEAKER) 0 % 0-1 (test afug=3270) POCT-GLUCOSE [id number] 23:45:00 Test Item Value Reference Range Comments POC-GLUCOSE METER (BEAKER) 241 mg/dL 70-[address] [facility] [address] [facility] (test dtsb=6867) [facility] [address] POCT-GLUCOSE [id number] 19:54:00 Test Item Value Reference Range Comments POC-GLUCOSE METER (BEAKER) 313 mg/dL 70-110 Notified CONY ROSENBAUM/TESTED AT [facility] (test amvk=7019) [address] [place] [address] POCT-GLUCOSE [id number] 12:08:00 Test Item Value Reference Range Comments POC-GLUCOSE METER (BEAKER) 261 mg/dL 70-[address] [facility] [address] [facility] (test eofz=4862) [facility] [address] POCT-GLUCOSE [id number] 08:07:00 Test Item Value Reference Range Comments POC-GLUCOSE METER (BEAKER) 200 mg/dL 70-110 TESTED AT [place] [id number] [facility] (test stuz=6106) [facility] [address] BASIC METABOLIC [id number] 06:05:00 Test Item Value Reference Range Comments SODIUM (BEAKER) (test 136 meq/L 136-145 rwdr=358) POTASSIUM (BEAKER) (test 3.8 meq/L 3.5-5.1 cnhh=290) CHLORIDE (BEAKER) (test 103 meq/L 98-107 dljf=450) CO2 (BEAKER) (test 25 meq/L 22-29 fnrg=100) BLOOD UREA NITROGEN 17 mg/dL 7-21 (BEAKER) (test pxxx=156) CREATININE (BEAKER) (test 0.87 mg/dL 0.57-1.25 ocoh=889) GLUCOSE RANDOM (BEAKER) 204 mg/dL 70-105 (test nmnk=365) CALCIUM (BEAKER) (test 10.3 mg/dL 8.4-10.2 kkke=987) EGFR (BEAKER) (test mL/min/1.73 sq m INSUFFICIENT CLINICAL DATA kgyp=3712) TO CALCULATE ESTIMATED GFR. [id number] 06:04:00 Test Item Value Reference Range Comments MAGNESIUM (BEAKER) (test scyt=756) 2.0 mg/dL 1.6-2.6 VANCOMYCIN LEVEL, [id number] 05:56:00 Test Item Value Reference Range Comments VANCOMYCIN TROUGH (BEAKER) (test ydnk=150) 9.6 ug/mL 10.0-20.0 [id number] 05:48:00 Test Item Value Reference Range Comments PROTIME (BEAKER) (test jlpd=305) 15.2 seconds 11.7-14.7 INR (BEAKER) (test ifbq=679) 1.2 <=5.9 PARTIAL THROMBOPLASTIN TIME (BEAKER) (test 45.4 seconds 22.5-36.0 ofrc=961) RECOMMENDED COUMADIN/WARFARIN INR THERAPY RANGESSTANDARD DOSE: 2.0 - 3.0 Includes: PROPHYLAXIS forvenous thrombosis, systemic embolization; TREATMENT for venous thrombosis and/or pulmonary embolus.HIGH RISK: Target INR is 2.5-3.5 for patients with mechanical heart valves.CBC W/PLT COUNT & AUTO [id number] 05:37:00 Test Item Value Reference Range Comments WHITE BLOOD CELL COUNT (BEAKER) (test krnp=421) 6.9 K/ L 3.5-10.5 RED BLOOD CELL COUNT (BEAKER) (test tqli=054) 4.45 M/ L 3.93-5.22 HEMOGLOBIN (BEAKER) (test hbww=487) 12.2 GM/DL 11.2-15.7 HEMATOCRIT (BEAKER) (test uvom=245) 39.7 % 34.1-44.9 MEAN CORPUSCULAR VOLUME (BEAKER) (test gdnp=311) 89.2 fL 79.4-94.8 MEAN CORPUSCULAR HEMOGLOBIN (BEAKER) (test 27.4 pg 25.6-32.2 bflv=495) MEAN CORPUSCULAR HEMOGLOBIN CONC (BEAKER) (test 30.7 GM/DL 32.2-35.5 lblr=333) RED CELL DISTRIBUTION WIDTH (BEAKER) (test 14.3 % 11.7-14.4 zbsy=623) PLATELET COUNT (BEAKER) (test ivxy=348) 306 K/CU MM 150-450 MEAN PLATELET VOLUME (BEAKER) (test udpe=811) 9.6 fL 9.4-12.3 NUCLEATED RED BLOOD CELLS (BEAKER) (test 0 /100 WBC 0-0 rgaw=966) NEUTROPHILS RELATIVE PERCENT (BEAKER) (test 56 % ntxo=531) LYMPHOCYTES RELATIVE PERCENT (BEAKER) (test 32 % nzzs=016) MONOCYTES RELATIVE PERCENT (BEAKER) (test 7 % jnet=451) EOSINOPHILS RELATIVE PERCENT (BEAKER) (test 4 % uynl=672) BASOPHILS RELATIVE PERCENT (BEAKER) (test 1 % mkos=472) NEUTROPHILS ABSOLUTE COUNT (BEAKER) (test 3.84 K/ L 1.56-6.13 lgsy=844) LYMPHOCYTES ABSOLUTE COUNT (BEAKER) (test 2.22 K/ L 1.18-3.74 fdhw=103) MONOCYTES ABSOLUTE COUNT (BEAKER) (test 0.49 K/ L 0.24-0.36 fnka=460) EOSINOPHILS ABSOLUTE COUNT (BEAKER) (test 0.28 K/ L 0.04-0.36 aqdy=309) BASOPHILS ABSOLUTE COUNT (BEAKER) (test 0.05 K/ L 0.01-0.08 qslk=178) IMMATURE GRANULOCYTES-RELATIVE PERCENT (BEAKER) 0 % 0-1 (test hupg=3095) POCT-GLUCOSE [id number] 22:27:00 Test Item Value Reference Range Comments POC-GLUCOSE METER (BEAKER) 333 mg/dL 70-110 Notified CONY ROSENBAUM/TESTED AT [facility] (test uwfc=1385) [address] [place] [address] POCT-GLUCOSE [id number] 12:01:00 Test Item Value Reference Range Comments POC-GLUCOSE METER (BEAKER) 132 mg/dL 70-110 TESTED AT [address] (test efml=6928) [place] [address] POCT-GLUCOSE [id number] 11:39:00 Test Item Value Reference Range Comments POC-GLUCOSE METER (BEAKER) 129 mg/dL 70-110 TESTED AT [address] (test rzel=2410) [place] [address] BASIC METABOLIC [id number] 05:37:00 Test Item Value Reference Range Comments SODIUM (BEAKER) (test 136 meq/L 136-145 swtj=791) POTASSIUM (BEAKER) (test 3.8 meq/L 3.5-5.1 wrhj=298) CHLORIDE (BEAKER) (test 105 meq/L 98-107 crrm=752) CO2 (BEAKER) (test 23 meq/L 22-29 xfky=307) BLOOD UREA NITROGEN 5 mg/dL 7-21 (BEAKER) (test tllm=558) CREATININE (BEAKER) (test 0.68 mg/dL 0.57-1.25 jhjx=575) GLUCOSE RANDOM (BEAKER) 106 mg/dL 70-105 (test pjml=436) CALCIUM (BEAKER) (test 10.4 mg/dL 8.4-10.2 tldq=424) EGFR (BEAKER) (test mL/min/1.73 sq m INSUFFICIENT CLINICAL DATA oenu=9383) TO CALCULATE ESTIMATED GFR. [id number] 05:36:00 Test Item Value Reference Range Comments MAGNESIUM (BEAKER) (test yhew=192) 1.9 mg/dL 1.6-2.6 PROTHROMBIN [id number] 05:20:00 Test Item Value Reference Range Comments PROTIME (BEAKER) (test qfyc=697) 15.8 seconds 11.7-14.7 INR (BEAKER) (test cyeh=476) 1.3 <=5.9 RECOMMENDED COUMADIN/WARFARIN INR THERAPY RANGESSTANDARD DOSE: 2.0 - 3.0 Includes: PROPHYLAXIS forvenous thrombosis, systemic embolization; TREATMENT for venous thrombosis and/or pulmonary embolus.HIGH RISK: Target INR is 2.5-3.5 for patients with mechanical heart valves.PT/[id number] 05:20:00 Test Item Value Reference Range Comments PROTIME (BEAKER) (test xunz=213) 15.8 seconds 11.7-14.7 INR (BEAKER) (test atlo=257) 1.3 <=5.9 PARTIAL THROMBOPLASTIN TIME (BEAKER) (test 40.4 seconds 22.5-36.0 pueu=328) RECOMMENDED COUMADIN/WARFARIN INR THERAPY RANGESSTANDARD DOSE: 2.0 - 3.0 Includes: PROPHYLAXIS forvenous thrombosis, systemic embolization; TREATMENT for venous thrombosis and/or pulmonary embolus.HIGH RISK: Target INR is 2.5-3.5 for patients with mechanical heart valves.CBC W/PLT COUNT & AUTO [id number] 05:17:00 Test Item Value Reference Range Comments WHITE BLOOD CELL COUNT (BEAKER) (test gwyg=073) 9.1 K/ L 3.5-10.5 RED BLOOD CELL COUNT (BEAKER) (test aixq=896) 4.24 M/ L 3.93-5.22 HEMOGLOBIN (BEAKER) (test pooj=698) 11.9 GM/DL 11.2-15.7 HEMATOCRIT (BEAKER) (test dzrg=305) 37.5 % 34.1-44.9 MEAN CORPUSCULAR VOLUME (BEAKER) (test kmgl=509) 88.4 fL 79.4-94.8 MEAN CORPUSCULAR HEMOGLOBIN (BEAKER) (test 28.1 pg 25.6-32.2 ltqu=413) MEAN CORPUSCULAR HEMOGLOBIN CONC (BEAKER) (test 31.7 GM/DL 32.2-35.5 vrlf=077) RED CELL DISTRIBUTION WIDTH (BEAKER) (test 14.5 % 11.7-14.4 ebyu=012) PLATELET COUNT (BEAKER) (test ctnu=708) 296 K/CU MM 150-450 MEAN PLATELET VOLUME (BEAKER) (test yyka=373) 9.6 fL 9.4-12.3 NUCLEATED RED BLOOD CELLS (BEAKER) (test 0 /100 WBC 0-0 eava=946) NEUTROPHILS RELATIVE PERCENT (BEAKER) (test 54 % tdbs=196) LYMPHOCYTES RELATIVE PERCENT (BEAKER) (test 34 % cgrt=884) MONOCYTES RELATIVE PERCENT (BEAKER) (test 8 % bzvq=742) EOSINOPHILS RELATIVE PERCENT (BEAKER) (test 4 % cpla=407) BASOPHILS RELATIVE PERCENT (BEAKER) (test 1 % cxqn=086) NEUTROPHILS ABSOLUTE COUNT (BEAKER) (test 4.88 K/ L 1.56-6.13 vrux=442) LYMPHOCYTES ABSOLUTE COUNT (BEAKER) (test 3.12 K/ L 1.18-3.74 bvbo=847) MONOCYTES ABSOLUTE COUNT (BEAKER) (test 0.68 K/ L 0.24-0.36 vppf=014) EOSINOPHILS ABSOLUTE COUNT (BEAKER) (test 0.34 K/ L 0.04-0.36 zfje=595) BASOPHILS ABSOLUTE COUNT (BEAKER) (test 0.05 K/ L 0.01-0.08 gafq=776) IMMATURE GRANULOCYTES-RELATIVE PERCENT (BEAKER) 0 % 0-1 (test kbhu=1051) POCT-GLUCOSE [id number] 04:49:00 Test Item Value Reference Range Comments POC-GLUCOSE METER (BEAKER) 103 mg/dL 70-110 TESTED AT [address] (test bcpj=6016) [place] [address] SCREEN, [id number] 22:46:00 Test Item Value Reference Range Comments TEST URINE (BEAKER) (test djkw=248) Negative POCT-GLUCOSE [id number] 20:31:00 Test Item Value Reference Range Comments POC-GLUCOSE METER (BEAKER) 122 mg/dL 70-110 TESTED AT [address] (test gnnn=3959) [place] [address] POCT-GLUCOSE [id number] 12:02:00 Test Item Value Reference Range Comments POC-GLUCOSE METER (BEAKER) 246 mg/dL 70-110 TESTED AT [address] (test pudx=7718) [place] [address] POCT-GLUCOSE [id number] 07:25:00 Test Item Value Reference Range Comments POC-GLUCOSE METER (BEAKER) 193 mg/dL 70-110 TESTED AT [address] (test hmng=5903) [place] [address] BASIC METABOLIC [id number] 07:04:00 Test Item Value Reference Range Comments SODIUM (BEAKER) (test 133 meq/L 136-145 oucb=376) POTASSIUM (BEAKER) (test 4.5 meq/L 3.5-5.1 Specimen slightly atlv=265) hemolyzed CHLORIDE (BEAKER) (test 99 meq/L 98-107 xwfo=961) CO2 (BEAKER) (test 27 meq/L 22-29 fclg=550) BLOOD UREA NITROGEN 15 mg/dL 7-21 (BEAKER) (test obpb=419) CREATININE (BEAKER) (test 0.75 mg/dL 0.57-1.25 Specimen slightly lcyt=158) hemolyzed GLUCOSE RANDOM (BEAKER) 182 mg/dL 70-105 (test judj=950) CALCIUM (BEAKER) (test 11.0 mg/dL 8.4-10.2 ofon=625) EGFR (BEAKER) (test mL/min/1.73 sq m INSUFFICIENT CLINICAL DATA kgfe=9119) TO CALCULATE ESTIMATED GFR. [id number] 06:58:00 Test Item Value Reference Range Comments MAGNESIUM (BEAKER) (test 2.1 mg/dL 1.6-2.6 Specimen slightly hemolyzed wmzg=978) POCT-GLUCOSE [id number] 23:15:00 Test Item Value Reference Range Comments POC-GLUCOSE METER (BEAKER) 370 mg/dL 70-110 Notified CONY ROSENBAUM/TESTED AT [facility] (test nmfk=3809) [address] [place] [id number] POCT-GLUCOSE [id number] 17:23:00 Test Item Value Reference Range Comments POC-GLUCOSE METER (BEAKER) 223 mg/dL 70-110 TESTED AT [address] (test ivim=3329) [facility] [address] CBC (HEMOGRAM ONLY)2018-04-26 15:00:00 Test Item Value Reference Range Comments WHITE BLOOD CELL COUNT (BEAKER) (test jauy=806) 6.8 K/ L 3.5-10.5 RED BLOOD CELL COUNT (BEAKER) (test vtuy=101) 4.19 M/ L 3.93-5.22 HEMOGLOBIN (BEAKER) (test bwvd=806) 11.7 GM/DL 11.2-15.7 HEMATOCRIT (BEAKER) (test wjfe=215) 37.1 % 34.1-44.9 MEAN CORPUSCULAR VOLUME (BEAKER) (test byww=776) 88.5 fL 79.4-94.8 MEAN CORPUSCULAR HEMOGLOBIN (BEAKER) (test 27.9 pg 25.6-32.2 nrlu=843) MEAN CORPUSCULAR HEMOGLOBIN CONC (BEAKER) (test 31.5 GM/DL 32.2-35.5 hqmd=365) RED CELL DISTRIBUTION WIDTH (BEAKER) (test 13.3 % 11.7-14.4 vzji=275) PLATELET COUNT (BEAKER) (test vcgc=712) 488 K/CU MM 150-450 MEAN PLATELET VOLUME (BEAKER) (test cwia=120) 9.4 fL 9.4-12.3 NUCLEATED RED BLOOD CELLS (BEAKER) (test 0 /100 WBC 0-0 zvnh=125) POCT-GLUCOSE [id number] 11:39:00 Test Item Value Reference Range Comments POC-GLUCOSE METER (BEAKER) 371 mg/dL 70-110 TESTED AT [place] [address] [facility] (test amda=1755) [facility] [address] POCT-GLUCOSE [id number] 07:54:00 Test Item Value Reference Range Comments POC-GLUCOSE METER (BEAKER) 162 mg/dL 70-110 TESTED AT [address] (test muat=3183) [facility] [address] POCT-GLUCOSE [id number] 22:31:00 Test Item Value Reference Range Comments POC-GLUCOSE METER (BEAKER) 233 mg/dL 70-110 TESTED AT [address] (test tayb=1124) [facility] [address] POCT-GLUCOSE [id number] 17:57:00 Test Item Value Reference Range Comments POC-GLUCOSE METER (BEAKER) 252 mg/dL 70-110 TESTED AT [address] (test oqii=6228) [place] [id number] POCT-GLUCOSE [id number] 12:07:00 Test Item Value Reference Range Comments POC-GLUCOSE METER (BEAKER) 263 mg/dL 70-110 TESTED AT [address] (test gsav=3153) [place] [id number] POCT-GLUCOSE [id number] 07:39:00 Test Item Value Reference Range Comments POC-GLUCOSE METER (BEAKER) 230 mg/dL 70-110 TESTED AT [address] (test ctmz=1501) [place] [id number] BASIC METABOLIC [id number] 07:01:00 Test Item Value Reference Range Comments SODIUM (BEAKER) (test 132 meq/L 136-145 bzdy=064) POTASSIUM (BEAKER) (test 4.7 meq/L 3.5-5.1 Specimen slightly oria=122) hemolyzed CHLORIDE (BEAKER) (test 101 meq/L 98-107 kfpe=184) CO2 (BEAKER) (test 22 meq/L 22-29 pvsn=585) BLOOD UREA NITROGEN 14 mg/dL 7-21 (BEAKER) (test itkg=399) CREATININE (BEAKER) (test 0.67 mg/dL 0.57-1.25 Specimen slightly nilh=363) hemolyzed GLUCOSE RANDOM (BEAKER) 179 mg/dL 70-105 (test twyq=635) CALCIUM (BEAKER) (test 10.8 mg/dL 8.4-10.2 cnkf=745) EGFR (BEAKER) (test mL/min/1.73 sq m INSUFFICIENT CLINICAL DATA xfff=6826) TO CALCULATE ESTIMATED GFR. [id number] 06:34:00 Test Item Value Reference Range Comments MAGNESIUM (BEAKER) (test 2.0 mg/dL 1.6-2.6 Specimen slightly hemolyzed cqyk=712) CBC (HEMOGRAM ONLY)2018-04-25 05:43:00 Test Item Value Reference Range Comments WHITE BLOOD CELL COUNT (BEAKER) (test pcjp=024) 7.7 K/ L 3.5-10.5 RED BLOOD CELL COUNT (BEAKER) (test oomu=161) 4.38 M/ L 3.93-5.22 HEMOGLOBIN (BEAKER) (test vxbn=084) 12.1 GM/DL 11.2-15.7 HEMATOCRIT (BEAKER) (test qjmm=646) 38.8 % 34.1-44.9 MEAN CORPUSCULAR VOLUME (BEAKER) (test trsu=824) 88.6 fL 79.4-94.8 MEAN CORPUSCULAR HEMOGLOBIN (BEAKER) (test 27.6 pg 25.6-32.2 axko=084) MEAN CORPUSCULAR HEMOGLOBIN CONC (BEAKER) (test 31.2 GM/DL 32.2-35.5 yloy=888) RED CELL DISTRIBUTION WIDTH (BEAKER) (test 13.2 % 11.7-14.4 iuuq=687) PLATELET COUNT (BEAKER) (test gfjd=865) 402 K/CU MM 150-450 MEAN PLATELET VOLUME (BEAKER) (test icct=960) 9.4 fL 9.4-12.3 NUCLEATED RED BLOOD CELLS (BEAKER) (test 0 /100 WBC 0-0 obpx=475) POCT-GLUCOSE [id number] 21:24:00 Test Item Value Reference Range Comments POC-GLUCOSE METER (BEAKER) 301 mg/dL 70-110 Notified CONY ROSENBAUM/TESTED AT [facility] (test gdbe=5910) [facility] [place] [id number] POCT-GLUCOSE [id number] 17:21:00 Test Item Value Reference Range Comments POC-GLUCOSE METER (BEAKER) 290 mg/dL 70-110 TESTED AT [place] [address] [place] (test qgxw=8759) [place] [id number] POCT-GLUCOSE [id number] 13:46:00 Test Item Value Reference Range Comments POC-GLUCOSE METER (BEAKER) 193 mg/dL 70-110 TESTED AT [place] [address] [place] (test ohck=5389) [place] [address] POCT-GLUCOSE [id number] 07:48:00 Test Item Value Reference Range Comments POC-GLUCOSE METER (BEAKER) 190 mg/dL 70-110 TESTED AT [address] (test vbxm=4559) [facility] [address] POCT-GLUCOSE [id number] 23:01:00 Test Item Value Reference Range Comments POC-GLUCOSE METER (BEAKER) 236 mg/dL 70-110 TESTED AT [address] (test ejev=4387) [facility] [address] POCT-GLUCOSE [id number] 17:27:00 Test Item Value Reference Range Comments POC-GLUCOSE METER (BEAKER) 335 mg/dL 70-110 Notified CONY ROSENBAUM/TESTED AT [facility] (test ugqr=3645) [address] [place] [address] CBC (HEMOGRAM ONLY)2018-04-23 13:05:00 Test Item Value Reference Range Comments WHITE BLOOD CELL COUNT (BEAKER) (test kicm=419) 8.2 K/ L 3.5-10.5 RED BLOOD CELL COUNT (BEAKER) (test woze=376) 3.73 M/ L 3.93-5.22 HEMOGLOBIN (BEAKER) (test vofj=749) 10.5 GM/DL 11.2-15.7 HEMATOCRIT (BEAKER) (test zwch=325) 33.5 % 34.1-44.9 MEAN CORPUSCULAR VOLUME (BEAKER) (test uxvg=971) 89.8 fL 79.4-94.8 MEAN CORPUSCULAR HEMOGLOBIN (BEAKER) (test 28.2 pg 25.6-32.2 keso=856) MEAN CORPUSCULAR HEMOGLOBIN CONC (BEAKER) (test 31.3 GM/DL 32.2-35.5 wxrh=617) RED CELL DISTRIBUTION WIDTH (BEAKER) (test 13.3 % 11.7-14.4 dvmk=036) PLATELET COUNT (BEAKER) (test tccp=613) 363 K/CU MM 150-450 MEAN PLATELET VOLUME (BEAKER) (test wxyp=179) 9.3 fL 9.4-12.3 NUCLEATED RED BLOOD CELLS (BEAKER) (test 0 /100 WBC 0-0 mbes=705) POCT-GLUCOSE [id number] 12:28:00 Test Item Value Reference Range Comments POC-GLUCOSE METER (BEAKER) 227 mg/dL 70-[address] [facility] [address] [facility] (test ppwa=1027) [facility] [address] POCT-GLUCOSE [id number] 08:40:00 Test Item Value Reference Range Comments POC-GLUCOSE METER (BEAKER) 205 mg/dL 70-[address] [facility] [address] [facility] (test qyme=0218) [facility] [address] BASIC METABOLIC [id number] 07:37:00 Test Item Value Reference Range Comments SODIUM (BEAKER) (test 135 meq/L 136-145 cwti=537) POTASSIUM (BEAKER) (test 4.7 meq/L 3.5-5.1 Specimen slightly ygvc=104) hemolyzed CHLORIDE (BEAKER) (test 103 meq/L 98-107 qcni=422) CO2 (BEAKER) (test 22 meq/L 22-29 ncjt=789) BLOOD UREA NITROGEN 9 mg/dL 7-21 (BEAKER) (test sedv=280) CREATININE (BEAKER) (test 0.61 mg/dL 0.57-1.25 Specimen slightly trwl=259) hemolyzed GLUCOSE RANDOM (BEAKER) 155 mg/dL 70-105 (test fdlb=176) CALCIUM (BEAKER) (test 10.9 mg/dL 8.4-10.2 atav=270) EGFR (BEAKER) (test mL/min/1.73 sq m INSUFFICIENT CLINICAL DATA wmoc=0981) TO CALCULATE ESTIMATED GFR. [id number] 07:36:00 Test Item Value Reference Range Comments MAGNESIUM (BEAKER) (test 1.8 mg/dL 1.6-2.6 Specimen slightly hemolyzed bazt=700) [id number] 06:51:00 Test Item Value Reference Range Comments PARTIAL THROMBOPLASTIN TIME (BEAKER) (test 37.1 seconds 22.5-36.0 wpel=611) POCT-GLUCOSE [id number] 22:05:00 Test Item Value Reference Range Comments POC-GLUCOSE METER (BEAKER) 262 mg/dL 70-[address] [facility] [address] [facility] (test ziqv=7224) [facility] [address] POCT-GLUCOSE [id number] 17:30:00 Test Item Value Reference Range Comments POC-GLUCOSE METER (BEAKER) 271 mg/dL 70-[address] [facility] [address] [facility] (test ldex=2421) [facility] [address] POCT-GLUCOSE [id number] 12:13:00 Test Item Value Reference Range Comments POC-GLUCOSE METER (BEAKER) 308 mg/dL 70-110 Notified CONY ROSENBAUM/TESTED AT [facility] (test dhrh=8065) [address] [place] [address] POCT-GLUCOSE [id number] 08:39:00 Test Item Value Reference Range Comments POC-GLUCOSE METER (BEAKER) 145 mg/dL 70-110 TESTED AT [address] (test aopj=0053) [facility] [address] POCT-GLUCOSE [id number] 21:59:00 Test Item Value Reference Range Comments POC-GLUCOSE METER (BEAKER) 286 mg/dL 70-110 TESTED AT [address] (test oiex=0211) [facility] [address] CBC (HEMOGRAM ONLY)2018-04-21 19:06:00 Test Item Value Reference Range Comments WHITE BLOOD CELL COUNT (BEAKER) (test dgbx=745) 7.6 K/ L 3.5-10.5 RED BLOOD CELL COUNT (BEAKER) (test bevw=638) 4.18 M/ L 3.93-5.22 HEMOGLOBIN (BEAKER) (test coou=970) 11.7 GM/DL 11.2-15.7 HEMATOCRIT (BEAKER) (test zalb=376) 37.2 % 34.1-44.9 MEAN CORPUSCULAR VOLUME (BEAKER) (test fird=051) 89.0 fL 79.4-94.8 MEAN CORPUSCULAR HEMOGLOBIN (BEAKER) (test 28.0 pg 25.6-32.2 spzs=315) MEAN CORPUSCULAR HEMOGLOBIN CONC (BEAKER) (test 31.5 GM/DL 32.2-35.5 zijs=594) RED CELL DISTRIBUTION WIDTH (BEAKER) (test 13.4 % 11.7-14.4 qkat=216) PLATELET COUNT (BEAKER) (test crcy=467) 353 K/CU MM 150-450 MEAN PLATELET VOLUME (BEAKER) (test rgaq=953) 9.6 fL 9.4-12.3 NUCLEATED RED BLOOD CELLS (BEAKER) (test 0 /100 WBC 0-0 upoa=341) POCT-GLUCOSE [id number] 18:41:00 Test Item Value Reference Range Comments POC-GLUCOSE METER (BEAKER) 296 mg/dL 70-110 TESTED AT [address] (test xlnw=5394) [place] [address] POCT-GLUCOSE [id number] 11:13:00 Test Item Value Reference Range Comments POC-GLUCOSE METER (BEAKER) 243 mg/dL 70-110 TESTED AT [address] (test igqi=8291) [place] [address] [id number] 09:50:00 Test Item Value Reference Range Comments PARTIAL THROMBOPLASTIN TIME (BEAKER) (test 102.9 seconds 22.5-36.0 fxft=707) POCT-GLUCOSE [id number] 07:34:00 Test Item Value Reference Range Comments POC-GLUCOSE METER (BEAKER) 190 mg/dL 70-110 TESTED AT [address] (test hths=7127) [place] [address] [id number] 03:02:00 Test Item Value Reference Range Comments PARTIAL THROMBOPLASTIN TIME (BEAKER) (test 88.4 seconds 22.5-36.0 kqqh=983) [id number] 00:57:00 Test Item Value Reference Range Comments PARTIAL THROMBOPLASTIN TIME (BEAKER) (test 143.8 seconds 22.5-36.0 hgee=404) POCT-GLUCOSE [id number] 21:55:00 Test Item Value Reference Range Comments POC-GLUCOSE METER (BEAKER) 272 mg/dL 70-110 TESTED AT [address] (test jpro=7461) [place] [address] POCT-GLUCOSE [id number] 17:39:00 Test Item Value Reference Range Comments POC-GLUCOSE METER (BEAKER) 317 mg/dL 70-110 TESTED AT [address] (test fvkm=0781) [place] [address] [id number] 14:30:00 Test Item Value Reference Range Comments PARTIAL THROMBOPLASTIN TIME (BEAKER) (test 45.0 seconds 22.5-36.0 ezyl=594) Prior to initiating heparinCBC (HEMOGRAM ONLY)2018-04-20 14:26:00 Test Item Value Reference Range Comments WHITE BLOOD CELL COUNT (BEAKER) (test aspf=027) 7.7 K/ L 3.5-10.5 RED BLOOD CELL COUNT (BEAKER) (test dlim=271) 4.46 M/ L 3.93-5.22 HEMOGLOBIN (BEAKER) (test ykdx=218) 12.4 GM/DL 11.2-15.7 HEMATOCRIT (BEAKER) (test rsvp=656) 39.6 % 34.1-44.9 MEAN CORPUSCULAR VOLUME (BEAKER) (test dryx=469) 88.8 fL 79.4-94.8 MEAN CORPUSCULAR HEMOGLOBIN (BEAKER) (test 27.8 pg 25.6-32.2 vicq=434) MEAN CORPUSCULAR HEMOGLOBIN CONC (BEAKER) (test 31.3 GM/DL 32.2-35.5 qqob=519) RED CELL DISTRIBUTION WIDTH (BEAKER) (test 13.3 % 11.7-14.4 fafr=119) PLATELET COUNT (BEAKER) (test jmxo=064) 348 K/CU MM 150-450 MEAN PLATELET VOLUME (BEAKER) (test nqyo=679) 9.5 fL 9.4-12.3 NUCLEATED RED BLOOD CELLS (BEAKER) (test 0 /100 WBC 0-0 zyya=541) POCT-GLUCOSE [id number] 12:40:00 Test Item Value Reference Range Comments POC-GLUCOSE METER (BEAKER) 260 mg/dL 70-110 TESTED AT [address] (test ohfn=0004) [place] [id number] POCT-GLUCOSE [id number] 08:01:00 Test Item Value Reference Range Comments POC-GLUCOSE METER (BEAKER) 226 mg/dL 70-110 TESTED AT [address] (test gmpl=2812) [place] [id number] BASIC METABOLIC [id number] 07:09:00 Test Item Value Reference Range Comments SODIUM (BEAKER) (test 135 meq/L 136-145 bclb=860) POTASSIUM (BEAKER) (test 3.9 meq/L 3.5-5.1 drcq=491) CHLORIDE (BEAKER) (test 103 meq/L 98-107 xaqt=236) CO2 (BEAKER) (test 27 meq/L 22-29 jzyv=961) BLOOD UREA NITROGEN 13 mg/dL 7-21 (BEAKER) (test defj=700) CREATININE (BEAKER) (test 0.71 mg/dL 0.57-1.25 mxkf=599) GLUCOSE RANDOM (BEAKER) 205 mg/dL 70-105 (test kvvi=881) CALCIUM (BEAKER) (test 10.7 mg/dL 8.4-10.2 tmky=615) EGFR (BEAKER) (test mL/min/1.73 sq m INSUFFICIENT CLINICAL DATA duoj=6322) TO CALCULATE ESTIMATED GFR. [id number] 06:55:00 Test Item Value Reference Range Comments MAGNESIUM (BEAKER) (test nuto=395) 1.8 mg/dL 1.6-2.6 POCT-GLUCOSE [id number] 20:56:00 Test Item Value Reference Range Comments POC-GLUCOSE METER (BEAKER) 364 mg/dL 70-110 TESTED AT [address] (test emfz=6902) [place] [address] POCT-GLUCOSE [id number] 18:23:00 Test Item Value Reference Range Comments POC-GLUCOSE METER (BEAKER) 381 mg/dL 70-110 TESTED AT [address] (test whvv=6213) [facility] [address] POCT-GLUCOSE [id number] 17:45:00 Test Item Value Reference Range Comments POC-GLUCOSE METER (BEAKER) 355 mg/dL 70-110 Notified CONY ROSENBAUM/TESTED AT [facility] (test npmw=4158) [address] [place] [address] POCT-GLUCOSE [id number] 12:45:00 Test Item Value Reference Range Comments POC-GLUCOSE METER (BEAKER) 298 mg/dL 70-110 TESTED AT [address] (test dnze=9108) [facility] [address] POCT-GLUCOSE [id number] 08:40:00 Test Item Value Reference Range Comments POC-GLUCOSE METER (BEAKER) 205 mg/dL 70-110 TESTED AT [address] (test gnzf=9780) [place] [id number] CBC (HEMOGRAM ONLY)2018-04-18 21:27:00 Test Item Value Reference Range Comments WHITE BLOOD CELL COUNT (BEAKER) (test cyrr=629) 7.1 K/ L 3.5-10.5 RED BLOOD CELL COUNT (BEAKER) (test mnup=371) 4.77 M/ L 3.93-5.22 HEMOGLOBIN (BEAKER) (test fvzj=643) 13.4 GM/DL 11.2-15.7 HEMATOCRIT (BEAKER) (test harg=779) 42.8 % 34.1-44.9 MEAN CORPUSCULAR VOLUME (BEAKER) (test fktl=502) 89.7 fL 79.4-94.8 MEAN CORPUSCULAR HEMOGLOBIN (BEAKER) (test 28.1 pg 25.6-32.2 whig=618) MEAN CORPUSCULAR HEMOGLOBIN CONC (BEAKER) (test 31.3 GM/DL 32.2-35.5 gdce=696) RED CELL DISTRIBUTION WIDTH (BEAKER) (test 13.2 % 11.7-14.4 zhsr=421) PLATELET COUNT (BEAKER) (test fuyq=362) 320 K/CU MM 150-450 MEAN PLATELET VOLUME (BEAKER) (test uyiq=399) 9.5 fL 9.4-12.3 NUCLEATED RED BLOOD CELLS (BEAKER) (test 0 /100 WBC 0-0 xsol=937) POCT-GLUCOSE [id number] 21:06:00 Test Item Value Reference Range Comments POC-GLUCOSE METER (BEAKER) 282 mg/dL 70-110 TESTED AT [address] (test yssj=9381) [place] [address] POCT-GLUCOSE [id number] 17:32:00 Test Item Value Reference Range Comments POC-GLUCOSE METER (BEAKER) 314 mg/dL 70-110 Notified CONY ROSENBAUM/TESTED AT [facility] (test audj=2758) [address] [place], [place] [address] POCT-GLUCOSE [id number] 13:15:00 Test Item Value Reference Range Comments POC-GLUCOSE METER (BEAKER) 228 mg/dL 70-110 TESTED AT [address] (test omib=5628) [place] [address] POCT-GLUCOSE [id number] 08:49:00 Test Item Value Reference Range Comments POC-GLUCOSE METER (BEAKER) 143 mg/dL 70-110 TESTED AT [address] (test sieo=2032) [place] [address] BASIC METABOLIC [id number] 06:20:00 Test Item Value Reference Range Comments SODIUM (BEAKER) (test 136 meq/L 136-145 jndq=263) POTASSIUM (BEAKER) (test 3.7 meq/L 3.5-5.1 daga=492) CHLORIDE (BEAKER) (test 105 meq/L 98-107 xsyj=197) CO2 (BEAKER) (test 21 meq/L 22-29 afgz=351) BLOOD UREA NITROGEN 9 mg/dL 7-21 (BEAKER) (test myzd=651) CREATININE (BEAKER) (test 0.61 mg/dL 0.57-1.25 mytk=518) GLUCOSE RANDOM (BEAKER) 172 mg/dL 70-105 (test uopl=016) CALCIUM (BEAKER) (test 9.8 mg/dL 8.4-10.2 raxr=768) EGFR (BEAKER) (test mL/min/1.73 sq m INSUFFICIENT CLINICAL DATA mkdb=8048) TO CALCULATE ESTIMATED GFR. [id number] 06:08:00 Test Item Value Reference Range Comments MAGNESIUM (BEAKER) (test bcjj=359) 1.6 mg/dL 1.6-2.6 [id number] 05:29:00 Test Item Value Reference Range Comments PROTIME (BEAKER) (test sbgd=335) 14.6 seconds 11.7-14.7 INR (BEAKER) (test zfik=598) 1.1 <=5.9 PARTIAL THROMBOPLASTIN TIME (BEAKER) (test 40.9 seconds 22.5-36.0 fvep=747) RECOMMENDED COUMADIN/WARFARIN INR THERAPY RANGESSTANDARD DOSE: 2.0 - 3.0 Includes: PROPHYLAXIS forvenous thrombosis, systemic embolization; TREATMENT for venous thrombosis and/or pulmonary embolus.HIGH RISK: Target INR is 2.5-3.5 for patients with mechanical heart valves.PROTHROMBIN [id number] 05:28: 00 Test Item Value Reference Range Comments PROTIME (BEAKER) (test zbrw=751) 14.6 seconds 11.7-14.7 INR (BEAKER) (test isws=935) 1.1 <=5.9 RECOMMENDED COUMADIN/WARFARIN INR THERAPY RANGESSTANDARD DOSE: 2.0 - 3.0 Includes: PROPHYLAXIS forvenous thrombosis, systemic embolization; TREATMENT for venous thrombosis and/or pulmonary embolus.HIGH RISK: Target INR is 2.5-3.5 for patients with mechanical heart valves.CBC W/PLT COUNT & AUTO [id number] 05:12:00 Test Item Value Reference Range Comments WHITE BLOOD CELL COUNT (BEAKER) (test bpjd=141) 8.2 K/ L 3.5-10.5 RED BLOOD CELL COUNT (BEAKER) (test yuqq=620) 4.24 M/ L 3.93-5.22 HEMOGLOBIN (BEAKER) (test vcyo=802) 12.0 GM/DL 11.2-15.7 HEMATOCRIT (BEAKER) (test htjp=831) 37.3 % 34.1-44.9 MEAN CORPUSCULAR VOLUME (BEAKER) (test tnux=440) 88.0 fL 79.4-94.8 MEAN CORPUSCULAR HEMOGLOBIN (BEAKER) (test 28.3 pg 25.6-32.2 cpja=605) MEAN CORPUSCULAR HEMOGLOBIN CONC (BEAKER) (test 32.2 GM/DL 32.2-35.5 wrbk=137) RED CELL DISTRIBUTION WIDTH (BEAKER) (test 13.4 % 11.7-14.4 cxrk=657) PLATELET COUNT (BEAKER) (test aanf=777) 265 K/CU MM 150-450 MEAN PLATELET VOLUME (BEAKER) (test nrnu=577) 9.4 fL 9.4-12.3 NUCLEATED RED BLOOD CELLS (BEAKER) (test 0 /100 WBC 0-0 fqhv=109) NEUTROPHILS RELATIVE PERCENT (BEAKER) (test 65 % rdmk=937) LYMPHOCYTES RELATIVE PERCENT (BEAKER) (test 24 % jvde=220) MONOCYTES RELATIVE PERCENT (BEAKER) (test 6 % qtjb=558) EOSINOPHILS RELATIVE PERCENT (BEAKER) (test 4 % qigt=300) BASOPHILS RELATIVE PERCENT (BEAKER) (test 0 % kddv=377) NEUTROPHILS ABSOLUTE COUNT (BEAKER) (test 5.34 K/ L 1.56-6.13 atiu=440) LYMPHOCYTES ABSOLUTE COUNT (BEAKER) (test 1.93 K/ L 1.18-3.74 qynl=341) MONOCYTES ABSOLUTE COUNT (BEAKER) (test 0.52 K/ L 0.24-0.36 ktwj=695) EOSINOPHILS ABSOLUTE COUNT (BEAKER) (test 0.32 K/ L 0.04-0.36 xqgi=962) BASOPHILS ABSOLUTE COUNT (BEAKER) (test 0.03 K/ L 0.01-0.08 pbew=288) IMMATURE GRANULOCYTES-RELATIVE PERCENT (BEAKER) 0 % 0-1 (test pfwh=6430) POCT-GLUCOSE [id number] 22:17:00 Test Item Value Reference Range Comments POC-GLUCOSE METER (BEAKER) 286 mg/dL 70-110 TESTED AT [address] (test dgdt=1538) [facility] [address] POCT-GLUCOSE [id number] 18:07:00 Test Item Value Reference Range Comments POC-GLUCOSE METER (BEAKER) 222 mg/dL 70-110 TESTED AT [address] (test gyit=5481) [facility] [address] POCT-GLUCOSE [id number] 12:59:00 Test Item Value Reference Range Comments POC-GLUCOSE METER (BEAKER) 275 mg/dL 70-110 TESTED AT [address] (test ttfm=0563) [facility] [address] POCT-GLUCOSE [id number] 09:12:00 Test Item Value Reference Range Comments POC-GLUCOSE METER (BEAKER) 194 mg/dL 70-110 TESTED AT [address] (test goxd=5817) [facility] [address] BASIC METABOLIC [id number] 06:44:00 Test Item Value Reference Range Comments SODIUM (BEAKER) (test 138 meq/L 136-145 phdz=886) POTASSIUM (BEAKER) (test 4.1 meq/L 3.5-5.1 Specimen slightly kgds=453) hemolyzed CHLORIDE (BEAKER) (test 107 meq/L 98-107 csal=440) CO2 (BEAKER) (test 22 meq/L 22-29 iofo=776) BLOOD UREA NITROGEN 8 mg/dL 7-21 (BEAKER) (test lhpy=960) CREATININE (BEAKER) (test 0.67 mg/dL 0.57-1.25 Specimen slightly njqi=869) hemolyzed GLUCOSE RANDOM (BEAKER) 181 mg/dL 70-105 (test tjxq=286) CALCIUM (BEAKER) (test 10.1 mg/dL 8.4-10.2 zoip=427) EGFR (BEAKER) (test mL/min/1.73 sq m INSUFFICIENT CLINICAL DATA ernd=0677) TO CALCULATE ESTIMATED GFR. [id number] 06:34:00 Test Item Value Reference Range Comments PROTIME (BEAKER) (test gjpy=589) 13.6 seconds 11.7-14.7 INR (BEAKER) (test mxpj=842) 1.0 <=5.9 PARTIAL THROMBOPLASTIN TIME (BEAKER) (test 34.5 seconds 22.5-36.0 jmjd=658) RECOMMENDED COUMADIN/WARFARIN INR THERAPY RANGESSTANDARD DOSE: 2.0 - 3.0 Includes: PROPHYLAXIS forvenous thrombosis, systemic embolization; TREATMENT for venous thrombosis and/or pulmonary embolus.HIGH RISK: Target INR is 2.5-3.5 for patients with mechanical heart valves.PROTHROMBIN TIME/[id number] 06:33: 00 Test Item Value Reference Range Comments PROTIME (BEAKER) (test vpie=993) 13.6 seconds 11.7-14.7 INR (BEAKER) (test zpoz=506) 1.0 <=5.9 RECOMMENDED COUMADIN/WARFARIN INR THERAPY RANGESSTANDARD DOSE: 2.0 - 3.0 Includes: PROPHYLAXIS forvenous thrombosis, systemic embolization; TREATMENT for venous thrombosis and/or pulmonary embolus.HIGH RISK: Target INR is 2.5-3.5 for patients with mechanical heart valves.CBC W/PLT COUNT & AUTO [id number] 06:31:00 Test Item Value Reference Range Comments WHITE BLOOD CELL COUNT (BEAKER) (test lgai=214) 6.3 K/ L 3.5-10.5 RED BLOOD CELL COUNT (BEAKER) (test olze=958) 4.81 M/ L 3.93-5.22 HEMOGLOBIN (BEAKER) (test qtga=799) 13.8 GM/DL 11.2-15.7 HEMATOCRIT (BEAKER) (test wmah=354) 43.2 % 34.1-44.9 MEAN CORPUSCULAR VOLUME (BEAKER) (test trlb=679) 89.8 fL 79.4-94.8 MEAN CORPUSCULAR HEMOGLOBIN (BEAKER) (test 28.7 pg 25.6-32.2 kniu=134) MEAN CORPUSCULAR HEMOGLOBIN CONC (BEAKER) (test 31.9 GM/DL 32.2-35.5 jfbb=554) RED CELL DISTRIBUTION WIDTH (BEAKER) (test 13.7 % 11.7-14.4 osuf=219) PLATELET COUNT (BEAKER) (test ezba=102) 217 K/CU MM 150-450 MEAN PLATELET VOLUME (BEAKER) (test wzzy=531) 10.4 fL 9.4-12.3 NUCLEATED RED BLOOD CELLS (BEAKER) (test 0 /100 WBC 0-0 bsxe=137) NEUTROPHILS RELATIVE PERCENT (BEAKER) (test 68 % eole=583) LYMPHOCYTES RELATIVE PERCENT (BEAKER) (test 21 % ddhu=359) MONOCYTES RELATIVE PERCENT (BEAKER) (test 6 % trtg=116) EOSINOPHILS RELATIVE PERCENT (BEAKER) (test 4 % hdkb=419) BASOPHILS RELATIVE PERCENT (BEAKER) (test 1 % yryz=187) NEUTROPHILS ABSOLUTE COUNT (BEAKER) (test 4.29 K/ L 1.56-6.13 ehtr=786) LYMPHOCYTES ABSOLUTE COUNT (BEAKER) (test 1.35 K/ L 1.18-3.74 isbw=846) MONOCYTES ABSOLUTE COUNT (BEAKER) (test 0.36 K/ L 0.24-0.36 bmla=618) EOSINOPHILS ABSOLUTE COUNT (BEAKER) (test 0.23 K/ L 0.04-0.36 jkzg=452) BASOPHILS ABSOLUTE COUNT (BEAKER) (test 0.05 K/ L 0.01-0.08 hyut=078) IMMATURE GRANULOCYTES-RELATIVE PERCENT (BEAKER) 0 % 0-1 (test hmiu=8408) POCT-GLUCOSE [id number] 23:38:00 Test Item Value Reference Range Comments POC-GLUCOSE METER (BEAKER) 328 mg/dL 70-110 TESTED AT [address] (test yzwr=6262) [facility] [address] [id number] 13:54:00 Test Item Value Reference Range Comments PARTIAL THROMBOPLASTIN TIME (BEAKER) (test 68.6 seconds 22.5-36.0 hxrd=740) POCT-GLUCOSE [id number] 12:05:00 Test Item Value Reference Range Comments POC-GLUCOSE METER (BEAKER) 255 mg/dL 70-110 TESTED AT [address] (test qisy=5578) [place] [id number] [place], CTA AAA, W/ MELY.EXT.[id number] 11:52:00Addendum BeginsREPORT STATUS:A ADDENDUM: I agree with the nonvascular findings as reported by Dr. Franklin. Signed: Willie Givens MDReport Verified Date/Time: 04/16 11:52:28 Reading Location: [place] [id number] Angio Body Reading RoomAddendum EndsFINAL REPORT CT [...] An addendum will be dictated by the [employer] Mark[employer] Clerk Radiologist regarding the nonvascular findings. Signed: Donato Franklineport Verified Date/Time: 04/16/2018 07:32:25 Reading Location: [place] [address] Cardiology MRI HEMOGLOBIN [id number] 10:38:00 Test Item Value Reference Range Comments HEMOGLOBIN A1C ([employer]) (test kqyh=438) 11.4 % 4.3-6.1 POCT-GLUCOSE [id number] 07:45:00 Test Item Value Reference Range Comments POC-GLUCOSE METER ([employer]) 170 mg/dL 70-110 TESTED AT [address] (test poce=2496) [facility] [address] [id number] 07:11:00 Test Item Value Reference Range Comments PARTIAL THROMBOPLASTIN TIME (BEAKER) (test 68.7 seconds 22.5-36.0 kiib=546) [id number] 05:30:00 Test Item Value Reference Range Comments PARTIAL THROMBOPLASTIN TIME (BEAKER) (test 122.1 seconds 22.5-36.0 axnm=380) [id number] 05:30:00 Test Item Value Reference Range Comments PROTIME (BEAKER) (test ddrv=986) 14.0 seconds 11.7-14.7 INR (BEAKER) (test ydnh=726) 1.1 <=5.9 PARTIAL THROMBOPLASTIN TIME (BEAKER) (test 122.1 seconds 22.5-36.0 xhbv=584) RECOMMENDED COUMADIN/WARFARIN INR THERAPY RANGESSTANDARD DOSE: 2.0 - 3.0 Includes: PROPHYLAXIS forvenous thrombosis, systemic embolization; TREATMENT for venous thrombosis and/or pulmonary embolus.HIGH RISK: Target INR is 2.5-3.5 for patients with mechanical heart valves.BASIC METABOLIC [id number] 05:24: 00 Test Item Value Reference Range Comments SODIUM (BEAKER) (test 139 meq/L 136-145 lrzt=007) POTASSIUM (BEAKER) (test 3.8 meq/L 3.5-5.1 yovg=779) CHLORIDE (BEAKER) (test 103 meq/L 98-107 krhw=510) CO2 (BEAKER) (test 27 meq/L 22-29 dvmg=990) BLOOD UREA NITROGEN 8 mg/dL 7-21 (BEAKER) (test ryrs=572) CREATININE (BEAKER) (test 0.65 mg/dL 0.57-1.25 htzc=041) GLUCOSE RANDOM (BEAKER) 169 mg/dL 70-105 (test bfma=703) CALCIUM (BEAKER) (test 10.4 mg/dL 8.4-10.2 dbrc=644) EGFR (BEAKER) (test mL/min/1.73 sq m INSUFFICIENT CLINICAL DATA amae=2755) TO CALCULATE ESTIMATED GFR. [id number] 05:21:00 Test Item Value Reference Range Comments MAGNESIUM (BEAKER) (test adru=028) 1.8 mg/dL 1.6-2.6 LIPID [id number] 05:21:00 Test Item Value Reference Range Comments TRIGLYCERIDES (BEAKER) (test utan=619) 154 mg/dL CHOLESTEROL (BEAKER) (test ktog=123) 178 mg/dL HDL CHOLESTEROL (BEAKER) (test ifol=268) 35 mg/dL LDL CHOLESTEROL CALCULATED (BEAKER) (test 112 mg/dL feba=046) Triglyceride Reference Range: Low Risk <150 Borderline 150- 199 High Risk 200-499 Very High Risk >=500Cholesterol Reference Range: Low Risk <200 Borderline 200-239 High Risk > 240HDL Cholesterol Reference Range: Low Risk >=60 High Risk <40LDL Cholesterol Reference Range: Optimal <100 Near Optimal 100-129 Borderline 130-159 High 160-189 Very High >=190PROTHROMBIN [id number] 05:12:00 Test Item Value Reference Range Comments PROTIME (BEAKER) (test meco=567) 14.0 seconds 11.7-14.7 INR (BEAKER) (test kgvw=148) 1.1 <=5.9 RECOMMENDED COUMADIN/WARFARIN INR THERAPY RANGESSTANDARD DOSE: 2.0 - 3.0 Includes: PROPHYLAXIS forvenous thrombosis, systemic embolization; TREATMENT for venous thrombosis and/or pulmonary embolus.HIGH RISK: Target INR is 2.5-3.5 for patients with mechanical heart valves.CBC W/PLT COUNT & AUTO [id number] 05:08:00 Test Item Value Reference Range Comments WHITE BLOOD CELL COUNT (BEAKER) (test bqeg=403) 8.5 K/ L 3.5-10.5 RED BLOOD CELL COUNT (BEAKER) (test kmbd=968) 4.83 M/ L 3.93-5.22 HEMOGLOBIN (BEAKER) (test hvgo=428) 13.5 GM/DL 11.2-15.7 HEMATOCRIT (BEAKER) (test ksyg=722) 42.6 % 34.1-44.9 MEAN CORPUSCULAR VOLUME (BEAKER) (test kjmg=663) 88.2 fL 79.4-94.8 MEAN CORPUSCULAR HEMOGLOBIN (BEAKER) (test 28.0 pg 25.6-32.2 eyok=540) MEAN CORPUSCULAR HEMOGLOBIN CONC (BEAKER) (test 31.7 GM/DL 32.2-35.5 czvp=108) RED CELL DISTRIBUTION WIDTH (BEAKER) (test 13.4 % 11.7-14.4 vxtm=199) PLATELET COUNT (BEAKER) (test xukx=787) 305 K/CU MM 150-450 MEAN PLATELET VOLUME (BEAKER) (test jprl=858) 10.5 fL 9.4-12.3 NUCLEATED RED BLOOD CELLS (BEAKER) (test 0 /100 WBC 0-0 cufx=088) NEUTROPHILS RELATIVE PERCENT (BEAKER) (test 49 % ujfh=793) LYMPHOCYTES RELATIVE PERCENT (BEAKER) (test 39 % ytib=167) MONOCYTES RELATIVE PERCENT (BEAKER) (test 5 % lmke=540) EOSINOPHILS RELATIVE PERCENT (BEAKER) (test 6 % jquc=751) BASOPHILS RELATIVE PERCENT (BEAKER) (test 1 % yylg=024) NEUTROPHILS ABSOLUTE COUNT (BEAKER) (test 4.17 K/ L 1.56-6.13 emcc=956) LYMPHOCYTES ABSOLUTE COUNT (BEAKER) (test 3.28 K/ L 1.18-3.74 ktcg=650) MONOCYTES ABSOLUTE COUNT (BEAKER) (test 0.45 K/ L 0.24-0.36 qhny=624) EOSINOPHILS ABSOLUTE COUNT (BEAKER) (test 0.47 K/ L 0.04-0.36 mojb=809) BASOPHILS ABSOLUTE COUNT (BEAKER) (test 0.06 K/ L 0.01-0.08 utzu=942) IMMATURE GRANULOCYTES-RELATIVE PERCENT (BEAKER) 0 % 0-1 (test lqvq=0155) BASIC METABOLIC [id number] 21:39:00 Test Item Value Reference Range Comments SODIUM (BEAKER) (test 137 meq/L 136-145 sxzg=725) POTASSIUM (BEAKER) (test 4.0 meq/L 3.5-5.1 dpkl=112) CHLORIDE (BEAKER) (test 100 meq/L 98-107 wehf=599) CO2 (BEAKER) (test 30 meq/L 22-29 dqew=410) BLOOD UREA NITROGEN 8 mg/dL 7-21 (BEAKER) (test qlfh=766) CREATININE (BEAKER) (test 0.72 mg/dL 0.57-1.25 japg=428) GLUCOSE RANDOM (BEAKER) 290 mg/dL 70-105 (test vttd=898) CALCIUM (BEAKER) (test 10.9 mg/dL 8.4-10.2 iyfz=797) EGFR (BEAKER) (test mL/min/1.73 sq m INSUFFICIENT CLINICAL DATA wigr=9604) TO CALCULATE ESTIMATED GFR. POCT-GLUCOSE [id number] 21:33:00 Test Item Value Reference Range Comments POC-GLUCOSE METER (BEAKER) 296 mg/dL 70-110 TESTED AT [address] (test pxjy=5859) [facility] [address] [id number] 21:11:00 Test Item Value Reference Range Comments PROTIME (BEAKER) (test pqau=619) 13.2 seconds 11.7-14.7 INR (BEAKER) (test hvzn=701) 1.0 <=5.9 PARTIAL THROMBOPLASTIN TIME (BEAKER) (test 85.3 seconds 22.5-36.0 ptqq=661) RECOMMENDED COUMADIN/WARFARIN INR THERAPY RANGESSTANDARD DOSE: 2.0 - 3.0 Includes: PROPHYLAXIS forvenous thrombosis, systemic embolization; TREATMENT for venous thrombosis and/or pulmonary embolus.HIGH RISK: Target INR is 2.5-3.5 for patients with mechanical heart valves.POCT-GLUCOSE [id number] 17:01:00 Test Item Value Reference Range Comments POC-GLUCOSE METER (BEAKER) 211 mg/dL 70-110 TESTED AT [address] (test wzsg=1531) [facility] [address] TISSUE [id number] 10:54:00Surgical Pathology Report Case: [id number] Authorizing Provider: Reji Reza MD Collected: 08/04/2017 1512 Ordering Location: [facility] Received: 08/05/2017 0744 PERIOPERATIVE SERVICES Pathologist: David Hatch MD Specimen: Plaque, right femoral plaque ARTERY, RIGHT FEMORAL, ATHERECTOMY :CALCIFIC ATHEROSCLEROTIC PLAQUE WITH FOCAL RUPTURE AND FIBRIN THROMBOSIS Signing Pathologist Direct Phone Line: [phone] signed by David Hatch MD on 08/11/2017 at 10:54 [id number]; [id number] artery disease right femoral plaqueA. Right femoral plaqueThe specimen is received in saline labeled with the patient's information and labeled "right femoral plaque" and consists of two calcified tubular-shaped segment of tissue measuring 2 and 3 cm in length ranging in diameter from 0.5 to 0.6 cm. Valve Seater Operator sections are submitted A1 for decalcification. CG/pl PerformedPOCT-GLUCOSE [id number] 12 :01:00 Test Item Value Reference Range Comments POC-GLUCOSE METER (BEAKER) 269 mg/dL 70-[address] [facility] [address] [facility] (test foig=7411) [facility] [address] POCT-GLUCOSE [id number] 08:40:00 Test Item Value Reference Range Comments POC-GLUCOSE METER (BEAKER) 246 mg/dL 70-110 TESTED AT [place] [id number] [facility] (test lhuh=8230) [place] [id number] BASIC METABOLIC [id number] 05:18:00 Test Item Value Reference Range Comments SODIUM (BEAKER) (test 136 meq/L 136-145 cuts=150) POTASSIUM (BEAKER) (test 4.5 meq/L 3.5-5.1 Specimen moderately hgjf=268) hemolyzed CHLORIDE (BEAKER) (test 107 meq/L 98-107 cspn=889) CO2 (BEAKER) (test 20 meq/L 22-29 nwhc=933) BLOOD UREA NITROGEN 12 mg/dL 7-21 (BEAKER) (test pvag=609) CREATININE (BEAKER) (test 0.67 mg/dL 0.57-1.25 Specimen moderately lshy=064) hemolyzed GLUCOSE RANDOM (BEAKER) 214 mg/dL 70-105 (test scgr=160) CALCIUM (BEAKER) (test 10.3 mg/dL 8.4-10.2 srtk=445) EGFR (BEAKER) (test mL/min/1.73 sq m INSUFFICIENT CLINICAL DATA stop=4408) TO CALCULATE ESTIMATED GFR. CBC W/PLT COUNT & AUTO [id number] 05:03:00 Test Item Value Reference Range Comments WHITE BLOOD CELL COUNT (BEAKER) (test awma=049) 10.8 K/ L 3.5-10.5 RED BLOOD CELL COUNT (BEAKER) (test aiir=990) 4.36 M/ L 3.93-5.22 HEMOGLOBIN (BEAKER) (test eotq=331) 13.1 GM/DL 11.2-15.7 HEMATOCRIT (BEAKER) (test edyw=184) 41.8 % 34.1-44.9 MEAN CORPUSCULAR VOLUME (BEAKER) (test fnha=188) 95.9 fL 79.4-94.8 MEAN CORPUSCULAR HEMOGLOBIN (BEAKER) (test 30.0 pg 25.6-32.2 frku=949) MEAN CORPUSCULAR HEMOGLOBIN CONC (BEAKER) (test 31.3 GM/DL 32.2-35.5 fplt=855) RED CELL DISTRIBUTION WIDTH (BEAKER) (test 13.5 % 11.7-14.4 rsvd=251) PLATELET COUNT (BEAKER) (test ibxf=471) 218 K/CU MM 150-450 MEAN PLATELET VOLUME (BEAKER) (test erht=295) 10.1 fL 9.4-12.3 NUCLEATED RED BLOOD CELLS (BEAKER) (test 0 /100 WBC 0-0 ugwl=602) NEUTROPHILS RELATIVE PERCENT (BEAKER) (test 52 % knha=782) LYMPHOCYTES RELATIVE PERCENT (BEAKER) (test 34 % vzkq=551) MONOCYTES RELATIVE PERCENT (BEAKER) (test 8 % obbd=584) EOSINOPHILS RELATIVE PERCENT (BEAKER) (test 5 % vhoy=800) BASOPHILS RELATIVE PERCENT (BEAKER) (test 1 % ckny=603) NEUTROPHILS ABSOLUTE COUNT (BEAKER) (test 5.61 K/ L 1.56-6.13 iyms=137) LYMPHOCYTES ABSOLUTE COUNT (BEAKER) (test 3.66 K/ L 1.18-3.74 fkun=238) MONOCYTES ABSOLUTE COUNT (BEAKER) (test 0.82 K/ L 0.24-0.36 vnci=559) EOSINOPHILS ABSOLUTE COUNT (BEAKER) (test 0.56 K/ L 0.04-0.36 jwco=359) BASOPHILS ABSOLUTE COUNT (BEAKER) (test 0.07 K/ L 0.01-0.08 wemf=305) IMMATURE GRANULOCYTES-RELATIVE PERCENT (BEAKER) 0 % 0-1 (test bjue=8318) POCT-GLUCOSE [id number] 22:46:00 Test Item Value Reference Range Comments POC-GLUCOSE METER (BEAKER) 354 mg/dL 70-110 Patient on insulin Drip/TESTED (test tbcv=4798) AT [facility] [address] [facility] [address] POCT-GLUCOSE [id number] 18:28:00 Test Item Value Reference Range Comments POC-GLUCOSE METER (BEAKER) 263 mg/dL 70-[address] [facility] [address] [facility] (test msoj=9935) [facility] [address] POCT-GLUCOSE [id number] 12:03:00 Test Item Value Reference Range Comments POC-GLUCOSE METER (BEAKER) 336 mg/dL 70-110 TESTED AT [address] (test plgu=6543) [facility] [address] POCT-GLUCOSE [id number] 07:59:00 Test Item Value Reference Range Comments POC-GLUCOSE METER (BEAKER) 250 mg/dL 70-110 TESTED AT [address] (test jzkx=7678) [facility] [address] BASIC METABOLIC [id number] 06:17:00 Test Item Value Reference Range Comments SODIUM (BEAKER) (test 138 meq/L 136-145 vjbc=398) POTASSIUM (BEAKER) (test 3.7 meq/L 3.5-5.1 weuw=788) CHLORIDE (BEAKER) (test 104 meq/L 98-107 styx=382) CO2 (BEAKER) (test 25 meq/L 22-29 fepl=481) BLOOD UREA NITROGEN 11 mg/dL 7-21 (BEAKER) (test cxkx=686) CREATININE (BEAKER) (test 0.77 mg/dL 0.57-1.25 npen=299) GLUCOSE RANDOM (BEAKER) 236 mg/dL 70-105 (test aukm=838) CALCIUM (BEAKER) (test 10.3 mg/dL 8.4-10.2 njca=881) EGFR (BEAKER) (test mL/min/1.73 sq m INSUFFICIENT CLINICAL DATA fnho=6702) TO CALCULATE ESTIMATED GFR. CBC W/PLT COUNT & AUTO [id number] 05:34:00 Test Item Value Reference Range Comments WHITE BLOOD CELL COUNT (BEAKER) (test mkry=629) 12.0 K/ L 3.5-10.5 RED BLOOD CELL COUNT (BEAKER) (test hpdf=308) 4.27 M/ L 3.93-5.22 HEMOGLOBIN (BEAKER) (test wopt=630) 12.8 GM/DL 11.2-15.7 HEMATOCRIT (BEAKER) (test mtcg=998) 39.3 % 34.1-44.9 MEAN CORPUSCULAR VOLUME (BEAKER) (test bqgb=749) 92.0 fL 79.4-94.8 MEAN CORPUSCULAR HEMOGLOBIN (BEAKER) (test 30.0 pg 25.6-32.2 seuv=924) MEAN CORPUSCULAR HEMOGLOBIN CONC (BEAKER) (test 32.6 GM/DL 32.2-35.5 fgvk=713) RED CELL DISTRIBUTION WIDTH (BEAKER) (test 13.7 % 11.7-14.4 acaa=649) PLATELET COUNT (BEAKER) (test nrvv=410) 261 K/CU MM 150-450 MEAN PLATELET VOLUME (BEAKER) (test tbax=700) 10.2 fL 9.4-12.3 NUCLEATED RED BLOOD CELLS (BEAKER) (test 0 /100 WBC 0-0 gcnb=842) NEUTROPHILS RELATIVE PERCENT (BEAKER) (test 60 % zupn=076) LYMPHOCYTES RELATIVE PERCENT (BEAKER) (test 29 % zrun=849) MONOCYTES RELATIVE PERCENT (BEAKER) (test 7 % ytbd=292) EOSINOPHILS RELATIVE PERCENT (BEAKER) (test 3 % zalc=313) BASOPHILS RELATIVE PERCENT (BEAKER) (test 1 % dwar=810) NEUTROPHILS ABSOLUTE COUNT (BEAKER) (test 7.21 K/ L 1.56-6.13 numa=692) LYMPHOCYTES ABSOLUTE COUNT (BEAKER) (test 3.48 K/ L 1.18-3.74 bmgq=814) MONOCYTES ABSOLUTE COUNT (BEAKER) (test 0.81 K/ L 0.24-0.36 qkpi=567) EOSINOPHILS ABSOLUTE COUNT (BEAKER) (test 0.35 K/ L 0.04-0.36 hnva=291) BASOPHILS ABSOLUTE COUNT (BEAKER) (test 0.07 K/ L 0.01-0.08 yqxp=291) IMMATURE GRANULOCYTES-RELATIVE PERCENT (BEAKER) 0 % 0-1 (test fgnx=8637) POCT-GLUCOSE [id number] 21:23:00 Test Item Value Reference Range Comments POC-GLUCOSE METER (BEAKER) 337 mg/dL 70-110 Will Repeat Test/TESTED AT (test ibyy=6675) [facility] [address] [facility] [address] POCT-GLUCOSE [id number] 17:30:00 Test Item Value Reference Range Comments POC-GLUCOSE METER (BEAKER) 251 mg/dL 70-[address] [facility] [address] [facility] (test oiou=5069) [place] [address] POCT-GLUCOSE [id number] 13:38:00 Test Item Value Reference Range Comments POC-GLUCOSE METER (BEAKER) 251 mg/dL 70-110 TESTED AT [address] (test banr=9151) [place] [id number] 06:02:00 Test Item Value Reference Range Comments ACTIVATED CLOTTING TIME 268 sec TESTED AT [address] (BEAKER) (test rakc=910) [place] [address] BASIC METABOLIC [id number] 05:39:00 Test Item Value Reference Range Comments SODIUM (BEAKER) (test 137 meq/L 136-145 slik=379) POTASSIUM (BEAKER) (test 4.2 meq/L 3.5-5.1 ixnh=948) CHLORIDE (BEAKER) (test 106 meq/L 98-107 ylwe=502) CO2 (BEAKER) (test 22 meq/L 22-29 olvp=253) BLOOD UREA NITROGEN 7 mg/dL 7-21 (BEAKER) (test srpy=525) CREATININE (BEAKER) (test 0.65 mg/dL 0.57-1.25 nbia=409) GLUCOSE RANDOM (BEAKER) 216 mg/dL 70-105 (test cbth=358) CALCIUM (BEAKER) (test 9.7 mg/dL 8.4-10.2 zygl=462) EGFR (BEAKER) (test mL/min/1.73 sq m INSUFFICIENT CLINICAL DATA kmzk=7307) TO CALCULATE ESTIMATED GFR. [id number] 05:29:00 Test Item Value Reference Range Comments MAGNESIUM (BEAKER) (test fdnq=743) 2.3 mg/dL 1.6-2.6 CBC W/PLT COUNT & AUTO [id number] 05:26:00 Test Item Value Reference Range Comments WHITE BLOOD CELL COUNT (BEAKER) (test wqow=468) 13.6 K/ L 3.5-10.5 RED BLOOD CELL COUNT (BEAKER) (test sbgt=615) 4.25 M/ L 3.93-5.22 HEMOGLOBIN (BEAKER) (test hgau=380) 12.8 GM/DL 11.2-15.7 HEMATOCRIT (BEAKER) (test aizl=946) 38.1 % 34.1-44.9 MEAN CORPUSCULAR VOLUME (BEAKER) (test twuc=275) 89.6 fL 79.4-94.8 MEAN CORPUSCULAR HEMOGLOBIN (BEAKER) (test 30.1 pg 25.6-32.2 mdrv=931) MEAN CORPUSCULAR HEMOGLOBIN CONC (BEAKER) (test 33.6 GM/DL 32.2-35.5 rkfu=208) RED CELL DISTRIBUTION WIDTH (BEAKER) (test 13.6 % 11.7-14.4 oqon=258) PLATELET COUNT (BEAKER) (test ucnj=834) 271 K/CU MM 150-450 MEAN PLATELET VOLUME (BEAKER) (test buxk=760) 9.9 fL 9.4-12.3 NUCLEATED RED BLOOD CELLS (BEAKER) (test 0 /100 WBC 0-0 tmvl=767) NEUTROPHILS RELATIVE PERCENT (BEAKER) (test 73 % tkdt=027) LYMPHOCYTES RELATIVE PERCENT (BEAKER) (test 20 % xynp=954) MONOCYTES RELATIVE PERCENT (BEAKER) (test 7 % khjf=532) EOSINOPHILS RELATIVE PERCENT (BEAKER) (test 0 % cesj=468) BASOPHILS RELATIVE PERCENT (BEAKER) (test 0 % iwln=329) NEUTROPHILS ABSOLUTE COUNT (BEAKER) (test 9.90 K/ L 1.56-6.13 ipou=053) LYMPHOCYTES ABSOLUTE COUNT (BEAKER) (test 2.69 K/ L 1.18-3.74 gpid=884) MONOCYTES ABSOLUTE COUNT (BEAKER) (test 0.88 K/ L 0.24-0.36 odup=887) EOSINOPHILS ABSOLUTE COUNT (BEAKER) (test 0.03 K/ L 0.04-0.36 rawp=300) BASOPHILS ABSOLUTE COUNT (BEAKER) (test 0.06 K/ L 0.01-0.08 clgb=085) IMMATURE GRANULOCYTES-RELATIVE PERCENT (BEAKER) 1 % 0-1 (test msqp=0972) CALCIUM, [id number] 05:02:00 Test Item Value Reference Range Comments CALCIUM IONIZED (BEAKER) (test pvmn=342) 1.30 mmol/L 1.12-1.27 PH, BLOOD (BEAKER) (test qvzc=3052) 7.43 [id number] 18:43:00 Test Item Value Reference Range Comments PHOSPHORUS (BEAKER) (test gibt=216) 2.7 mg/dL 2.3-4.7 [id number] 18:43:00 Test Item Value Reference Range Comments MAGNESIUM (BEAKER) (test xfmr=691) 1.5 mg/dL 1.6-2.6 LACTIC ACID, ARTERIAL, WHOLE [id number] 18:40:00 Test Item Value Reference Range Comments LACTATE BLOOD ARTERIAL (2) 1.0 mmol/L 0.5-2.2 Specimen slightly hemolyzed (BEAKER) (test wlkf=3252) Effective 02/28/2016: Units/Reference Range ChangeNew: 0.5-2.2 mmol/L Previous: 5 -20 mg/dLCBC W/PLT COUNT & AUTO [id number] 18:31:00 Test Item Value Reference Range Comments WHITE BLOOD CELL COUNT (BEAKER) (test lfdy=058) 19.6 K/ L 3.5-10.5 RED BLOOD CELL COUNT (BEAKER) (test uowp=722) 4.16 M/ L 3.93-5.22 HEMOGLOBIN (BEAKER) (test eehm=572) 12.4 GM/DL 11.2-15.7 HEMATOCRIT (BEAKER) (test yuyw=793) 37.2 % 34.1-44.9 MEAN CORPUSCULAR VOLUME (BEAKER) (test xzdb=797) 89.4 fL 79.4-94.8 MEAN CORPUSCULAR HEMOGLOBIN (BEAKER) (test 29.8 pg 25.6-32.2 wfks=488) MEAN CORPUSCULAR HEMOGLOBIN CONC (BEAKER) (test 33.3 GM/DL 32.2-35.5 ufzh=670) RED CELL DISTRIBUTION WIDTH (BEAKER) (test 13.4 % 11.7-14.4 mogs=266) PLATELET COUNT (BEAKER) (test kfee=597) 239 K/CU MM 150-450 MEAN PLATELET VOLUME (BEAKER) (test divt=594) 10.4 fL 9.4-12.3 NUCLEATED RED BLOOD CELLS (BEAKER) (test 0 /100 WBC 0-0 juil=451) NEUTROPHILS RELATIVE PERCENT (BEAKER) (test 88 % giqm=043) LYMPHOCYTES RELATIVE PERCENT (BEAKER) (test 9 % iyhm=576) MONOCYTES RELATIVE PERCENT (BEAKER) (test 1 % msgw=047) EOSINOPHILS RELATIVE PERCENT (BEAKER) (test 1 % rlxw=393) BASOPHILS RELATIVE PERCENT (BEAKER) (test 1 % yopm=231) NEUTROPHILS ABSOLUTE COUNT (BEAKER) (test 17.26 K/ L 1.56-6.13 cjxz=571) LYMPHOCYTES ABSOLUTE COUNT (BEAKER) (test 1.66 K/ L 1.18-3.74 xfqv=473) MONOCYTES ABSOLUTE COUNT (BEAKER) (test 0.25 K/ L 0.24-0.36 xtux=425) EOSINOPHILS ABSOLUTE COUNT (BEAKER) (test 0.13 K/ L 0.04-0.36 pexb=875) BASOPHILS ABSOLUTE COUNT (BEAKER) (test 0.09 K/ L 0.01-0.08 ndwg=146) IMMATURE GRANULOCYTES-RELATIVE PERCENT (BEAKER) 1 % 0-1 (test ltvq=0988) FILTER IONIZED [id number] 18:25:00 Test Item Value Reference Range Comments FILTER IONIZED CALCIUM (BEAKER) (test umue=1363) 1.24 nnol/L Reference Range: No NormalsBLOOD GAS, [id number] 18:24:00 Test Item Value Reference Range Comments PH ARTERIAL (BEAKER) (test bzgr=204) 7.37 7.35-7.45 PCO2 ARTERIAL (BEAKER) (test jniv=481) 42 mmHg 35-45 PO2 ARTERIAL (BEAKER) (test ryqr=823) 154 mmHg 80-90 O2 SATURATION ARTERIAL (BEAKER) (test kolr=520) 98.9 % 96.0-97.0 HCO3 ARTERIAL (BEAKER) (test rbfv=534) 24 mmol/L 21-29 BASE EXCESS ARTERIAL (BEAKER) (test wmod=333) -1.4 mmol/L -2.0-3.0 PATIENT TEMPERATURE (BEAKER) (test fbzf=3057) 37.0 C FIO2 (BEAKER) (test kjte=0149) 100.0 % [id number] 17:01:00 Test Item Value Reference Range Comments ACTIVATED CLOTTING TIME [address] [facility] [address] [facility] (BEAKER) (test qgwh=216) [place] [address] SODIUM NA-STAT [id number] 16:06:00 Test Item Value Reference Range Comments SODIUM (BEAKER) (test ikcc=508) 138 meq/L 135-148 HGB/HCT (H&H) - STAT [id number] 16:06:00 Test Item Value Reference Range Comments HEMOGLOBIN (BEAKER) (test izri=984) 13.3 g/dL 12.0-15.0 HEMATOCRIT (BEAKER) (test oryr=049) 39.0 % 36.0-45.0 BLOOD GAS, [id number] 16:06:00 Test Item Value Reference Range Comments PH ARTERIAL (BEAKER) (test krmn=729) 7.31 7.35-7.45 PCO2 ARTERIAL (BEAKER) (test oeze=980) 45 mmHg 35-45 PO2 ARTERIAL (BEAKER) (test fhes=144) 88 mmHg 80-90 O2 SATURATION ARTERIAL (BEAKER) (test dksf=742) 96.0 % 96.0-97.0 HCO3 ARTERIAL (BEAKER) (test yvzh=371) 22 mmol/L 21-29 BASE EXCESS ARTERIAL (BEAKER) (test awqt=811) -3.9 mmol/L -2.0-3.0 PATIENT TEMPERATURE (BEAKER) (test lzhn=0755) 36.9 C FIO2 (BEAKER) (test zawl=1696) 50.0 % POTASSIUM-STAT [id number] 16:06:00 Test Item Value Reference Range Comments POTASSIUM (BEAKER) (test ncng=936) 3.3 meq/L 3.6-5.5 GLUCOSE-STAT [id number] 16:06:00 Test Item Value Reference Range Comments GLUCOSE RANDOM (BEAKER) (test peys=907) 198 mg/dL 70-110 BLOOD GAS, [id number] 14:03:00 Test Item Value Reference Range Comments PH ARTERIAL (BEAKER) (test hixf=526) 7.43 7.35-7.45 PCO2 ARTERIAL (BEAKER) (test twae=099) 36 mmHg 35-45 PO2 ARTERIAL (BEAKER) (test bham=174) 81 mmHg 80-90 O2 SATURATION ARTERIAL (BEAKER) (test jaan=323) 96.7 % 96.0-97.0 HCO3 ARTERIAL (BEAKER) (test koex=643) 24 mmol/L 21-29 BASE EXCESS ARTERIAL (BEAKER) (test jimt=192) -0.4 mmol/L -2.0-3.0 PATIENT TEMPERATURE (BEAKER) (test laxo=8239) 36.0 C FIO2 (BEAKER) (test hupu=6740) 50.0 % SODIUM NA-STAT [id number] 14:03:00 Test Item Value Reference Range Comments SODIUM (BEAKER) (test psxf=604) 136 meq/L 135-148 HGB/HCT (H&H) - STAT [id number] 14:03:00 Test Item Value Reference Range Comments HEMOGLOBIN (BEAKER) (test wmfl=983) 13.0 g/dL 12.0-15.0 HEMATOCRIT (BEAKER) (test sciw=365) 38.0 % 36.0-45.0 POTASSIUM-STAT [id number] 14:03:00 Test Item Value Reference Range Comments POTASSIUM (BEAKER) (test pwka=292) 3.3 meq/L 3.6-5.5 GLUCOSE-STAT [id number] 14:03:00 Test Item Value Reference Range Comments GLUCOSE RANDOM (BEAKER) (test zgzz=572) 124 mg/dL 70-110 SCREEN, [id number] 10:24:00 Test Item Value Reference Range Comments TEST URINE (BEAKER) (test lvvg=705) Negative POCT-GLUCOSE [id number] 08:32:00 Test Item Value Reference Range Comments POC-GLUCOSE METER (BEAKER) 181 mg/dL 70-[address] [facility] [address] [facility] (test ided=0749) [place] [address] [id number] 07:59:00 Test Item Value Reference Range Comments PARTIAL THROMBOPLASTIN TIME (BEAKER) (test 86.0 seconds 22.5-36.0 zahg=418) CBC (HEMOGRAM ONLY)2017-08-04 05:27:00 Test Item Value Reference Range Comments WHITE BLOOD CELL COUNT (BEAKER) (test oiia=258) 9.3 K/ L 3.5-10.5 RED BLOOD CELL COUNT (BEAKER) (test nhbu=808) 4.17 M/ L 3.93-5.22 HEMOGLOBIN (BEAKER) (test zeqr=785) 12.5 GM/DL 11.2-15.7 HEMATOCRIT (BEAKER) (test kdzo=198) 37.4 % 34.1-44.9 MEAN CORPUSCULAR VOLUME (BEAKER) (test lzgo=024) 89.7 fL 79.4-94.8 MEAN CORPUSCULAR HEMOGLOBIN (BEAKER) (test 30.0 pg 25.6-32.2 pxrz=329) MEAN CORPUSCULAR HEMOGLOBIN CONC (BEAKER) (test 33.4 GM/DL 32.2-35.5 jwzu=902) RED CELL DISTRIBUTION WIDTH (BEAKER) (test 13.3 % 11.7-14.4 pcnp=248) PLATELET COUNT (BEAKER) (test cxas=129) 256 K/CU MM 150-450 MEAN PLATELET VOLUME (BEAKER) (test wbjo=528) 10.3 fL 9.4-12.3 NUCLEATED RED BLOOD CELLS (BEAKER) (test 0 /100 WBC 0-0 ybok=249) POCT-GLUCOSE [id number] 21:35:00 Test Item Value Reference Range Comments POC-GLUCOSE METER (BEAKER) 258 mg/dL 70-110 TESTED AT [address] (test wfmi=0029) [place] [address] [id number] 20:55:00 Test Item Value Reference Range Comments PARTIAL THROMBOPLASTIN TIME (BEAKER) (test 92.0 seconds 22.5-36.0 ywzh=689) POCT-GLUCOSE [id number] 17:16:00 Test Item Value Reference Range Comments POC-GLUCOSE METER (BEAKER) 234 mg/dL 70-110 TESTED AT [address] (test iuim=1428) [place] [address] [id number] 14:51:00 Test Item Value Reference Range Comments PARTIAL THROMBOPLASTIN TIME (BEAKER) (test 88.9 seconds 22.5-36.0 qqjc=954) POCT-GLUCOSE [id number] 12:10:00 Test Item Value Reference Range Comments POC-GLUCOSE METER (BEAKER) 288 mg/dL 70-110 TESTED AT [address] (test duou=5868) [place] [address] POCT-GLUCOSE [id number] 07:55:00 Test Item Value Reference Range Comments POC-GLUCOSE METER (BEAKER) 183 mg/dL 70-110 TESTED AT [address] (test bqve=3489) [facility] [address] [id number] 06:32:00 Test Item Value Reference Range Comments PARTIAL THROMBOPLASTIN TIME (BEAKER) (test 63.8 seconds 22.5-36.0 fpbj=214) CBC (HEMOGRAM ONLY)2017-08-03 06:24:00 Test Item Value Reference Range Comments WHITE BLOOD CELL COUNT (BEAKER) (test heox=017) 8.6 K/ L 3.5-10.5 RED BLOOD CELL COUNT (BEAKER) (test ruqj=764) 4.24 M/ L 3.93-5.22 HEMOGLOBIN (BEAKER) (test wprq=478) 12.6 GM/DL 11.2-15.7 HEMATOCRIT (BEAKER) (test dtjj=861) 37.9 % 34.1-44.9 MEAN CORPUSCULAR VOLUME (BEAKER) (test qtpj=291) 89.4 fL 79.4-94.8 MEAN CORPUSCULAR HEMOGLOBIN (BEAKER) (test 29.7 pg 25.6-32.2 smri=744) MEAN CORPUSCULAR HEMOGLOBIN CONC (BEAKER) (test 33.2 GM/DL 32.2-35.5 evuj=723) RED CELL DISTRIBUTION WIDTH (BEAKER) (test 13.3 % 11.7-14.4 fwuv=990) PLATELET COUNT (BEAKER) (test vhql=216) 251 K/CU MM 150-450 MEAN PLATELET VOLUME (BEAKER) (test wifi=453) 10.6 fL 9.4-12.3 NUCLEATED RED BLOOD CELLS (BEAKER) (test 0 /100 WBC 0-0 pejc=103) [id number] 21:20:00 Test Item Value Reference Range Comments PARTIAL THROMBOPLASTIN TIME (BEAKER) (test 81.9 seconds 22.5-36.0 vbtn=055) POCT-GLUCOSE [id number] 16:52:00 Test Item Value Reference Range Comments POC-GLUCOSE METER (BEAKER) 190 mg/dL 70-110 TESTED AT [address] (test gxqm=9118) [facility] [address] [id number] 15:15:00 Test Item Value Reference Range Comments PARTIAL THROMBOPLASTIN TIME (BEAKER) (test 82.6 seconds 22.5-36.0 ndsd=619) POCT-GLUCOSE [id number] 11:17:00 Test Item Value Reference Range Comments POC-GLUCOSE METER (BEAKER) 293 mg/dL 70-110 TESTED AT [address] (test xykh=0649) [facility] [address] POCT-GLUCOSE [id number] 07:43:00 Test Item Value Reference Range Comments POC-GLUCOSE METER (BEAKER) 188 mg/dL 70-110 TESTED AT [address] (test veqo=7240) [facility] [address] [id number] 05:56:00 Test Item Value Reference Range Comments PARTIAL THROMBOPLASTIN TIME (BEAKER) (test 91.1 seconds 22.5-36.0 woqf=864) CBC (HEMOGRAM ONLY)2017-08-02 05:39:00 Test Item Value Reference Range Comments WHITE BLOOD CELL COUNT (BEAKER) (test edqu=449) 8.7 K/ L 3.5-10.5 RED BLOOD CELL COUNT (BEAKER) (test vzis=787) 4.40 M/ L 3.93-5.22 HEMOGLOBIN (BEAKER) (test movc=717) 13.1 GM/DL 11.2-15.7 HEMATOCRIT (BEAKER) (test oosh=963) 39.3 % 34.1-44.9 MEAN CORPUSCULAR VOLUME (BEAKER) (test blrl=974) 89.3 fL 79.4-94.8 MEAN CORPUSCULAR HEMOGLOBIN (BEAKER) (test 29.8 pg 25.6-32.2 yykw=328) MEAN CORPUSCULAR HEMOGLOBIN CONC (BEAKER) (test 33.3 GM/DL 32.2-35.5 kmgb=576) RED CELL DISTRIBUTION WIDTH (BEAKER) (test 13.2 % 11.7-14.4 mopk=360) PLATELET COUNT (BEAKER) (test shqa=489) 251 K/CU MM 150-450 MEAN PLATELET VOLUME (BEAKER) (test umza=232) 10.2 fL 9.4-12.3 NUCLEATED RED BLOOD CELLS (BEAKER) (test 0 /100 WBC 0-0 uokj=237) POCT-GLUCOSE [id number] 22:52:00 Test Item Value Reference Range Comments POC-GLUCOSE METER (BEAKER) 200 mg/dL 70-110 TESTED AT [address] (test hgaq=5582) [facility] [address] [id number] 21:07:00 Test Item Value Reference Range Comments PARTIAL THROMBOPLASTIN TIME (BEAKER) (test 76.5 seconds 22.5-36.0 xmzs=621) POCT-GLUCOSE [id number] 17:03:00 Test Item Value Reference Range Comments POC-GLUCOSE METER (BEAKER) 182 mg/dL 70-110 TESTED AT [address] (test jqgo=9546) [place] [address] [id number] 14:07:00 Test Item Value Reference Range Comments PARTIAL THROMBOPLASTIN TIME (BEAKER) (test 80.7 seconds 22.5-36.0 gjwx=294) POCT-GLUCOSE [id number] 12:01:00 Test Item Value Reference Range Comments POC-GLUCOSE METER (BEAKER) 209 mg/dL 70-110 TESTED AT [address] (test xyjz=2787) [place] [id number] POCT-GLUCOSE [id number] 08:26:00 Test Item Value Reference Range Comments POC-GLUCOSE METER (BEAKER) 171 mg/dL 70-110 TESTED AT [address] (test wuju=8268) [place] [id number] 06:21:00 Test Item Value Reference Range Comments PARTIAL THROMBOPLASTIN TIME (BEAKER) (test 101.5 seconds 22.5-36.0 ybuv=834) CBC (HEMOGRAM ONLY)2017-08-01 06:17:00 Test Item Value Reference Range Comments WHITE BLOOD CELL COUNT (BEAKER) (test buya=719) 8.0 K/ L 3.5-10.5 RED BLOOD CELL COUNT (BEAKER) (test ukgz=558) 4.57 M/ L 3.93-5.22 HEMOGLOBIN (BEAKER) (test tcqr=762) 13.4 GM/DL 11.2-15.7 HEMATOCRIT (BEAKER) (test vztj=306) 40.8 % 34.1-44.9 MEAN CORPUSCULAR VOLUME (BEAKER) (test zlbb=030) 89.3 fL 79.4-94.8 MEAN CORPUSCULAR HEMOGLOBIN (BEAKER) (test 29.3 pg 25.6-32.2 cmpd=863) MEAN CORPUSCULAR HEMOGLOBIN CONC (BEAKER) (test 32.8 GM/DL 32.2-35.5 ypov=856) RED CELL DISTRIBUTION WIDTH (BEAKER) (test 13.1 % 11.7-14.4 rshw=689) PLATELET COUNT (BEAKER) (test ccgn=976) 229 K/CU MM 150-450 MEAN PLATELET VOLUME (BEAKER) (test wwhg=479) 10.3 fL 9.4-12.3 NUCLEATED RED BLOOD CELLS (BEAKER) (test 0 /100 WBC 0-0 ljwm=604) [id number] 20:55:00 Test Item Value Reference Range Comments PARTIAL THROMBOPLASTIN TIME (BEAKER) (test 63.8 seconds 22.5-36.0 gdmf=581) POCT-GLUCOSE [id number] 20:43:00 Test Item Value Reference Range Comments POC-GLUCOSE METER (BEAKER) 289 mg/dL 70-110 TESTED AT [address] (test uwpj=0485) [place] [id number] POCT-GLUCOSE [id number] 17:29:00 Test Item Value Reference Range Comments POC-GLUCOSE METER (BEAKER) 225 mg/dL 70-110 TESTED AT [address] (test gkve=0460) [place] [id number] POCT-GLUCOSE [id number] 12:52:00 Test Item Value Reference Range Comments POC-GLUCOSE METER (BEAKER) 187 mg/dL 70-110 TESTED AT [address] (test ailc=9819) [place] [id number] 12:47:00 Test Item Value Reference Range Comments PARTIAL THROMBOPLASTIN TIME (BEAKER) (test 93.3 seconds 22.5-36.0 iaje=574) POCT-GLUCOSE [id number] 08:01:00 Test Item Value Reference Range Comments POC-GLUCOSE METER (BEAKER) 167 mg/dL 70-110 TESTED AT [address] (test keka=6854) [facility] [address] [id number] 04:38:00 Test Item Value Reference Range Comments PROTIME (BEAKER) (test mkkz=981) 13.5 seconds 11.7-14.7 INR (BEAKER) (test zkao=108) 1.0 <=5.9 PARTIAL THROMBOPLASTIN TIME (BEAKER) (test 84.1 seconds 22.5-36.0 hkco=320) RECOMMENDED COUMADIN/WARFARIN INR THERAPY RANGESSTANDARD DOSE: 2.0 - 3.0 Includes: PROPHYLAXIS forvenous thrombosis, systemic embolization; TREATMENT for venous thrombosis and/or pulmonary embolus.HIGH RISK: Target INR is 2.5-3.5 for patients with mechanical heart valves...[id number] 04:38:00 Test Item Value Reference Range Comments PARTIAL THROMBOPLASTIN TIME (BEAKER) (test 84.1 seconds 22.5-36.0 rens=056) CBC (HEMOGRAM ONLY)2017-07-31 04:35:00 Test Item Value Reference Range Comments WHITE BLOOD CELL COUNT (BEAKER) (test cyne=092) 8.1 K/ L 3.5-10.5 RED BLOOD CELL COUNT (BEAKER) (test yvps=836) 4.11 M/ L 3.93-5.22 HEMOGLOBIN (BEAKER) (test grtw=874) 12.4 GM/DL 11.2-15.7 HEMATOCRIT (BEAKER) (test asje=841) 37.0 % 34.1-44.9 MEAN CORPUSCULAR VOLUME (BEAKER) (test lohp=700) 90.0 fL 79.4-94.8 MEAN CORPUSCULAR HEMOGLOBIN (BEAKER) (test 30.2 pg 25.6-32.2 enhs=225) MEAN CORPUSCULAR HEMOGLOBIN CONC (BEAKER) (test 33.5 GM/DL 32.2-35.5 fnee=390) RED CELL DISTRIBUTION WIDTH (BEAKER) (test 13.0 % 11.7-14.4 ltos=452) PLATELET COUNT (BEAKER) (test wppe=134) 201 K/CU MM 150-450 MEAN PLATELET VOLUME (BEAKER) (test mlwu=650) 9.8 fL 9.4-12.3 NUCLEATED RED BLOOD CELLS (BEAKER) (test 0 /100 WBC 0-0 pzlq=153) POCT-GLUCOSE [id number] 22:25:00 Test Item Value Reference Range Comments POC-GLUCOSE METER (BEAKER) 235 mg/dL 70-110 TESTED AT [place] [id number] [facility] (test ofxm=2938) [facility] [address] [id number] 20:45:00 Test Item Value Reference Range Comments PARTIAL THROMBOPLASTIN TIME (BEAKER) (test 66.3 seconds 22.5-36.0 tkhi=963) POCT-GLUCOSE [id number] 17:25:00 Test Item Value Reference Range Comments POC-GLUCOSE METER (BEAKER) 208 mg/dL 70-[address] [facility] [address] (test kjeu=6657) [facility] [address] [employer] IMAGING, MULTI, PHARM, [id number] 13:46:00FINAL REPORT PROCEDURE: Rest/Stress MYOCARDIAL PERFUSION SPECT with regadenoson\\XA9\\ CPT CODE: 62438 INDICATION: Intermediate CAD Risk HISTORY: Cardiac risk [...] Normal extracardiac tracer distribution. 6. No previous [facility] study for comparison. NONINVASIVE RISK STRATIFICATION: The above findings are considered low risk (<1% annual mortality rate) based on the following criterion:- Normal or small myocardial perfusion defect at rest or with stress(JACC. 2012;59(9):359-81.) Signed: Hector Dixon Verified Date/Time: 07/30/2017 13:46:52 Reading Location: [address] Reading Room [id number] 13:35:00 Test Item Value Reference Range Comments PARTIAL THROMBOPLASTIN TIME (BEAKER) (test 36.6 seconds 22.5-36.0 yaml=200) POCT-GLUCOSE [id number] 12:55:00 Test Item Value Reference Range Comments POC-GLUCOSE METER (BEAKER) 146 mg/dL 70-[address] [facility] [address] [facility] (test bwxc=9337) [facility] [address] HEMOGLOBIN [id number] 09:09:00 Test Item Value Reference Range Comments HEMOGLOBIN A1C (BEAKER) (test jofw=239) 10.3 % 4.3-6.1 [id number] 07:35:00 Test Item Value Reference Range Comments PARTIAL THROMBOPLASTIN TIME (BEAKER) (test 138.7 seconds 22.5-36.0 zeao=885) TSH/FREE T4 IF [id number] 07:09:00 Test Item Value Reference Range Comments THYROID STIMULATING HORMONE (BEAKER) (test 2.22 uIU/mL 0.35-4.94 ukms=659) LIPID [id number] 06:17:00 Test Item Value Reference Range Comments TRIGLYCERIDES (BEAKER) (test mykb=608) 181 mg/dL CHOLESTEROL (BEAKER) (test scyt=302) 175 mg/dL HDL CHOLESTEROL (BEAKER) (test luvj=727) 32 mg/dL LDL CHOLESTEROL CALCULATED (BEAKER) (test 107 mg/dL lsbk=565) Triglyceride Reference Range: Low Risk <150 Borderline 150- 199 High Risk 200-499 Very High Risk >=500Cholesterol Reference Range: Low Risk <200 Borderline 200-239 High Risk > 240HDL Cholesterol Reference Range: Low Risk >=60 High Risk <40LDL Cholesterol Reference Range: Optimal <100 Near Optimal 100-129 Borderline 130-159 High 160-189 Very High >=190HEPATIC FUNCTION [id number] 06:17:00 Test Item Value Reference Range Comments TOTAL PROTEIN (BEAKER) (test suji=205) 6.3 gm/dL 6.0-8.3 ALBUMIN (BEAKER) (test hkmr=6326) 3.6 g/dL 3.5-5.0 BILIRUBIN TOTAL (BEAKER) (test wklh=721) 0.3 mg/dL 0.2-1.2 BILIRUBIN DIRECT (BEAKER) (test yrfv=542) 0.1 mg/dL 0.1-0.5 ALKALINE PHOSPHATASE (BEAKER) (test ccdh=473) 84 U/L 40-150 AST (SGOT) (BEAKER) (test bqia=231) 27 U/L 5-34 ALT (SGPT) (BEAKER) (test xule=245) 41 U/L 6-55 [id number] 06:00:00 Test Item Value Reference Range Comments PARTIAL THROMBOPLASTIN TIME (BEAKER) (test 192.6 seconds 22.5-36.0 njtw=449) CBC (HEMOGRAM ONLY)2017-07-30 05:41:00 Test Item Value Reference Range Comments WHITE BLOOD CELL COUNT (BEAKER) (test wigl=924) 8.8 K/ L 3.5-10.5 RED BLOOD CELL COUNT (BEAKER) (test grbt=237) 4.60 M/ L 3.93-5.22 HEMOGLOBIN (BEAKER) (test ennt=718) 13.6 GM/DL 11.2-15.7 HEMATOCRIT (BEAKER) (test sfju=136) 41.1 % 34.1-44.9 MEAN CORPUSCULAR VOLUME (BEAKER) (test vsip=521) 89.3 fL 79.4-94.8 MEAN CORPUSCULAR HEMOGLOBIN (BEAKER) (test 29.6 pg 25.6-32.2 bjej=639) MEAN CORPUSCULAR HEMOGLOBIN CONC (BEAKER) (test 33.1 GM/DL 32.2-35.5 efnk=224) RED CELL DISTRIBUTION WIDTH (BEAKER) (test 13.0 % 11.7-14.4 pzoh=498) PLATELET COUNT (BEAKER) (test ikql=074) 203 K/CU MM 150-450 MEAN PLATELET VOLUME (BEAKER) (test fxoa=896) 10.3 fL 9.4-12.3 NUCLEATED RED BLOOD CELLS (BEAKER) (test 0 /100 WBC 0-0 uant=695) [id number] 23:00:00 Test Item Value Reference Range Comments PARTIAL THROMBOPLASTIN TIME (BEAKER) (test 34.2 seconds 22.5-36.0 pqrs=818) POCT-GLUCOSE [id number] 22:02:00 Test Item Value Reference Range Comments POC-GLUCOSE METER (BEAKER) 89 mg/dL 70-110 TESTED AT [address] (test cmak=7029) [place] [address] [id number] 15:41:00 Test Item Value Reference Range Comments ACTIVATED CLOTTING TIME 158 sec TESTED AT [address] ([facility] (test dlqu=181) [place] [address] [id number] 13:05:00 Test Item Value Reference Range Comments FIBRINOGEN LEVEL (AKER) (test fcjd=312) 430 mg/dl 225-434 Continue for duration of infusion.POCT-GLUCOSE [id number] 12:40:00 Test Item Value Reference Range Comments POC-GLUCOSE METER (BEAKER) 110 mg/dL 70-110 TESTED AT [address] (test ofzq=8330) [place] [address] POCT-GLUCOSE [id number] 08:43:00 Test Item Value Reference Range Comments POC-GLUCOSE METER (BEAKER) 112 mg/dL 70-110 TESTED AT [address] (test hkdi=7275) [place] [address] [id number] 07:06:00 Test Item Value Reference Range Comments PHOSPHORUS (BEAKER) (test moqx=704) 2.3 mg/dL 2.3-4.7 [id number] 07:06:00 Test Item Value Reference Range Comments MAGNESIUM (BEAKER) (test hgcw=723) 1.5 mg/dL 1.6-2.6 [id number] 06:43:00 Test Item Value Reference Range Comments PROTIME (BEAKER) (test ysyz=734) 13.6 seconds 11.7-14.7 INR (BEAKER) (test yjxt=188) 1.1 <=5.9 PARTIAL THROMBOPLASTIN TIME (BEAKER) (test 39.7 seconds 22.5-36.0 cxkp=497) RECOMMENDED COUMADIN/WARFARIN INR THERAPY RANGESSTANDARD DOSE: 2.0 - 3.0 Includes: PROPHYLAXIS forvenous thrombosis, systemic embolization; TREATMENT for venous thrombosis and/or pulmonary embolus.HIGH RISK: Target INR is 2.5-3.5 for patients with mechanical heart valves.Continue for duration of infusion..Continue for duration of infusion..[id number] 06:42:00 Test Item Value Reference Range Comments FIBRINOGEN LEVEL (BEAKER) (test vesp=002) 430 mg/dl 225-434 Continue for duration of infusion..HEMOGLOBIN AND [id number] 06:36:00 Test Item Value Reference Range Comments HEMOGLOBIN (BEAKER) (test fwow=084) 13.0 GM/DL 11.2-15.7 HEMATOCRIT (BEAKER) (test nxsb=662) 39.5 % 34.1-44.9 TROPONIN [id number] 00:59:00 Test Item Value Reference Range Comments TROPONIN I (BEAKER) (test jtzt=396) < ng/mL 0.00-0.03 Troponin I (TnI) levels [...] failure, acidosis, acute neurological disease, and persistent tachyarrhythmia.[id number] 00:39:00 Test Item Value Reference Range Comments FIBRINOGEN LEVEL (BEAKER) (test zukh=130) 430 mg/dl 225-434 Continue for duration of infusion.POCT-GLUCOSE [id number] 22:22:00 Test Item Value Reference Range Comments POC-GLUCOSE METER (BEAKER) 107 mg/dL 70-[address] [facility] [address] [facility] (test qfwm=9794) [facility] [address] BASIC METABOLIC [id number] 21:32:00 Test Item Value Reference Range Comments SODIUM (BEAKER) (test 139 meq/L 136-145 wrnw=139) POTASSIUM (BEAKER) (test 4.0 meq/L 3.5-5.1 xxpy=327) CHLORIDE (BEAKER) (test 107 meq/L 98-107 nhqb=823) CO2 (BEAKER) (test 26 meq/L 22-29 nhjs=617) BLOOD UREA NITROGEN 12 mg/dL 7-21 (BEAKER) (test cwww=734) CREATININE (BEAKER) (test 0.60 mg/dL 0.57-1.25 rkgq=102) GLUCOSE RANDOM (BEAKER) 94 mg/dL 70-105 (test jafs=372) CALCIUM (BEAKER) (test 9.2 mg/dL 8.4-10.2 adxf=698) EGFR (BEAKER) (test mL/min/1.73 sq m INSUFFICIENT CLINICAL DATA emtm=5120) TO CALCULATE ESTIMATED GFR. [id number] 21:10:00 Test Item Value Reference Range Comments PROTIME (BEAKER) (test kipb=720) 14.4 seconds 11.7-14.7 INR (BEAKER) (test crwa=430) 1.1 <=5.9 PARTIAL THROMBOPLASTIN TIME (BEAKER) (test > seconds 22.5-36.0 bvsn=484) RECOMMENDED COUMADIN/WARFARIN INR THERAPY RANGESSTANDARD DOSE: 2.0 - 3.0 Includes: PROPHYLAXIS forvenous thrombosis, systemic embolization; TREATMENT for venous thrombosis and/or pulmonary embolus.HIGH RISK: Target INR is 2.5-3.5 for patients with mechanical heart valves.Obtain lab prior to starting thrombolytic infusion.Obtain lab prior to starting thrombolytic infusion.[id number] 20:55:00 Test Item Value Reference Range Comments FIBRINOGEN LEVEL (BEAKER) (test rrvl=002) 437 mg/dl 225-434 Obtain lab prior to starting thrombolytic infusion.Obtain lab prior to starting thrombolytic infusion.CBC W/PLT COUNT & AUTO [id number] 20:33:00 Test Item Value Reference Range Comments WHITE BLOOD CELL COUNT (BEAKER) (test wtrb=585) 9.6 K/ L 3.5-10.5 RED BLOOD CELL COUNT (BEAKER) (test xyhe=449) 4.43 M/ L 3.93-5.22 HEMOGLOBIN (BEAKER) (test nyhu=858) 13.5 GM/DL 11.2-15.7 HEMATOCRIT (BEAKER) (test kvyb=169) 40.0 % 34.1-44.9 MEAN CORPUSCULAR VOLUME (BEAKER) (test ukci=089) 90.3 fL 79.4-94.8 MEAN CORPUSCULAR HEMOGLOBIN (BEAKER) (test 30.5 pg 25.6-32.2 raqh=538) MEAN CORPUSCULAR HEMOGLOBIN CONC (BEAKER) (test 33.8 GM/DL 32.2-35.5 sylu=585) RED CELL DISTRIBUTION WIDTH (BEAKER) (test 12.9 % 11.7-14.4 yyef=318) PLATELET COUNT (BEAKER) (test ahmv=919) 218 K/CU MM 150-450 MEAN PLATELET VOLUME (BEAKER) (test mkwf=472) 10.1 fL 9.4-12.3 NUCLEATED RED BLOOD CELLS (BEAKER) (test 0 /100 WBC 0-0 cyrz=614) NEUTROPHILS RELATIVE PERCENT (BEAKER) (test 48 % wlti=497) LYMPHOCYTES RELATIVE PERCENT (BEAKER) (test 39 % hjsk=782) MONOCYTES RELATIVE PERCENT (BEAKER) (test 5 % riml=018) EOSINOPHILS RELATIVE PERCENT (BEAKER) (test 8 % fpra=995) BASOPHILS RELATIVE PERCENT (BEAKER) (test 1 % gmrq=766) NEUTROPHILS ABSOLUTE COUNT (BEAKER) (test 4.60 K/ L 1.56-6.13 wiex=870) LYMPHOCYTES ABSOLUTE COUNT (BEAKER) (test 3.72 K/ L 1.18-3.74 lpsw=273) MONOCYTES ABSOLUTE COUNT (BEAKER) (test 0.44 K/ L 0.24-0.36 thyr=463) EOSINOPHILS ABSOLUTE COUNT (BEAKER) (test 0.74 K/ L 0.04-0.36 ynme=521) BASOPHILS ABSOLUTE COUNT (BEAKER) (test 0.07 K/ L 0.01-0.08 ruby=898) IMMATURE GRANULOCYTES-RELATIVE PERCENT (BEAKER) 0 % 0-1 (test azto=5889) TROPONIN [id number] 17:58:00 Test Item Value Reference Range Comments TROPONIN I (BEAKER) (test eswt=646) < ng/mL 0.00-0.03 Troponin I (TnI) levels [...] failure, acidosis, acute neurological disease, and persistent tachyarrhythmia.[id number] 17:50:00 Test Item Value Reference Range Comments PARTIAL THROMBOPLASTIN TIME (BEAKER) (test 111.3 seconds 22.5-36.0 smqq=454) POCT-GLUCOSE [id number] 17:11:00 Test Item Value Reference Range Comments POC-GLUCOSE METER (BEAKER) 108 mg/dL 70-[address] [facility] [address] [facility] (test hjtk=1539) [facility] [address] CT, CTA AAA, W/ MELY.EXT.[id number] 12:15:00Addendum BeginsREPORT STATUS:A Addendum: The non vascular findings were reviewed by the mgmt consultant radiologist. I agree with the original [...] MDReport Verified Date/Time: 07/28/2017 10:11:14 Reading Location: [place] [address] Cardiology MRIAddendum EndsFINAL REPORT CT angiography of [...] An addendum will be dictated by the Post Office Markup Clerk Radiologist regarding the nonvascular findings. 5. Major findings were discussed with Dr. Arellano at the time of dictation. Signed: Donato Franklin Verified Date/Time: 07/28/2017 08:43:55 Reading Location: [place] [address] Cardiology MRI Electronically signed by: ZHEN ANDRADE M.D. on 2016 12:15 PMPOCT-GLUCOSE [id number] 11:57:00 Test Item Value Reference Range Comments POC-GLUCOSE METER (BEAKER) 108 mg/dL 70-[address] [facility] [address] [facility] (test gqqn=9901) [facility] [address] CREATINE KINASE (CK), TOTAL AND [id number] 11:37:00 Test Item Value Reference Range Comments CREATINE KINASE TOTAL (BEAKER) (test tqou=644) 30 U/L 29-200 CREATINE KINASE-MB (BEAKER) (test eztn=865) 0.5 ng/mL 0.0-6.6 CREATINE KINASE-MB INDEX (BEAKER) (test kcxr=085) 1.7 % CK-MB Reference Range:<6.7 Normal6.7-10.0 Borderline>10.0 AbnormalTROPONIN [id number] 11:37:00 Test Item Value Reference Range Comments TROPONIN I (BEAKER) (test cfkp=347) < ng/mL 0.00-0.03 Troponin I (TnI) levels [...] failure, acidosis, acute neurological disease, and persistent tachyarrhythmia.[id number] 11:15:00 Test Item Value Reference Range Comments FIBRINOGEN LEVEL (BEAKER) (test gvpe=892) 438 mg/dl 225-434 [id number] 11:14:00 Test Item Value Reference Range Comments PARTIAL THROMBOPLASTIN TIME (BEAKER) (test 30.9 seconds 22.5-36.0 zxrc=308) Prior to initiating heparinPOCT-GLUCOSE [id number] 08:36:00 Test Item Value Reference Range Comments POC-GLUCOSE METER (BEAKER) 123 mg/dL 70-110 TESTED AT [address] (test nbmm=4583) [facility] [address] BASIC METABOLIC [id number] 22:21:00 Test Item Value Reference Range Comments SODIUM (BEAKER) (test 135 meq/L 136-145 mmey=003) POTASSIUM (BEAKER) (test 4.4 meq/L 3.5-5.1 Specimen slightly ufuf=357) hemolyzed CHLORIDE (BEAKER) (test 107 meq/L 98-107 ftgj=216) CO2 (BEAKER) (test 19 meq/L 22-29 auae=239) BLOOD UREA NITROGEN 19 mg/dL 7-21 (BEAKER) (test cbon=997) CREATININE (BEAKER) (test 0.64 mg/dL 0.57-1.25 Specimen slightly pmqi=175) hemolyzed GLUCOSE RANDOM (BEAKER) 95 mg/dL 70-105 (test typv=120) CALCIUM (BEAKER) (test 10.7 mg/dL 8.4-10.2 vnsh=644) EGFR (BEAKER) (test mL/min/1.73 sq m INSUFFICIENT CLINICAL DATA whdx=4496) TO CALCULATE ESTIMATED GFR. CBC W/PLT COUNT & AUTO [id number] 21:59:00 Test Item Value Reference Range Comments WHITE BLOOD CELL COUNT (BEAKER) (test fbhp=466) 11.9 K/ L 3.5-10.5 RED BLOOD CELL COUNT (BEAKER) (test awhb=345) 4.66 M/ L 3.93-5.22 HEMOGLOBIN (BEAKER) (test iefx=619) 13.7 GM/DL 11.2-15.7 HEMATOCRIT (BEAKER) (test nrue=169) 42.1 % 34.1-44.9 MEAN CORPUSCULAR VOLUME (BEAKER) (test qyqw=755) 90.3 fL 79.4-94.8 MEAN CORPUSCULAR HEMOGLOBIN (BEAKER) (test 29.4 pg 25.6-32.2 bfmv=667) MEAN CORPUSCULAR HEMOGLOBIN CONC (BEAKER) (test 32.5 GM/DL 32.2-35.5 mdgz=705) RED CELL DISTRIBUTION WIDTH (BEAKER) (test 13.2 % 11.7-14.4 zdxm=489) PLATELET COUNT (BEAKER) (test pqlq=671) 218 K/CU MM 150-450 MEAN PLATELET VOLUME (BEAKER) (test ubwf=947) 10.1 fL 9.4-12.3 NUCLEATED RED BLOOD CELLS (BEAKER) (test 0 /100 WBC 0-0 afnd=028) NEUTROPHILS RELATIVE PERCENT (BEAKER) (test 47 % xpvj=873) LYMPHOCYTES RELATIVE PERCENT (BEAKER) (test 39 % ohaj=381) MONOCYTES RELATIVE PERCENT (BEAKER) (test 6 % vovl=204) EOSINOPHILS RELATIVE PERCENT (BEAKER) (test 7 % hatv=578) BASOPHILS RELATIVE PERCENT (BEAKER) (test 1 % lbkq=908) NEUTROPHILS ABSOLUTE COUNT (BEAKER) (test 5.61 K/ L 1.56-6.13 jbaw=934) LYMPHOCYTES ABSOLUTE COUNT (BEAKER) (test 4.61 K/ L 1.18-3.74 aevh=457) MONOCYTES ABSOLUTE COUNT (BEAKER) (test 0.69 K/ L 0.24-0.36 ytoy=399) EOSINOPHILS ABSOLUTE COUNT (BEAKER) (test 0.85 K/ L 0.04-0.36 wowz=404) BASOPHILS ABSOLUTE COUNT (BEAKER) (test 0.09 K/ L 0.01-0.08 neoe=227) IMMATURE GRANULOCYTES-RELATIVE PERCENT (BEAKER) 0 % 0-1 (test vjzl=3888) [id number] 21:59:00 Test Item Value Reference Range Comments PROTIME (BEAKER) (test zzwc=697) 13.1 seconds 11.7-14.7 INR (BEAKER) (test jlok=703) 1.0 <=5.9 PARTIAL THROMBOPLASTIN TIME (BEAKER) (test 32.0 seconds 22.5-36.0 airc=847) RECOMMENDED COUMADIN/WARFARIN INR THERAPY RANGESSTANDARD DOSE: 2.0 - 3.0 Includes: PROPHYLAXIS forvenous thrombosis, systemic embolization; TREATMENT for venous thrombosis and/or pulmonary embolus.HIGH RISK: Target INR is 2.5-3.5 for patients with mechanical heart valves.POCT-GLUCOSE [id number] 21:14:00 Test Item Value Reference Range Comments POC-GLUCOSE METER (BEAKER) 88 mg/dL 70-[address] [facility] [address] (test affo=2739) [facility] [address]
--- OUTSIDE RECORDS SUMMARY | 2019-09-06 07:24 | XMS REPORT | Summary of Care ---
:1970 Author Organization [facility] Address [address] [place] [address] Care Team Providers Name Role Phone Willie Kenneth [facility] Primary Care Provider [phone] Reason for Visit Reason Comments Notification The patient is requesting a refill on her pain medication Encounter Details Date Type Department Care Team Description 06/07/[address] [facility] Orthopaedic Karl Naqvi, Notification ( The Surgery- [facility] patient is requesting a [address], [address] refill on her pain [address] medication ) [place] [address] [place], [place] [phone] [address] Allergies No Known Allergiesdocumented as of this encounter (statuses as of 06/07/2019) Medications Medication Sig Dispensed Refills Start Date End Date Status metFORMIN Take 500 mg by 0 Active (FORTAMET) 500 mg mouth daily 24 hr tablet with breakfast. traMADol (ULTRAM) Take 1 tablet 20 tablet 0 05/11/2019 Active 50 mg by mouth every tabletIndications: 6 (six) hours Acute pain of as needed for right knee Pain (scale 7-10). HYDROcodone-acetam Take 1 tablet 20 tablet 0 05/11/2019 Active inophen 10-325 mg by mouth every tabletIndications: 6 (six) hours Acute pain of as needed for right knee Pain (scale 7-10) (ALTERNAT WITH ULTRAM NEEDED FOR PAIN20). metFORMIN 1,000 mg Take 1,000 mg 0 Active tablet by mouth. GLIPIZIDE ORAL Take 10 mg by 0 Active mouth. lisinopril-hydroch Take 1 tablet 0 Active lorothiazide by mouth. 20-12.5 mg per tablet VITAMIN D2 50,000 TAKE 1 CAPSULE 2 05/10/2019 Active unit capsule BY MOUTH ONCE A WEEK lovastatin 20 mg TAKE 1 TABLET 0 03/16/2019 Active tablet BY MOUTH NIGHTLY clopidogrel 75 mg 0 03/11/2019 Active tablet metoprolol 0 03/11/2019 Active tartrate 25 mg tablet LEVEMIR FLEXTOUCH 0 05/13/2019 Active U-100 INSULN 100 unit/mL (3 mL) injection propranolol 10 mg TAKE 1 TABLET 2 04/08/2019 Active tablet BY MOUTH EVERY 12 HOURS NEEDED FOR ANXIETY acetaminophen-code 1-2 by mouth 40 tablet 0 06/07/2019 Active ine every 4-6 (TYLENOL-CODEINE hours as #3) 300-30 mg needed for tabletIndications: pain Closed fracture of right tibial plateau, initial encounter acetaminophen-code 1-2 by mouth 40 tablet 0 05/31/2019 06/07/2019 Discontinued ine every 4-6 (TYLENOL-CODEINE hours as #3) 300-30 mg needed for tabletIndications: pain Closed fracture of right tibial plateau, initial encounter documented as of this encounter (statuses as of 06/07/2019) Active Problems Problem Noted Date General counseling and advice for contraceptive management 07/12/2015 Overview: ICD10 Diagnosis Term Director Of Digital [employer] Utility History of tubal ligation 07/12/2015 Encounter for routine gynecological examination 07/12/2015 Overview: ICD10 Diagnosis Term [employer] Utility Essential hypertension, benign 07/12/2015 Tobacco use disorder 07/12/2015 Obesity 07/12/2015 Overview: ICD10 Diagnosis Term [employer] Utility Type 1 diabetes mellitus 07/12/2015 Overview: ICD10 Diagnosis Term [employer] documented as of this encounter (statuses as of 06/07/2019) Resolved Problems Problem Noted Date Resolved Date Rubella immune 06/10/2014 07/12/2015 Encounter for sterilization 06/09/2014 07/12/2015 Overview: ICD10 Diagnosis Term Director Of Digital Technology Utility Essential hypertension 09/13/2005 07/12/2015 Overview: ICD10 Diagnosis Term Director [employer] Digital [employer] Utility Other abnormalities in shape or position of gravid uterus and 09/13/2005 of neighboring structures, antepartum Type II or unspecified type diabetes mellitus without mention 09/13/2005 of complication, not stated as uncontrolled Nondependent cocaine abuse 09/13/2005 07/12/2015 Overview: ICD10 Diagnosis Term Director Of Digital [employer] Utility documented as of this encounter (statuses as of 06/07/2019) Immunizations Name Administration Dates Next Due Td 02/07/2006 documented as of this encounter Social History Tobacco Use Types Packs/Day Years Used Date Current Every Day Smoker Cigarettes 27 Smokeless Tobacco: Never Used Comments: 1 pkg for 2-3 days Alcohol Use Drinks/Week oz/Week Comments Yes occasional Sex Assigned at Date Recorded Not on file Job Start Date Occupation Industry Not on file Not on file Not on file Travel History Travel Start Travel End No recent travel history available. documented as of this encounter Last Filed Vital Signs Not on filedocumented in this encounter Plan of Treatment Date Type Specialty Care Team Description 06/08/2019 Office Visit Orthopedic Surgery Karl Naqvi, PAC [address] [place] [address] Health Maintenance Due Date Last Done Comments PNEUMOCOCCAL 0-64 YEARS COMBINED 1975 SERIES (1 of 1 - PPSV23) EYE EXAM 1979 LDL-C 1979 URINE MICROALBUMIN 1979 FOOT EXAM 1987 DTaP,Tdap,and Td Vaccines (1 - 02/08/2006 02/07/2006 Tdap) HgA1C 05/19/2006 11/19/2005, 06/24/2005, 06/12/2005 CREATININE (SERUM) 11/26/2006 11/26/2005, 11/26/2005, 11/25/2005, Additional history exists MAMMOGRAM 07/18/2016 07/18/2015, 07/08/2014 PAP SMEAR 06/09/2017 06/09/2014, 01/09/2006, 06/10/2005 COLONOSCOPY 2019 Zoster Recombinant Vaccine 2019 (SHINGRIX) (1 of 2) INFLUENZA VACCINE 06/27/2019 documented as of this encounter Results Not on filedocumented in this encounter Visit Diagnoses Diagnosis Closed fracture of right tibial plateau, initial encounter - Primary documented in this encounter Insurance Payer Benefit Plan Subscriber ID Effective Phone Address Type / Group Dates GARRY NEGRAELÍAS [id number] 2016-[facility] PRIMARY CARE PRIMARY CARE nt [address] [place] [address] [facility] xxxxxxxxx 2018-[facility] [place] HEALTHCARE COMM STAR PLUS nt PLAN - MANAGED MEDICAID documented as of this encounter
--- OUTSIDE RECORDS SUMMARY | 2019-09-06 07:24 | XMS REPORT | Summary of Care ---
:[address] [facility] Address [address] [place] [address] Care Team Providers Name Role Phone Willie Cooper [facility] Primary Care Provider [phone] Reason for Visit Reason Comments Refill Request Encounter Details Date Type Department Care Team Description 05/31/2019 Refill [facility] Orthopaedic Jayesh Humphrey MD Refill Request Surgery- [place] [address] [facility] [address] [facility], [facility] [place] [address] [place] [address] [place] [phone] Allergies No Known Allergiesdocumented as of this encounter (statuses as of 05/31/2019) Medications Medication Sig Dispensed Refills Start Date [...] 1-2 by mouth 40 tablet 0 05/31/2019 Active ine every 4-6 (TYLENOL-CODEINE hours as #3) 300-30 mg needed for tabletIndications: pain Closed fracture of right tibial plateau, initial encounter acetaminophen-code 1-2 by mouth 40 tablet 0 05/18/2019 05/31/2019 Discontinued ine every 4-6 (TYLENOL-CODEINE hours as #3) 300-30 mg needed for tablet pain documented as of this encounter (statuses as of 05/31/2019) Active Problems Problem Noted Date General counseling and advice for contraceptive management 07/12/2015 Overview: ICD10 Diagnosis Term Interior [employer] Utility History of tubal ligation 07/12/2015 Encounter for routine gynecological examination 07/12/2015 Overview: ICD10 Diagnosis Term [employer] Utility Essential hypertension, benign 07/12/2015 Tobacco use disorder 07/12/2015 Obesity 07/12/2015 Overview: ICD10 Diagnosis Term [employer] Utility Type 1 diabetes mellitus 07/12/2015 Overview: ICD10 Diagnosis Term [employer] Utility documented as of this encounter (statuses as of 05/31/2019) Resolved Problems Problem Noted Date Resolved Date Rubella immune 06/10/2014 07/12/2015 Encounter for sterilization 06/09/2014 07/12/2015 Overview: ICD10 Diagnosis Term [employer] Utility Essential hypertension 09/13/2005 07/12/2015 Overview: ICD10 Diagnosis Term Interior [employer] Utility Other abnormalities in shape or position of gravid uterus and 09/13/2005 of neighboring structures, antepartum Type II or unspecified type diabetes mellitus without mention 09/13/2005 of complication, not stated as uncontrolled Nondependent cocaine abuse 09/13/2005 07/12/2015 Overview: ICD10 Diagnosis Term Interior [employer] Utility documented as of this encounter (statuses as of 05/31/2019) Immunizations Name Administration Dates Next Due Td [...] Treatment Date Type Specialty Care Team Description 06/04/2019 Office Visit Orthopedic Surgery Jayesh Humphrey MD [address] [place] [address] Health Maintenance Due Date Last [...] Phone Address Type / Group Dates GARRY CASTAÑEDA [id number] 2016-[facility] PRIMARY CARE PRIMARY CARE nt [address] [place] [address] [facility] xxxxxxxxx 2019-[employer] Medicaid HEALTHCARE COMM STAR PLUS nt PLAN - MANAGED MEDICAID documented as of this encounter
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
--- OUTSIDE RECORDS SUMMARY | 2019-09-06 07:25 | XMS REPORT | Summary of Care ---
:1970 Author Organization [facility] Address [address] [place] [address] Care Team Providers Name Role Phone Willie Cooper [facility] Primary Care Provider [phone] Reason for Referral Radiology Services (Routine) Status Reason Specialty Diagnoses / Referred By Referred To Procedures Contact Contact New Request Diagnostic Diagnoses Closed fracture of right tibial plateau, initial encounter Karl Naqvi, Radiology Procedures XR KNEE <3 VW RIGHT PAC [address] [place] [place] [address] [place] [address] Reason for Visit Reason Comments Follow-up Right tibial plateau Fx DOI: 05/11/19 - 4 weeks out today. Other (SHERRI) Status Reason Specialty Diagnoses / Referred By Referred To Procedures Contact Contact Closed Orthopedic Surgery Diagnoses Acute pain of right knee Yazmin Arredondo McDonald, Craig Procedures Discharge Follow-up: Specialty Provider THAO CARDENAS; 3-5 Days MD Crowder, [address] [facility] [id number] [place] [address] Phone: Encounter Details Date Type Department Care Team Description 06/08/2019 Office Visit [facility] Orthopaedic Karl Naqvi, Closed fracture of Surgery- [facility] right tibial plateau, [address], [address] initial encounter [address] (Primary Dx) [place] [address] [place], [place] [phone] [address] [phone] Allergies No Known Allergiesdocumented as of this [...] contraceptive management 07/12/2015 Overview: 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 History of tubal ligation 07/12/2015 Encounter for routine gynecological examination 07/12/2015 Overview: ICD10 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 Essential hypertension, benign 07/12/2015 Tobacco use disorder 07/12/2015 Obesity 07/12/2015 Overview: ICD10 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 Type 1 diabetes mellitus 07/12/2015 Overview: ICD10 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 documented as of this encounter (statuses as of 06/08/2019) Resolved Problems Problem Noted Date Resolved Date Rubella immune 06/10/2014 07/12/2015 Encounter for sterilization 06/09/2014 07/12/2015 Overview: ICD10 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 Essential hypertension 09/13/2005 07/12/2015 Overview: ICD10 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 Other abnormalities in shape or position of gravid uterus and 09/13/2005 of neighboring structures, antepartum Type II or unspecified type diabetes mellitus without mention 09/13/2005 of complication, not stated as uncontrolled Nondependent cocaine abuse 09/13/2005 07/12/2015 Overview: ICD10 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
--- OUTSIDE RECORDS SUMMARY | 2019-09-06 07:25 | XMS REPORT | Summary of Care ---
:1970 Author Organization [facility] Address [address] [place] [address] Care Team Providers Name Role Phone Willie Kenneth [facility] Primary Care Provider [phone] Reason for Visit Radiology Services (Routine) Status Reason Specialty Diagnoses / Referred By Referred To Procedures Contact Contact New Request Diagnostic Diagnoses Closed fracture of right tibial plateau, initial encounter Karl Naqvi, Radiology Procedures XR KNEE <3 VW RIGHT PAC [address] [place] [address] Encounter Details Date Type Department Care Team Description 06/08/2019 Hospital Encounter [facility] Karl Naqvi, [facility] Orthopedics - PAC Radiology [address] [place] [address] [place] [phone] [address] Allergies No Known Allergiesdocumented as of this encounter (statuses as of 06/09/2019) Medications Medication Sig Dispensed Refills Start Date [...] as of this encounter (statuses as of 06/09/2019) Active Problems Problem Noted Date General counseling and advice for contraceptive management 07/12/2015 Overview: ICD10 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 History of tubal ligation 07/12/2015 Encounter for routine gynecological examination 07/12/2015 Overview: ICD10 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 Essential hypertension, benign 07/12/2015 Tobacco use disorder 07/12/2015 Obesity 07/12/2015 Overview: ICD10 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 Type 1 diabetes mellitus 07/12/2015 Overview: ICD10 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 documented as of this encounter (statuses as of 06/09/2019) Resolved Problems Problem Noted Date Resolved Date Rubella immune 06/10/2014 07/12/2015 Encounter for sterilization 06/09/2014 07/12/2015 Overview: ICD10 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 Essential hypertension 09/13/2005 07/12/2015 Overview: ICD10 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 Other abnormalities in shape or position of gravid uterus and 09/13/2005 of neighboring structures, antepartum Type II or unspecified type diabetes mellitus without mention 09/13/2005 of complication, not stated as uncontrolled Nondependent cocaine abuse 09/13/2005 07/12/2015 Overview: ICD10 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 documented as of this encounter (statuses as of 06/09/2019) Immunizations Name Administration Dates Next Due Td [...] Description 06/23/2019 Office Visit Orthopedic Surgery Karl Naqvi PAC [address] [place] [address] Jayesh Humphrey MD [address] [place] [address] Health Maintenance Due Date Last Done Comments [...] VACCINE 06/27/2019 documented as of this encounter Procedures Procedure Name Priority Date/Time Associated Diagnosis Comments XR KNEE <3 VW RIGHT Routine 06/08/2019 9:53 AM Closed fracture of Results for this CDT right tibial procedure are in plateau, initial the results encounter section. documented in this encounter Results XR KNEE <3 VW RIGHT (06/08/2019 9:53 AM CDT) Specimen Narrative Performed At Lateral intra-articular tibial plateau fracture shows a large amount of PACS callus formation there is no displacement and the joint line has no defect Performing Organization Address City/State/Zipcode Phone Number PACS documented in this encounter Visit Diagnoses Diagnosis Closed fracture of right tibial plateau, initial encounter documented in this encounter Insurance Payer Benefit Plan Subscriber ID Effective Phone Address Type / Group Dates [facility] xxxxxxxxx 2018-Prese Medicaid [facility] STAR PLUS nt PLAN - MANAGED MEDICAID [facility] GARRY [id number] 2016-[facility] PRIMARY CARE PRIMARY CARE nt [address] [place] [address] documented as of this encounter
--- OUTSIDE RECORDS SUMMARY | 2019-09-06 07:25 | XMS REPORT | Summary of Care ---
:1970 Author Organization [facility] Address [address] [place] [address] Care Team Providers Name Role Phone Willie F [facility] Primary Care Provider Reason for Referral Radiology Services (Routine) Status Reason Specialty Diagnoses / Referred By Referred To Procedures Contact Contact New Request Diagnostic Diagnoses Closed fracture of right tibial plateau, initial encounter Jayesh Humphrey Radiology Procedures XR KNEE <3 VW RIGHT Lakesha MD [address] [place] [place] [address] Reason for Visit Reason Comments Follow-up follow up visit on right tibial plateau fx DOI:05/11/19 Encounter Details Date Type Department Care Team Description 06/23/2019 Office Visit [facility] Orthopaedic Karl Naqvi PAC [address] [place] [address] [place] [address] [place] [address] Closed fracture of Surgery- [place] Jayesh Humphrey MD [address] [place] [place] [address] right tibial plateau, [address], initial encounter [address] (Primary Dx) [place] [address] Allergies No Known Allergiesdocumented as of this encounter (statuses as of 06/23/2019) Medications Medication Sig Dispensed Refills Start Date [...] as of this encounter (statuses as of 06/23/2019) Active Problems Problem Noted Date General counseling and advice for contraceptive management 07/12/2015 Overview: ICD10 Diagnosis Term Cook Pie Utility History of tubal ligation 07/12/2015 Encounter for routine gynecological examination 07/12/2015 Overview: ICD10 Diagnosis Term Cook Pie Utility Essential hypertension, benign 07/12/2015 Tobacco use disorder 07/12/2015 Obesity 07/12/2015 Overview: ICD10 Diagnosis Term Cook Pie Utility Type 1 diabetes mellitus 07/12/2015 Overview: ICD10 Diagnosis Term Cook Pie Utility documented as of this encounter (statuses as of 06/23/2019) Resolved Problems Problem Noted Date Resolved Date Rubella immune 06/10/2014 07/12/2015 Encounter for sterilization 06/09/2014 07/12/2015 Overview: ICD10 Diagnosis Term Cook Pie Utility Essential hypertension 09/13/2005 07/12/2015 Overview: ICD10 Diagnosis Term Cook Pie Utility Other abnormalities in shape or position of gravid uterus and 09/13/2005 of neighboring structures, antepartum Type II or unspecified type diabetes mellitus without mention 09/13/2005 of complication, not stated as uncontrolled Nondependent cocaine abuse 09/13/2005 07/12/2015 Overview: ICD10 Diagnosis Term Cook Pie Utility documented as of this encounter (statuses as of 06/23/2019) Immunizations Name Administration Dates Next Due Td [...] Sign Reading Time Taken Comments Blood Pressure 134/80 06/23/2019 1:16 PM CDT Pulse 68 06/23/2019 1:16 PM CDT Temperature - - Respiratory Rate 18 06/23/2019 1:12 PM CDT Oxygen Saturation - - Inhaled Oxygen Concentration - - Weight 88.5 kg (195 lb) 06/23/2019 1:12 PM CDT Height 165.1 cm (5' 5") 06/23/2019 1:12 PM CDT Body Mass Index 32.45 06/23/2019 1:12 PM CDT documented in this encounter Progress Notes Jayesh Humphrey MD - 06/23/2019 1:15 PM CDT Eden Graham is a 49 year old female Chief Complaint Patient presents with Follow-up follow up visit on right tibial plateau fx DOI:05/11/19 Vitals: 06/23/19 1312 BP: (!) 157/82 BP Location: Left arm Patient Position: Sitting BP CUFF SIZE: Adult Medium Pulse: 76 Resp: 18 Weight: 195 lb (88.5 kg) Height: 5' 5" (1.651 m) [facility] [address] [place], [place] [address]Y [address] [place] All Vitals taken, allergies and all medications reviewed, fall risk assessed. Pain level 4/10. EVELYN SUAREZ MA 06/23/2019 1:15 PM Eden Graham is a 49 year old female. Knee Pain Incident onset: 05/11/2019. The incident occurred at home. The injury mechanism was a fall. The painis present in the right knee. The quality of the pain is described as stabbing and shooting. The pain is at a severity of 4/10. The pain is mild. The pain has been improving since onset. Associated symptoms include an inability to bear weight and a loss of motion. The symptoms are aggravated by movement and weight bearing. She has tried immobilization, non-weight bearing , NSAIDs and rest for the symptoms. The treatment provided mild relief. Allergies Eden has No Known Allergies. Medications Outpatient Medications Prior to Visit Medication Sig Dispense Refill acetaminophen-codeine (TYLENOL-CODEINE #3) 300-30 mg tablet Take 1 tablet by mouth every 4 (four) hours as needed for Pain (scale 4-6) or Pain (scale 7-10 ). 40 tablet 0 acetaminophen-codeine (TYLENOL-CODEINE #3) 300-30 mg tablet 1-2 [...] file Gets together: Not on file Attends zoroastrianism service: Not on file Active member of [...] Endocrine: Endocrine negative Vital Signs BP (!) 157/82 (BP Location: Left arm, Patient Position: Sitting, BP CUFF SIZE: Adult Medium) | Pulse 76 | Resp 18 | Ht 5' 5" (1.651 m) | Wt 195 lb (88.5 kg ) | BMI 32.45 kg/m Physical Exam Musculoskeletal: [...] exam Nursing note and vitals reviewed. Assessment/Plan Diagnosis : Closed fracture of right tibial plateau Plan May begin FWBAT without the crutch. If in 3 weeks she feels she still has limitation she may contact the office for a referall to PT to increase her muscle strength. Follow up 3 weeks prn. documented in this encounter Plan of Treatment Name Type Priority Associated Diagnoses Date/Time XR KNEE <3 VW RIGHT IMAGING Routine Closed fracture of right 06/23/2019 1: 28 PM CDT tibial plateau, initial encounter Name Type Priority Associated Diagnoses Order Schedule XR KNEE <3 VW RIGHT IMAGING Routine Closed fracture of right Expected: , tibial plateau, initial Expires: 06/23/2020 encounter Health Maintenance Due Date Last Done Comments [...] 2019 (SHINGRIX) (1 of 2) INFLUENZA VACCINE (#1) 2019 documented as of this encounter Results Not on filedocumented in this encounter Visit Diagnoses Diagnosis Closed fracture of right tibial plateau, initial encounter - Primary documented in this encounter Insurance Payer Benefit Plan / Subscriber ID Effective Dates Phone Address Type Group [facility] STAR xxxxxxxxx 2018-Present Medicaid COMM PLAN - PLUS MANAGED MEDICAID documented as of this encounter
--- OUTSIDE RECORDS SUMMARY | 2019-09-06 07:25 | XMS REPORT | Summary of Care ---
:1970 Author Organization [facility] Address [address] [place] [address] Care Team Providers Name Role Phone Willie Cooper [facility] Primary Care Provider [phone] Reason for Referral Radiology Services (Routine) Status Reason Specialty Diagnoses / Referred By Referred To Procedures Contact Contact New Request Diagnostic Diagnoses Closed fracture of right tibial plateau, initial encounter Karl Naqvi, Radiology Procedures XR KNEE <3 VW RIGHT PAC [address] [place] [place] [address] Reason for Visit Reason Comments Follow-up Right tibial plateau Fx DOI: 05/11/19 - 4 weeks out today. Other (SHERRI) Status Reason Specialty Diagnoses / Referred By Referred To Procedures Contact Contact Closed Orthopedic Surgery Diagnoses Acute pain of right knee Yazmin Arredondo McDonald, Craig Procedures Discharge Follow-up: Specialty Provider THAO CARDENAS; 3-5 Days MD Crowder, [address] [facility] [id number] [place] [phone] Phone: Encounter Details Date Type Department Care Team Description 06/08/2019 Office Visit [facility] Orthopaedic Karl Naqvi, Closed fracture of Surgery- [facility] right tibial plateau, [address], [address] initial encounter [address] (Primary Dx) [place] [address] [place] [phone] [address] [phone] Allergies No Known Allergiesdocumented as of this [...] contraceptive management 07/12/2015 Overview: ICD10 Diagnosis Term Heel Nail Rasper Utility History of tubal ligation 07/12/2015 Encounter for routine gynecological examination 07/12/2015 Overview: ICD10 Diagnosis Term Heel Nail Rasper Utility Essential hypertension, benign 07/12/2015 Tobacco use disorder 07/12/2015 Obesity 07/12/2015 Overview: ICD10 Diagnosis Term Heel Nail Rasper Utility Type 1 diabetes mellitus 07/12/2015 Overview: ICD10 Diagnosis Term Heel Nail Rasper Utility documented as of this encounter (statuses as of 06/08/2019) Resolved Problems Problem Noted Date Resolved Date Rubella immune 06/10/2014 07/12/2015 Encounter for sterilization 06/09/2014 07/12/2015 Overview: ICD10 Diagnosis Term Heel Nail Rasper Utility Essential hypertension 09/13/2005 07/12/2015 Overview: ICD10 Diagnosis Term Heel Nail Rasper Utility Other abnormalities in shape or position of gravid uterus and 09/13/2005 of neighboring structures, antepartum Type II or unspecified type diabetes mellitus without mention 09/13/2005 of complication, not stated as uncontrolled Nondependent cocaine abuse 09/13/2005 07/12/2015 Overview: ICD10 Diagnosis Term Heel Nail Rasper Utility documented as of this encounter (statuses [...] file Gets together: Not on file Attends faith service: Not on file Active member of [...] Address Type / Group Dates GARRY CASTAÑEDA [id number] 2016-[employer] [phone] [place] [address] PRIMARY CARE PRIMARY CARE [address] [place] [address] [facility] xxxxxxxxx 2018-Prese Medicaid HEALTHCARE COMM STAR PLUS nt PLAN - MANAGED MEDICAID documented as of this encounter
--- OUTSIDE RECORDS SUMMARY | 2019-09-06 07:26 | XMS REPORT | Summary of Care ---
:1970 Author Organization [facility] Address [address] [place] [address] Care Team Providers Name Role Phone Willie Cooper [facility] Primary Care Provider [phone] Reason for Visit Radiology Services (Routine) Status Reason Specialty Diagnoses / Referred By Referred To Procedures Contact Contact New Request Diagnostic Diagnoses Closed fracture of right tibial plateau, initial encounter Jayesh Humphrey Radiology Procedures XR KNEE <3 VW [facility] MD Lakesha [address] [place] [address] Encounter Details Date Type Department Care Team Description 06/23/2019 Hospital Encounter [facility] [address] [place] [address] [place], [place] [phone] [address] Allergies No Known Allergiesdocumented as of this encounter (statuses as of 06/24/2019) Medications Medication Sig Dispensed Refills Start Date [...] as of this encounter (statuses as of 06/24/2019) Active Problems Problem Noted Date General counseling and advice for contraceptive management 07/12/2015 Overview: ICD10 Diagnosis Term Network Control Operator Utility History of tubal ligation 07/12/2015 Encounter for routine gynecological examination 07/12/2015 Overview: ICD10 Diagnosis Term Network Control Operator Utility Essential hypertension, benign 07/12/2015 Tobacco use disorder 07/12/2015 Obesity 07/12/2015 Overview: ICD10 Diagnosis Term Network Control Operator Utility Type 1 diabetes mellitus 07/12/2015 Overview: ICD10 Diagnosis Term Network Control Operator Utility documented as of this encounter (statuses as of 06/24/2019) Resolved Problems Problem Noted Date Resolved Date Rubella immune 06/10/2014 07/12/2015 Encounter for sterilization 06/09/2014 07/12/2015 Overview: ICD10 Diagnosis Term Network Control Operator Utility Essential hypertension 09/13/2005 07/12/2015 Overview: ICD10 Diagnosis Term Network Control Operator Utility Other abnormalities in shape or position of gravid uterus and 09/13/2005 of neighboring structures, antepartum Type II or unspecified type diabetes mellitus without mention 09/13/2005 of complication, not stated as uncontrolled Nondependent cocaine abuse 09/13/2005 07/12/2015 Overview: ICD10 Diagnosis Term Network Control Operator Utility documented as of this encounter (statuses as of 06/24/2019) Immunizations Name Administration Dates Next Due Td [...] filedocumented in this encounter Plan of Treatment Name Type Priority Associated Diagnoses Date/Time XR KNEE <3 VW RIGHT IMAGING Routine Closed fracture of right 06/23/2019 1: 28 PM CDT tibial plateau, initial encounter Name Type Priority Associated Diagnoses Order Schedule XR KNEE <3 VW RIGHT IMAGING Routine Closed fracture of right 1 Occurrences starting tibial plateau, initial 06/23/2019 until encounter 06/23/2019 Health Maintenance Due Date Last Done Comments [...] ID Effective Dates Phone Address Type Group [facility] xxxxxxxxx 2018-Present Medicaid COMM PLAN - PLUS MANAGED MEDICAID documented as of this encounter
--- OUTSIDE RECORDS SUMMARY | 2019-09-06 07:26 | XMS REPORT | Summary of Care ---
:1970 Author Organization [facility] Address [address] [place] [address] Care Team Providers Name Role Phone Willie F [facility] Primary Care Provider [phone] Reason for Referral Radiology Services (Routine) Status Reason Specialty Diagnoses / Referred By Referred To Procedures Contact Contact New Request Diagnostic Diagnoses Closed fracture of right tibial plateau, initial encounter Jayesh Humphrey Radiology Procedures XR KNEE <3 VW RIGHT Lakesha MD [address] [place] [address] Reason for Visit Reason Comments Follow-up follow up visit on right tibial plateau fx DOI:05/11/19 Encounter Details Date Type Department Care Team Description 06/23/2019 Office Visit [facility] Orthopaedic Karl Naqvi PAC [address] [place] [address] [place] [address] Closed fracture of Surgery- [place] Jayesh Humphrey MD [address] [place] [place] [address] right tibial plateau, [address], initial encounter [address] (Primary Dx) [place] [address] Allergies No Known Allergiesdocumented as [...] contraceptive management 07/12/2015 Overview: ICD10 Diagnosis Term Occupational Health Manager Utility History of tubal ligation 07/12/2015 Encounter for routine gynecological examination 07/12/2015 Overview: ICD10 Diagnosis Term Occupational Health Manager Utility Essential hypertension, benign 07/12/2015 Tobacco use disorder 07/12/2015 Obesity 07/12/2015 Overview: ICD10 Diagnosis Term Occupational Health Manager Utility Type 1 diabetes mellitus 07/12/2015 Overview: ICD10 Diagnosis Term Occupational Health Manager Utility documented as of this encounter (statuses as of 06/23/2019) Resolved Problems Problem Noted Date Resolved Date Rubella immune 06/10/2014 07/12/2015 Encounter for sterilization 06/09/2014 07/12/2015 Overview: ICD10 Diagnosis Term Occupational Health Manager Utility Essential hypertension 09/13/2005 07/12/2015 Overview: ICD10 Diagnosis Term Occupational Health Manager Utility Other abnormalities in shape or position of gravid uterus and 09/13/2005 of neighboring structures, antepartum Type II or unspecified type diabetes mellitus without mention 09/13/2005 of complication, not stated as uncontrolled Nondependent cocaine abuse 09/13/2005 07/12/2015 Overview: ICD10 Diagnosis Term Occupational Health Manager Utility documented as of this encounter (statuses [...] (88.5 kg) Height: 5' 5" (1.651 m) [facility] [address] [place], [place] [address] [address] [place] All Vitals taken, allergies and all medications [...] file Gets together: Not on file Attends scientology service: Not on file Active member of [...] ID Effective Dates Phone Address Type Group [facility] STAR xxxxxxxxx 2018-Present Medicaid COMM PLAN - PLUS MANAGED MEDICAID documented as of this encounter
[2019-09-06 07:49] VITALS: O2SAT 98
[2019-09-06] MEDS: GABAPENTIN 300 MG CAP PO SCH ×2 (07:53→13:54)
--- NOTE | 2019-09-06 08:38 | EKG ---
Test Date: 2019-09-05 Test Time: 22:57:01 Flexible Babysitter: АЛЕКСАНДР MEASUREMENT RESULTS: Intervals: Rate: 78 MI: 128 QRSD: 94 QT: 408 QTc: 465 Lotus: P: 23 MI: 128 QRS: 58 T: 82 INTERPRETIVE STATEMENTS: Normal sinus rhythm ST elevation, consider early repolarization, pericarditis, or injury Abnormal ECG Compared to ECG 05/10/2018 15:44:31 No significant changes Electronically Signed On 09-06-19 08:37:31 CARDROOM WORKER by Duane Christy
[2019-09-06] MEDS ORDERED: ASPIRIN EC 81 MG TAB PO SCH (09:00)
[2019-09-06] MEDS ORDERED: FOLIC ACID 1 MG TABLET PO SCH (09:00)
[2019-09-06] MEDS ORDERED: CLOPIDOGREL 75 MG TABLET PO SCH (09:00)
[2019-09-06] MEDS ORDERED: CITALOPRAM 10 MG TABLET PO SCH (09:00)
[2019-09-06] MEDS ORDERED: INSULIN GLARGINE 100 UNITS/ML SQ SCH (09:00)
--- NOTE | 2019-09-06 10:59 | RAD REPORT ---
EXAM DESCRIPTION: Chest For Pe Angio CLINICAL HISTORY: Syncope COMPARISON: None. TECHNIQUE: CT CHEST ANGIOGRAPHY WITH IV CONTRAST on 09/05/2019 11:49 PM [employer]. MIPS reconstructions we re generated. This exam was performed according to our departmental dose-optimization program, which includes autom ated exposure control, adjustment of the mA and/or kV according to patient size and/or use of iterati ve reconstruction technique. MIP images were generated. FINDINGS: Thoracic aorta is normal in course and caliber without aneurysm or dissection. Pulmonary a rteries are adequately opacified without acute or chronic filling defects. The heart is normal in size. There is no pericardial effusion. Intrathoracic lymph nodes are not enla rged. There is no pleural effusion, pleural thickening or pneumothorax. Central airways are patent. Lungs a re clear with no consolidation, mass or interstitial lung disease. There are no acute abnormalities within the limited images of the upper abdomen. There are no acute osseous findings. No suspicious bony lesions. IMPRESSION: No aortic dissection or aneurysm. No pulmonary embolus. No definite pneumonia. Electronically signed by: Keon Wu MD 09/06/2019 1:25 AM [employer] Due to temporary technical issues with the PACS/Fluency reporting system, reports are being signed by the in house radiologist as a courtesy to ensure prompt reporting. The interpreting radiologist is f ully responsible for the content of the report.
--- NOTE | 2019-09-06 11:00 | RAD REPORT ---
EXAM DESCRIPTION: CT of the head without contrast CLINICAL HISTORY: SYNCOPE COMPARISON: None available TECHNIQUE: Axial CT of the head obtained from the skull apex to the skull base without contrast. FINDINGS: No acute intracranial hemorrhage identified. No mass, mass effect, shift of the midline, a bnormal extra-axial fluid collection or CT evidence of acute ischemic change identified. The ventricu lar system is unremarkable. No acute abnormalities of the supratentorial white matter, basal gangli a, cerebellum, or brainstem. The visualized paranasal sinuses and the mastoids are clear. No skull fracture identified. Visualized orbits and globes are unremarkable. IMPRESSION: 1. No acute intracranial abnormality identified. This exam was performed according to our departmental dose-optimization program, which includes autom ated exposure control, adjustment of the mA and/or kV according to patient size and/or use of iterati ve reconstruction technique. Electronically signed by: Clay Rand 09/06/2019 12:10 AM LAUNCH ENGINEER Due to temporary technical issues with the PACS/Fluency reporting system, reports are being signed by the in house radiologist as a courtesy to ensure prompt reporting. The interpreting radiologist is f ully responsible for the content of the report.
--- NOTE | 2019-09-06 11:05 | RAD REPORT ---
EXAM DESCRIPTION: MRI - MRA Head Wo Cont - 09/06/2019 10:47 am CLINICAL HISTORY: Syncope, stroke-like symptoms COMPARISON: None. TECHNIQUE: Axial and coronal 3D [id number] image acquisition was performed. 3D rotational images were generated with source and reconstruction images reviewed. Horizontal and vertical axis rotation al views generated using MIP protocol. FINDINGS: No aneurysm or vascular malformation. No measurable atherosclerotic change, vasculitis or other significant vascular finding. From origin to the vessel termination, each internal carotid laith ry has normal appearance. No basilar artery suspicious finding. IMPRESSION: Negative MRA head examination.
--- NOTE | 2019-09-06 11:06 | RAD REPORT ---
EXAM DESCRIPTION: MRI - Brain W/Wo Cont - 09/06/2019 10:47 am CLINICAL HISTORY: Syncope, stroke-like symptoms COMPARISON: CT September 05 TECHNIQUE: Sagittal and axial T1-weighted images were obtained. Axial PD/heavily T2-weighted and T2- FLAIR images were obtained along with axial DWI/ADC mapping sequences. Coronal heavily T2 weighted s equence obtained. Axial and coronal post-contrast T1-weighted images were also obtained. A ml Multi lionel contrast following utilized. FINDINGS: No intracranial hemorrhage, mass or acute infarction. There is no edema or shift of midli ne structures. No extra-axial fluid collections. Hyde-matter/white matter junction is preserved. Sig nal voids are seen as a normal finding in the major intracranial vessels. Post-contrast images show normal enhancement. No dural thickening. Mastoid air cells and paranasal sinuses are clear. IMPRESSION: Negative contrast enhanced MRI of the Brain.
--- NOTE | 2019-09-06 11:07 | RAD REPORT ---
EXAM DESCRIPTION: MRI - MRA Neck W/Wo Cont - 09/06/2019 10:48 am CLINICAL HISTORY: Syncope, stroke-like symptoms COMPARISON: None TECHNIQUE: MR angiography of the cervical vasculature performed. Coronal imaging plane acquisition u tilized. A MultiHance contrast volume was utilized. Coronal reformatted images were generated and re viewed. Vertical axis 3D rotational projections obtained using maximum intensity projection protocol. FINDINGS: Aortic arch is 3 vessel configuration. Great vessel and vertebral artery origin show no st enoses. No dissection, stenosis or other significant vascular finding. Vertebral arteries are codomin ant. No suspicious findings. IMPRESSION: Negative MRA neck examination.
[2019-09-06 11:45] LABS: Bilirubin Total 0.2 mg/dL (0.2-1.0); Magnesium 1.6 mg/dL (1.8-2.4); Potassium 3.8 mmol/L (3.5-5.1); Protein, Total 6.2 g/dL (6.4-8.2)
[2019-09-06 12:02] VITALS: BP 135/76; TEMP 97.7
--- NOTE | 2019-09-06 12:08 | RAD REPORT ---
EXAM DESCRIPTION: US - CP - 09/06/2019 11:06 am CLINICAL HISTORY: Syncope COMPARISON: None. TECHNIQUE: Real-time sonographic evaluation of both carotid systems was performed. Hyde scale and Do ppler interrogation were performed with waveform tracing bilaterally. FINDINGS: Normal high resistance waveforms are noted in both external carotid arteries. The common c arotid arteries and internal carotid arteries show normal low resistance waveforms. No significant plaque formation is seen. Peak systolic and end diastolic velocity values and the ICA/ CCA ratios are in the non-hemodynamically significant range. Antegrade flow seen in both vertebral arteries. Velocity values and ratios were recorded and are retained in the patient's imaging records. IMPRESSION: No significant atherosclerotic changes noted. No evidence of a hemodynamically significant stenosis.
--- NOTE | 2019-09-06 14:02 | P.DS ---
Admission Date: 09/06/19 Discharge Date: 09/06/19 Primary Care Provider: Rut Rodriguez Disposition: ROUTINE DISCHARGE Discharge Condition: GOOD Reason for Admission: SYNCOPAL EVENT Consultations: none Procedures: MRI Brain: FINDINGS: No intracranial hemorrhage, mass or acute infarction. There is no edema or shift of midline structures. No extra-axial fluid collections. Hyde- matter/white matter junction is preserved. Signal voids are seen as a normal finding in the major intracranial vessels. Post-contrast images show normal enhancement. No dural thickening. Mastoid air cells and paranasal sinuses are clear. IMPRESSION: Negative contrast enhanced MRI of the Brain. MRA Brain: FINDINGS: No aneurysm or vascular malformation. No measurable atherosclerotic change, vasculitis or other significant vascular finding. From origin to the vessel termination, each internal carotid artery has normal appearance. No basilar artery suspicious finding. IMPRESSION: Negative MRA head examination. MRA Neck: FINDINGS: Aortic arch is 3 vessel configuration. Great vessel and vertebral artery origin show no stenoses. No dissection, stenosis or other significant vascular finding. Vertebral arteries are codominant. No suspicious findings. IMPRESSION: Negative MRA neck examination. ECHO: obtained CT chest: FINDINGS: Thoracic aorta is normal in course and caliber without aneurysm or dissection. Pulmonary arteries are adequately opacified without acute or chronic filling defects. The heart is normal in size. There is no pericardial effusion. Intrathoracic lymph nodes are not enlarged. There is no pleural effusion, pleural thickening or pneumothorax. Central airways are patent. Lungs are clear with no consolidation, mass or interstitial lung disease. There are no acute abnormalities within the limited images of the upper abdomen. There are no acute osseous findings. No suspicious bony lesions. IMPRESSION: No aortic dissection or aneurysm. No pulmonary embolus. No definite pneumonia. Carotid doppler: FINDINGS: Normal high resistance waveforms are noted in both external carotid arteries. The common carotid arteries and internal carotid arteries show normal low resistance waveforms. No significant plaque formation is seen. Peak systolic and end diastolic velocity values and the ICA/CCA ratios are in the non-hemodynamically significant range. Antegrade flow seen in both vertebral arteries. Velocity values and ratios were recorded and are retained in the patient's imaging records. IMPRESSION: No significant atherosclerotic changes noted. No evidence of a hemodynamically significant stenosis. Medical Problem List: Syncope with acute kidney injury likely dehydration and multi pharmacy Hypertension Diabetes mellitus type 2 non-insulin dependent Depression Diabetic neuropathy with chronic pain Peripheral vascular disease Cocaine abuse THC use Left ingrown nail great toe Brief History of Present Illness: 49-year-old male presented to the emergency room after syncopal episode. Patient with history of hypertension, diabetes. Patient was at the [employer] at that time of the syncopal episode. She was brought in by EMS. Initial workup unremarkable. Patient admitted for further evaluation. Hospital Course: Patient presented with syncopal episode. At the time of the event she was at a sports bar. Patient was brought in by EMS. Initial blood pressure low. Lab showed acute renal injury likely from dehydration. Patient also takes multiple blood pressure medications. Medications were adjusted. Patient was admitted for IV hydration and further evaluation. Initial CT head unremarkable. During the course of her stay her condition improved. Renal function improved. MRI brain, MRA brain, and MRA neck, carotid Doppler all unremarkable. After hydration orthostatics were recheck. Blood pressure remained stable. At discharge will recommend to continue aspirin 81 mg daily, Plavix 75 mg daily and folic acid 1 mg daily. Blood pressure medications have been adjusted. Recommend follow up with her PCP in 1-2 weeks to follow up this hospitalization. Recommend to increase hydration. Recommend to recheck lab-CBC , BMP in 1 week to monitor progress. As mentioned above patient takes multiple medications for high blood pressure. Patient previously taking lisinopril 10 mg daily, lisinopril/ hydrochlorothiazide 20/12.5 mg daily, and propanolol 10 mg daily. During her stay lisinopril was continued. At discharge will recommend to discontinue lisinopril/hydrochlorothiazide and propanolol. Patient may continue with lisinopril 10 mg daily. She is to monitor her blood pressures daily. If her blood pressure remains above 150/90 she is to contact her PCP for further adjustment in her medication. Patient with diabetes mellitus type 2, insulin-dependent. Medications also have been adjusted. During her stay she continued with a sliding scale. At discharge will recommend to discontinue glipizide since the patient is on Levemir 10 units subcu twice daily. Patient may continue with metformin 1000 mg 1 pill twice daily. Recommend follow up with her PCP to further monitor and adjust medication. Education on hypoglycemia will be provided. Patient with depression. At discharge she will continue with her medication low Celexa 10 mg daily. Patient with PVD. At discharge she will continue with aspirin 81 mg daily and Plavix 75 mg daily. Patient with diabetic neuropathy and chronic pain. At discharge she will continue with gabapentin 300 mg 1 pill 3 times a day. Patient was positive for cocaine abuse and THC use. Initially patient denied the use of cocaine. This was addressed in detail. Education on cessation for cocaine addressed in detail. She is to continue with cocaine/THC cessation. This can be further monitored by her PCP. Patient has left great toe ingrown nail. Recommend podiatry evaluation as an outpatient to further address and treat. Vital Signs/Physical Exam: Temp Pulse Resp BP Pulse Ox 97.7 F 61 16 135/76 98 09/06/19 12:00 09/06/19 12:00 09/06/19 12:00 09/06/19 12:00 09/06/19 12:00 General: Alert, In no apparent distress, Oriented x3, Cooperative HEENT: Atraumatic Neck: Supple Respiratory: Clear to auscultation bilaterally, Normal air movement Cardiovascular: Normal pulses, Regular rate/rhythm Gastrointestinal: Normal bowel sounds, Soft and benign, Non-distended Musculoskeletal: No erythema, No tenderness, No warmth Integumentary: No erythema, No warmth, No cyanosis Neurological: Normal speech, Normal strength at 5/5 x4 extr, Normal tone, Normal affect Lymphatics: No axilla or inguinal lymphadenopathy Laboratory Data at Discharge: WBC 8.6 K/uL (4.3-10.9) 09/05/19 22:50 Hgb 14.8 g/dL (12.0-15.0) 09/05/19 22:50 Hct 44.7 % (36.0-45.0) 09/05/19 22:50 Plt Count 280 K/uL (152-406) 09/05/19 22:50 PT 11.7 SECONDS (9.5-12.5) 09/05/19 22:50 INR 0.99 09/05/19 22:50 APTT 29.2 SECONDS (24.3-36.9) 09/05/19 22:50 Sodium 142 mmol/L (136-145) 09/06/19 11:16 Potassium 3.8 mmol/L (3.5-5.1) 09/06/19 11:16 BUN 22 mg/dL (7-18) H 09/06/19 11:16 Creatinine 0.98 mg/dL (0.55-1.3) 09/06/19 11:16 Glucose 172 mg/dL (74-106) H 09/06/19 11:16 Magnesium 1.6 mg/dL (1.8-2.4) L 09/06/19 11:16 Total Bilirubin 0.2 mg/dL (0.2-1.0) 09/06/19 11:16 AST 18 U/L (15-37) 09/06/19 11:16 ALT 31 U/L (12-78) 09/06/19 11:16 Alkaline Phosphatase 76 U/L (45-117) 09/06/19 11:16 Troponin I < 0.02 ng/mL (0.0-0.045) 09/06/19 11:16 Lipase 175 U/L (73-393) 09/06/19 11:16 Home Medications: Aspirin [Aspirin EC 81 MG] 81 mg PO DAILY #90 tablet. 09/06/19 Citalopram [Celexa*] 10 mg PO DAILY 09/06/19 Clopidogrel Bisulfate [Plavix*] 75 mg PO DAILY 09/06/19 Ergocalciferol (Vitamin D2) [Vitamin D 50,000 Unit Cap] 50,000 units PO DIRECTED 09/06/19 Folic Acid 1 mg PO DAILY #90 tablet 09/06/19 Gabapentin 300 mg PO TID 09/06/19 Insulin Detemir [Levemir Flextouch] 10 units SQ BID 09/06/19 Lisinopril 10 mg PO BEDTIME 09/06/19 Lovastatin 20 mg PO BEDTIME 09/06/19 Metformin HCl [Glucophage*] 1,000 mg PO BIDWM 09/06/19 New Medications: Aspirin [Aspirin EC 81 MG] 81 mg PO DAILY #90 tablet. Folic Acid 1 mg PO DAILY #90 tablet Patient Discharge Instructions: 1. Recommend follow up with PCP in 1 week to follow up this hospitalization. 2. Patient presented with syncopal episode. At the time of the event she was at a sports bar. Patient was brought in by EMS. Initial blood pressure low. Lab showed acute renal injury likely from dehydration. Patient also takes multiple blood pressure medications. Medications were adjusted. Patient was admitted for IV hydration and further evaluation. Initial CT head unremarkable. During the course of her stay her condition improved. Renal function improved. MRI brain, MRA brain, and MRA neck, carotid Doppler all unremarkable. After hydration orthostatics were recheck. Blood pressure remained stable. At discharge will recommend to continue aspirin 81 mg daily, Plavix 75 mg daily and folic acid 1 mg daily. Blood pressure medications have been adjusted. Recommend follow up with her PCP in 1-2 weeks to follow up this hospitalization. Recommend to increase hydration. Recommend to recheck lab-CBC, BMP in 1 week to monitor progress. 3. As mentioned above patient takes multiple medications for high blood pressure. Patient previously taking lisinopril 10 mg daily, lisinopril/ hydrochlorothiazide 20/12.5 mg daily, and propanolol 10 mg daily. During her stay lisinopril was continued. At discharge will recommend to discontinue lisinopril/hydrochlorothiazide and propanolol. Patient may continue with lisinopril 10 mg daily. She is to monitor her blood pressures daily. If her blood pressure remains above 150/90 she is to contact her PCP for further adjustment in her medication. 4. Patient with diabetes mellitus type 2, insulin-dependent. Medications also have been adjusted. During her stay she continued with a sliding scale. At discharge will recommend to discontinue glipizide since the patient is on Levemir 10 units subcu twice daily. Patient may continue with metformin 1000 mg 1 pill twice daily. Recommend follow up with her PCP to further monitor and adjust medication. Education on hypoglycemia will be provided. 5. Patient with depression. At discharge she will continue with her medication low Celexa 10 mg daily. 6. Patient with PVD. At discharge she will continue with aspirin 81 mg daily and Plavix 75 mg daily. 7. Patient with diabetic neuropathy and chronic pain. At discharge she will continue with gabapentin 300 mg 1 pill 3 times a day. 8. Patient was positive for cocaine abuse and THC use. Initially patient denied the use of cocaine. This was addressed in detail. Education on cessation for cocaine addressed in detail. She is to continue with cocaine/THC cessation. This can be further monitored by her PCP. 9. Patient has left great toe ingrown nail. Recommend podiatry evaluation as an outpatient to further address and treat. Diet: ADA Activity: Fall precautions Time spent managing pt's care (in minutes): 55
--- NOTE | 2019-09-06 16:04 | ECHO ---
HEIGHT: 5 ft 5 in WEIGHT: 184 lb 11.2 oz DATE OF STUDY: 09/06/[address]: Higinio Rojas MD 2-DIMENSIONAL: YES M.MODE: YES DOPPLER: YES COLOR FLOW: YES TDS: PORTABLE: DEFINITY: BUBBLE STUDY: DIAGNOSIS: SYNCOPE CARDIAC HISTORY: CATHERIZATION: NO SURGERY: NO PROSTHETIC VALVE: NO PACEMAKER: NO MEASUREMENTS (cm) DIASTOLIC (NORMALS) SYSTOLIC (NORMALS) IVSd 1.2 (0.6-1.2) LA Diam 3.6 (1.9-4.0) LVEF 60-69% LVIDd 4.0 (3.5-5.7) LVIDs 2.1 (2.0-3.5) %FS 47% LVPWd 1.2 (0.6-1.2) Ao Diam 3.0 (2.0-3.7) 2 DIMENSIONAL ASSESSMENT: RIGHT ATRIUM: NORMAL LEFT ATRIUM: NORMAL RIGHT VENTRICLE: NORMAL LEFT VENTRICLE: NORMAL TRICUSPID VALVE: NORMAL MITRAL VALVE: NORMAL PULMONIC VALVE: NORMAL AORTIC VALVE: NORMAL PERICARDIAL EFFUSION: NONE AORTIC ROOT: NORMAL LEFT VENTRICULAR WALL MOTION: NORMAL DOPPLER/COLOR FLOW: NORMAL COMMENTS: NORMAL TWO DIMENSIONAL ECHOCARDIOGRAM WITH DOPPLER. TECHNOLOGIST: RAMANDEEP TABOR
[2019-09-06] MEDS ORDERED: ATORVASTATIN 10 MG TAB PO SCH (21:00)
[2019-09-06] MEDS ORDERED: lisinopriL 10 MG TAB PO SCH (21:00)
== END 2019-09-06 15:56 | disposition home or self-care (01) ==
LOC: ER 22:48 → 4TH 09-06 03:15
PROVIDERS: ADMIT Hospitalist; ATTEND Hospitalist
DX: R55 Syncope and collapse (principal); N17.9 Acute kidney failure, unspecified; I10 Essential (primary) hypertension; F32.9 Major depressive disorder, single episode, unspecified; E11.40 Type 2 diabetes mellitus with diabetic neuropathy, unspecified; I73.9 Peripheral vascular disease, unspecified; F14.10 Cocaine abuse, uncomplicated; F12.90 Cannabis use, unspecified, uncomplicated; L60.0 Ingrowing nail; Z86.718 Personal history of other venous thrombosis and embolism
CPT/HCPCS: 93005; 93306; 87088; 85025; 87086; 80048; 36415; 80320; 83735 ×2; 82550; 85610; 82947 ×4; 85379; 80076; 80307 ×8; 85730; 84484 ×3; 82553; 83690 ×2; 80053; 70450; 71275; 93880; 70553; 70544; 70549; 96360; 99285; Q9967; A9577; J1815; J7030 ×2; G0378 ×2; 81003; 81015

== ENCOUNTER 2023-10-02 14:16 | Emergency (ER) | payer OTHER ==
[2023-10-02 14:36] LABS: Protime INR 1.04
[2023-10-02 14:45] LABS: Absolute Lymphocytes (CBC) 2.3 K/uL (0.7-4.9); Hematocrit 43.2 % (36.0-45.0); Lymphocytes % 22.5 % (15.3-44.8); MCV 84.2 fL (80-100); MPV 8.5 fL (7.6-11.3); Platelets 198 thou/uL (152-406); RBC Red Blood Cell Count 5.13 M/uL (3.86-4.86)
[2023-10-02 14:54] LABS: Albumin 2.9 g/dL (3.4-5.0); Bilirubin Total 0.4 mg/dL (0.2-1.0); Magnesium 1.9 mg/dL (1.6-2.4); Potassium 3.6 mEq/L (3.5-5.1); Troponin High Sensitivity 11.3 pg/mL (<58.9)
--- NOTE | 2023-10-02 15:49 | RAD REPORT ---
EXAM DESCRIPTION: US - Extrem Venous W Compress Elmer - 10/02/2023 3:06 pm CLINICAL HISTORY: Pain COMPARISON: None. TECHNIQUE: Real-time sonographic evaluation of the bilateral lower extremity deep venous systems was performed. FINDINGS: Normal compressibility, flow augmentation, phasic flow and spontaneous flow is identified in both the left and right lower extremity deep venous systems. No intraluminal filling defects seen. IMPRESSION: No DVT in either lower extremity.
--- NOTE | 2023-10-02 15:55 | RAD REPORT ---
EXAM DESCRIPTION: Anita Single View10/02/2023 3:31 pm CLINICAL HISTORY: leg pain COMPARISON: No comparisons TECHNIQUE: Portable AP view of the chest. FINDINGS: The lungs are clear. No pneumothorax or effusion. The cardiomediastinal contours are unre markable. IMPRESSION: No acute cardiopulmonary process.
[2023-10-02] MEDS ORDERED: MORPHINE 4 MG/ML SYR ONE ×2 (16:25→17:07)
[2023-10-02] MEDS ORDERED: KETOROLAC 30 MG/ML INJ ONE (16:25)
[2023-10-02] MEDS ORDERED: NA CHLORIDE 0.9% 1,000 ML ONE ×2 (16:25→17:32)
[2023-10-02] MEDS ORDERED: dexAMETHasone 10 MG/ML VIAL ONE (16:25)
--- NOTE | 2023-10-02 17:44 | RAD REPORT ---
EXAM DESCRIPTION: US - Lower Extremity Arterial Bilat - 10/02/2023 4:46 pm CLINICAL HISTORY: PAIN COMPARISON: Lower Extremity Arterial Bilat dated 04/15/2018 TECHNIQUE: Bilateral lower extremity arterial Doppler examination was performed with quinton ramirez FINDINGS: Segments of absent spontaneous flow along the proximal right SFA and proximal left SFA. Th ere is reconstitution of flow distally. Monophasic waveforms are seen throughout the remainder of bot h lower extremity arterial systems to the level of the dorsalis pedis arteries. IMPRESSION: Bilateral severe peripheral vascular disease as above.
[2023-10-02] MEDS ORDERED: HYDROMORPHONE HCL 1 MG/ML INJ ONE (18:36)
[2023-10-02 19:37] LABS: Specific Gravity 1.018 (1.005-1.030)
[2023-10-02 19:40] LABS: Specific Gravity 1.018 (1.005-1.030); Urine Bacteria None Seen /HPF (<20); Urine Bilirubin NEGATIVE (Negative); Urine Blood Negative (Negative); Urine Clarity Clear (Clear); Urine Color Light-Yellow (Yellow); Urine Glucose 4+ (Over) (Negative); Urine Protein NEGATIVE (Negative); Urine Urobilinogen Normal (Normal); Urine pH 6.5 (5.0-7.0)
--- NOTE | 2023-10-02 19:59 | ER ---
Nurse's Notes [facility] Name: Eden Graham Age: 53 yrs Sex: Female : 1970 Arrival Date: 10/02/2023 Time: 14:16 Bed 14 Private MD: Diagnosis: Pain in right leg;Pain in left leg;Peripheral vascular disease, unspecified Presentation: 10/02 14:22 Chief complaint: EMS states: BILATERAL LEG PAIN X 1 WEEK. HX OF DVT. Coronavirus db screen: Vaccine status: Patient reports receiving the 2nd dose of the covid vaccine. Client denies travel out of the [place] in the last 14 days. At this time, the client does not indicate any symptoms associated with coronavirus-19. Ebola Screen: Patient negative for fever greater than or equal to 101.5 degrees Fahrenheit, and additional compatible Ebola Virus Disease symptoms Patient denies exposure to infectious person. Patient denies travel to an Ebola-affected area in the 21 days before illness onset. No symptoms or risks identified at this time. Initial Sepsis Screen: Does the patient meet any 2 criteria? No. Patient's initial sepsis screen is negative. Does the patient have a suspected source of infection? No. Patient's initial sepsis screen is negative. Risk Assessment: Do you want to hurt yourself or someone else? Patient reports no desire to harm self or others. Onset of symptoms was October 02, 2023. 14:22 Method Of Arrival: EMS: [facility] db 14:22 Acuity: JAG 2 db Triage Assessment: 14:22 General: Appears uncomfortable, Behavior is calm. Pain: Complains of pain in right leg db and left leg. Historical: - Allergies: 14:24 No Known Allergies; db - PMHx: 14:24 Anxiety; Diabetes - NIDDM; DVT; Depression; Hypertension; Hyperlipidemia; RLS; db - Immunization history:: Adult Immunizations unknown. - Social history:: Smoking status: Patient denies any tobacco usage or history of. Screenin:25 [facility] ED Fall Risk Assessment (Adult) Score/Fall Risk Level 0 - 2 = Low Risk. Abuse eh3 screen: Denies threats or abuse. Denies injuries from another. Nutritional screening: No deficits noted. Tuberculosis screening: No symptoms or risk factors identified. Assessment: 14:25 General: Appears in no apparent distress. uncomfortable, Behavior is cooperative, eh3 appropriate for age, restless. Pain: Complains of pain in right leg and left leg. Neuro: Level of Consciousness is awake, alert, obeys commands, Oriented to person, place, time, situation. Cardiovascular: Capillary refill < 3 seconds Patient's skin is warm and dry. Respiratory: Airway is patent Respiratory effort is even, unlabored, Respiratory pattern is regular, symmetrical. GI: Abdomen is round non-distended. Derm: Skin is pink, warm \T\ dry. Musculoskeletal: Circulation, motion, and sensation intact. 15:00 Reassessment: Patient and/or family updated on plan of care and expected duration. Pain eh3 level reassessed. Patient is alert, oriented x 3, equal unlabored respirations, skin warm/dry/pink. 16:00 Reassessment: Patient and/or family updated on plan of care and expected duration. Pain eh3 level reassessed. Patient is alert, oriented x 3, equal unlabored respirations, skin warm/dry/pink. 17:00 Reassessment: Patient and/or family updated on plan of care and expected duration. Pain eh3 level reassessed. Patient is alert, oriented x 3, equal unlabored respirations, skin warm/dry/pink. 18:00 Reassessment: Patient and/or family updated on plan of care and expected duration. Pain eh3 level reassessed. Patient is alert, oriented x 3, equal unlabored respirations, skin warm/dry/pink. 19:00 Reassessment: Patient and/or family updated on plan of care and expected duration. Pain eh3 level reassessed. Patient is alert, oriented x 3, equal unlabored respirations, skin warm/dry/pink. 19:37 General: Appears in no apparent distress. Behavior is calm, cooperative, appropriate km8 for age. Pain: Complains of pain in left leg and right leg. Neuro: Richardson Agitation-Sedation Scale (RASS): 0 - Alert and Calm Level of Consciousness is awake, alert, obeys commands, Oriented to person, place, time, situation. Cardiovascular: Denies chest pain, shortness of breath, Capillary refill < 3 seconds Patient's skin is warm and dry. Respiratory: Airway is patent Respiratory effort is even, unlabored, Respiratory pattern is regular, symmetrical. Derm: No signs and/or symptoms reported regarding the dermatologic system. Skin is intact, Skin is dry, Skin is pink, warm \T\ dry. normal, Skin temperature is warm. Musculoskeletal: Reports weakness in right leg and left leg pain in right leg and left leg. Vital Signs: 14:22 BP 144 / 94; Pulse 100; Resp 18; Temp 97.6(O); Pulse Ox 95% ; db 15:00 BP 132 / 77; Pulse 95; Resp 18; Pulse Ox 95% on R/A; iw 16:00 BP 169 / 88; Pulse 81; Resp 16; Pulse Ox 95% on R/A; iw 17:00 BP 165 / 85; Pulse 77; Resp 18; Pulse Ox 95% on R/A; eh3 18:00 BP 160 / 91; Pulse 82; Resp 18; Pulse Ox 95% on R/A; eh3 19:00 BP 164 / 92; Pulse 84; Resp 18; Pulse Ox 95% on R/A; eh3 20:55 BP 169 / 88; Pulse 92; Resp 16; Pulse Ox 98% on R/A; km8 ED Course: 14:17 Patient arrived in ED. eh3 14:18 Jamel Ye PA is PHCP. cp 14:19 Julian Mackey MD is Attending Physician. cp 14:24 Anh Leiva, CONY is Primary Nurse. eh3 14:24 Triage completed. db 14:24 Arm band placed on Patient placed in an exam room. db 14:25 Patient has correct armband on for positive identification. Bed in low position. Call eh3 light in reach. Side rails up X2. Client placed on continuous cardiac and pulse oximetry monitoring. NIBP monitoring applied. 15:08 US Extremity Venous W Compression Elmer In Process Unspecified. EDMS 15:33 XRAY Chest (1 view) In Process Unspecified. EDMS 16:48 US Lower Extremity Arterial Bilateral In Process Unspecified. EDMS 19:15 Report given to CONY Thomason. eh3 20:[address] [facility], spoke with Jaylene. 21:00 Provided Education on: d/c teaching. km8 21:00 No provider procedures requiring assistance completed. IV discontinued, intact, km8 bleeding controlled, No redness/swelling at site. Pressure dressing applied. Administered Medications: 15:45 Drug: Decadron - Dexamethasone IVP 10 mg IVP once Route: IVP; Site: left antecubital; iw 17:00 Follow up: Response: No adverse reaction eh3 15:45 Drug: morphine IVP or IV 4 mg IVP once over 4 mins Route: IVP; Infused Over: 4 mins; iw Site: left antecubital; 17:00 Follow up: Response: No adverse reaction eh3 16:10 Drug: Ketorolac IVP 15 mg IVP once Route: IVP; Site: left antecubital; iw 17:00 Follow up: Response: No adverse reaction eh3 16:17 Not Given (Physician Discretion): ns 0.9% 1000 ml IV at 500 ml/hr Per protocol; 1000 mL cp bolus 16:54 Drug: morphine IVP or IV 4 mg IVP once over 4 mins Route: IVP; Infused Over: 4 mins; Site: left wrist; 18:00 Follow up: Response: No adverse reaction 3 18:20 Drug: NS 0.9% IV 500 ml IV at bolus once Route: IV; Rate: bolus; Site: left forearm; 3 21:00 Follow up: IV Status: Completed infusion 8 18:20 Drug: NS 0.9% IV 500 ml IV at 100 ml/hr continuous Route: IV; Rate: 100 ml/hr; Site: 3 left antecubital; 21:00 Follow up: IV Status: Completed infusion 8 18:20 Drug: HYDROmorphone IVP 1 mg IVP once Route: IVP; Site: left antecubital; 3 19:00 Follow up: Response: No adverse reaction; Pain is decreased; RASS: Alert and Calm (0) 3 Medication: 21:00 VIS not applicable for this client. km8 Outcome: 19:59 ER care complete, transfer ordered by . laurel 20:33 Discharge ordered by . cp 21:00 Discharged to home via wheelchair, km8 21:00 Condition: stable 21:00 Discharge instructions given to patient, Instructed on discharge instructions, follow up and referral plans. Demonstrated understanding of instructions, follow-up care, 21:18 Patient left the ED. km8 Signatures: Dispatcher [employer] EDMS Daina Ledbetter RN RN Jamel Ye PA PA cp Marsh, Wendy Anh Leiva RN RN [facility] Chioma Hernandez RN RN Katelin Germain RN RN 8 Corrections: (The following items were deleted from the chart) 19:28 18:58 BP 164 / 92; Pulse 84bpm; Resp 18bpm; Pulse Ox 95% RA; eh3 eh3
--- NOTE | 2023-10-02 19:59 | EDPHYS ---
Physician Documentation [facility] Name: Eden Graham Age: 53 yrs Sex: Female : 1970 Arrival Date: 10/02/2023 Time: 14:16 Bed 14 Private MD: ED Physician Julian Mackey HPI: 10/02 14:30 This 53 yrs old Female presents to ER via EMS with complaints of Leg Pain. cp 14:30 The patient presents with pain, that is acute, tenderness. The complaints affect the cp right leg and left leg. Context: resulted from an unknown cause. 14:30 Onset: The symptoms/episode began/occurred 1 week(s) ago. cp 14:30 Modifying factors: the symptoms are aggravated by movement, weight bearing. cp 14:30 Associated signs and symptoms: Pertinent negatives fever, numbness, swelling, chest cp pain, shortness of breath. Severity of symptoms: in the emergency department the symptoms are unchanged, despite home interventions. Historical: - Allergies: 14:24 No Known Allergies; db - PMHx: 14:24 Anxiety; Diabetes - NIDDM; DVT; Depression; Hypertension; Hyperlipidemia; RLS; db - Immunization history:: Adult Immunizations unknown. - Social history:: Smoking status: Patient denies any tobacco usage or history of. ROS: 14:33 Constitutional: Negative for chills, fever, poor PO intake, cp 14:33 Cardiovascular: Negative for chest pain, edema, palpitations, cp 14:33 Respiratory: Negative for cough, shortness of breath, wheezing, 14:33 Abdomen/GI: Negative for vomiting, diarrhea, constipation, 14:33 Skin: Negative for rash, 14:33 Neuro: Negative for altered mental status, dizziness, headache, syncope, weakness, Exam: 14:35 Constitutional: The patient appears in no acute distress, alert, awake, cp non-diaphoretic, non-toxic, well developed, well nourished, uncomfortable, 14:35 Head/Face: Normocephalic, atraumatic. cp 14:35 Eyes: Periorbital structures: appear normal, Conjunctiva: normal, no exudate, no cp injection, Sclera: no appreciated abnormality, Lids and lashes: appear normal, bilaterally, 14:35 ENT: External ear(s): are unremarkable, Nose: is normal, Mouth: Lips: moist, Oral cp mucosa: moist, Posterior pharynx: Airway: no evidence of obstruction, patent, 14:35 Chest/axilla: Inspection: normal, 14:35 Cardiovascular: Rate: tachycardic, Rhythm: regular, Edema: is not appreciated, JVD: is not appreciated, 14:35 Respiratory: the patient does not display signs of respiratory distress, Respirations: normal, no use of accessory muscles, no retractions, labored breathing, is not present, Breath sounds: are clear throughout, no decreased breath sounds, no stridor, no wheezing, 14:35 Abdomen/GI: Inspection: abdomen appears normal, Palpation: abdomen is soft and non-tender, in all quadrants, 14:35 Back: pain, is absent, ROM is normal, 14:35 Musculoskeletal/extremity: Extremities: grossly normal except: noted in the right leg and left leg: pain, tenderness, There is no evidence of decreased ROM, erythema, edema, open wounds, Pulses: palpable bilateral dorsalis pedis pulses, Perfusion: the extremity is warm, the right leg and left leg Severe pain noted. 14:35 Skin: cellulitis, is not appreciated, no rash present. 14:35 Neuro: Orientation: to person, place \T\ time. Mentation: is normal, Motor: moves all fours, strength is normal, 14:43 ECG was reviewed by the Attending Physician. Vital Signs: 14:22 BP 144 / 94; Pulse 100; Resp 18; Temp 97.6(O); Pulse Ox 95% ; db 15:00 BP 132 / 77; Pulse 95; Resp 18; Pulse Ox 95% on R/A; iw 16:00 BP 169 / 88; Pulse 81; Resp 16; Pulse Ox 95% on R/A; iw 17:00 BP 165 / 85; Pulse 77; Resp 18; Pulse Ox 95% on R/A; eh3 18:00 BP 160 / 91; Pulse 82; Resp 18; Pulse Ox 95% on R/A; eh3 19:00 BP 164 / 92; Pulse 84; Resp 18; Pulse Ox 95% on R/A; eh3 20:55 BP 169 / 88; Pulse 92; Resp 16; Pulse Ox 98% on R/A; km8 MDM: 14:19 Patient medically screened. 20:32 Data reviewed: vital signs, nurses notes, lab test result(s), EKG, radiologic studies, cp plain films, ultrasound. 20:32 Consideration of Admission/Observation Escalation of care including cp admission/observation considered. I considered the following discharge prescriptions or medication management in the emergency department Medications were administered in the Emergency Department. See MAR. Care significantly affected by the following chronic conditions: Diabetes, Hypertension. Counseling: I had a detailed discussion with the patient and/or guardian regarding the historical points, exam findings, and any diagnostic results supporting the discharge/admit diagnosis, lab results, radiology results, the need for outpatient follow up, for definitive care, vascular surgery. 10/02 14:22 Order name: CBC with Diff; Complete Time: 15:32 10/02 15:32 Interpretation: Normal except: RBC 5.13; RDW 18.7. 10/02 14:22 Order name: Magnesium; Complete Time: 15:32 10/02 14:22 Order name: PT-INR; Complete Time: 15:32 10/02 14:22 Order name: Troponin HS; Complete Time: 15:32 10/02 14:22 Order name: CMP; Complete Time: 15:32 10/02 15:33 Interpretation: Normal except: NA 135; CL 109; CO2 20; GLUC 253; CRE 1.10; GFR 60; CA cp 10.3; ALB 2.9; GLOB 4.1; A/G 0.7. 10/02 14:22 Order name: Urinalysis W/Microscopic; Complete Time: 19:40 10/02 19:41 Interpretation: Normal except: UGLUC 4+ (Over); URBC 5-10; BYST Trace. 10/02 14:22 Order name: PREGU; Complete Time: 19:40 10/02 14:32 Order name: CK; Complete Time: 16:54 10/02 16:54 Interpretation: Reviewed. 10/02 14:22 Order name: XRAY Chest (1 view); Complete Time: 16:17 10/02 16:18 Interpretation: Report review. 10/02 14:32 Order name: US Extremity Venous W Compression Elmer; Complete Time: 15:56 10/02 15:56 Interpretation: Report reviewed. 10/02 15:57 Order name: US Lower Extremity Arterial Bilateral; Complete Time: 17:46 10/02 17:47 Interpretation: Report reviewed. 10/02 14:22 Order name: EKG; Complete Time: 14:23 cp 10/02 14:22 Order name: Cardiac monitoring; Complete Time: 14:45 cp 10/02 14:22 Order name: EKG - Nurse/Tech; Complete Time: 14:45 cp 10/02 14:22 Order name: IV Saline Lock; Complete Time: 14:32 cp 10/02 14:22 Order name: Labs collected and sent; Complete Time: 14:32 cp 10/02 14:22 Order name: O2 Per Protocol; Complete Time: 14:32 cp 10/02 14:22 Order name: O2 Sat Monitoring; Complete Time: 14:32 cp EC:43 Rate is 91 beats/min. Rhythm is regular. ID interval is normal. QRS interval is normal. cp QT interval is normal. T waves are Inverted in lead aVR. Interpreted by me. Reviewed by me. Administered Medications: 15:45 Drug: Decadron - Dexamethasone IVP 10 mg IVP once Route: IVP; Site: left antecubital; iw 17:00 Follow up: Response: No adverse reaction eh3 15:45 Drug: morphine IVP or IV 4 mg IVP once over 4 mins Route: IVP; Infused Over: 4 mins; iw Site: left antecubital; 17:00 Follow up: Response: No adverse reaction eh3 16:10 Drug: Ketorolac IVP 15 mg IVP once Route: IVP; Site: left antecubital; iw 17:00 Follow up: Response: No adverse reaction eh3 16:17 Not Given (Physician Discretion): ns 0.9% 1000 ml IV at 500 ml/hr Per protocol; 1000 mL cp bolus 16:54 Drug: morphine IVP or IV 4 mg IVP once over 4 mins Route: IVP; Infused Over: 4 mins; iw Site: left wrist; 18:00 Follow up: Response: No adverse reaction eh3 18:20 Drug: NS 0.9% IV 500 ml IV at bolus once Route: IV; Rate: bolus; Site: left forearm; 3 21:00 Follow up: IV Status: Completed infusion km8 18:20 Drug: NS 0.9% IV 500 ml IV at 100 ml/hr continuous Route: IV; Rate: 100 ml/hr; Site: eh3 left antecubital; 21:00 Follow up: IV Status: Completed infusion km8 18:20 Drug: HYDROmorphone IVP 1 mg IVP once Route: IVP; Site: left antecubital; 3 19:00 Follow up: Response: No adverse reaction; Pain is decreased; RASS: Alert and Calm (0) eh3 Disposition Summary: 10/02/23 20:33 Discharge Ordered Notes: Location: Home cp Problem: an ongoing problem(10/02/23 20:33) cp Symptoms: have improved(10/02/23 20:33) cp Condition: Stable(10/02/23 20:33) cp Diagnosis - Pain in right leg cp - Pain in left leg cp - Peripheral vascular disease, unspecified(10/02/23 20:33) cp Followup: cp - With: Private Physician - When: 2 - 3 days - Reason: Recheck today's complaints Discharge Instructions: - Discharge Summary Sheet cp - Intermittent Claudication cp - Peripheral Vascular Disease cp - Steps to Quit Smoking cp - Health Risks of Smoking cp - Aspirin and Your Heart cp - Managing the Challenge of Quitting Smoking cp - Smoking Tobacco Information, Adult cp Forms: - Medication Reconciliation Form cp - Thank You Letter cp - Antibiotic Education cp - Prescription Opioid Use cp - Patient Portal Instructions cp - Leadership Thank You Letter cp Signatures: Dispatcher [employer] Daina Quevedo RN RN Jamel Phipps PA PA cp Anh Leiva RN RN [facility] Chioma Hernandez RN RN Katelin Germain RN km8 Corrections: (The following items were deleted from the chart) 20:00 19:59 doctor cp cp 20:32 19:59 [facility] cp cp 20:32 19:59 Higher level of care cp cp 20:32 19:59 Stable cp cp 20:32 19:59 an ongoing problem cp cp 20:32 19:59 have improved cp cp 20:32 19:59 Pain in leg, unspecified cp cp 20:32 20:00 doctor cp cp 20:32 20:00 Peripheral vascular disease, unspecified - with near occlussion of bilateral cp proximal SFA cp
[2023-10-02 21:22] VITALS: TEMP 97.6
[2023-10-02 21:29] VITALS: BP 169/88; O2SAT 98
--- NOTE | 2023-10-07 14:02 | EKG ---
Test Date: 2023-10-02 Test Time: 14:37:05 House Admin: ISAMAR MEASUREMENT RESULTS: Intervals: Rate: 91 W[place]: 124 QRSD: 78 QT: 362 QTc: 445 [place]: P: 54 [place]: 124 QRS: 79 T: 83 INTERPRETIVE STATEMENTS: Normal sinus rhythm Normal ECG Compared to ECG 09/05/2019 22:57:01 ST (T wave) deviation no longer present Electronically Signed On 10-07-23 13:45:52 URINALYSIS TECHNICIAN by Devan Magana
== END 2023-10-02 21:18 | disposition home or self-care (01) ==
LOC: ER 14:16
DX: I73.9 Peripheral vascular disease, unspecified (principal); M79.605 Pain in left leg; M79.604 Pain in right leg; I10 Essential (primary) hypertension; Z86.718 Personal history of other venous thrombosis and embolism
CPT/HCPCS: 93005; 85025; 81001; 36415; 83735; 82550; 81025; 85610; 84484; 80053; 71045; 93925; 93970; 99284; J1100; J1170; J7040; J7030

== ENCOUNTER 2024-08-12 21:42 | Emergency (ER) | payer OTHER ==
[2024-08-12] MEDS ORDERED: NA CHLORIDE 0.9% 1,000 ML ONE ×2 (21:51→22:10)
[2024-08-12] MEDS ORDERED: ALBUMIN HUMAN 25% 200 ML IV ONE (22:20)
[2024-08-12 22:24] LABS: Absolute Basophils 0.2 K/uL (0-0.5); Absolute Lymphocytes (CBC) 2.4 K/uL (0.7-4.9); Absolute Neutrophil 11.5 K/uL (1.8-8.0); Basophils % 1.1 % (0-1.3); Eosinophils % 0.2 % (0-4.4); Hemoglobin 11.9 g/dL (12.0-15.0); Lymphocytes % 15.7 % (15.3-44.8); MCH 27.8 pg (27.0-35.0); MCV 84.4 fL (80-100); MPV 8.3 fL (7.6-11.3); Monocytes % 6.4 % (3.3-12.3); Neutrophils % 76.6 % (41.7-73.7); Platelets 232 thou/uL (152-406); RBC Red Blood Cell Count 4.27 M/uL (3.86-4.86); Red Cell Distribution Width 17.9 % (12.1-15.2)
[2024-08-12 22:28] LABS: PT Prothrombin Time 13.4 SECONDS (9.4-12.5); Protime INR 1.2
[2024-08-12 22:46] LABS: Albumin 2.6 g/dL (3.4-5.0); Albumin/Globulin Ratio 0.7 (1.1-1.8); Anion Gap 14.2 mEq/L (5.0-15.0); Bilirubin Direct 0.2 mg/dL (0-0.2); Bilirubin Indirect, Calculated 0.3 mg/dL (0.2-0.8); Bilirubin Total 0.5 mg/dL (0.2-1.0); Globulin 3.7 g/dL (2.3-3.5); Protein, Total 6.3 g/dL (6.4-8.2); Troponin High Sensitivity 8.6 pg/mL (<58.9)
[2024-08-12 22:47] LABS: Potassium 4.2 mEq/L (3.5-5.1)
[2024-08-13] MEDS ORDERED: VANCOMYCIN 500 MG/VIAL ONE (02:12)
[2024-08-13] MEDS ORDERED: CEFEPIME 2 GM VIAL ONE (02:12)
[2024-08-13] MEDS ORDERED: VANCOMYCIN 1 GM/VIAL ONE (02:12)
[2024-08-13] MEDS ORDERED: NOREPINEPHRINE BITARTRATE/D5W 4 MG/250 ML KIT IV ONE (02:13)
[2024-08-13] MEDS ORDERED: NA CHLORIDE 0.9% 500 ML ONE (02:13)
[2024-08-13] MEDS ORDERED: NA CHLORIDE 0.9% 100 ML ONE (02:13)
[2024-08-13] MEDS ORDERED: ONDANSETRON 4 MG/2 ML VIAL ONE (02:51)
[2024-08-13] MEDS ORDERED: MORPHINE 4 MG/ML SYR ONE (02:51)
[2024-08-13 03:55] LABS: Specific Gravity 1.007 (1.005-1.030); Sqamous Epithelial <5 /HPF (None Seen); Urine Bacteria <20 /HPF (<20); Urine Bilirubin NEGATIVE (Negative); Urine Blood Trace (Negative); Urine Clarity Turbid (Clear); Urine Color Light-Yellow (Yellow); Urine Crystals Unidentified Few /HPF (None Seen); Urine Culture Reflex Order NOT NEEDED; Urine Glucose 2+ (Negative); Urine Ketones NEGATIVE (Negative); Urine Micro Reflex YN NO BILL MICROSCOPIC; Urine Mucus Slight /HPF (None Seen); Urine Nitrite NEGATIVE (Negative); Urine Protein TRACE (Negative); Urine RBC <5 /HPF (None Seen); Urine Urobilinogen Normal (Normal); Urine WBC <5 /HPF (<5)
--- NOTE | 2024-08-13 05:36 | RAD REPORT ---
EXAM: CT Head and Cervical Spine Without Intravenous Contrast CLINICAL HISTORY: The patient is 54 years old and is Female; Headache. TECHNIQUE: Axial computed tomography images of the head/brain and cervical spine without intravenou s contrast. Sagittal and coronal reformatted images were created and reviewed. This CT exam was performed using one or more of the following dose reduction techniques: automated exposure control, adjustment of the mA and/or kV according to patient size, and/or use of iterative reconstruction technique. COMPARISON: CT Head or Brain 09/05/2019. FINDINGS: Brain: Unremarkable. No hemorrhage. No significant white matter disease. No edema. Ventricles: Unremarkable. No ventriculomegaly. Skull: No acute fracture. Sinuses: Unremarkable as visualized. No acute sinusitis. Mastoid air cells: Unremarkable as visualized. No mastoid effusion. Vertebrae: No acute cervical spine fracture visualized. No traumatic malalignment. Discs/spinal canal/neural foramina: Degenerative disc disease and disc osteophyte complex at C6-7 . No significant central canal stenosis. Soft tissues: Unremarkable. Pleural space: No apical pneumothorax. IMPRESSION: 1. No acute intracranial findings. No hemorrhage. 2. No acute cervical spine fracture visualized. Electronically signed by: Jacy Carroll MD 08/13/2024 04:24 AM CDT RP ND Due to temporary technical issues with the PACS/[employer] reporting system, reports are being diana d by the in-house radiologist without review as a courtesy to ensure prompt reporting the interpreting radiologist is fully responsible for the content of the report. Transcribed Date/Time: 08/13/2024 5:36 AM
--- NOTE | 2024-08-13 05:37 | RAD REPORT ---
EXAM: CT Chest, Abdomen and Pelvis Without Intravenous Contrast CLINICAL HISTORY: The patient is 54 years old and is Female; Pain in the spine. TECHNIQUE: Axial computed tomography images of the chest, abdomen and pelvis without intravenous co ntrast. Sagittal and coronal reformatted images were created and reviewed. This CT exam was performed using one or more of the following dose reduction techniques: automated exposure control, adjustment of the mA and/or kV according to patient size, and/or use of iterative reconstruction technique. COMPARISON: XR Chest 08/13/2024, 02:11:56 AM. FINDINGS: CHEST: Lungs: Unremarkable. No mass. No consolidation or ground glass opacities. Pleural space: Unremarkable. No significant effusion. No pneumothorax. Heart: Unremarkable. No cardiomegaly. No significant pericardial effusion. No significant c oronary artery calcifications. ABDOMEN: Liver: Unremarkable. Gallbladder and bile ducts: Unremarkable. No calcified stones. No ductal dilation. Pancreas: Unremarkable. No ductal dilation. Spleen: Unremarkable. No splenomegaly. Adrenals: Unremarkable. No mass. Kidneys and ureters: Bilateral perinephric stranding, nonspecific. No nephrolithiasis, hydronephr osis or ureter stone. Stomach and bowel: Distal rectal wall thickening versus artifact of incomplete distention. No small bowel dilatation or obstruction. PELVIS: Appendix: The visualized appendix is normal. No pericecal inflammation to suggest acute appendici tis. Bladder: Left IJ line terminates at the SVC/RA junction. Stark catheter in the bladder. No stones. Reproductive: Unremarkable as visualized. CHEST, ABDOMEN and PELVIS: Intraperitoneal space: Unremarkable. No significant fluid collection. No free air. Bones/joints: No vertebral compression fracture. L2-3 degenerative disc disease with disc protrus ion and mild to moderate central canal stenosis. T11 and T4 vertebral hemangiomata. No acute sternal fracture. No sternoclavicular joint dislocation. Old or healing anterior right rib fractures. No acute rib fracture visualized. No acute fract ure in the pelvis or proximal femora. No hip dislocation. Soft tissues: Unremarkable. Vasculature: Aortoiliac arterial stents. Left femoral artery stent. No abdominal aortic aneurysm. Lymph nodes: Unremarkable. No enlarged lymph nodes. IMPRESSION: 1. No acute fracture visualized. 2. Left IJ line terminates at the SVC/RA junction. Stark catheter in the bladder. 3. Distal rectal wall thickening versus artifact of incomplete distention. Correlate clinically for mild distal colitis. 4. No acute findings in the chest. 5. Additional non-emergent findings as above. Electronically signed by: Jacy Carroll MD 08/13/2024 04:20 AM CDT RP ND Due to temporary technical issues with the PACS/[employer] reporting system, reports are being diana d by the in-house radiologist without review as a courtesy to ensure prompt reporting the interpreting radiologist is fully responsible for the content of the report. Transcribed Date/Time: 08/13/2024 5:37 AM
--- NOTE | 2024-08-13 05:39 | RAD REPORT ---
EXAM: XR Left Shoulder, 1 View CLINICAL HISTORY: Pain after a fall. TECHNIQUE: One view of the left shoulder. COMPARISON: No relevant prior studies available. FINDINGS: Bones/joints: Unremarkable. No acute fracture. No dislocation. Soft tissues: Unremarkable. IMPRESSION: No acute injury. Electronically signed by: Sabiha Gilman MD 08/13/2024 03:29 AM CDT RP Due to temporary technical issues with the PACS/[employer] reporting system, reports are being diana d by the in-house radiologist without review as a courtesy to ensure prompt reporting the interpreting radiologist is fully responsible for the content of the report. Transcribed Date/Time: 08/13/2024 5:39 AM
--- NOTE | 2024-08-13 05:40 | RAD REPORT ---
EXAM: XR Chest, 1 View CLINICAL HISTORY: CVL placed left IJ. TECHNIQUE: Frontal view of the chest. COMPARISON: No relevant prior studies available. FINDINGS: Lungs: Unremarkable. No consolidation. Pleural space: Unremarkable. No pneumothorax. Heart: The cardiac silhouette is accentuated by portable technique. Mediastinum: Unremarkable. Normal mediastinal contour. Bones/joints: Unremarkable. No acute fracture. Vasculature: Thoracic aortic atherosclerosis. Tubes, lines and devices: Left internal jugular central venous catheter tip projects over the super ior vena cava right atrial junction. Upper abdomen: Elevation of the right hemidiaphragm. IMPRESSION: Left internal jugular central venous catheter tip projects over the superior vena cava right atrial j unction. Electronically signed by: Sabiha Gilman MD 08/13/2024 03:31 AM CDT Due to temporary technical issues with the PACS/Qui[employer] reporting system, reports are being diana d by the in-house radiologist without review as a courtesy to ensure prompt reporting the interpreting radiologist is fully responsible for the content of the report. Transcribed Date/Time: 08/13/2024 5:40 AM
--- NOTE | 2024-08-13 05:51 | EDPHYS ---
Physician Documentation [facility] Name: Eden Graham Age: 54 yrs Sex: Female : 1970 Arrival Date: 08/12/2024 Time: 21:42 Bed 3 Private MD: ED Physician Aris Mallory HPI: 08/13 01:57 This 54 yrs old Female presents to ER via EMS with complaints of Fall Injury. sp4 02:54 54 -year-old female presents with acute fall 6 days ago with EMS. Patient states she sp4 fell 6 days ago at the doctor's office developed diffuse pain head chest neck abdomen pelvis back pain as well and Left shoulder pain. . 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 - Infectious Disease History:: Denies. - Social history:: Smoking status: Patient reports the use of cigarette tobacco products, smokes one-half pack cigarettes per day. - Family history:: not pertinent. ROS: 08/13 02:54 Constitutional: Negative for fever, chills, and weight loss, positive headache, neck sp4 pain, chest abdomen pelvis pain, back pain, left shoulder pain. All other systems are negative, Exam: 02:04 ECG was reviewed by the Attending Physician. EKG at 2235 normal sinus rhythm rate 86, sp4 early repolarization, no ST elevation or depression 02:54 Constitutional: This is a well developed, well nourished patient who is awake, alert, sp4 ill-appearing, nontoxic-appearing, diffuse physical deconditioning, Head/Face: Normocephalic, atraumatic. Eyes: Pupils equal round and reactive to light, extra-ocular motions intact. Lids and lashes normal. Conjunctiva and sclera are not injected. Cornea within normal limits. Periorbital areas with no swelling, redness, or edema. ENT: Nares patent. No nasal discharge, no septal abnormalities noted. Tympanic membranes are normal and external auditory canals are clear. Oropharynx with no redness, swelling, or masses, exudates, or evidence of obstruction, uvula midline. Mucous membranes moist. Neck: Trachea midline, no thyromegaly or masses palpated, and no cervical lymphadenopathy. Supple, full range of motion without nuchal rigidity, or vertebral point tenderness. Chest/axilla: Normal chest wall appearance and motion. Nontender with no deformity. No lesions are appreciated. Cardiovascular: Regular rate and rhythm with a normal S1 and S2. No gallops, murmurs, or rubs. Normal PMI, no JVD. No pulse deficits. Respiratory: Lungs have equal breath sounds bilaterally, clear to auscultation and percussion. No rales, rhonchi or wheezes noted. No increased work of breathing, no retractions or nasal flaring. Abdomen/GI: Soft, with normal bowel sounds. No distension or tympany. No guarding or rebound. No evidence of tenderness throughout. Back: No spinal tenderness. No costovertebral tenderness. Skin: Warm, dry with normal turgor. Normal color with no rashes, no lesions, and no evidence of cellulitis. MS/ Extremity: Pulses equal, no cyanosis. Neurovascular intact. Full, normal range of motion. Neuro: Awake and alert, GCS 15, oriented to person, place, time, and situation. Cranial nerves II-XII grossly intact. Motor strength 5/5 in all extremities. Sensory grossly intact. Psych: Awake, alert, with orientation to person, place and time. Behavior, mood, and affect are within normal limits Vital Signs: 08/12 21:45 BP 76 / 48; Pulse 99; Resp 17; Temp 98.3; Pulse Ox 95% ; Weight 85.73 kg; Height 5 ft. me1 5 in. ; Pain 7/10; 23:50 BP 90 / 55; Pulse 87; Resp 19; Pulse Ox 96% on R/A; sa1 08/13 00:30 BP 84 / 50; Pulse 91; Resp 18; Pulse Ox 97% ; cp4 01:00 BP 85 / 53; Pulse 91; Resp 18; Pulse Ox 96% ; cp4 01:30 BP 94 / 55; Pulse 81; Resp 18; Pulse Ox 97% ; cp4 02:00 BP 95 / 59; Pulse 80; Resp 18; Pulse Ox 100% ; cp4 02:30 BP 104 / 91; Pulse 77; Resp 18; Pulse Ox 98% ; cp4 03:00 BP 116 / 58; Pulse 84; Resp 18; Pulse Ox 97% ; cp4 03:29 BP 108 / 64; Pulse 87; Resp 18; Pulse Ox 100% ; cp4 04:00 BP 103 / 60; Pulse 82; Resp 18; Pulse Ox 97% ; cp4 04:30 BP 87 / 60; Pulse 84; Resp 18; Pulse Ox 97% ; cp4 05:00 BP 110 / 69; Pulse 82; Resp 18; Pulse Ox 97% ; cp4 05:30 BP 107 / 64; Pulse 80; Resp 18; Pulse Ox 99% ; cp4 06:00 BP 107 / 66; Pulse 82; Resp 18; Pulse Ox 97% ; cp4 08/12 21:45 Body Mass Index 31.45 (85.73 kg, 165.1 cm) me1 08/12 21:45 Pain Scale: Adult me1 Benicia Coma Score: 02:54 Eye Response: spontaneous(4). Motor Response: obeys commands(6). Verbal Response: sp4 oriented(5). Total: 15. Procedures: 01:58 Central Line: the site was prepped with Betadine, in sterile fashion, a triple lumen sp4 catheter was inserted, in the left internal jugular vein, in 1 attempts. placement was verified, by CXR, by blood return, Ultrasound Guided Central line , the site was dressed with 4X4s, Tegaderm, using sterile technique, the patient tolerated the procedure, well, Placed for persistent hypotension. MDM: 08/12 21:49 Medical Screening Exam initiated sp4 08/13 03:45 Differential diagnosis: abrasion, closed head injury, contusion, fracture, laceration, sp4 multiple trauma, sprain, strain. ED course: EXAM: XR Chest, 1 View CLINICAL HISTORY: CVL placed left IJ. TECHNIQUE: Frontal view of the chest. COMPARISON: No relevant prior studies available. FINDINGS: Lungs: Unremarkable. No consolidation. Pleural space: Unremarkable. No pneumothorax. Heart: The cardiac silhouette is accentuated by portable technique. Mediastinum: Unremarkable. Normal mediastinal contour. Bones/joints: Unremarkable. No acute fracture. Vasculature: Thoracic aortic atherosclerosis. Tubes, lines and devices: Left internal jugular central venous catheter tip projects over the superior vena cava right atrial junction. Upper abdomen: Elevation of the right hemidiaphragm. IMPRESSION: Left internal jugular central venous catheter tip projects over the superior vena cava right atrial junction. . 03:52 ED course: EXAM: XR Left Shoulder, 1 View CLINICAL HISTORY: Pain after a fall. sp4 TECHNIQUE: One view of the left shoulder. COMPARISON: No relevant prior studies available. FINDINGS: Bones/joints: Unremarkable. No acute fracture. No dislocation. Soft tissues: Unremarkable. IMPRESSION: No acute injury. . 04:29 Data reviewed: vital signs, nurses notes, EMS record, old medical records, lab test sp4 result(s), radiologic studies, CT scan, plain films. ED course: EXAM: CT Head and Cervical Spine Without Intravenous Contrast CLINICAL HISTORY: The patient is 54 years old and is Female; Headache. TECHNIQUE: Axial computed tomography images of the head/brain and cervical spine without intravenous contrast. Sagittal and coronal reformatted images were created and reviewed. This CT exam was performed using one or more of the following dose reduction techniques: automated exposure control, adjustment of the mA and/or kV according to patient size, and/or use of iterative reconstruction technique. COMPARISON: CT Head or Brain 09/05/2019. FINDINGS: Brain: Unremarkable. No hemorrhage. No significant white matter disease. No edema. Ventricles: Unremarkable. No ventriculomegaly. Skull: No acute fracture. Sinuses: Unremarkable as visualized. No acute sinusitis. Mastoid air cells: Unremarkable as visualized. No mastoid effusion. Vertebrae: No acute cervical spine fracture visualized. No traumatic malalignment. Discs/spinal canal/neural foramina: Degenerative disc disease and disc osteophyte complex at C6-7. No significant central canal stenosis. Soft tissues: Unremarkable. Pleural space: No apical pneumothorax. IMPRESSION: 1. No acute intracranial findings. No hemorrhage. 2. No acute cervical spine fracture visualized.. ED course: EXAM: CT Chest, Abdomen and Pelvis Without Intravenous Contrast CLINICAL HISTORY: The patient is 54 years old and is Female; Pain in the spine. TECHNIQUE: Axial computed tomography images of the chest, abdomen and pelvis without intravenous contrast. Sagittal and coronal reformatted images were created and reviewed. This CT exam was performed using one or more of the following dose reduction techniques: automated exposure control, adjustment of the mA and/or kV according to patient size, and/or use of iterative reconstruction technique. COMPARISON: XR Chest 08/13/2024, 02:11:56 AM. FINDINGS: CHEST: Lungs: Unremarkable. No mass. No consolidation or ground glass opacities. Pleural space: Unremarkable. No significant effusion. No pneumothorax. Heart: Unremarkable. No cardiomegaly. No significant pericardial effusion. No significant coronary artery calcifications. ABDOMEN: Liver: Unremarkable. Gallbladder and bile ducts: Unremarkable. No calcified stones. No ductal dilation. Pancreas: Unremarkable. No ductal dilation. Spleen: Unremarkable. No splenomegaly. Adrenals: Unremarkable. No mass. Kidneys and ureters: Bilateral perinephric stranding, nonspecific. No nephrolithiasis, hydronephrosis or ureter stone. Stomach and bowel: Distal rectal wall thickening versus artifact of incomplete distention. No small bowel dilatation or obstruction. PELVIS: Appendix: The visualized appendix is normal. No pericecal inflammation to suggest acute appendicitis. Bladder: Left IJ line terminates at the SVC/RA junction. Stark catheter in the bladder. No stones. Reproductive: Unremarkable as visualized. CHEST, ABDOMEN and PELVIS: Intraperitoneal space: Unremarkable. No significant fluid collection. No free air. Bones/joints: No vertebral compression fracture. L2-3 degenerative disc disease with disc protrusion and mild to moderate central canal stenosis. T11 and T4 vertebral hemangiomata. No acute sternal fracture. No sternoclavicular joint dislocation. Old or healing anterior right rib fractures. No acute rib fracture visualized. No acute fracture in the pelvis or proximal femora. No hip dislocation. Soft tissues: Unremarkable. Vasculature: Aortoiliac arterial stents. Left femoral artery stent. No abdominal aortic aneurysm. Lymph nodes: Unremarkable. No enlarged lymph nodes. IMPRESSION: 1. No acute fracture visualized. 2. Left IJ line terminates at the SVC/RA junction. Stark catheter in the bladder. 3. Distal rectal wall thickening versus artifact of incomplete distention. Correlate clinically for mild distal colitis. 4. No acute findings in the chest. 5. Additional non-emergent findings as above. . 05:47 Consideration of Admission/Observation Escalation of care including sp4 admission/observation considered. 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 ED course: Patient was discussed with [place] electro optics engineer [facility] and accepted for transfer, Dr. Suh accepted patient . ED course: Sepsis reevaluation was completed. Patient was given septic dose of IV fluids 30 mL per kg. . 05:52 ED course: Based on ER evaluation patient was found to be severely volume contracted sp4 with creatinine of 4.41 from the baseline. BUN of 56, CT trauma scan revealed no signs of acute internal injuries. Stable for transfer for ICU management at [facility]. 08/12 21:49 Order name: Basic Metabolic Panel; Complete Time: 00:23 sp4 08/12 21:49 Order name: CBC with Diff; Complete Time: 00:23 sp4 08/12 21:49 Order name: LFT's; Complete Time: 00:23 sp4 08/12 21:49 Order name: Magnesium; Complete Time: 00:23 sp4 08/12 21:49 Order name: NT PRO-BNP; Complete Time: 00:23 sp4 08/12 21:49 Order name: PT-INR; Complete Time: 00:23 sp4 08/12 21:49 Order name: Troponin HS; Complete Time: 00:23 sp4 08/13 00:24 Order name: Urinalysis W/Microscopic; Complete Time: 04:30 sp4 08/13 00:24 Order name: Blood Culture Adult (2) 4 08/13 00:24 Order name: Lactate w/ 2H reflex if indic.; Complete Time: 02:51 sp4 08/13 00:25 Order name: CRP; Complete Time: 02:51 sp4 08/13 05:41 Order name: BMP; Complete Time: 07:02 4 08/13 05:51 Order name: SARS RAPID; Complete Time: 07:02 4 08/13 05:51 Order name: Influenza Screen (a \T\ B); Complete Time: 07:02 4 08/12 21:48 Order name: CT Chest Abdomen Pelvis W/O Contrast 4 08/12 21:48 Order name: CT Head C Spine 4 08/13 01:55 Order name: Chest Single View XRAY 4 08/13 01:57 Order name: Shoulder Left (2 View) XRAY 4 08/12 21:49 Order name: Cardiac monitoring; Complete Time: 22:37 4 08/12 21:49 Order name: EKG - Nurse/Tech; Complete Time: 22:37 4 08/12 21:49 Order name: IV Saline Lock; Complete Time: 22:16 4 08/12 21:49 Order name: Labs collected and sent; Complete Time: 22:16 4 08/12 21:49 Order name: O2 Per Protocol; Complete Time: 22:09 sp4 08/12 21:49 Order name: O2 Sat Monitoring; Complete Time: 22: sp4 08/13 00:24 Order name: Stark; Complete Time: 01: sp4 08/13 00:24 Order name: Central Line Dressing Kit; Complete Time: 00: sp4 08/13 00:24 Order name: Central Line Kit; Complete Time: 00: sp4 08/13 00:24 Order name: Chlorhexidine prep; Complete Time: 00: sp4 08/13 00:24 Order name: Consent for central line completed; Complete Time: 00:48 sp4 08/13 00:24 Order name: Line Caps x3; Complete Time: : sp4 08/13 00:24 Order name: NS Flushes x3; Complete Time: : sp4 08/13 00:24 Order name: Sterile Gloves; Complete Time: : sp4 08/13 00:24 Order name: Sterile Probe Cover; Complete Time: : sp4 EC:04 Rate is 86 beats/min. Rhythm is regular, Normal Sinus Rhythm. QRS [place] is Normal. NM sp4 interval is normal. QRS interval is normal. QT interval is normal. No Q waves. T waves are Normal. No ST changes noted. Clinical impression: Normal ECG. Interpreted by me. Reviewed by me. Administered Medications: 08/12 21:58 Drug: NS 0.9% IV 1000 ml IV at 1 bolus Per protocol; to be given as a bolus over 60 me1 minutes Route: IV; Rate: 1 bolus; Site: left forearm; 23:26 Follow up: IV Status: Completed infusion cp4 22:36 Drug: NS 0.9% IV 1000 ml IV at 1 bolus Per protocol; to be given as a bolus over 60 cp4 minutes Route: IV; Rate: 1 bolus; Site: left forearm; 23:27 Follow up: Response: No adverse reaction; IV Status: Completed infusion cp4 22:37 Drug: Albumin IVPB 25 grams 100 ml IVPB once; (Note: Albumin 25% concentration) Volume: cp4 100 ml; Route: IVPB; Site: left forearm; 23:27 Follow up: IV Status: Completed infusion cp4 23:26 Drug: NS 0.9% IV 1000 ml IV at 125 ml/hr continuous Route: IV; Rate: 125 ml/hr; Site: cp4 left forearm; 08/13 06:55 Follow up: IV Status: Completed infusion cp4 08/12 23:26 Drug: Albumin IVPB 25 grams 100 ml IVPB once; (Note: Albumin 25% concentration) Volume: cp4 100 ml; Route: IVPB; Site: left femoral; 08/13 00:00 Follow up: IV Status: Completed infusion cp4 00:33 Not Given (Physician Discretion): mupirocinointment 2 % 1 application Topical once cp4 02:54 Drug: vancoMYCIN IVPB 1.5 grams IVPB at calculated rate once Route: IVPB; Rate: cp4 calculated rate; Site: left forearm; 04:50 Follow up: IV Status: Completed infusion cp4 02:54 Drug: Cefepime IVPB 2 grams IVPB at 200 ml/hr once over 30 mins; (mix in NS 100 mL) cp4 Route: IVPB; Rate: 200 ml/hr; Infused Over: 30 mins; Site: right jugular; 03:19 Follow up: Response: No adverse reaction; IV Status: Completed infusion cp4 02:54 Drug: Ondansetron IVP 4 mg IVP once; over 2 minutes Route: IVP; Site: right jugular; cp4 03:18 Follow up: Response: No adverse reaction cp4 02:55 Drug: Norepinephrine IV 0.1 mcg/kg/min IV at calculated rate See Administration cp4 Instructions; (Standard concentration 4 mg / 250 mL D5W); Recommended max rate 3 mcg/kg/min; Titrate 0.05 mcg/kg/min as often as every 5 minutes to achieve goal (see titration policy); Goal parameter MAP greater than 65 mmHg. Route: IV; Rate: calculated rate; Site: right jugular; 02:55 Follow up: Rate change 3 mcg/min cp4 04:41 Follow up: Rate change 4 mcg/min cp4 06:58 Follow up: IV Status: Infusion continued upon transfer cp4 02:55 Drug: morphine IVP or IV 4 mg IVP once over 4 mins Route: IVP; Infused Over: 4 mins; cp4 Site: right jugular; 03:18 Follow up: Response: No adverse reaction; Pain is decreased cp4 05:58 Drug: NS 0.9% IV 1000 ml IV at 1 bolus Per protocol; to be given as a bolus over 60 cp4 minutes Route: IV; Rate: 1 bolus; Site: left jugular; 06:55 Follow up: IV Status: Completed infusion cp4 Disposition Summary: 08/13/24 05:50 Transfer Ordered Notes: Transfer Location: [facility] sp4 Reason: Higher level of care sp4 Condition: Stable sp4 Problem: new sp4 Symptoms: have improved sp4 Accepting Physician: [facility](08/13/24 07:12) aa5 Diagnosis - Acute renal failure, sepsis with septic shock, severe dehydration, volume sp4 contraction, Forms: - Medication Reconciliation Form sp4 - SBAR form sp4 Critical care time excluding procedures: 05:52 Critical care time: Bedside Care: 46 minutes, Consultation: 12 minutes, Family sp4 Intervention: 12 minutes. Total time: 70 minutes Signatures: Dispatcher [employer] EDIda Stein RN RN aa5 Aris Mallory MD MD sp4 Yumiko Zamudio RN RN ms1 Alexandrea Matos cp4 Corrections: (The following items were deleted from the chart) 08/12 21:50 21:49 BASIC METABOLIC PANEL+C.LAB.BRZ ordered. EDMS EDMS 21:50 21:49 CBC+H.LAB.BRZ ordered. EDMS EDMS 21:50 21:49 HEPATIC FUNCTION+C.LAB.BRZ ordered. EDMS EDMS 21:50 21:49 MAGNESIUM+C.LAB.BRZ ordered. EDMS EDMS 21:50 21:49 PROBNP+C.LAB.BRZ ordered. EDMS EDMS 21:50 21:49 PROTIME (+INR)+COAG.LAB.BRZ ordered. EDMS EDMS 21:50 21:49 Troponin High Sensitivity+C.LAB.BRZ ordered. EDMS EDMS 08/13 01:58 01:58 Shoulder Left 2 View+RAD.RAD.BRZ ordered. EDMS EDMS 07:12 05:50 [facility] sp4 aa5
--- NOTE | 2024-08-13 05:51 | ER ---
Nurse's Notes [facility] Name: Eden Graham Age: 54 yrs Sex: Female : 1970 Arrival Date: 08/12/2024 Time: 21:42 Bed 3 Private MD: Diagnosis: Acute renal failure, sepsis with septic shock, severe dehydration, volume contraction, Presentation: 08/12 21:45 Chief complaint: EMS states: toned out for c/o neck, L shoulder, upper and lower back me1 and left leg pain after a fall 6 days ago. 05/05. Coronavirus screen: Vaccine status: Patient reports receiving the 2nd dose of the covid vaccine. Ebola Screen: No symptoms or risks identified at this time. Initial Sepsis Screen: Does the patient meet any 2 criteria? No. Patient's initial sepsis screen is negative. Does the patient have a suspected source of infection? No. Patient's initial sepsis screen is negative. Risk Assessment: Do you want to hurt yourself or someone else? Patient reports no desire to harm self or others. Onset of symptoms was August 05, 2024. Care prior to arrival: Medication(s) given: zofran 4 mg, offermev 1 gm. 21:45 Method Of Arrival: EMS: [facility] sc1 21:45 Acuity: JAG 3 me1 Triage Assessment: 22:04 General: Appears uncomfortable, unkempt, well developed, well nourished, Behavior is me1 calm, cooperative, appropriate for age, Reports c/o pain to neck, left shoulder, back, left leg. Pain: Complains of pain in back of neck, back of left arm, posterior chest, back of left leg and back Pain does not radiate. Pain currently is 7 out of 10 on a pain scale. Quality of pain is described as sharp, Pain began gradually, Is continuous. EENT: No signs and/or symptoms were reported regarding the EENT system. Neuro: Level of Consciousness is awake, alert, obeys commands, Oriented to person, place, time, situation, Appropriate for age. Cardiovascular: Patient's skin is warm and dry. Respiratory: Airway is patent Respiratory effort is even, unlabored, Respiratory pattern is regular, symmetrical. GI: No signs and/or symptoms were reported involving the gastrointestinal system. : No signs and/or symptoms were reported regarding the genitourinary system. Derm: Skin is intact, is healthy with good turgor, Skin is pink, warm \T\ dry. Musculoskeletal: Reports pain in back of neck, back of left arm, posterior chest, back of left leg and back. Injury Description: fell 6 days ago. 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 - Infectious Disease History:: Denies. - Social history:: Smoking status: Patient reports the use of cigarette tobacco products, smokes one-half pack cigarettes per day. - Family history:: not pertinent. Screenin:07 [facility] ED Fall Risk Assessment (Adult) History of falling in the last 3 months, me1 including since admission Yes- single mechanical fall (1 pt) Confusion or Disorientation No (0 pts) Intoxicated or Sedated No (0 pts) Impaired Gait No (0 pts) Mobility Assist Device Used No (0 pt) Altered Elimination No (0 pt) Score/Fall Risk Level 0 - 2 = Low Risk Maintained a safe environment, Provided non-skid footwear, Hourly rounding (assess needs \T\ fall precautionary measures) done. Abuse screen: Denies threats or abuse. Nutritional screening: No deficits noted. Tuberculosis screening: No symptoms or risk factors identified. Assessment: 22:07 General: See triage assessment.. me1 22:30 Reassessment: No changes from previously documented assessment. Patient and/or family cp4 updated on plan of care and expected duration. Pain level reassessed. Patient is alert, oriented x 3, equal unlabored respirations, skin warm/dry/pink. 23:30 Reassessment: Patient appears in no apparent distress at this time. Patient and/or cp4 family updated on plan of care and expected duration. Pain level reassessed. Patient is alert, oriented x 3, equal unlabored respirations, skin warm/dry/pink. 08/13 00:30 Reassessment: Patient appears in no apparent distress at this time. Patient is alert, cp4 oriented x 3, equal unlabored respirations, skin warm/dry/pink. 01:30 Reassessment: Patient appears in no apparent distress at this time. Patient and/or cp4 family updated on plan of care and expected duration. Pain level reassessed. Patient is alert, oriented x 3, equal unlabored respirations, skin warm/dry/pink. 02:30 Reassessment: Patient appears in no apparent distress at this time. Patient and/or cp4 family updated on plan of care and expected duration. Pain level reassessed. Patient is alert, oriented x 3, equal unlabored respirations, skin warm/dry/pink. 03:30 Reassessment: Patient appears in no apparent distress at this time. Patient and/or cp4 family updated on plan of care and expected duration. Pain level reassessed. Patient is alert, oriented x 3, equal unlabored respirations, skin warm/dry/pink. 04:30 Reassessment: Patient appears in no apparent distress at this time. Patient and/or cp4 family updated on plan of care and expected duration. Pain level reassessed. Patient is alert, oriented x 3, equal unlabored respirations, skin warm/dry/pink. 05:30 Reassessment: Patient appears in no apparent distress at this time. Patient and/or cp4 family updated on plan of care and expected duration. Pain level reassessed. Patient is alert, oriented x 3, equal unlabored respirations, skin warm/dry/pink. Vital Signs: 08/12 21:45 BP 76 / 48; Pulse 99; Resp 17; Temp 98.3; Pulse Ox 95% ; Weight 85.73 kg; Height 5 ft. me1 5 in. ; Pain 7/10; 23:50 BP 90 / 55; Pulse 87; Resp 19; Pulse Ox 96% on R/A; sa1 08/13 00:30 BP 84 / 50; Pulse 91; Resp 18; Pulse Ox 97% ; cp4 01:00 BP 85 / 53; Pulse 91; Resp 18; Pulse Ox 96% ; cp4 01:30 BP 94 / 55; Pulse 81; Resp 18; Pulse Ox 97% ; cp4 02:00 BP 95 / 59; Pulse 80; Resp 18; Pulse Ox 100% ; cp4 02:30 BP 104 / 91; Pulse 77; Resp 18; Pulse Ox 98% ; cp4 03:00 BP 116 / 58; Pulse 84; Resp 18; Pulse Ox 97% ; cp4 03:29 BP 108 / 64; Pulse 87; Resp 18; Pulse Ox 100% ; cp4 04:00 BP 103 / 60; Pulse 82; Resp 18; Pulse Ox 97% ; cp4 04:30 BP 87 / 60; Pulse 84; Resp 18; Pulse Ox 97% ; cp4 05:00 BP 110 / 69; Pulse 82; Resp 18; Pulse Ox 97% ; cp4 05:30 BP 107 / 64; Pulse 80; Resp 18; Pulse Ox 99% ; cp4 06:00 BP 107 / 66; Pulse 82; Resp 18; Pulse Ox 97% ; cp4 08/12 21:45 Body Mass Index 31.45 (85.73 kg, 165.1 cm) sc1 08/12 21:45 Pain Scale: Adult [facility] Elieser Coma Score: 02:54 Eye Response: spontaneous(4). Motor Response: obeys commands(6). Verbal Response: sp4 oriented(5). Total: 15. ED Course: 08/12 21:47 Patient arrived in ED. rv1 21:48 Aris Mallory MD is Attending Physician. sp4 21:58 Yumiko Zamudio, CONY is Primary Nurse. me1 22:04 Triage completed. me1 22:04 Arm band placed on Patient placed in an exam room. me1 22:07 Patient has correct armband on for positive identification. Bed in low position. Call [facility] light in reach. Side rails up X2. Provided Education on: POC. Verbalized understanding. . Client placed on continuous cardiac and pulse oximetry monitoring. NIBP monitoring applied. residential monitor on. Pulse ox on. NIBP on. 22:07 Maintain EMS IV. Dressing intact. Good blood return noted. Site clean \T\ dry. Gauge \T\ sc 1 site: 20g LFA. Flushed with 10 mL NS. 22:16 Basic Metabolic Panel Sent. me1 22:16 CBC with Diff Sent. me1 22:16 LFT's Sent. me1 22:16 Magnesium Sent. me1 22:16 NT PRO-BNP Sent. me1 22:16 PT-INR Sent. me1 22:16 Initial lab(s) drawn, by sc, sent to lab. [facility] 08/13 00:36 Provided Education on: Procedure Consent. 4 01:29 Stark cath inserted, using sterile technique, 16 Fr., returned clear yellow urine. cp4 Patient tolerated well. 02:15 Assisted provider with central line placement. Set up central line tray. Triple lumen cp4 line placed in left internal jugular. Line placed by Aris Mallory MD Placement verified by blood return, Dressed with Tegaderm, Blood was collected. Patient tolerated well. Before procedure, did Practitioner(s) obtain informed consent? Yes. Patient \T\ family education about procedure, CLABSI prevention and S/S of infection? Yes. Time-out/Briefing performed prior to start of procedure? Yes. Was handwashing/sanitizing done immediately prior to procedure? Yes. Was patient positioned to in a way to prevent air embolism? Yes. Was procedure site sterilized? Yes, with Was the site allowed to dry? Yes. Was local anesthetic and/or sedation utilized? Yes. During the procedure, did the Practitioner(s) maintain a sterile field? Yes. Were unused ports clamped during insertion? Yes. Was blood aspirated from each lumen? Yes. After the procedure, did the Practitioner(s) clean the site and apply a sterile dressing? Yes. 02:20 Chest Single View XRAY In Process Unspecified. EDMS 02:20 Shoulder Left (2 View) XRAY In Process Unspecified. EDMS 03:27 CT Chest Abdomen Pelvis W/O Contrast In Process Unspecified. EDMS 03:27 CT Head C Spine In Process Unspecified. EDMS 05:05 Initiated transfer with Shanel at [facility]. rv1 06:05 Influenza Screen (a \T\ B) Sent. cp4 06:05 SARS RAPID Sent. cp4 06:06 COVID swab sent to lab. Flu and/or RSV swab sent to lab. cp4 06:[address] [facility] ICU 204. Report # [id number]. rv1 06:22 Nicolle with [facility] gave 20 min ETA. rv1 06:59 Patient transferred, IV remains in place. cp4 Administered Medications: 08/12 21:58 Drug: NS 0.9% IV 1000 ml IV at 1 bolus Per protocol; to be given as a bolus over 60 me1 minutes Route: IV; Rate: 1 bolus; Site: left forearm; 23:26 Follow up: IV Status: Completed infusion cp4 22:36 Drug: NS 0.9% IV 1000 ml IV at 1 bolus Per protocol; to be given as a bolus over 60 cp4 minutes Route: IV; Rate: 1 bolus; Site: left forearm; 23:27 Follow up: Response: No adverse reaction; IV Status: Completed infusion cp4 22:37 Drug: Albumin IVPB 25 grams 100 ml IVPB once; (Note: Albumin 25% concentration) Volume: cp4 100 ml; Route: IVPB; Site: left forearm; 23:27 Follow up: IV Status: Completed infusion cp4 23:26 Drug: NS 0.9% IV 1000 ml IV at 125 ml/hr continuous Route: IV; Rate: 125 ml/hr; Site: cp4 left forearm; 08/13 06:55 Follow up: IV Status: Completed infusion cp4 08/12 23:26 Drug: Albumin IVPB 25 grams 100 ml IVPB once; (Note: Albumin 25% concentration) Volume: cp4 100 ml; Route: IVPB; Site: left femoral; 08/13 00:00 Follow up: IV Status: Completed infusion cp4 00:33 Not Given (Physician Discretion): mupirocinointment 2 % 1 application Topical once cp4 02:54 Drug: vancoMYCIN IVPB 1.5 grams IVPB at calculated rate once Route: IVPB; Rate: cp4 calculated rate; Site: left forearm; 04:50 Follow up: IV Status: Completed infusion cp4 02:54 Drug: Cefepime IVPB 2 grams IVPB at 200 ml/hr once over 30 mins; (mix in NS 100 mL) cp4 Route: IVPB; Rate: 200 ml/hr; Infused Over: 30 mins; Site: right jugular; 03:19 Follow up: Response: No adverse reaction; IV Status: Completed infusion cp4 02:54 Drug: Ondansetron IVP 4 mg IVP once; over 2 minutes Route: IVP; Site: right jugular; cp4 03:18 Follow up: Response: No adverse reaction cp4 02:55 Drug: Norepinephrine IV 0.1 mcg/kg/min IV at calculated rate See Administration cp4 Instructions; (Standard concentration 4 mg / 250 mL D5W); Recommended max rate 3 mcg/kg/min; Titrate 0.05 mcg/kg/min as often as every 5 minutes to achieve goal (see titration policy); Goal parameter MAP greater than 65 mmHg. Route: IV; Rate: calculated rate; Site: right jugular; 02:55 Follow up: Rate change 3 mcg/min cp4 04:41 Follow up: Rate change 4 mcg/min cp4 06:58 Follow up: IV Status: Infusion continued upon transfer cp4 02:55 Drug: morphine IVP or IV 4 mg IVP once over 4 mins Route: IVP; Infused Over: 4 mins; cp4 Site: right jugular; 03:18 Follow up: Response: No adverse reaction; Pain is decreased cp4 05:58 Drug: NS 0.9% IV 1000 ml IV at 1 bolus Per protocol; to be given as a bolus over 60 cp4 minutes Route: IV; Rate: 1 bolus; Site: left jugular; 06:55 Follow up: IV Status: Completed infusion cp4 Medication: 08/12 22:07 VIS not applicable for this client. me1 Outcome: 08/13 05:50 ER care complete, transfer ordered by . sp4 06:59 Transferred to [facility], Transfer form completed. X-rays sent w/ cp4 patient. Note: [facility]. 06:59 Condition: stable 06:59 Discharge instructions given to patient, Instructed on the need for transfer, Demonstrated understanding of follow-up care, 07:12 Patient left the ED. aa5 Signatures: Dispatcher [employer] Ida Zhao, RN RN aa5 Effie Pepper rv1 Aris Mallory MD MD sp4 Yumiko Zamudio RN RN me1 Alexandrea Matos cp4 [place] [facility] Corrections: (The following items were deleted from the chart) 03:29 01:00 BP 94 / 55; Pulse 83bpm; Resp 18bpm; Pulse Ox 97%; cp4 cp4 03:39 08/12 22:07 No provider procedures requiring assistance completed. me1 cp4
[2024-08-13] MEDS ORDERED: NA CHLORIDE 0.9% 1,000 ML ONE (05:56)
[2024-08-13 06:19] LABS: Anion Gap 9.9 mEq/L (5.0-15.0); Potassium 3.9 mEq/L (3.5-5.1)
[2024-08-13 06:40] LABS: SARS-CoV-2 Antigen CONTROL BLUE LINE VIS/BG OK; SARS-CoV-2 Antigen Rapid Res Negative (Negative)
[2024-08-13 07:23] VITALS: TEMP 98.3
[2024-08-13 07:37] VITALS: BP 107/66; O2SAT 97
--- NOTE | 2024-08-17 13:07 | EKG ---
Test Date: 2024-08-12 Test Time: 22:35:03 Acid Conditioner: JEFFREY MEASUREMENT RESULTS: Intervals: Rate: 86 NM: 124 QRSD: 86 QT: 370 QTc: 442 [place]: P: 57 NM: 124 QRS: 86 T: 65 INTERPRETIVE STATEMENTS: Normal sinus rhythm Early repolarization Normal ECG Compared to ECG 10/02/2023 14:37:05 Early repolarization now present Electronically Signed On 08-17-24 12:55:38 CDT by Chidi Pereira
== END 2024-08-13 07:12 | disposition short-term general hospital (02) ==
LOC: ER 21:42
DX: N17.9 Acute kidney failure, unspecified (principal); A41.9 Sepsis, unspecified organism; R65.21 Severe sepsis with septic shock; E86.0 Dehydration; E86.9 Volume depletion, unspecified; E11.9 Type 2 diabetes mellitus without complications; I10 Essential (primary) hypertension; F17.210 Nicotine dependence, cigarettes, uncomplicated; W18.30XA Fall on same level, unspecified, initial encounter; Z11.52 Encounter for screening for COVID-19; Z86.718 Personal history of other venous thrombosis and embolism
CPT/HCPCS: 93005; 87040 ×2; 85025; 81001; 80048 ×2; 36415; 83735; 85610; 80076; 83605; 84484; 83880; 86140; 87804 ×2; 70450; 71250; 72125; 74176; 71045; 73030; 51702; 99291; 99292; 36556; 87811; J0692; J2405; P9047; J7040; J7030 ×3

== ENCOUNTER 2024-09-03 23:23 | Inpatient (IN) | payer OTHER ==
[2024-09-04] MEDS ORDERED: NA CHLORIDE 0.9% 250 ML ONE (00:01)
[2024-09-04] MEDS ORDERED: NA CHLORIDE 0.9% 3,000 ML ONE (00:01)
[2024-09-04] MEDS ORDERED: VANCOMYCIN 1 GM/VIAL ONE (00:01)
[2024-09-04] MEDS ORDERED: NA CHLORIDE 0.9% 100 ML ONE ×2 (00:02→07:09)
[2024-09-04] MEDS ORDERED: CEFEPIME 1 GM/VIAL ONE (00:02)
[2024-09-04 01:19] LABS: Absolute Basophils 0.1 K/uL (0-0.5); Absolute Eosinophils 0.1 K/uL (0-0.5); Absolute Lymphocytes (CBC) 2.5 K/uL (0.7-4.9); Absolute Monocytes 0.6 K/uL (0.1-1.3); Absolute Neutrophil 5.4 K/uL (1.8-8.0); Basophils % 0.7 % (0-1.3); Eosinophils % 1.3 % (0-4.4); Hematocrit 37.2 % (36.0-45.0); Hemoglobin 12.2 g/dL (12.0-15.0); Lymphocytes % 28.4 % (15.3-44.8); MCHC 32.9 g/dL (32.0-36.0); MCV 85.1 fL (80-100); MPV 8.6 fL (7.6-11.3); Monocytes % 6.8 % (3.3-12.3); Neutrophils % 62.8 % (41.7-73.7); Nucleated Red Blood Cells % 0.1 % (0-0); Platelets 281 thou/uL (152-406); RBC Red Blood Cell Count 4.37 M/uL (3.86-4.86); Red Cell Distribution Width 17.9 % (12.1-15.2)
[2024-09-04 01:23] LABS: PTT, Activated Partial Thromb 30.1 SECONDS (24.3-36.9); Protime INR 1.07
[2024-09-04 01:29] LABS: Albumin 3.4 g/dL (3.4-5.0); Albumin/Globulin Ratio 0.9 (1.1-1.8); Anion Gap 13.1 mEq/L (5.0-15.0); Bilirubin Total 0.4 mg/dL (0.2-1.0); Globulin 3.8 g/dL (2.3-3.5); Potassium 4.1 mEq/L (3.5-5.1); Protein, Total 7.2 g/dL (6.4-8.2)
--- NOTE | 2024-09-04 01:43 | RAD REPORT ---
PROCEDURE: XR Left Foot Complete, 3 Views CLINICAL INDICATION: The patient is 54 years old and is Female; drainage, hx of osteo Bed Name: 20 TECHNIQUE: Frontal, lateral and oblique views of the left foot. COMPARISON: No relevant prior studies available. FINDINGS: BONES/JOINTS: Transverse fracture through the distal aspect of the left 2nd proximal phalanx, with irregularity along the fracture site. Otherwise, no cortical erosive changes to suggest acute osteomyelitis. 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 No definite subcutaneous emphysema or soft tissue defects appreciated. Small plantar calcaneal spur. No periosteal reaction. No radiopaque foreign body. No subluxation or dislocation. SOFT TISSUES: See above. IMPRESSION: 1. Transverse fracture through the distal aspect of the left 2nd proximal phalanx, with irregularit y along the fracture site. Otherwise, no cortical erosive changes to suggest acute osteomyelitis. 2. 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 No definite subcutaneous emphysema or soft tissue defects appreciated. If there is high clinical suspicion for osteomyelitis, recommend further evaluation by MRI. Electronically signed by: Nik Guthrie MD 09/04/2024 12:34 AM [facility] Due to temporary technical issues with the PACS/DocVue reporting system, reports are being diana d by the in-house radiologist without review as a courtesy to ensure prompt reporting the interpreting radiologist is fully responsible for the content of the report. Transcribed Date/Time: 09/04/2024 1:43 AM
--- NOTE | 2024-09-04 02:23 | ER ---
Nurse's Notes [facility] Name: Eden Graham Age: 54 yrs Sex: Female : 1970 Arrival Date: 09/03/2024 Time: 23:23 Bed 17 Private MD: Diagnosis: Osteomyelitis, unspecified Presentation: 09/03 23:49 Chief complaint: Patient states: Pt states her toes on her left foot have been purple x tl4 1 month. Pt also c/o ongoing low back pain. Coronavirus screen: At this time, the client does not indicate any symptoms associated with coronavirus-19. Ebola Screen: No symptoms or risks identified at this time. Initial Sepsis Screen: Does the patient meet any 2 criteria? No. Patient's initial sepsis screen is negative. Does the patient have a suspected source of infection? No. Patient's initial sepsis screen is negative. Risk Assessment: Do you want to hurt yourself or someone else? Patient reports no desire to harm self or others. Onset of symptoms is unknown. 23:49 Method Of Arrival: Wheelchair tl4 23:49 Acuity: JAG 2 tl4 Triage Assessment: 23:51 General: Appears in no apparent distress. Behavior is calm, cooperative. Pain: tl4 Complains of pain in back. Neuro: Level of Consciousness is awake, alert, obeys commands, Oriented to person, place, time, situation. Cardiovascular: Capillary refill < 3 seconds Patient's skin is warm and dry. Respiratory: Airway is patent Respiratory effort is even, unlabored, Respiratory pattern is regular, symmetrical. Musculoskeletal: Capillary refill < 3 seconds, Reports pain in back. 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 - Infectious Disease History:: Denies. - Social history:: Smoking status: Patient reports the use of cigarette tobacco products, smokes one-half pack cigarettes per day. Screenin/09 00:00 [facility] ED Fall Risk Assessment (Adult) History of falling in the last 3 months, cp4 including since admission No falls in past 3 months (0 pts) Confusion or Disorientation No (0 pts) Intoxicated or Sedated No (0 pts) Impaired Gait No (0 pts) Mobility Assist Device Used No (0 pt) Altered Elimination No (0 pt) Score/Fall Risk Level 0 - 2 = Low Risk Oriented to surroundings, Maintained a safe environment, Assessed \T\ reinforced patient's understanding of fall precautions, Hourly rounding (assess needs \T\ fall precautionary measures) done. Abuse screen: Denies threats or abuse. Nutritional screening: No deficits noted. Tuberculosis screening: No symptoms or risk factors identified. Assessment: 00:00 General: Appears in no apparent distress. comfortable, Behavior is calm, cooperative, cp4 appropriate for age. 00:00 Pain: Complains of pain in back. Neuro: Level of Consciousness is awake, alert, obeys cp4 commands, Oriented to person, place, time, situation. Cardiovascular: Patient's skin is warm and dry. Rhythm is sinus rhythm. Respiratory: Airway Respiratory effort is even, unlabored. GI: No signs and/or symptoms were reported involving the gastrointestinal system. : No signs and/or symptoms were reported regarding the genitourinary system. EENT: No signs and/or symptoms were reported regarding the EENT system. Derm: No signs and/or symptoms reported regarding the dermatologic system. Musculoskeletal: Circulation, motion, and sensation intact. Reports left foot toes are purple. 01:00 Reassessment: Patient appears in no apparent distress at this time. Patient and/or cp4 family updated on plan of care and expected duration. Pain level reassessed. Patient is alert, oriented x 3, equal unlabored respirations, skin warm/dry/pink. 02:00 Reassessment: Patient appears in no apparent distress at this time. Patient and/or cp4 family updated on plan of care and expected duration. Pain level reassessed. Patient is alert, oriented x 3, equal unlabored respirations, skin warm/dry/pink. Vital Signs: 09/03 23:49 BP 79 / 57; Pulse 96; Resp 23; Temp 98.4(O); Weight 76.8 kg; Height 5 ft. 5 in. ; tl4 09/04 00:00 BP 79 / 56; Pulse 87; Resp 18; Pulse Ox 98% ; cp4 00:30 BP 108 / 57; Pulse 85; Resp 18; Pulse Ox 96% ; cp4 00:42 BP 108 / 57; ec2 01:00 BP 106 / 58; Pulse 83; Resp 18; Pulse Ox 95% ; cp4 01:30 BP 111 / 65; Pulse 81; Resp 18; Pulse Ox 95% ; cp4 02:00 BP 112 / 65; Pulse 78; Resp 18; Pulse Ox 99% ; cp4 02:30 BP 106 / 63; Pulse 81; Resp 18; Pulse Ox 95% ; cp4 03:00 BP 122 / 78; Pulse 80; Resp 18; Pulse Ox 98% ; cp4 03:30 BP 112 / 55; Pulse 81; Resp 18; Pulse Ox 97% ; cp4 04:30 BP 103 / 58; Pulse 84; Resp 18; Pulse Ox 96% ; cp4 09/03 23:49 Body Mass Index 28.18 (76.80 kg, 165.1 cm) tl4 ED Course: 09/03 23:29 Patient arrived in ED. gm2 23:32 Julian Mackey MD is Attending Physician. ec2 23:51 Triage completed. tl4 23:51 Arm band placed on left wrist. tl4 09/04 00:00 Alexandrea Matos is Primary Nurse. cp4 00:00 Bed in low position. Call light in reach. Side rails up X 1. cp4 00:00 No provider procedures requiring assistance completed. Inserted saline lock: 22 gauge cp4 in right forearm, using aseptic technique. Flushed with 10 mL NS. 00:10 Foot Left 3 View XRAY In Process Unspecified. EDMS 00:12 Blood Culture Adult (2) Sent. af3 00:12 CBC with Diff Sent. af3 00:12 CMP Sent. af3 00:12 Lactate w/ 2H reflex if indic. Sent. af3 00:12 Protime (+inr) Sent. af3 00:12 Ptt, Activated Sent. af3 00:12 Inserted saline lock: 22 gauge in left forearm, using aseptic technique. Blood af3 collected. Flushed with 10 mL NS. 02:23 Prince Hilario MD is Hospitalizing Provider. ec2 05:12 Provided Education on: appendicitis. cp4 05:12 Patient admitted, IV remains in place. cp4 05:45 Julian Mackey MD is Attending Physician. ec2 Administered Medications: 09/03 23:53 CANCELLED (Physician Discretion): ns 0.9% 1000 ml IV at 1000 ml once; to be given as a ec2 bolus over 60 minutes 23:53 CANCELLED (Physician Discretion): ns 0.9% 1000 ml IV at 1000 ml once; to be given as a ec2 bolus over 60 minutes 09/04 00:07 Drug: vancoMYCIN IVPB 1 grams IVPB once over 2 hrs Route: IVPB; Infused Over: 2 hrs; cp4 Site: right forearm; 02:07 Follow up: IV Status: Completed infusion cp4 00:07 Drug: Cefepime IVPB 1 grams IVPB at 200 ml/hr once over 30 mins; (mix in NS 100 mL) cp4 Route: IVPB; Rate: 200 ml/hr; Infused Over: 30 mins; Site: left forearm; 00:40 Follow up: IV Status: Completed infusion cp4 02:26 Follow up: IV Status: Completed infusion cp4 00:07 Drug: NS 0.9% IV (30 ml/kg) 30 ml/kg IV at bolus once; Sepsis Protocol; to be given as cp4 a bolus over 90 minutes Route: IV; Rate: bolus; Site: right forearm; 02:26 Follow up: Response: No adverse reaction cp4 02:26 Follow up: IV Status: Completed infusion cp4 Medication: 00:00 VIS not applicable for this client. cp4 Outcome: 02:23 Decision to Hospitalize by Provider. ec2 05:12 Admitted to ER Hold. Please see [facility] for further documentation. cp4 05:12 Condition: stable 05:12 Instructed on the need for admit, 08:56 Patient left the ED. kc6 Signatures: Dispatcher [employer] Marychuy Means RN RN kc6 Julian Mackey MD MD ec2 Alexandrea Matos 4 Mari Carter gm2 Olvin Cool RN RN tl4 Chica Aviles Corrections: (The following items were deleted from the chart) 09/03 23:52 23:49 Acuity: JAG 3 tl4 tl4
--- NOTE | 2024-09-04 02:24 | EDPHYS ---
Physician Documentation [facility] Name: Eden Graham Age: 54 yrs Sex: Female : 1970 Arrival Date: 09/03/2024 Time: 23:23 Bed 17 Private MD: ED Physician Julian Mackey HPI: 09/03 23:51 This 54 yrs old Female presents to ER via Wheelchair with complaints of Toes ec2 turning purple, Back Pain. 23:51 Patient with history of previous complications arrives today for persistent toe ec2 discoloration on the left foot. Reports some occasional drainage. No fevers or chills. No nausea or vomiting. Patient reports also low back pain which is chronic for her. States that the toe discoloration and drainage been ongoing for greater than 1 month. Reports history of hypotension, has had issues with blood pressures ranging in the 60s and 70s for her.. 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 - Infectious Disease History:: Denies. - Social history:: Smoking status: Patient reports the use of cigarette tobacco products, smokes one-half pack cigarettes per day. ROS: 09/04 02:23 Constitutional: as per hpi ec2 Exam: 00:10 Constitutional: GEN: NAD Head: atraumatic Eyes: EOMI Ears: External ears are ec2 normal. CV: regular rate LUNGS: no respiratory distress ABD: non-distended SKIN: no evidence of rashes MSK: Left foot with amputation of the great toe, warm feet with intact capillary refill, drainage noted around the third toe. Vital Signs: 09/03 23:49 BP 79 / 57; Pulse 96; Resp 23; Temp 98.4(O); Weight 76.8 kg; Height 5 ft. 5 in. ; tl4 09/04 00:00 BP 79 / 56; Pulse 87; Resp 18; Pulse Ox 98% ; cp4 00:30 BP 108 / 57; Pulse 85; Resp 18; Pulse Ox 96% ; cp4 00:42 BP 108 / 57; ec2 01:00 BP 106 / 58; Pulse 83; Resp 18; Pulse Ox 95% ; cp4 01:30 BP 111 / 65; Pulse 81; Resp 18; Pulse Ox 95% ; cp4 02:00 BP 112 / 65; Pulse 78; Resp 18; Pulse Ox 99% ; cp4 02:30 BP 106 / 63; Pulse 81; Resp 18; Pulse Ox 95% ; cp4 03:00 BP 122 / 78; Pulse 80; Resp 18; Pulse Ox 98% ; cp4 03:30 BP 112 / 55; Pulse 81; Resp 18; Pulse Ox 97% ; cp4 04:30 BP 103 / 58; Pulse 84; Resp 18; Pulse Ox 96% ; cp4 11 23:49 Body Mass Index 28.18 (76.80 kg, 165.1 cm) tl4 MDM: 09/03 23:36 Medical Screening Exam initiated ec2 09/04 00:11 Data reviewed: vital signs. ED course: EKG independently reviewed and interpreted by [facility], shows normal sinus rhythm, rate of 89, no no acute ST segment elevations, intervals are nonactionable.. 01:37 ED course: CBC reassuring. Metabolic profile with significant renal dysfunction with a ec2 creatinine of 4.97 and GFR of 10. Lactate is slightly elevated at 3.0. CRP at 56. On reassessment patient with improvement in blood pressure. Sepsis reassessment complete.. 02:22 ED course: Will admit for osteomyelitis, persistent antibiotic coverage. Patient with ec2 improving vital signs. Discussed case with hospitalist who will accept the patient for admission.. 09/03 23:49 Order name: Blood Culture Adult (2) ec2 09/03 23:49 Order name: CBC with Diff; Complete Time: 01:36 ec2 09/03 23:49 Order name: CMP; Complete Time: 01:36 ec2 09/03 23:49 Order name: Lactate w/ 2H reflex if indic.; Complete Time: 01:36 ec2 09/03 23:49 Order name: Protime (+inr); Complete Time: 01:36 ec2 09/03 23:49 Order name: Ptt, Activated; Complete Time: 01:36 ec2 09/03 23:58 Order name: CRP; Complete Time: 01:36 ec2 09/04 00:08 Order name: Glucose, Ancillary Testing; Complete Time: 00:55 EDMS 09/04 03:32 Order name: Ghost Lactate-NO COLLECT Timer; Complete Time: 04:24 EDMS 09/04 03:34 Order name: Creatine Phosphokinase EDMS 09/04 03:34 Order name: Lactate w/ 2H reflex if indic. EDMS 09/04 03:34 Order name: Magnesium EDMS 09/04 03:34 Order name: Phosphorus EDMS 09/04 03:34 Order name: Urinalysis w/ reflexes EDMS 09/04 03:34 Order name: Basic Metabolic Panel EDMS 09/04 03:34 Order name: Basic Metabolic Panel EDMS 09/04 03:34 Order name: CBC with Automated Diff EDMS 09/04 03:34 Order name: CBC with Automated Diff EDMS 09/04 03:34 Order name: Lipid Profile EDMS 09/04 03:34 Order name: Lipid Profile EDMS 09/04 03:38 Order name: Hemoglobin A1c EDMS 09/04 05:20 Order name: Lactate Sepsis 2 HR Follow-up EDMS 09/04 07:50 Order name: Glucose, Ancillary Testing EDMS 09/03 23:49 Order name: Foot Left 3 View XRAY ec2 09/04 03:36 Order name: Foot Left Wo Cont EDMS 09/04 03:36 Order name: Lower Extremity Arterial Bilat EDMS 09/03 23:49 Order name: EKG; Complete Time: 23:50 ec2 09/03 23:49 Order name: Accucheck; Complete Time: 00:01 ec2 09/03 23:49 Order name: Cardiac monitoring; Complete Time: 00:01 ec2 09/03 23:49 Order name: EKG - Nurse/Tech; Complete Time: 00:12 ec2 09/03 23:49 Order name: IV Saline Lock - Large Bore; Complete Time: 00:01 ec2 09/03 23:49 Order name: Labs collected and sent; Complete Time: 00:01 ec2 09/03 23:49 Order name: O2 Per Protocol; Complete Time: 00:01 ec2 09/03 23:49 Order name: O2 Sat Monitoring; Complete Time: 00:01 ec2 09/03 23:49 Order name: Vital Signs; Complete Time: 00:01 ec2 Administered Medications: 09/03 23:53 CANCELLED (Physician Discretion): ns 0.9% 1000 ml IV at 1000 ml once; to be given as a ec2 bolus over 60 minutes 23:53 CANCELLED (Physician Discretion): ns 0.9% 1000 ml IV at 1000 ml once; to be given as a ec2 bolus over 60 minutes 09/04 00:07 Drug: vancoMYCIN IVPB 1 grams IVPB once over 2 hrs Route: IVPB; Infused Over: 2 hrs; cp4 Site: right forearm; 02:07 Follow up: IV Status: Completed infusion cp4 00:07 Drug: Cefepime IVPB 1 grams IVPB at 200 ml/hr once over 30 mins; (mix in NS 100 mL) cp4 Route: IVPB; Rate: 200 ml/hr; Infused Over: 30 mins; Site: left forearm; 00:40 Follow up: IV Status: Completed infusion cp4 02:26 Follow up: IV Status: Completed infusion cp4 00:07 Drug: NS 0.9% IV (30 ml/kg) 30 ml/kg IV at bolus once; Sepsis Protocol; to be given as cp4 a bolus over 90 minutes Route: IV; Rate: bolus; Site: right forearm; 02:26 Follow up: Response: No adverse reaction cp4 02:26 Follow up: IV Status: Completed infusion cp4 Disposition Summary: 09/04/24 02:23 Hospitalization Ordered Notes: Hospitalization Status: Inpatient Admission ec2 Provider: Prince christian Hilario Condition: Stable ec2 Problem: an acute exacerbation ec2 Symptoms: are unchanged ec2 Bed/Room Type: Standard ec2 Location: Telemetry/MedSurg (Inpatient)(09/04/24 07:32) eb Room Assignment: 222(09/04/24 07:32) eb Diagnosis - Osteomyelitis, unspecified ec2 Forms: - Medication Reconciliation Form ec2 - SBAR form ec2 - Leadership Thank You Letter ec2 Signatures: Dispatcher [employer] EDMS Bernadette Palafox Lacie RN RN lg3 Julian Mackey MD MD ec2 Alexandrea Matos cp4 Olvin Cool RN RN tl4 Corrections: (The following items were deleted from the chart) 09/03 23:50 23:50 BLOOD CULTURE*+BA.LAB.BRZ ordered. EDMS EDMS 23:50 23:50 CBC+H.LAB.BRZ ordered. EDMS EDMS 23:50 23:50 COMPREHENSIVE METABOLIC PANEL+C.LAB.BRZ ordered. EDMS EDMS 23:50 23:50 LACTATE+C.LAB.BRZ ordered. EDMS EDMS 23:50 23:50 PROTIME (+INR)+COAG.LAB.BRZ ordered. EDMS EDMS 23:50 23:50 PTT, ACTIVATED+COAG.LAB.BRZ ordered. EDMS EDMS 23:53 23:49 NS 0.9% IV 1000 ml IV at 1000 ml once; to be given as a bolus over 60 minutes ec2 ordered. ec2 23:53 23:53 NS 0.9% IV 1000 ml IV at 1000 ml once; to be given as a bolus over 60 minutes ec2 ordered. ec2 11 02:53 02:23 Telemetry/MedSurg (Inpatient) ec2 lg3 02:53 02:23 ec2 lg3 07:32 02:53 [facility] ER HOLD lg3 eb 07:32 02:53 ERHOLD- lg3 eb
[2024-09-04] MEDS ORDERED: HYDROMORPHONE HCL 1 MG/ML INJ IV PRN (03:28)
[2024-09-04] MEDS ORDERED: ONDANSETRON 4 MG/2 ML VIAL IV PRN (03:28)
[2024-09-04] MEDS: CEFEPIME 1 GM in NA CHLORIDE 0.9% 100 ML IV SCH (03:33)
[2024-09-04] MEDS ORDERED: SODIUM CHLORIDE 0.9% 10ML INJ IV PRN (03:43)
[2024-09-04] MEDS: PANTOPRAZOLE 40 MG INJ IVP SCH (03:43)
--- NOTE | 2024-09-04 03:43 | P.HP ---
Certification for Inpatient Patient admitted to: Inpatient With expected LOS: >2 Midnights Practitioner: I am a practitioner with admitting privileges, knowledge of patient current condition, hospital course, and medical plan of care. Services: Services provided to patient in accordance with Admission requirements found in Title 42 Section 412.3 of the Code of Federal Regulations Patient History Date of Service: 09/04/24 Reason for admission: Diabetic foot infection History of Present Illness: Patient is a 54-year-old female with insulin-dependent diabetes mellitus, chronic kidney disease and peripheral vascular disease. She was treated at the beginning of this year with left big toe amputation. She believes this was done in [place] but does not remember the name of the hospital. She has done well postoperatively until recently. She now has discharge and pain out of the 2nd toe. She also noted significant discoloration with a violaceous/necrotic stone. She arrived in the ER for evaluation. Patient has elevated lactic acid and CRP. Left foot x-ray revealed fracture of the second phalanx. She is also been found to have worsening renal insuffic iency. Allergies No Known Drug Allergies Allergy (Verified 09/06/19 03:47) Unknown Home Medications: Aspirin [Aspirin EC 81 MG] 81 mg PO DAILY #90 tablet. 09/06/19 Citalopram [Celexa*] 10 mg PO DAILY 09/06/19 Clopidogrel Bisulfate [Plavix*] 75 mg PO DAILY 09/06/19 Ergocalciferol (Vitamin D2) [Vitamin D 50,000 Unit Cap] 50,000 units PO DIRECTED 09/06/19 Folic Acid 1 mg PO DAILY #90 tablet 09/06/19 Gabapentin 300 mg PO TID 09/06/19 Insulin Detemir [Levemir Flextouch] 10 units SQ BID 09/06/19 Lovastatin 20 mg PO BEDTIME 09/06/19 Metformin HCl [Glucophage*] 1,000 mg PO BIDWM 09/06/19 lisinopriL [Lisinopril] 10 mg PO BEDTIME 09/06/19 - Past Medical/Surgical History Diabetic: Yes -: DM -: DVT (both legs-stent placement April 2018) -: HTN -: HLD -: anxiety -: depression -: both legs -stent placement -: right foot-4th/5th toe amputation - Family History Mother -: Hypertension, Diabetes Father -: Heart disease, Hypertension - Social History Alcohol use: Yes CD- Drugs: No Caffeine use: No Physical Examination - Physical Exam General: In no apparent distress HEENT: Atraumatic, Normocephalic Respiratory: Clear to auscultation bilaterally, Normal air movement Cardiovascular: No edema, Normal pulses, Regular rate/rhythm, Normal S1 S2 Neurological: Normal speech - Studies Laboratory Data (last 24 hrs) 09/03/24 09/03/24 09/03/24 23:56 23:56 23:56 WBC 8.60 Hgb 12.2 Hct 37.2 Plt Count 281 PT 12.0 INR 1.07 APTT 30.1 Sodium 135 L Potassium 4.1 BUN 52 H Creatinine 4.97 H Glucose 132 H Total Bilirubin 0.4 AST 79 H ALT 37 Alkaline Phosphatase 113 Assessment and Plan - Problems (Diagnosis) (1) Toe infection Current Visit: Yes Status: Acute (2) JAYESH (acute kidney injury) Current Visit: Yes Status: Acute (3) CKD (chronic kidney disease) Current Visit: Yes Status: Acute (4) DM2 (diabetes mellitus, type 2) Current Visit: No Status: Acute (5) HTN (hypertension) Current Visit: No Status: Acute (6) PAD (peripheral artery disease) Current Visit: No Status: Acute - Plan Assessment This is a 54-year-old female with diabetes mellitus, chronic kidney disease stage and peripheral artery disease status post left big toe amputation earlier this year. She is being admitted for diabetic foot infection involving the second and third toe manifested by drainage, pain and swelling. She is also reporting a discoloration. Foot x-ray did not reveal osteomyelitis but showed transverse fracture through the distal aspect of the left second proximal phalanx. Her toes are very inflamed. Diabetic foot infectionrule out osteomyelitis Fracture of the L proximal 2nd phalanx Diabetes mellitus with diabetic neuropathy Peripheral artery disease Chronic kidney disease JAYESH Chronic pain Hypertension Depression Plan: Admit inpatient Will continue patient on broad-spectrum antibiotics including vancomycin and cefepime Follow blood culture Will obtain arterial Doppler left lower extremities Obtain a left foot MRI to assess for osteomyelitis Consider podiatry/Ortho consult if the above findings are positive IV fluid infusion for JAYESH Nephrology consulted PPI Patient is full code - Advance Directives Does patient have a Living Will: No Does patient have a Durable POA for Healthcare: No
[2024-09-04] MEDS: NA CHLORIDE 0.9% 1,000 ML IV SCH ×2 (04:00→11:19)
[2024-09-04 05:36] VITALS: BMI 29.9
[2024-09-04] MEDS ORDERED: PANTOPRAZOLE 40 MG INJ ONE (05:39)
[2024-09-04] MEDS: ACETAMINOPHEN 500 MG TAB PO PRN (05:46)
[2024-09-04] MEDS ORDERED: ACETAMINOPHEN 500 MG TAB ONE (05:47)
[2024-09-04] MEDS: VANCOMYCIN 500 MG in NA CHLORIDE 0.9% 100 ML IVPB ONE (06:00)
[2024-09-04] MEDS ORDERED: VANCOMYCIN 500 MG/VIAL ONE (07:09)
[2024-09-04] MEDS: FLU (Fluarix Triv) TS24-25(6MOS UP)/PF 45 MCG/0.5 ML Syringe IM ONE (07:15)
[2024-09-04] MEDS ORDERED: ONDANSETRON 4 MG/2 ML VIAL ONE (07:54)
[2024-09-04] MEDS ORDERED: HYDROMORPHONE HCL 1 MG/ML INJ ONE (07:54)
[2024-09-04] MEDS: HEPARIN 5000 UNIT/ML 1 ML VIAL SQ SCH (09:34)
--- NOTE | 2024-09-04 09:38 | RAD REPORT ---
EXAMINATION:Lower Extremity Arterial Bilat CLINICAL INDICATION: Leg pain. Peripheral arterial disease. TECHNIQUE: Arterial duplex ultrasound was performed of the bilateral lower extremity arteries. With r eal-time, color-flow, and spectral wave Doppler evaluation..Grayscale, color and spectral analysis performed on all vessels COMPARISON: 2022. FINDINGS: Right common femoral arterial waveform triphasic. Occlusion right proximal and mid superficial femoral artery. Monophasic waveform distal right superficial femoral, popliteal, posterior tibial and dorsalis pedis arteries. Left common femoral arterial waveform monophasic. Occlusion of the proximal, mid and most of the distal left superficial femoral artery. Left popliteal, posterior tibial and dorsalis pedis arterial waveforms monophasic and diminished in a mplitude IMPRESSION: Occlusion of proximal and mid right superficial femoral artery with reconstitution distal right super ficial femoral artery Occlusion proximal, mid and most of the left superficial femoral artery with reconstitution left popl iteal artery Significantly abnormal waveform left common femoral artery may indicate iliac arterial disease.
[2024-09-04] MEDS ORDERED: D10W 125 ML IV PRN (10:02)
[2024-09-04] MEDS ORDERED: GLUCAGON 1 MG/VIAL IM PRN (10:02)
--- NOTE | 2024-09-04 10:43 | P.CNS ---
Date of Consult: 09/04/24 Reason for Consult: JAYESH/ CKD Requesting Physician: ELIZABETH Benitez Chief Complaint: Diabetic foot infection History of Present Illness: Patient is a 54-year-old female with insulin-dependent diabetes mellitus, chronic kidney disease and peripheral vascular disease. She was treated at the beginning of this year with left big toe amputation. She believes this was done in [place] but does not remember the name of the [facility]. She has done well postoperatively until recently. She now has discharge and pain out of the 2nd toe. She also noted significant discoloration with a violaceous/necrotic stone. She arrived in the ER for evaluation. Patient has elevated lactic acid and CRP. Left foot x-ray revealed fracture of the second phalanx. She is also been found to have worsening renal insufficiency. [id number] 23:51 This 54 yrs old Female presents to ER via Wheelchair with complaints of Toes ec2 turning purple, Back Pain. 23:51 Patient with history of previous complications arrives today for persistent toe ec2 discoloration on the left foot. Reports some occasional drainage. No fevers or chills. No nausea or vomiting. Patient reports also low back pain which is chronic for her. States that the toe discoloration and drainage been ongoing for greater than 1 month. Reports history of hypotension, has had issues with blood pressures ranging in the 60s and 70s for her.. Allergies No Known Drug Allergies Allergy (Verified 09/06/19 03:47) Unknown Home medications list reviewed: Yes Home Medications: Aspirin [Aspirin EC 81 MG] 81 mg PO DAILY #90 tablet. 09/06/19 Citalopram [Celexa*] 10 mg PO DAILY 09/06/19 Clopidogrel Bisulfate [Plavix*] 75 mg PO DAILY 09/06/19 Ergocalciferol (Vitamin D2) [Vitamin D 50,000 Unit Cap] 50,000 units PO DIRECTED 09/06/19 Folic Acid 1 mg PO DAILY #90 tablet 09/06/19 Gabapentin 300 mg PO TID 09/06/19 Insulin Detemir [Levemir Flextouch] 10 units SQ BID 09/06/19 Lovastatin 20 mg PO BEDTIME 09/06/19 Metformin HCl [Glucophage*] 1,000 mg PO BIDWM 09/06/19 lisinopriL [Lisinopril] 10 mg PO BEDTIME 09/06/19 - Past Medical/Surgical History Diabetic: Yes -: DM -: HTN -: CKD III (Dr. Kessler/ [facility]) -: HLD -: PAD -: DVT (both legs-stent placement April 2018) -: depression -: anxiety -: both legs -stent placement -: right foot-4th/5th toe amputation -: left 1st toe ampuation - Family History Mother Medical History: Hypertension, Diabetes Father Medical History: Heart disease, Hypertension - Social History Smoking Status: Current every day smoker Alcohol use: Yes CD- Drugs: No Caffeine use: No Review of Systems 10-point ROS is otherwise unremarkable Musculoskeletal: Back Pain, Foot Pain Physical Examination Temp Pulse Resp BP Pulse Ox 97.5 F 75 14 118/59 L 97 09/04/24 09:00 09/04/24 09:00 09/04/24 09:00 09/04/24 09:00 09/04/24 09:00 General: In no apparent distress, Oriented x3, Cooperative HEENT: Atraumatic Neck: Supple Respiratory: Clear to auscultation bilaterally, Normal air movement Cardiovascular: No edema, Regular rate/rhythm Gastrointestinal: Soft and benign, Non-distended Musculoskeletal: No clubbing, No contractures Integumentary: No rashes, No cyanosis, Arterial ulcer (Left 2nd & 3rd toe ulcers) Neurological: Normal speech Laboratory Data (last 24 hrs) 09/03/24 09/03/24 09/03/24 23:56 23:56 23:56 WBC 8.60 Hgb 12.2 Hct 37.2 Plt Count 281 PT 12.0 INR 1.07 APTT 30.1 Sodium 135 L Potassium 4.1 BUN 52 H Creatinine 4.97 H Glucose 132 H Total Bilirubin 0.4 AST 79 H ALT 37 Alkaline Phosphatase 113 Imagings Data: [id number] XR Left Foot Complete, 3 Views CLINICAL INDICATION: The patient is 54 years old and is Female; drainage, hx of osteo Bed Name: 20 TECHNIQUE: Frontal, lateral and oblique views of the left foot. COMPARISON: No relevant prior studies available. FINDINGS: BONES/JOINTS: Transverse fracture through the distal aspect of the left 2nd proximal phalanx, with irregularity along the fracture site. Otherwise, no cortical erosive changes to suggest acute osteomyelitis. Presumably remote amputation of the left 1st digit with mild soft tissue swelling demonstrated about the head of the left 1st metatarsal. No definite subcutaneous emphysema or soft tissue defects appreciated. Small plantar calcaneal spur. No periosteal reaction. No radiopaque foreign body. No subluxation or dislocation. SOFT TISSUES: See above. IMPRESSION: 1. Transverse fracture through the distal aspect of the left 2nd proximal phalanx, with irregularity along the fracture site. Otherwise, no cortical erosive changes to suggest acute osteomyelitis. [id number] EXAMINATION:Lower Extremity Arterial Bilat CLINICAL INDICATION: Leg pain. Peripheral arterial disease. TECHNIQUE: Arterial duplex ultrasound was performed of the bilateral lower extremity arteries. With real-time, color-flow, and spectral wave Doppler evaluation..Grayscale, color and spectral analysis performed on all vessels COMPARISON: 2022. FINDINGS: Right common femoral arterial waveform triphasic. Occlusion right proximal and mid superficial femoral artery. Monophasic waveform distal right superficial femoral, popliteal, posterior tibial and dorsalis pedis arteries. Left common femoral arterial waveform monophasic. Occlusion of the proximal, mid and most of the distal left superficial femoral artery. Left popliteal, posterior tibial and dorsalis pedis arterial waveforms monophasic and diminished in amplitude IMPRESSION: Occlusion of proximal and mid right superficial femoral artery with reconstitution distal right superficial femoral artery Occlusion proximal, mid and most of the left superficial femoral artery with reconstitution left popliteal artery Significantly abnormal waveform left common femoral artery may indicate iliac arterial disease. Conclusions/Impression: Stage III JAYESH may be due to hypovolemia CKD III -No NSAIDs -Continue IVF Mild Rhabdomyolysis -Continue IVF Hyponatremia -Continue IVF Hypercalcemia -Continue IVF HTN with CKD -Hold antihypertensives at this time DM II with CKD, Polyneuropathy and Peripheral Angiopathy DM II with foot ulcer -RISS -Continue Gabapentin PAD Left toe ulcers -Wound care as ordered -Continue Lipitor and Plavix Hospitalist and ER notes reviewed Thank you kindly for the consultation
--- NOTE | 2024-09-04 11:26 | P.PN ---
Date of Service: 09/04/24 This is a brief internal medicine note. This is a 54 years old female patient with type 2 diabetes, nondialysis dependent CKD stage IV, peripheral vascular disease status post left toe amputation recently at [facility] who presented to emergency room for worsening pain of the left second and third toe, skeletal x-ray of the left foot shows left second proximal phalanx fracture, no sign of acute osteomyelitis, no leukocytosis, BUN/creatinine elevated at 52/4 point 0.9, no electrolyte imbalance, and blood sugar 132, serum lactate down to 1.1 #1 left second and third pain #2 type 2 diabetes #3 nondialysis dependent CKD stage IV #4 severe peripheral vascular disease status post left toe amputation Most likely due to diabetic peripheral neuropathy and symptomatic ischemic pain secondary to diabetic peripheral neuropathy and severe peripheral vascular disease. Pain control with Dilaudid IV, [place] 5.2 325, started gabapentin, AGR duplex ultrasound of the left lower extremity shows severe occlusive vascular disease, a foot MRI pending, no dialysis indicated at the moment. I will discontinue the empiric antibiotics because there is no sign of acute osteomyelitis clinically. I will hold her insulin, put her on low-dose sliding scale with regular insulin.
[2024-09-04] MEDS: INSULIN REGULAR (HUMAN) 100 UNIT/ML SQ SCH (11:30)
[2024-09-04] MEDS: HYDROCODONE/APAP 5/325 MG TAB PO PRN (13:03)
[2024-09-04 17:44] LABS: Phosphorus 3.2 mg/dL (2.5-4.9)
[2024-09-04] MEDS: GABAPENTIN 100 MG CAP PO SCH (21:00)
[2024-09-04] MEDS: ATORVASTATIN 40 MG TAB PO SCH (21:16)
[2024-09-04] MEDS ORDERED: CEFEPIME 1 GM in NA CHLORIDE 0.9% 100 ML IV SCH (22:00)
[2024-09-05 02:00] VITALS: O2SAT 94
[2024-09-05 06:01] LABS: Absolute Eosinophils 0.2 K/uL (0-0.5); Absolute Lymphocytes (CBC) 2.1 K/uL (0.7-4.9); Absolute Monocytes 0.4 K/uL (0.1-1.3); Absolute Neutrophil 1.8 K/uL (1.8-8.0); Eosinophils % 4.2 % (0-4.4); Hematocrit 31.8 % (36.0-45.0); Hemoglobin 10.3 g/dL (12.0-15.0); Lymphocytes % 47.1 % (15.3-44.8); MCHC 32.4 g/dL (32.0-36.0); MCV 86.3 fL (80-100); MPV 8.9 fL (7.6-11.3); Monocytes % 8.2 % (3.3-12.3); Neutrophils % 39.5 % (41.7-73.7); Nucleated Red Blood Cells % 0.2 % (0-0); Platelets 209 thou/uL (152-406); RBC Red Blood Cell Count 3.68 M/uL (3.86-4.86)
[2024-09-05 06:26] LABS: Anion Gap 8.1 mEq/L (5.0-15.0); Potassium 4.1 mEq/L (3.5-5.1)
[2024-09-05] MEDS: CLOPIDOGREL 75 MG TABLET PO SCH (09:03)
[2024-09-05] MEDS: ASPIRIN EC 81 MG TAB PO SCH (09:03)
[2024-09-05] MEDS: NACHLORIDE 0.45% 1,000 ML IV SCH (09:03)
[2024-09-05 09:06] LABS: Ferritin 23.9 ng/mL (8-252)
[2024-09-05 09:18] LABS: Anion Gap 5.3 mEq/L (5.0-15.0)
[2024-09-05 09:19] LABS: Potassium 4.3 mEq/L (3.5-5.1)
[2024-09-05] MEDS ORDERED: VANCOMYCIN 1.5 GM in NA CHLORIDE 0.9% 500 ML IVPB SCH (10:00)
--- NOTE | 2024-09-05 11:39 | P.PN ---
Subjective Date of Service: 09/05/24 Chief Complaint: Diabetic foot infection Subjective: Improving She said her pain is reasonably controlled with IV and oral analgesics. Complaining of generalized muscle soreness after the fall, denied any history of side effect of atorvastatin. Review of Systems Other: Consitutional; fever(-), chills (-), rigor(-), night sweat(-), unintentional weight loss(-) HEENT; epistaxis (-), otorrhea (-), otalgia (-) Respiratory; shortness of breath (-), wheezing (-), cough (-), sputum (-), pleuritic chest pain (-) Cardiovascular; chest pain (-), peripheral edema (-), paroxysmal nocturnal dyspnea (-), orthopnea (-) Gastrointestinal; nausea (-), vomiting (-), abdominal pain (-), diarrhea (-), constipation (-), melena (-), hematochezia (-) Urinary; urinary frequency (-), dysuria (-), urgency (-), flank pain (-), gross hematuria (-) Skin; rash (-), pruritus (-) Scattered; left toe pain (+) COATER HAND; headache (-), dizziness (-) Physical Examination - Vital Signs Temperature: 98.2 F Blood Pressure: 95/50 Pulse: 73 Respirations: 14 Pulse Ox (%): 97 - Physical Exam Other Physical/Emotional Findings: - Physical Exam. General: Not acutely ill looking, in no apparent distress,. HEENT: Normocephalic, atraumatic,. Neck: Supple, without JVD or goiter or thyroid mass. Respiratory: Normal breathing effort, clear to auscultation bilaterally, no crackles no wheezing or rhonchi. Cardiovascular: Regular rate and rhythm, S1, S2 normal, no murmur no gallop. Gastrointestinal: Normal bowel sounds, nondistended, nontender, No ascites, , No masses, no hepatosplenomegaly. Musculoskeletal: No clubbing, No peripheral edema. Integumentary: No rashes. Lymphatics: No axilla or cervical lymphadenopathy. Neurology; alert awake oriented x3, no focal neurologic deficit. Extremity; status post left toe amputation, nonpalpable dorsalis pedis bilaterally, less than 1 cm in diameter, dry and dark eschar on the plantar side of second and third toe - Studies His BUN/creatinine down to 29/1.6, CPK elevated at 1241 Microbiology Data (last 24 hrs): 09/03/24 23:59 Blood - Blood Anaerobic Blood Culture - Final Assessment And Plan - Plan This is a 54 years old female patient with type 2 diabetes, nondialysis dependent CKD stage IV, peripheral vascular disease status post left toe amputation recently at [facility] who presented to emergency room for worsening pain of the left second and third toe, skeletal x-ray of the left foot shows left second proximal phalanx fracture, no sign of acute osteomyelitis, no leukocytosis, BUN/creatinine elevated at 52/4 point 0.9, no electrolyte imbalance, and blood sugar 132, serum lactate down to 1.1 #1 chronic eschar of left second and third toe rule out chronic osteomyelitis #2 type 2 diabetes #3 JAYESH on nondialysis dependent CKD unknown stage associated with #4 #4 mild rhabdomyolysis #5 severe peripheral vascular disease status post left toe amputation Most likely due to diabetic peripheral neuropathy and symptomatic ischemic pain secondary to diabetic peripheral neuropathy and severe peripheral vascular disease. Pain controlled with Dilaudid IV, [place] 5.2 325, gabapentin, arterial duplex ultrasound of the left lower extremity shows severe occlusive vascular disease, a foot MRI pending, Renal function improving with IV hydration, nephrology on board, statin on hold, Zetia started. I will discontinue the empiric antibiotics because there is no sign of acute osteomyelitis clinically. Good glycemic control on low-dose sliding scale with regular insulin. Hemoglobin A1c pending, she can follow-up with her own podiatry as outpatient after MRI of the foot. A follow-up BMP and CPK ordered tomorrow morning.
--- NOTE | 2024-09-05 12:42 | EKG ---
Test Date: 2024-09-04 Test Time: 00:08:41 Travel Journalist: AF MEASUREMENT RESULTS: Intervals: Rate: 89 ID: [id number] QRSD: 90 QT: 380 QTc: 462 [place]: P: 45 ID: [id number] QRS: 88 T: 58 INTERPRETIVE STATEMENTS: Normal sinus rhythm ST elevation, probably due to early repolarization Borderline ECG Compared to ECG 08/12/2024 22:35:03 ST (T wave) deviation now present Electronically Signed On 09-05-24 12:39:14 [employer] by Chidi Pereira
[2024-09-05] MEDS: EZETIMIBE 10 MG TAB PO SCH (20:34)
[2024-09-06] MEDS ORDERED: VANCOMYCIN 1.5 GM in NA CHLORIDE 0.9% 500 ML IVPB SCH
[2024-09-06 05:06] LABS: Anion Gap 6.9 mEq/L (5.0-15.0); Potassium 3.9 mEq/L (3.5-5.1)
[2024-09-06] MEDS: PANTOPRAZOLE 40MG TABLET PO SCH (08:49)
[2024-09-06 10:52] LABS: Absolute Eosinophils 0.3 K/uL (0-0.5); Absolute Lymphocytes (CBC) 2.2 K/uL (0.7-4.9); Absolute Monocytes 0.4 K/uL (0.1-1.3); Absolute Neutrophil 2.2 K/uL (1.8-8.0); Basophils % 0.9 % (0-1.3); Eosinophils % 5.8 % (0-4.4); Hematocrit 31.6 % (36.0-45.0); Hemoglobin 10.2 g/dL (12.0-15.0); Lymphocytes % 43.5 % (15.3-44.8); MCH 27.5 pg (27.0-35.0); MCHC 32.3 g/dL (32.0-36.0); MPV 8.4 fL (7.6-11.3); Monocytes % 8.1 % (3.3-12.3); Neutrophils % 41.7 % (41.7-73.7); Nucleated Red Blood Cells % 0.1 % (0-0); Platelets 221 thou/uL (152-406); RBC Red Blood Cell Count 3.71 M/uL (3.86-4.86); Red Cell Distribution Width 17.7 % (12.1-15.2)
[2024-09-06 11:18] LABS: Anion Gap 7.7 mEq/L (5.0-15.0); Potassium 3.7 mEq/L (3.5-5.1)
[2024-09-06 12:52] VITALS: BP 139/69; TEMP 97.4
--- NOTE | 2024-09-06 14:40 | RAD REPORT ---
EXAM: Foot Left Wo Cont HISTORY: R/O osteomyelitis COMPARISON: 09/04/2024 radiograph TECHNIQUE: Multiplanar multisequence MR images were obtained of the imaged foot without contrast. FINDINGS: Partial amputation of the great toe at the level of the MTP joint. Probably subacute or chronic fract ure at the second proximal phalanx. No fluid collections are identified. No abnormal marrow signal to suggest osteomyelitis. Mild edema present at the second metatarsal head likely due to underlying d egenerative changes. The muscles and tendons appear intact. IMPRESSION: No significant marrow signal abnormality to suggest osteomyelitis.
--- NOTE | 2024-09-06 19:21 | P.DS ---
Admission Date: 09/04/24 Discharge Date: 09/06/24 Disposition: ROUTINE DISCHARGE Discharge Condition: GOOD Reason for Admission: Diabetic foot infection Brief History of Present Illness: 54-year-old female with insulin-dependent diabetes mellitus, chronic kidney disease and peripheral vascular disease. She was treated at the beginning of this year with left big toe amputation. She believes this was done in [place] but does not remember the name of the hospital. She has done well postoperatively until recently. She now has discharge and pain out of the 2nd toe. She also noted significant discoloration with a violaceous/necrotic stone. She arrived in the ER for evaluation. Patient has elevated lactic acid and CRP. Left foot x-ray revealed fracture of the second phalanx. She is also been found to have worsening renal insufficiency. General: In no apparent distress, Oriented x3, Cooperative HEENT: Atraumatic Neck: Supple Respiratory: Clear to auscultation bilaterally, Normal air movement Cardiovascular: No edema, Regular rate/rhythm Gastrointestinal: Soft and benign, Non-distended Musculoskeletal: No clubbing, No contractures Integumentary: No rashes, No cyanosis, left lower extremity great toe am putation, incision healed, Neurological: Normal speech Hospital Course: 54-year-old female with insulin-dependent diabetes mellitus, chronic kidney disease and peripheral vascular disease. She was treated at the beginning of this year with left big toe amputation. She has done well postoperatively until recently. She presented with discharge and pain out of the 2nd toe. She had elevated lactic acid and CRP. Left foot x-ray revealed fracture of the second phalanx. She is also been found to have worsening renal insufficiency. she was admitted, treated with IV Antibiotics, vancomycin IV. Treated with as needed analgesics, hydrocodone, Plavix, Neurontin for pain. Follow-up with PCP after discharge, follow-up with Dr. Rapp after discharge for amputation of the left great toe, Discharge medication Bactrim 1 p.o. daily for 7 day Hydrocodone 1 every 6 hours as needed for Resume other appropriate home medication -Instructed patient to use walker after discharge to home, she reported falls related to not using rolling walker at home MRI of the foot IMPRESSION: No significant marrow signal abnormality to suggest osteomyelitis. Left foot x-ray IMPRESSION: 1. Transverse fracture through the distal aspect of the left 2nd proximal phalanx, with irregularity along the fracture site. Otherwise, no cortical erosive changes to suggest acute osteomyelitis. Doppler ultrasound left lower extremity IMPRESSION: Occlusion of proximal and mid right superficial femoral artery with reconstitution distal right superficial femoral artery Occlusion proximal, mid and most of the left superficial femoral artery with reconstitution left popliteal arterySignificantly abnormal waveform left common femoral artery may indicate iliac arterial disease. Assessment chronic eschar of left second and third toe rule out chronic osteomyelitis-MRI suggests no osteomyelitis, discharged home on Bactrim follow-up with Dr. Rapp after discharge type 2 diabetes-resume appropriate home antihyperglycemic JAYESH on nondialysis dependent CKD unknown [id number] with nephrology after discharge Fall prior to arrival, mild rhabdomyolysis-improved with IV fluid severe peripheral vascular disease status post left toe [id number] with vascular disease after discharge-currently on Eliquis, Plavix Continue home medicines as previously prescribed GOAL: Clear understanding of disease process INSTRUCTIONS: Physician Discharge Instructions: -Follow-up with Dr. Rapp after discharge -Follow-up with vascular after discharge Dr Pate -Follow-up with PCP in 1 to 2 weeks -Please call Dr. Rojas at [phone] if any questions regarding hospital stay -Please call nursing station at [phone] if any nursing or medication questions -Return to the emergency room if symptoms worsen Diet: ADA, low sodium Activity: Fall precautions Vital Signs/Physical Exam: Temp Pulse Resp BP Pulse Ox 97.4 F 76 18 139/69 98 09/06/24 12:00 09/06/24 12:00 09/06/24 12:00 09/06/24 12:00 09/06/24 12:00 Other Physical/Emotional Findings: - Physical Exam. General: Not acutely ill looking, in no apparent distress,. HEENT: Normocephalic, atraumatic,. Neck: Supple, without JVD or goiter or thyroid mass. Respiratory: Normal breathing effort, clear to auscultation bilaterally, no crackles no wheezing or rhonchi. Cardiovascular: Regular rate and rhythm, S1, S2 normal, no murmur no gallop. Ga strointestinal: Normal bowel sounds, nondistended, nontender, No ascites, , No masses, no hepatosplenomegaly. Musculoskeletal: No clubbing, No peripheral edema. Integumentary: No rashes. Lymphatics: No axilla or cervical lymphadenopathy. Neurology; alert awake oriented x3, no focal neurologic deficit. Extremity; status post left toe amputation, nonpalpable dorsalis pedis bilaterally, less than 1 cm in diameter, dry and dark eschar on the plantar side of second and third toe Laboratory Data at Discharge: WBC 5.20 thou/uL (4.3-10.9) 09/06/24 10:38 Hgb 10.2 g/dL (12.0-15.0) L 09/06/24 10:38 Hct 31.6 % (36.0-45.0) L 09/06/24 10:38 Plt Count 221 thou/uL (152-406) 09/06/24 10:38 PT 12.0 SECONDS (9.4-12.5) 09/03/24 23:56 INR 1.07 09/03/24 23:56 APTT 30.1 SECONDS (24.3-36.9) 09/03/24 23:56 Sodium 143 mEq/L (136-145) 09/06/24 10:38 Potassium 3.7 mEq/L (3.5-5.1) 09/06/24 10:38 BUN 20 mg/dL (7-18) H 09/06/24 10:38 Creatinine 0.99 mg/dL (0.55-1.02) 09/06/24 10:38 Glucose 118 mg/dL (74-106) H 09/06/24 10:38 Phosphorus 3.2 mg/dL (2.5-4.9) 09/04/24 16:56 Magnesium 2.0 mg/dL (1.6-2.4) 09/04/24 16:56 Total Bilirubin 0.4 mg/dL (0.2-1.0) 09/03/24 23:56 AST 79 U/L (15-37) H 09/03/24 23:56 ALT 37 U/L (13-56) 09/03/24 23:56 Alkaline Phosphatase 113 U/L (45-117) 09/03/24 23:56 Triglycerides 126 mg/dL (<150) 09/05/24 05:33 Cholesterol 128 mg/dL (<200) 09/05/24 05:33 HDL Cholesterol 40 mg/dL (40-60) 09/05/24 05:33 Cholesterol/HDL Ratio 3.20 09/05/24 05:33 Home Medications: Clopidogrel Bisulfate [Plavix*] 75 mg PO DAILY 09/06/19 Lovastatin 20 mg PO BEDTIME 09/06/19 Amlodipine [Norvasc*] 5 mg PO DAILY 09/05/24 Apixaban [Eliquis *] 2.5 mg PO BID 09/05/24 Atorvastatin Calcium 40 mg PO BEDTIME 09/05/24 Escitalopram [Lexapro*] 20 mg PO DAILY 09/05/24 Mirtazapine 30 mg PO DAILY 09/05/24 Pregabalin 300 mg PO BID 09/05/24 Semaglutide [Ozempic] 2 mg SQ SEECOM 09/05/24 Hydrocodone 5/APAP 325 [[place] 5/325] 1 tab PO Q6H PRN #20 tab 09/06/24 Sulfamethoxazole/Trimethoprim [Bactrim 400-80 mg Tablet] 1 each PO DAILY #7 tab 09/06/24 New Medications: Sulfamethoxazole/Trimethoprim [Bactrim 400-80 mg Tablet] 1 each PO DAILY #7 tab Hydrocodone 5/APAP 325 [[place] 5/325] 1 tab PO Q6H PRN #20 tab PRN Reason: Pain Physician Discharge Instructions: -DC IV and DC home -Follow-up with PCP in 1 to 2 weeks -Follow-up with Podiatry in 1 to 2 weeks -Please call Dr. Rojas at [phone] if any questions regarding hospital stay -Please call nursing station at [phone] if any nursing or medication questions -Return to the emergency room if symptoms worsen Diet: AHA Activity: Fall precautions Followup: Judah Kessler DO [Primary Care Provider] - 1-2 Weeks Jose Rapp JR, DPM [ASSOCIATE-ACTIVE - CAN ADMIT] - 1-2 Weeks Graciela Pate MD [ACTIVE - CAN ADMIT] - Time spent managing pt's care (in minutes): 45
--- NOTE | 2024-09-06 20:40 | P.PN ---
Date of Service: 09/06/24 Vital Signs Temp Pulse Resp BP Pulse Ox 97.4 F 76 18 139/69 98 09/06/24 12:00 09/06/24 12:00 09/06/24 12:00 09/06/24 12:00 09/06/24 12:00 Lab Results (last 24 hrs) 09/03/24 23:59: Hemoglobin A1c 6.0 Microbiology Results 09/03/24 23:40 Blood - Blood Aerobic Blood Culture - Preliminary 09/03/24 23:40 Blood - Blood Blood Culture Gram Stain - Preliminary 09/03/24 23:40 Blood - Blood Anaerobic Blood Culture - Preliminary No growth in 24 hours. 09/03/24 23:59 Blood - Blood Aerobic Blood Culture - Preliminary No growth in 24 hours. 09/03/24 23:59 Blood - Blood Anaerobic Blood Culture - Final Assessment/ Plan: Nephrology No dyspnea No chest pain No acute events overnight Vitals, medications, blood work and imaging reviewed in the chart General: In no apparent distress, Oriented x3, Cooperative HEENT: Atraumatic Neck: Supple Respiratory: Clear to auscultation bilaterally, Normal air movement Cardiovascular: No edema, Regular rate/rhythm Gastrointestinal: Soft and benign, Non-distended Musculoskeletal: No clubbing, No contractures Integumentary: No rashes, No cyanosis, Arterial ulcer (Left 2nd & 3rd toe ulcers) Neurological: Normal speech Laboratory Data (last 24 hrs) 09/03/24 09/03/24 09/03/24 23:56 23:56 23:56 WBC 8.60 Hgb 12.2 Hct 37.2 Plt Count 281 PT 12.0 INR 1.07 APTT 30.1 Sodium 135 L Potassium 4.1 BUN 52 H Creatinine 4.97 H Glucose 132 H Total Bilirubin 0.4 AST 79 H ALT 37 Alkaline Phosphatase 113 Imagings Data: [id number] XR Left Foot Complete, 3 Views CLINICAL INDICATION: The patient is 54 years old and is Female; drainage, hx of osteo Bed Name: 20 TECHNIQUE: Frontal, lateral and oblique views of the left foot. COMPARISON: No relevant prior studies available. FINDINGS: BONES/JOINTS: Transverse fracture through the distal aspect of the left 2nd proximal phalanx, with irregularity along the fracture site. Otherwise, no cortical erosive changes to suggest acute osteomyelitis. Presumably remote amputation of the left 1st digit with mild soft tissue swelling demonstrated about the head of the left 1st metatarsal. No definite subcutaneous emphysema or soft tissue defects appreciated. Small plantar calcaneal spur. No periosteal reaction. No radiopaque foreign body. No subluxation or dislocation. SOFT TISSUES: See above. IMPRESSION: 1. Transverse fracture through the distal aspect of the left 2nd proximal phalanx, with irregularity along the fracture site. Otherwise, no cortical erosive changes to suggest acute osteomyelitis. [id number] EXAMINATION:Lower Extremity Arterial Bilat CLINICAL INDICATION: Leg pain. Peripheral arterial disease. TECHNIQUE: Arterial duplex ultrasound was performed of the bilateral lower extremity arteries. With real-time, color-flow, and spectral wave Doppler evaluation..Grayscale, color and spectral analysis performed on all vessels COMPARISON: 2022. FINDINGS: Right common femoral arterial waveform triphasic. Occlusion right proximal and mid superficial femoral artery. Monophasic waveform distal right superficial femoral, popliteal, posterior tibial and dorsalis pedis arteries. Left common femoral arterial waveform monophasic. Occlusion of the proximal, mid and most of the distal left superficial femoral artery. Left popliteal, posterior tibial and dorsalis pedis arterial waveforms monophasic and diminished in amplitude IMPRESSION: Occlusion of proximal and mid right superficial femoral artery with reconstitution distal right superficial femoral artery Occlusion proximal, mid and most of the left superficial femoral artery with reconstitution left popliteal artery Significantly abnormal waveform left common femoral artery may indicate iliac arterial disease. Conclusions/Impression: Stage III JAYESH may be due to hypovolemia CKD III -No NSAIDs -Continue IVF Mild Rhabdomyolysis -Continue IVF Hyponatremia -Continue IVF Hypercalcemia -Continue IVF HTN with CKD -Hold antihypertensives at this time DM II with CKD, Polyneuropathy and Peripheral Angiopathy DM II with foot ulcer -RISS -Continue Gabapentin PAD Left toe ulcers -Wound care as ordered -Continue Lipitor and Plavix -MRI reviewed; no osteomyelitis Hospitalist note reviewed
== END 2024-09-06 15:43 | disposition home or self-care (01) | DRG 300 ==
LOC: ER 23:23 → ERHOLD 09-04 03:28 → 2ND 09-04 07:52
PROVIDERS: ADMIT Internal Medicine; ATTEND Hospitalist
DX: E11.51 Type 2 diabetes mellitus with diabetic peripheral angiopathy without gangrene (principal); E87.1 Hypo-osmolality and hyponatremia; N17.9 Acute kidney failure, unspecified; M62.82 Rhabdomyolysis; N18.4 Chronic kidney disease, stage 4 (severe); S92.912A Unspecified fracture of left toe(s), initial encounter for closed fracture; I12.9 Hypertensive chronic kidney disease with stage 1 through stage 4 chronic kidney disease, or unspecified chronic kidney disease; E11.22 Type 2 diabetes mellitus with diabetic chronic kidney disease; E11.42 Type 2 diabetes mellitus with diabetic polyneuropathy; E11.621 Type 2 diabetes mellitus with foot ulcer; L97.529 Non-pressure chronic ulcer of other part of left foot with unspecified severity; G89.29 Other chronic pain; E83.52 Hypercalcemia; G25.81 Restless legs syndrome; E78.5 Hyperlipidemia, unspecified; F32.A Depression, unspecified; F17.210 Nicotine dependence, cigarettes, uncomplicated; Z79.4 Long term (current) use of insulin; Z79.01 Long term (current) use of anticoagulants; Z79.82 Long term (current) use of aspirin; Z79.84 Long term (current) use of oral hypoglycemic drugs; Z89.412 Acquired absence of left great toe; Z79.899 Other long term (current) drug therapy; Z89.421 Acquired absence of other right toe(s); Z86.718 Personal history of other venous thrombosis and embolism
CPT/HCPCS: 36415; 80048; 80053; 80061; 82550; 82728; 82947; 83036; 83540; 83605; 83735; 84100; 84466; 85025; 85610; 85730; 86140; 87040; 87205; 93005; 93925; 97116; 97161; 99285; J0692; J1171; J1644; J2405; J2470; J7030; J7040; J7050